=== PATIENT | male | born 1990 | race Caucasian/White ===

== ENCOUNTER 2022-12-23 21:25 | Inpatient (IN) | payer BC, SELFPAY ==
--- NOTE | ~2022-12-23 | US_ITS ---
EXAMINATION: ULTRASOUND LOWER EXTREMITY ARTERIAL, LEFT COLOR-FLOW DUPLEX IMAGING OF THE LEFT LOWER EXTREMITY ARTERIAL SYSTEM. VELOCITY MEASUREMENTS THROUGHOUT THE FEMORAL ARTERIES. CLINICAL INFORMATION: Cold numbness evaluate for arterial thrombus COMPARISON: None. FINDINGS: LEFT FEMORAL RUNOFF VELOCITIES: The left common femoral artery measures 81cm/s and is triphasic. The left profunda femoral artery measures 74cm/s and is triphasic. Left proximal superficial femoral artery measures 73 cm/s and is triphasic. Mid superficial femoral artery measures 77cm/s and is triphasic. Distal left superficial femoral artery [id number] and is triphasic. Left popliteal velocity measures 52cm/s and is triphasic. Posterior tibial velocity is 71cm/s and flow is triphasic. Peroneal velocity is 29 cm/s and flow is triphasic. Contralateral common femoral artery is patent. Left CHULA: Not obtained US/US arterial duplex LE IMPRESSION: Patency of all visualized vasculature of the left lower extremity with triphasic waveforms throughout.
--- NOTE | ~2022-12-23 | XR_ITS ---
EXAMINATION: XR CHEST CLINICAL INFORMATION: Concern for pneumonia. COMPARISON: 04/15/2009. TECHNIQUE: Frontal view of the chest was obtained. FINDINGS: The cardiomediastinal silhouette is normal. There is no focal lung consolidation or pleural effusion. The bony structures and soft tissues are unremarkable. XR/XR chest 1V IMPRESSION: No active cardiopulmonary disease.
--- NOTE | ~2022-12-23 | CT_ITS ---
EXAMINATION: CT FEMUR LT WITH IV CONTRAST CLINICAL INFORMATION: Trauma. COMPARISON: None available. TECHNIQUE: Contiguous axial noncontrast CT scan images of the left femur obtained. Sagittal and coronal reformatted images also obtained. 85 mL of Omnipaque 350 used as contrast. This CT examination was performed using dose optimization techniques as appropriate, variously including the following: *Automated exposure control *Adjustment of mA and/or kV according to patient size (this includes techniques or standardized protocols for targeted exams where dose is matched to indication/reason for exam; i.e. extremities or head) *Use of iterative reconstruction technique DLP: 408 mGy-cm FINDINGS: The bone mineralization is within normal limits. There is no fracture. The vascular structures are within normal limits. There is a heterogeneous collection along the lower anterior medial quadriceps covering an area approximately 8.5 x 4.[address]/CT femur LT w IV con IMPRESSION: No acute osseous abnormality. There is a low-density collection along the lower anterior medial quadriceps measuring 8.4 x 4.3 x 3.4 cm possibly related to a muscular injury with hemorrhage.
--- NOTE | 2022-12-23 21:30 | ECG_ITS ---
Test Reason : od Blood Pressure : / mmHG Vent. Rate : 071 BPM Atrial Rate : 071 BPM P-R Int : 164 ms QRS Dur : 074 ms QT Int : 436 ms P-R-T Axes : 078 087 077 degrees QTc Int : 473 ms Normal sinus rhythm with sinus arrhythmia Nonspecific ST abnormality Abnormal ECG When compared with ECG of 15-APR-2009 01:22, No significant changes seen Referred By: Sarthak Jama Electronically Signed By:Salomon Seals
[2022-12-23 21:32] VITALS: BMI 19.4
[2022-12-23 21:44] VITALS: BP 110/76; PULSE 76; RESP 12; TEMP 34.1; O2SAT 95
[2022-12-23 21:44] LABS: MANUAL DIFF FLAG NO
[2022-12-23 21:45] LABS: Basophils Percent Auto 0.3 % (0-2); Hematocrit 25.7 % (42.0-52.0); Hemoglobin 8.4 g/dl (14.0-18.0); Imm Gran Abs Auto 0.06 X10*3/uL (0.00-0.03); Imm Gran Pct Auto 0.5 % (0.0-0.4); Lymphocytes Absolute Auto 0.7 X10*3/uL (1.2-4.9); Mean Corpuscular HGB Conc 32.7 g/dl (31.0-36.0); Mean Corpuscular Hemoglobin 31.6 pg (27.0-33.0); Mean Corpuscular Volume 96.6 fL (80.0-98.0); Mean Platelet Volume 9.2 fL (9.4-12.4); Monocytes Absolute Auto 0.5 X10*3/uL (0.1-1.2); Monocytes Percent Auto 4.2 % (2-11); Neutrophils Absolute Auto 10.3 x10*3/uL (2.0-8.3); Platelet Count 190 X10*3/uL (160-400); Red Blood Count 2.66 X10*6/uL (4.60-5.80); White Blood Count 11.5 X10*3/uL (4.8-10.8)
--- NOTE | 2022-12-23 21:56 | PC.NURSE ---
pt temp 93.3 rectally. MD mike aware. This RN and BEE Romeo placed patient on bearhugger to increase temp. Pt is apologetic and very cooperative with staff at this time
[2022-12-23 22:07] LABS: Anion Gap 21 (12-20); Blood Urea Nitrogen 36 mg/dL (9-16); Calcium 9.4 mg/dL (8.4-10.2); Carbon Dioxide 31 mmol/L (22-29); Chloride 95 mmol/L (96-108); Creatinine Clr Calc Pharmacy 67.9; Estimated Glomerular Filt Rate 59; Glucose Random 228 mg/dL (60-115); Potassium 3.1 mmol/L (3.3-5.1); Sodium 144 mmol/L (135-145)
--- NOTE | 2022-12-23 22:13 | MHC.EDTECH ---
Patients belongings were taken by security and stored in [facility] due to OD.
[2022-12-23 22:36] LABS: Lactic Acid 4.9 mmol/L (0.5-2.0)
--- NOTE | 2022-12-23 22:43 | ED.OVERDOSE ---
HPI - Overdose General Chief Complaint: Overdose Stated Complaint: OD Time Seen by Provider: 12/23/22 21:47 Source: patient Mode of arrival: ambulatory Limitations: no limitations History of Present Illness HPI Narrative: Patient With history of substance abuse use IV oxycodone in the past but today used heroin for the 1st time usually shoot in feet, feeling sleepy since he arrived with saturation of 95% on room air blood pressure 110/76 pulse rate 76 rectal temperature 93.3 degrees Related Data Home Medications Medication Instructions Recorded Confirmed hydroxyzine HCl 50 mg tablet 50 mg PO BEDTIME 12/24/22 12/24/22 trazodone 50 mg tablet 100 mg PO BEDTIME 12/24/22 12/24/22 Allergies Allergy/AdvReac Type Severity Reaction Status Date / Time No Known Allergies Allergy Verified 12/23/22 22:38 Review of Systems Review of Systems: Yes all other systems are reviewed and are negative [facility] Social History Social History Alcohol intake: current Smoked in Last 30 Days: Yes Use of substances other than those prescribed or required for medical reasons: Yes Substance Use Type: Heroin Substance Use Frequency: Occasionally Last Used Substance: Just Prior to Admission Advance Directives: No Advance Directives Information Provided: No Physical Exam Vital Signs: Vital Signs: Last Vital Signs Temp 98.2 F 12/24/22 00:00 Pulse 86 12/24/22 00:00 Resp 12 12/24/22 00:00 BP 104/72 12/24/22 00:00 Pulse Ox 98 12/24/22 00:00 O2 Del Method Room Air 12/24/22 00:00 BMI result Body Mass Index 19.4 Appearance: Alert. Oriented X3. No acute distress. Eyes: Bilateral pupil 2 mm reacting to light No Nystagmus ENT: Pharynx normal. Oral Mucosa moist Neck: Normal inspection. Neck supple. CVS: Normal heart rate and rhythm. Pulses normal. Respiratory: No respiratory distress. Equal air entry bilateral, no wheezing/rales/rhonchi Abdomen: Soft and nontender. Bowel sounds are present, no mass palpable, no CVA tenderness Skin: Skin warm and dry. Normal skin color. Normal skin turgor. Extremities: No lower extremity edema. No calf tenderness IBD a jac on left foot no signs of infection Neuro: Oriented X 3. No motor deficit. No sensory deficit.No cerebellar signs , cranial nerves II-XII intact Medications Administered Discontinued Medications Generic Name Dose Route Start Last Admin Trade Name Terrance PRN Reason Stop Dose Admin Ceftriaxone Sodium 1 gm/ 50 mls @ 100 mls/hr 12/23/22 22:39 12/23/22 23:51 Sodium Chloride IV 12/23/22 23:08 Infused ONCE ONE Infusion Vancomycin HCl 1,500 mg/ 500 mls @ 333.333 mls/hr 12/23/22 22:45 12/24/22 01:37 Sodium Chloride IV 12/24/22 00:14 Infused ONCE ONE Infusion Potassium Chloride 10 meq in 100 mls @ 100 mls/hr 12/23/22 22:54 12/23/22 23:52 Potassium Chloride/H20 IV 12/23/22 23:53 Infused ONCE ONE Infusion Sodium Chloride 2,000 mls @ 2,000 mls/hr 12/23/22 22:54 12/24/22 00:06 Ns IV 12/23/22 23:53 Infused .Q1H STA Infusion Medical Decision Making Medical Decision Making [facility] Narrative: Patient with abnormal labs with the care IV high-grade goes of 228 with lactic acid level of 4.9, POC was only 98 will recheck chemistry 3 mg showed POC of 72 with lactic acid of 2.4. Patient complaining of pain in the left rectus femoris area with slight swelling says that he was in the van in awkward position for last 4 hours. No swelling of the calf area complaining of tingling in whole foot. Neurovascular intact no hyperesthesia clinically patient not in compartment syndrome likely muscular pain from rhabdomyolysis. Will recheck CPK Dr. Jeronimo will re-evaluate the patient Differential Diagnosis Differential Diagnoses: The differential diagnosis associated with the presentation includes Bacteremia/sepsis prior IVDA use/rhabdomyolysis/compartment syndrome Consult Healthcare Provider Management of the patient was discussed with: Hospitalist Lab Data [facility] Lab Attestation statement: I reviewed the patient's lab results. 12/23/22 21:40 12/23/22 21:40 Labs: Lab Results 12/23/22 12/23/22 12/23/22 Range/Units 21:40 21:40 21:40 WBC 11.5 H (4.8-10.8) X10*3/uL RBC 2.66 L (4.60-5.80) X10*6/uL Hgb 8.4 L (14.0-18.0) g/dl Hct 25.7 L (42.0-52.0) % MCV 96.6 (80.0-98.0) fL MCH 31.6 (27.0-33.0) pg MCHC 32.7 (31.0-36.0) g/dl RDW 12.0 (11.0-16.0) % Plt Count 190 (160-400) X10*3/uL MPV 9.2 L (9.4-12.4) fL Immature Gran % (Auto) 0.5 H (0.0-0.4) % Neut % (Auto) 89.0 H (45-73) % Lymph % (Auto) 6.0 L (20-40) % [place] % (Auto) 4.2 (2-11) % Eos % (Auto) 0.0 (0-4) % Baso % (Auto) 0.3 (0-2) % Lymph # (Auto) 0.7 L (1.2-4.9) X10*3/uL [place] # (Auto) 0.5 (0.1-1.2) X10*3/uL Eos # (Auto) 0.0 (0.0-0.4) X10*3/uL Baso # (Auto) 0.0 (0.0-0.2) X10*3/uL Abs Immat Gran (auto) 0.06 H (0.00-0.03) X10*3/uL Absolute Neuts (auto) 10.3 H (2.0-8.3) x10*3/uL Absolute Nucleated RBC 0.000 (0.0-0.012) X10*3/uL Nucleated RBC % (auto) 0.0 (0.0-0.2) /100WBC Sodium 144 (135-145) mmol/L Potassium 3.1 L (3.3-5.1) mmol/L Chloride 95 L (96-108) mmol/L Carbon Dioxide 31 H (22-29) mmol/L Anion Gap 21 H (12-20) BUN 36 H (9-16) mg/dL Creatinine 1.42 H (0.5-1.4) mg/dL Estim Creat Clear Calc 67.9 Estimated GFR 59 POC Glucose (60-115) mg/dL Random Glucose 228 H (60-115) mg/dL Lactic Acid (0.5-2.0) mmol/L Calcium 9.4 (8.4-10.2) mg/dL Total Creatine Kinase 956 H (38-174) U/L Troponin I High Sens 4.0 (<3.5-35.0) ng/L COVID-19 ([facility]) (Negative) COVID-19 Clin Com 12/23/22 12/23/22 12/23/22 Range/Units 21:40 23:00 23:11 WBC 14.0 H (4.8-10.8) X10*3/uL RBC 4.14 L D (4.60-5.80) X10*6/uL Hgb 12.8 L D (14.0-18.0) g/dl Hct 38.3 L D (42.0-52.0) % MCV 92.5 (80.0-98.0) fL MCH 30.9 (27.0-33.0) pg MCHC 33.4 (31.0-36.0) g/dl RDW 12.0 (11.0-16.0) % Plt Count 245 D (160-400) X10*3/uL MPV 8.6 L (9.4-12.4) fL Immature Gran % (Auto) 0.4 (0.0-0.4) % Neut % (Auto) 86.6 H (45-73) % Lymph % (Auto) 6.2 L (20-40) % [place] % (Auto) 6.7 (2-11) % Eos % (Auto) 0.0 (0-4) % Baso % (Auto) 0.1 (0-2) % Lymph # (Auto) 0.9 L (1.2-4.9) X10*3/uL [place] # (Auto) 0.9 (0.1-1.2) X10*3/uL Eos # (Auto) 0.0 (0.0-0.4) X10*3/uL Baso # (Auto) 0.0 (0.0-0.2) X10*3/uL Abs Immat Gran (auto) 0.06 H (0.00-0.03) X10*3/uL Absolute Neuts (auto) 12.1 H (2.0-8.3) x10*3/uL Absolute Nucleated RBC 0.000 (0.0-0.012) X10*3/uL Nucleated RBC % (auto) 0.0 (0.0-0.2) /100WBC Sodium (135-145) mmol/L Potassium (3.3-5.1) mmol/L Chloride (96-108) mmol/L Carbon Dioxide (22-29) mmol/L Anion Gap (12-20) BUN (9-16) mg/dL Creatinine (0.5-1.4) mg/dL Estim Creat Clear Calc Estimated GFR POC Glucose 98 (60-115) mg/dL Random Glucose (60-115) mg/dL Lactic Acid 4.9 H* (0.5-2.0) mmol/L Calcium (8.4-10.2) mg/dL Total Creatine Kinase (38-174) U/L Troponin I High Sens (<3.5-35.0) ng/L COVID-19 ([facility]) (Negative) COVID-19 Clin Com 12/23/22 12/23/22 12/24/22 Range/Units 23:11 23:11 00:45 WBC (4.8-10.8) X10*3/uL RBC (4.60-5.80) X10*6/uL Hgb (14.0-18.0) g/dl Hct (42.0-52.0) % MCV (80.0-98.0) fL MCH (27.0-33.0) pg MCHC (31.0-36.0) g/dl RDW (11.0-16.0) % Plt Count (160-400) X10*3/uL MPV (9.4-12.4) fL Immature Gran % (Auto) (0.0-0.4) % Neut % (Auto) (45-73) % Lymph % (Auto) (20-40) % [place] % (Auto) (2-11) % Eos % (Auto) (0-4) % Baso % (Auto) (0-2) % Lymph # (Auto) (1.2-4.9) X10*3/uL [place] # (Auto) (0.1-1.2) X10*3/uL Eos # (Auto) (0.0-0.4) X10*3/uL Baso # (Auto) (0.0-0.2) X10*3/uL Abs Immat Gran (auto) (0.00-0.03) X10*3/uL Absolute Neuts (auto) (2.0-8.3) x10*3/uL Absolute Nucleated RBC (0.0-0.012) X10*3/uL Nucleated RBC % (auto) (0.0-0.2) /100WBC Sodium 147 H (135-145) mmol/L Potassium 3.6 (3.3-5.1) mmol/L Chloride 96 (96-108) mmol/L Carbon Dioxide 38 H (22-29) mmol/L Anion Gap 17 (12-20) BUN 37 H (9-16) mg/dL Creatinine 1.23 (0.5-1.4) mg/dL Estim Creat Clear Calc 78.5 Estimated GFR > 60 POC Glucose (60-115) mg/dL Random Glucose 72 (60-115) mg/dL Lactic Acid 2.4 H* (0.5-2.0) mmol/L Calcium 9.3 (8.4-10.2) mg/dL Total Creatine Kinase (38-174) U/L Troponin I High Sens (<3.5-35.0) ng/L COVID-19 ([facility]) Negative (Negative) COVID-19 Clin Com See Note Discharge Plan Discharge Clinical Impression: Drug overdose, Acute renal failure due to rhabdomyolysis Patient Disposition: Admitted As Inpatient
[2022-12-23 22:59] VITALS: BP 107/68; PULSE 88; RESP 16; TEMP 36.2; O2SAT 99
[2022-12-23] MEDS: Potassium Chloride/H20 10 MEQ/100 ML PIGGYBACK 100 MEQ IV (23:17)
[2022-12-23] MEDS: cefTRIAXone sodium 1 GM in 0.9 % Sodium Chloride 50 ML IV (23:17)
[2022-12-23 23:18] LABS: MANUAL DIFF FLAG NO
[2022-12-23] MEDS: 0.9 % Sodium Chloride 2,000 ML 2000 ML IV (23:18)
[2022-12-23 23:19] LABS: Basophils Percent Auto 0.1 % (0-2); Hematocrit 38.3 % (42.0-52.0); Hemoglobin 12.8 g/dl (14.0-18.0); Imm Gran Abs Auto 0.06 X10*3/uL (0.00-0.03); Imm Gran Pct Auto 0.4 % (0.0-0.4); Lymphocytes Absolute Auto 0.9 X10*3/uL (1.2-4.9); Lymphocytes Percent Auto 6.2 % (20-40); Mean Corpuscular HGB Conc 33.4 g/dl (31.0-36.0); Mean Corpuscular Hemoglobin 30.9 pg (27.0-33.0); Mean Corpuscular Volume 92.5 fL (80.0-98.0); Mean Platelet Volume 8.6 fL (9.4-12.4); Monocytes Absolute Auto 0.9 X10*3/uL (0.1-1.2); Monocytes Percent Auto 6.7 % (2-11); Neutrophils Absolute Auto 12.1 x10*3/uL (2.0-8.3); Neutrophils Percent Auto 86.6 % (45-73); Platelet Count 245 X10*3/uL (160-400); Red Blood Count 4.14 X10*6/uL (4.60-5.80)
[2022-12-23 23:19] LABS: Glucose, Whole Blood 98 mg/dL (60-115)
[2022-12-23 23:30] VITALS: BP 106/67; PULSE 78; RESP 15; TEMP 36.7; O2SAT 100
[2022-12-23 23:34] LABS: Lactic Acid 2.4 mmol/L (0.5-2.0)
[2022-12-23 23:36] LABS: Anion Gap 17 (12-20); Blood Urea Nitrogen 37 mg/dL (9-16); Calcium 9.3 mg/dL (8.4-10.2); Carbon Dioxide 38 mmol/L (22-29); Chloride 96 mmol/L (96-108); Creatinine Clr Calc Pharmacy 78.5; Estimated Glomerular Filt Rate > 60; Glucose Random 72 mg/dL (60-115); Potassium 3.6 mmol/L (3.3-5.1); Sodium 147 mmol/L (135-145)
[2022-12-23 23:43] LABS: Reflex Lactate? Lactic Acid Added
[2022-12-24] VITALS: BP 104/72; PULSE 86; RESP 12; TEMP 36.8; O2SAT 98
[2022-12-24] MEDS: vancomycin HCL 1,500 MG in 0.9 % Sodium Chloride 500 ML 333.33 MG IV (00:06)
[2022-12-24 01:02] LABS: COVID-19 Test Negative (Negative); IDNOW Serial# 6674DD1D
[2022-12-24 01:16] LABS: Reflex Lactate? Lactic Acid Added
[2022-12-24 02:10] LABS: ~Lactic Acid-LAB USE ONLY 2.9 mmol/L (0.5-2.0)
[2022-12-24] MEDS: 0.9 % Sodium Chloride 1,000 ML 200 ML IVCONT (02:24)
[2022-12-24 02:26] VITALS: BP 94/66; PULSE 68; RESP 12; TEMP 36.8; O2SAT 98
--- NOTE | 2022-12-24 02:38 | PC.NURSE ---
Pts left quad appears to be contracted slightly with mild swelling, it appears better than first arrival. Pt reports it feels slightly more relieved at this time
--- NOTE | 2022-12-24 02:39 | PC.NURSE ---
pt has maintenance fluids running at this time, attempting to get some rest, mother at bedside. No apparent distress
[2022-12-24] MEDS: iohexoL 350 MG/ML 100 ML INFUS..BTL 85 ML IV (02:51)
--- NOTE | 2022-12-24 02:55 | PC.NURSE ---
DO Lolo aware of pts elevated CPK, verbal order to increase fluids to 250ml/hr. Pt verbliazes understanding of plan of care at this time
[2022-12-24 03:46] LABS: Reflex Lactate? 2 Y
--- NOTE | 2022-12-24 03:59 | MHC.EDTECH ---
Lactic acid not needed at this time per Dr Jeronimo.
--- NOTE | 2022-12-24 04:55 | PM.CNGS ---
History of Present Illness Consult details Consult date: 12/24/22 Narrative: 32-year-old male patient presenting to the emergency department approximately 21:00 yesterday after being down for several hours. He reports injecting heroin in his left foot and subsequently passing out in his car which was parked in the [facility] parking lot. He is uncertain how many hours he was in the car in the same position but woke up with his left leg initially having sharp pain in the foot. He now reports decreased sensation in the foot to light touch. He is able to move his foot at the ankle and we will his toes and no longer has the pain in the foot. On examination he was noted to have swelling at the vastus medialis raising concern of a possible compartment syndrome. Review of Systems Review of Systems: Yes all other systems are reviewed and are negative Constitutional: Constitutional: Reports body ache(s), Denies chills, Denies night sweats and Reports weakness Cardiovascular: Cardiovascular: Denies dyspnea Respiratory: Respiratory: Denies cough and Denies dyspnea Gastrointestinal: Gastrointestinal: Denies abdominal pain Musculoskeletal: Musculoskeletal: Reports as per HPI, Reports abnormal gait, Reports muscle cramps and Reports numbness Neurologic: Reports abnormal gait, Reports numbness and Reports weakness PMFSH Social History Social History Alcohol intake: current Smoked in Last 30 Days: Yes Use of substances other than those prescribed or required for medical reasons: Yes Substance Use Type: Heroin Substance Use Frequency: Occasionally Last Used Substance: Just Prior to Admission Advance Directives: No Advance Directives Information Provided: No Meds Allergies Allergy/AdvReac Type Severity Reaction Status Date / Time No Known Allergies Allergy Verified 12/23/22 22:38 Active Medications: Current Medications Sodium Chloride (Ns) 1,000 mls @ 200 mls/hr IVCONT .Q5H VALERIE Stop: 12/24/22 06:59 Last Infusion: 12/24/22 02:56 Dose: 250 mls/hr Home Medications Medication Instructions Recorded Confirmed Last Taken Type hydroxyzine HCl 50 mg tablet 50 mg PO BEDTIME 12/24/22 12/24/22 12/22/22 History trazodone 50 mg tablet 100 mg PO BEDTIME 12/24/22 12/24/22 12/22/22 History Physical Exam Vital Signs: Vital Signs: Last Vital Signs Temp 98.2 F 12/24/22 02:26 Pulse 68 12/24/22 02:26 Resp 12 12/24/22 02:26 BP 94/66 12/24/22 02:26 Pulse Ox 98 12/24/22 02:26 O2 Del Method Room Air 12/24/22 02:26 BMI result Body Mass Index 19.4 Const: General: healthy appearing, alert and anxious Nutritional Appearance: average body habitus Orientation/consciousness: patient oriented x3 HEENT: Head: Yes normocephalic and Yes atraumatic Ears: hearing grossly normal bilaterally Resp: Effort & Inspection: normal respiratory effort, no audible wheezes, no cough and no respiratory distress GI: Inspection: Yes normal to inspection Palpation (GI): Soft to palpation Skin: Other: Warm, dry, no rash Neuro: General: patient oriented x3 Extrem: Other: left leg with spasm of the vastus medialis muscle, muscle able to be compressed. Remaining muscle groups are very soft and pliable. Palpable popliteal pulse. Skin is cool at the foot but symmetrical bilaterally. Calf muscles are very soft and pliable. The patient actively wiggles toes flexes and extends foot at the ankle and raises leg off the bed without difficulty or pain. Palpable dorsalis pedis pulse. Knee images: 1. Spasm of the vastus medialis muscle left leg Results Labs 12/23/22 23:11 12/23/22 23:11 Labs: Abnormal lab results 12/23/22 12/23/22 12/23/22 Range/Units 21:40 21:40 21:40 WBC 11.5 H (4.8-10.8) X10*3/uL RBC 2.66 L (4.60-5.80) X10*6/uL Hgb 8.4 L (14.0-18.0) g/dl Hct 25.7 L (42.0-52.0) % MPV 9.2 L (9.4-12.4) fL Immature Gran % (Auto) 0.5 H (0.0-0.4) % Neut % (Auto) 89.0 H (45-73) % Lymph % (Auto) 6.0 L (20-40) % Lymph # (Auto) 0.7 L (1.2-4.9) X10*3/uL Abs Immat Gran (auto) 0.06 H (0.00-0.03) X10*3/uL Absolute Neuts (auto) 10.3 H (2.0-8.3) x10*3/uL Sodium (135-145) mmol/L Potassium 3.1 L (3.3-5.1) mmol/L Chloride 95 L (96-108) mmol/L Carbon Dioxide 31 H (22-29) mmol/L Anion Gap 21 H (12-20) BUN 36 H (9-16) mg/dL Creatinine 1.42 H (0.5-1.4) mg/dL Random Glucose 228 H (60-115) mg/dL Lactic Acid 4.9 H* (0.5-2.0) mmol/L Lactic Acid F/U @ 2Hr (0.5-2.0) mmol/L Total Creatine Kinase 956 H (38-174) U/L 12/23/22 12/23/22 12/23/22 Range/Units 23:11 23:11 23:11 WBC 14.0 H (4.8-10.8) X10*3/uL RBC 4.14 L D (4.60-5.80) X10*6/uL Hgb 12.8 L D (14.0-18.0) g/dl Hct 38.3 L D (42.0-52.0) % MPV 8.6 L (9.4-12.4) fL Immature Gran % (Auto) (0.0-0.4) % Neut % (Auto) 86.6 H (45-73) % Lymph % (Auto) 6.2 L (20-40) % Lymph # (Auto) 0.9 L (1.2-4.9) X10*3/uL Abs Immat Gran (auto) 0.06 H (0.00-0.03) X10*3/uL Absolute Neuts (auto) 12.1 H (2.0-8.3) x10*3/uL Sodium 147 H (135-145) mmol/L Potassium (3.3-5.1) mmol/L Chloride (96-108) mmol/L Carbon Dioxide 38 H (22-29) mmol/L Anion Gap (12-20) BUN 37 H (9-16) mg/dL Creatinine (0.5-1.4) mg/dL Random Glucose (60-115) mg/dL Lactic Acid 2.4 H* (0.5-2.0) mmol/L Lactic Acid F/U @ 2Hr (0.5-2.0) mmol/L Total Creatine Kinase (38-174) U/L 12/24/22 12/24/22 Range/Units 01:44 02:22 WBC (4.8-10.8) X10*3/uL RBC (4.60-5.80) X10*6/uL Hgb (14.0-18.0) g/dl Hct (42.0-52.0) % MPV (9.4-12.4) fL Immature Gran % (Auto) (0.0-0.4) % Neut % (Auto) (45-73) % Lymph % (Auto) (20-40) % Lymph # (Auto) (1.2-4.9) X10*3/uL Abs Immat Gran (auto) (0.00-0.03) X10*3/uL Absolute Neuts (auto) (2.0-8.3) x10*3/uL Sodium (135-145) mmol/L Potassium (3.3-5.1) mmol/L Chloride (96-108) mmol/L Carbon Dioxide (22-29) mmol/L Anion Gap (12-20) BUN (9-16) mg/dL Creatinine (0.5-1.4) mg/dL Random Glucose (60-115) mg/dL Lactic Acid (0.5-2.0) mmol/L Lactic Acid F/U @ 2Hr 2.9 H* (0.5-2.0) mmol/L Total Creatine Kinase 4170 H (38-174) U/L Short CBC 12/23/22 12/23/22 Range/Units 21:40 23:11 WBC 11.5 H 14.0 H (4.8-10.8) X10*3/uL Hgb 8.4 L 12.8 L D (14.0-18.0) g/dl Hct 25.7 L 38.3 L D (42.0-52.0) % Plt Count 190 245 D (160-400) X10*3/uL BMP 12/23/22 12/23/22 21:40 23:11 Sodium 144 147 H Potassium 3.1 L 3.6 Chloride 95 L 96 Carbon Dioxide 31 H 38 H BUN 36 H 37 H Creatinine 1.42 H 1.23 Calcium 9.4 9.3 Cardiac Enzymes 12/23/22 12/24/22 Range/Units 21:40 02:22 Total Creatine Kinase 956 H 4170 H (38-174) U/L All other labs normal. Assessment and Plan (1) Drug overdose: Status: Acute (2) Elevated CPK: Status: Acute Plan 32-year-old male patient with recent drug overdose after injecting heroin in his left foot now with evidence of muscle spasm in the left vastus medialis. Remaining muscle groups are soft with no evidence of compartment syndrome. patient does have some reduction of sensation at the foot but has good motor function . There is no evidence of vascular injury. recommend supportive care this time. Would not recommend fasciotomy but will continue to monitor. Time Spent With Patient Time: Total time managing care of this patient today ____ minutes. Procedures Date of Service Date of Service: 12/24/22
[2022-12-24] MEDS: Lidocaine 4 % Patch ADH..PATCH 2 PATCH TRANSDERMA (05:16)
[2022-12-24 05:30] VITALS: BP 97/66; PULSE 70; RESP 14; TEMP 36.8; O2SAT 98
--- NOTE | 2022-12-24 05:45 | P.HPHOSP_ITS ---
History of Present Illness Date of Service: 12/24/22 Chief Complaint: IV drug use, overdose This 32-year-old male with history of IV drug use initially was on IV oxycodone, comes into the hospital today after abusing heroin for the 1st time. Patient is lethargic but stays awake long enough to tell me the story. 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 After using a, he had a very strange sensation, and fell asleep in the car. His mother ventrally called him, and he was able to wake up to tell her that he is not doing well and he was brought into the hospital. Patient reports that he was in the back of his car for about 5 hours in the same position, he denies having any trouble breathing, no chest pain, has some nausea no vomiting, no abdominal pain, no diarrhea constipation, no urinary symptoms, but does complain of left medial upper leg swelling and pain. He describes the pain as 10/10, radiating down his leg, associated with numbness and tingling, has difficulty wiggling his toes. on arriva to the Ed pt HDS except for a tempt of 93.3. He was placed on [place] hugger with temp normalizing. Labs are sig for:WBC count of 16, Hgb of 8.4, That significantly improved on repeat of labs, Cr Of 1.4, lactic acid of 4.9, CPK of 956, chest x-ray shows no active cardiopulmonary disease Femur CT shows low-density collection along the lower anterior medial quadriceps measuring 8.4 x 4.3 x 3.4 cm related muscle injury with hemorrhage, patient was evaluated by surgery for possible in syndrome, this time there is no concern, patient will be admitted for further management Review of Systems Review of Systems: Yes all other systems are reviewed and are negative [facility] Medical History IV drug abuse Surgical History No pertinent past surgical history Social History Alcohol intake: current Patient Tobacco Use Status: Never used Tobacco Smoked in Last 30 Days: Yes Use of substances other than those prescribed or required for medical reasons: Yes Substance Use Type: Heroin Substance Use Frequency: Occasionally Last Used Substance: Just Prior to Admission Advance Directives: No Advance Directives Information Provided: No Nutrition Risks: No Nutritional Risk Meds Allergies Allergy/AdvReac Type Severity Reaction Status Date / Time No Known Allergies Allergy Verified 12/23/22 22:38 Active Medications: Current Medications Acetaminophen (Acetaminophen 325 Mg Tablet) 650 mg PO Q6H PRN PRN Reason: Pain, Mild (Pain Scale 1-3) Docusate Sodium (Docusate Sodium 100 Mg Capsule) 100 mg PO DAILY PRN PRN Reason: Constipation Enoxaparin Sodium (Enoxaparin Sodium 40 Mg/0.4 Ml Syringe) 40 mg SUBCUT Q24H COUNTS INCLUDE 234 BEDS AT THE [facility] Sodium Chloride (Ns) 1,000 mls @ 200 mls/hr IVCONT .Q5H COUNTS INCLUDE 234 BEDS AT THE [facility] Stop: 12/24/22 06:59 Last Infusion: 12/24/22 02:56 Dose: 250 mls/hr Ondansetron HCl (Ondansetron Hcl 4 Mg/2 Ml Vial) 4 mg IVPUSH Q8H PRN PRN Reason: Nausea and Vomiting Sodium Chloride (0.9 % Sodium Chloride Flush 3 Ml Syringe) 3 ml IVFLUSH QSHIFT COUNTS INCLUDE 234 BEDS AT THE [facility] Home Medications Medication Instructions Recorded Confirmed Last Taken Type hydroxyzine HCl 50 mg tablet 50 mg PO BEDTIME 12/24/22 12/24/22 12/22/22 History trazodone 50 mg tablet 100 mg PO BEDTIME 12/24/22 12/24/22 12/22/22 History Physical Exam Vital Signs and Narrative: Vital Signs: Last Vital Signs Temp 98.3 F 12/24/22 05:30 Pulse 70 12/24/22 05:30 Resp 14 12/24/22 05:30 BP 97/66 12/24/22 05:30 Pulse Ox 98 12/24/22 05:30 O2 Del Method Room Air 12/24/22 05:30 BMI result Body Mass Index 19.4 Const: General: cooperative and no acute distress Orientation/consciousness: patient oriented x3 Eyes: General: appearance normal, both eyes and all related structures Pupils: Equal, round and reactive pupils present Resp: Effort & Inspection: normal respiratory effort Auscultation: clear to auscultation bilaterally Cardio: Rate: regular rate Rhythm: regular rhythm GI: Palpation (GI): Soft to palpation Auscultation: normal bowel sounds Skin: General skin exam: no rashes or lesions noted Neuro: General: patient oriented x3 Cranial nerves: Yes Equal, round and reactive pupils present Cognition (Neuro): normal cognition Extrem: Other: left lower extremity edema in the medial aspect of for leg, tender to minimal touch General: Yes normal to inspection and Yes no pedal edema Results Labs 12/23/22 23:11 12/23/22 23:11 Labs: Laboratory Results - last 24 hr 12/23/22 12/23/22 12/23/22 21:40 21:40 21:40 MCV 96.6 MCH 31.6 MCHC 32.7 RDW 12.0 Plt Count 190 MPV 9.2 L Immature Gran % (Auto) 0.5 H Neut % (Auto) 89.0 H Lymph % (Auto) 6.0 L Hernando % (Auto) 4.2 Eos % (Auto) 0.0 Baso % (Auto) 0.3 Lymph # (Auto) 0.7 L Hernando # (Auto) 0.5 Eos # (Auto) 0.0 Baso # (Auto) 0.0 Abs Immat Gran (auto) 0.06 H Absolute Neuts (auto) 10.3 H Absolute Nucleated RBC 0.000 Nucleated RBC % (auto) 0.0 Anion Gap 21 H Estim Creat Clear Calc 67.9 Estimated GFR 59 POC Glucose Random Glucose 228 H Lactic Acid 4.9 H* Lactic Acid F/U @ 2Hr Calcium 9.4 Total Creatine Kinase 956 H COVID-19 ([facility]) COVID-19 Clin Com 12/23/22 12/23/22 12/23/22 23:00 23:11 23:11 MCV 92.5 MCH 30.9 MCHC 33.4 RDW 12.0 Plt Count 245 D MPV 8.6 L Immature Gran % (Auto) 0.4 Neut % (Auto) 86.6 H Lymph % (Auto) 6.2 L Hernando % (Auto) 6.7 Eos % (Auto) 0.0 Baso % (Auto) 0.1 Lymph # (Auto) 0.9 L Hernando # (Auto) 0.9 Eos # (Auto) 0.0 Baso # (Auto) 0.0 Abs Immat Gran (auto) 0.06 H Absolute Neuts (auto) 12.1 H Absolute Nucleated RBC 0.000 Nucleated RBC % (auto) 0.0 Anion Gap 17 Estim Creat Clear Calc 78.5 Estimated GFR > 60 POC Glucose 98 Random Glucose 72 Lactic Acid Lactic Acid F/U @ 2Hr Calcium 9.3 Total Creatine Kinase COVID-19 ([facility]) COVID-19 Clin Com 12/23/22 12/24/22 12/24/22 23:11 00:45 01:44 MCV MCH MCHC RDW Plt Count MPV Immature Gran % (Auto) Neut % (Auto) Lymph % (Auto) Hernando % (Auto) Eos % (Auto) Baso % (Auto) Lymph # (Auto) Hernando # (Auto) Eos # (Auto) Baso # (Auto) Abs Immat Gran (auto) Absolute Neuts (auto) Absolute Nucleated RBC Nucleated RBC % (auto) Anion Gap Estim Creat Clear Calc Estimated GFR POC Glucose Random Glucose Lactic Acid 2.4 H* Lactic Acid F/U @ 2Hr 2.9 H* Calcium Total Creatine Kinase COVID-19 ([facility]) Negative COVID-19 [employer] Com See Note 12/24/22 02:22 MCV MCH MCHC RDW Plt Count MPV Immature Gran % (Auto) Neut % (Auto) Lymph % (Auto) Hernando % (Auto) Eos % (Auto) Baso % (Auto) Lymph # (Auto) Hernando # (Auto) Eos # (Auto) Baso # (Auto) Abs Immat Gran (auto) Absolute Neuts (auto) Absolute Nucleated RBC Nucleated RBC % (auto) Anion Gap Estim Creat Clear Calc Estimated GFR POC Glucose Random Glucose Lactic Acid Lactic Acid F/U @ 2Hr Calcium Total Creatine Kinase 4170 H COVID-19 ([facility]) COVID-19 Clin Com Imaging Radiologist's Impressions: Impressions Chest X-Ray 12/24/22 01:20 IMPRESSION: No active cardiopulmonary disease. Femur CT 12/24/22 02:55 IMPRESSION: No acute osseous abnormality. There is a low-density collection along the lower anterior medial quadriceps measuring 8.4 x 4.3 x 3.4 cm possibly related to a muscular injury with hemorrhage. Assessment and Plan (1) Drug overdose: Status: Acute (2) Elevated CPK: Status: Acute (3) Acute renal failure due to rhabdomyolysis: Status: Acute (4) Rhabdomyolysis: Status: Acute (5) Muscle injury: Status: Acute Plan 32-year-old male with past medical history of IV drug use usually uses oxycodone, now has transition to using heroin for the 1st time comes in after overdose. # IV drug overdose - accidental - no evidence of aspiration, - has lactic acidosis likely secondary to hypoxia? versus hypothermia - continue to monitor closely - care team consulted # rhabdomyolysis/muscle injury /elevated CPK - patient has elevated CPK, with swelling of the medial aspect of upper leg concerning for potential compartment syndrome - patient evaluated by surgery, at this time does not have any concern for comp artment, will monitor closely, and will undergo fasciotomy versus surgical intervention if needed by surgery - will continue IV fluids - repeat CPK - monitor BMP - CT scan showing possible also injury secondary to hemorrhage # lactic acidosis - likely secondary to dehydration versus hypoxia - IV fluids - trend # ION - improving - likely secondary to dehydration - will treat with IV fluids - follow BMP DVT prophylaxis: SCDs patient's need for further management patient require minimum 2 night inpatient hospital stay for further management and monitoring Time Spent With Patient Time: Total time managing care of this patient today ____ minutes. Quality Stroke Does the patient have a stroke diagnosis?: No VTE Prior VTE?: No VTE Risk Level:: Medical - moderate - high VTE Device Contraindication: Treatment Not Indicated VTE Drug Contraindication: N/A - Med Ordered
[2022-12-24 05:48] LABS: Basophils Percent Auto 0.2 % (0-2); Hematocrit 32.9 % (42.0-52.0); Hemoglobin 11.1 g/dl (14.0-18.0); Imm Gran Abs Auto 0.05 X10*3/uL (0.00-0.03); Imm Gran Pct Auto 0.4 % (0.0-0.4); Lymphocytes Percent Auto 8.1 % (20-40); MANUAL DIFF FLAG NO; Mean Corpuscular HGB Conc 33.7 g/dl (31.0-36.0); Mean Corpuscular Volume 94.8 fL (80.0-98.0); Mean Platelet Volume 9.7 fL (9.4-12.4); Monocytes Absolute Auto 0.7 X10*3/uL (0.1-1.2); Monocytes Percent Auto 5.2 % (2-11); Neutrophils Absolute Auto 10.8 x10*3/uL (2.0-8.3); Neutrophils Percent Auto 86.1 % (45-73); Platelet Count 226 X10*3/uL (160-400); Red Blood Count 3.47 X10*6/uL (4.60-5.80); Red Cell Distribution Width 12.1 % (11.0-16.0); White Blood Count 12.5 X10*3/uL (4.8-10.8)
[2022-12-24 06:10] LABS: Anion Gap 14 (12-20); Blood Urea Nitrogen 28 mg/dL (9-16); Calcium 8.1 mg/dL (8.4-10.2); Carbon Dioxide 29 mmol/L (22-29); Chloride 101 mmol/L (96-108); Creatinine Clr Calc Pharmacy 112.2; Estimated Glomerular Filt Rate > 60; Glucose Random 83 mg/dL (60-115); Potassium 3.3 mmol/L (3.3-5.1); Sodium 141 mmol/L (135-145)
[2022-12-24] MEDS: Lactated Ringers 1,000 ML 200 ML IVCONT ×4 (06:33→20:51)
[2022-12-24] MEDS: 0.9 % Sodium Chloride Flush 3 ML SYRINGE IVFLUSH ×3 (07:21→19:32)
--- NOTE | 2022-12-24 07:34 | PHA.MEDREC ---
Pharmacy Consult ? Medication Reconciliation Pharmacy has completed the medication reconciliation. Reviewed med rec done by nursing
--- NOTE | 2022-12-24 07:57 | PC.NURSE ---
Patient stating that he has not eaten since thursday and requested for surgeon to be notified of this. Message sent to surgeon who stated ok ay to d/c npo/ Breakfast tray brought to patient who then stated he didn't think he should eat until seen again by surgeon. Message sent to surgeon about decreased sensation in leg, increase in swelling, and increase in pain. Patient attempted to stand but unable to bear full weight on left leg.
--- NOTE | 2022-12-24 08:35 | PC.NURSE ---
Denies SI but states that hates himself right now because of the choices that he made yesterday. Patient requesting to bee seen by care team. Order placed.
[2022-12-24] MEDS: Acetaminophen 325 MG TABLET 650 MG PO ×2 (09:09→20:50)
--- NOTE | 2022-12-24 09:11 | PC.NURSE ---
Patient requesting for fluids to be stopped, seen by provider and patient educated why fluids can not be stopped. Medicated with prn tylenol for complaints of 8/10 left leg pain.
--- NOTE | 2022-12-24 09:33 | PM.EVENT ---
Event Note Date of Service: 12/24/22 Event Note: Seen and evaluated this morning CPK went up but Cr corrected to normal complaining of numbness LLE surgery evaluation; softer, no evidence of compartment at this point Continue IVF monitor CPK pain management Time Spent With Patient Time: Total time managing care of this patient today ____ minutes.
[2022-12-24] MEDS: Morphine Sulfate 2 MG/ML CARTRIDGE IVPUSH ×4 (10:22→23:51)
--- NOTE | 2022-12-24 10:28 | PC.NURSE ---
Patient reporting that tylenol only had some effectiveness with leg pain. medicated with prn morphine , pending effectiveness at this time. Father at bedside
--- NOTE | 2022-12-24 11:04 | PC.NURSE ---
Resting comfortably, father at bedside. Care team to see patient once medically cleared
--- NOTE | 2022-12-24 12:00 | PC.NURSE ---
Patient reporting that left leg has decrease sensation. Upon assessment patient able to wiggle toes, push and pull against hand. Patient with no sensation below knee. Left buttocks with swelling. Patient stating feels as though he has increased pressure in leg. Provider aware stating an atrial study will be done, and will see patient later. Patient and family aware of place of care and in agreement. Patient and family aware that care team will see him when he has been medically cleared. Care team aware of family concerns regarding mental health.
[2022-12-24] MEDS: oxyCODONE HCl Immed Release 5 MG TABLET PO ×2 (13:36→20:50)
--- NOTE | 2022-12-24 14:59 | MHC.RECOVRN ---
This jingle writer went to meet with patient, patient presented to ED for IV heroin use, oversedation, leg pain. When entered room, patient sleeping with eye mask on. Pts Mother at bedside. This jingle writer introduced self/role to Mother, gave Mother contact information to Addiction/Recovery team. Pts Mother reports, pt had been using illicit Oxycodone in [place], pt returned home in [facility] 2 weeks [employer], seeking mental health and substance use support. Pts Mother reports feels pt meets dual diagnosis criteria, is interested in dual dx resources/supports. Addiction/Recovery team to return to bedside when pt alert to obtain Substance Use Hx.
--- NOTE | 2022-12-24 15:09 | PC.NURSE ---
Alert and oriented, medicated for left leg pain. Left leg warm to touch. Able to plantar and dorsi flex without difficulty. No sensation below knee. Ultasound at bedside
--- NOTE | 2022-12-24 16:22 | PC.NURSE ---
ultrasound results reviewed with patient and mother. Patient continues to states poor sensation in leg. Able to feel touch below left knee, reports feels pressure in left knee. Buttocks non-tender, thigh non-tender.
--- NOTE | 2022-12-24 17:53 | PC.NURSE ---
Report called to accepting unit, transport notified
[2022-12-24 19:43] VITALS: BP 122/80; PULSE 73; RESP 20; TEMP 36.4; O2SAT 99; BMI 21.9
[2022-12-24] MEDS: traZODone HCL 100 MG TABLET PO (20:50)
[2022-12-24] MEDS: hydrOXYzine HCL 50 MG TABLET PO (20:50)
[2022-12-25] VITALS (10 sets, daily range): BP systolic 104–123; BP diastolic 54–85; PULSE 61–77; RESP 14–20; TEMP 35.7–36.8; O2SAT 96–100
[2022-12-25] MEDS: oxyCODONE HCl Immed Release 5 MG TABLET PO ×3 (03:00→12:24)
[2022-12-25] MEDS: Lactated Ringers 1,000 ML 200 ML IVCONT ×4 (03:01→20:47)
[2022-12-25] MEDS: Morphine Sulfate 2 MG/ML CARTRIDGE IVPUSH ×3 (05:03→14:45)
--- NOTE | 2022-12-25 08:45 | P.PNGS_ITS ---
Subjective Subjective Date of Service: 12/25/22 Interval history: Continues to report numbness at the foot; continued swelling. Physical Exam Vital Signs: Vital Signs: Last Vital Signs Temp 97.3 F 12/25/22 07:27 Pulse 64 12/25/22 07:27 Resp 20 12/25/22 07:27 BP 107/59 L 12/25/22 07:27 Pulse Ox 96 12/25/22 07:27 O2 Del Method Room Air 12/25/22 07:27 BMI result Body Mass Index 21.9 Const: General: no acute distress and anxious Nutritional Appearance: thin Orientation/consciousness: patient oriented x3 Limitations: ambulation with walker Resp: Effort & Inspection: normal respiratory effort Skin: Other: warm and dry Neuro: General: patient oriented x3 Extrem: Other: left leg, less spasm at vastus medialis, minimal swelling in the lateral thigh. Palpable pulse at pop, DP/PT. Normal ROM at ankle and toes. Continued loss of light touch at plantar surface. Psych: Speech and movement: Pressured speech present Affect: Anxious affect present Attitude: cooperative Objective Data Active Medications Acetaminophen (Acetaminophen 325 Mg Tablet) 650 mg PO Q6H PRN PRN Reason: Pain, Mild (Pain Scale 1-3) Last Admin: 12/24/22 20:50 Dose: 650 mg Documented By: CRISTIAN Docusate Sodium (Docusate Sodium 100 Mg Capsule) 100 mg PO DAILY PRN PRN Reason: Constipation Hydroxyzine HCl (Hydroxyzine Hcl 50 Mg Tablet) 50 mg PO BEDTIME [facility] Last Admin: 12/24/22 20:50 Dose: 50 mg Documented By: CRISTIAN Lactated Ringer's (Lr) 1,000 mls @ 200 mls/hr IVCONT .Q5H [facility] Last Admin: 12/25/22 07:36 Dose: 200 mls/hr Documented By: YVON Morphine Sulfate (Morphine Sulfate 2 Mg/Ml Cartridge) 2 mg IVPUSH Q4H PRN; Protocol PRN Reason: Pain, Severe (Pain Scale 7-10) Last Admin: 12/25/22 05:03 Dose: 2 mg Documented By: CRISTIAN Ondansetron HCl (Ondansetron Hcl 4 Mg/2 Ml Vial) 4 mg IVPUSH Q8H PRN PRN Reason: Nausea and Vomiting Oxycodone HCl (Oxycodone Hcl Immed Release 5 Mg Tablet) 5 mg PO Q4H PRN PRN Reason: Pain, Moderate(Pain Scale 4-6) Last Admin: 12/25/22 07:36 Dose: 5 mg Documented By: YVON Sodium Chloride (0.9 % Sodium Chloride Flush 3 Ml Syringe) 3 ml IVFLUSH QSHIFT [facility] Last Admin: 12/25/22 07:36 Dose: Not Given Documented By: YVON Non-Admin Reason: IV Running Trazodone HCl (Trazodone Hcl 100 Mg Tablet) 100 mg PO BEDTIME [facility] Last Admin: 12/24/22 20:50 Dose: 100 mg Documented By: TONEYP Labs 12/24/22 05:25 12/24/22 05:25 Microbiology Microbiology Results: Microbiology 12/23/22 23:11 Blood Culture - Preliminary Blood - Venous No growth after 24 hours. 12/23/22 23:11 Blood Culture - Preliminary Blood - Venous No growth after 24 hours. Procedures Date of Service Date of Service: 12/25/22 Progress Note: A&P Assessment and plan (1) Muscle injury: Status: Acute (2) Elevated CPK: Status: Acute Plan s/p drug overdose, down for 5-6 hours, presenting with numbness in the left foot. Found to have a possible hematoma in the left vastus medialis. Examination today reveals soft compartments in the left thigh and calf. No evid ence of compartment syndrome. Normal strength at ankle and toes. Continue supportive care. Time Spent With Patient Time: Total time managing care of this patient today ____ minutes. Quality Stroke Does the patient have a stroke diagnosis?: No VTE Prior VTE?: No VTE Risk Level:: Medical - moderate - high VTE Device Contraindication: Treatment Not Indicated VTE Drug Contraindication: N/A - Med Ordered
[2022-12-25 08:47] LABS: Anion Gap 9 (12-20); Blood Urea Nitrogen 19 mg/dL (9-16); Calcium 8.6 mg/dL (8.4-10.2); Carbon Dioxide 32 mmol/L (22-29); Chloride 107 mmol/L (96-108); Creatinine Clr Calc Pharmacy 159.7; Estimated Glomerular Filt Rate > 60; Glucose Random 73 mg/dL (60-115); Sodium 144 mmol/L (135-145)
--- NOTE | 2022-12-25 09:25 | MHC.CM.PN ---
CM MET WITH PT AT BEDSIDE. PT IS CURRENTLY LIVING WITH PARENTS, HAD JUST RELOCATED FROM [facility]. INDEPENDENT AT BASELINE, WAS WORKING F/T IN N.. A NURSE. DOES NOT HAVE A HCP BUT WILLING TO DO ONE. + COVID VAX X4 NO PCP, [facility] BROCHURE PROVIDED. DP: HOME WITH OUTPATIENT SERVICES FOR P.T. AND MENTAL HEALTH. FAMILY WILL TRANSPORT HOME ON DC. CM WILL CONTINUE TO FOLLOW FOR DC PLAN/NEEDS.
--- NOTE | 2022-12-25 09:30 | HO.PM.IMPN ---
Subjective Subjective Date of Service: 12/25/22 Physical Exam Vital Signs: Vital Signs: Last Vital Signs Temp 97.3 F 12/25/22 07:27 Pulse 64 12/25/22 09:09 Resp 20 12/25/22 07:27 BP 107/59 L 12/25/22 09:09 Pulse Ox 96 12/25/22 09:09 O2 Del Method Room Air 12/25/22 07:27 BMI result Body Mass Index 21.9 Objective Data Active Medications Acetaminophen (Acetaminophen 325 Mg Tablet) 650 mg PO Q6H PRN PRN Reason: Pain, Mild (Pain Scale 1-3) Last Admin: 12/24/22 20:50 Dose: 650 mg Documented By: CRISTIAN Docusate Sodium (Docusate Sodium 100 Mg Capsule) 100 mg PO DAILY PRN PRN Reason: Constipation Hydroxyzine HCl (Hydroxyzine Hcl 50 Mg Tablet) 50 mg PO BEDTIME [facility] Last Admin: 12/24/22 20:50 Dose: 50 mg Documented By: CRISTIAN Lactated Ringer's (Lr) 1,000 mls @ 200 mls/hr IVCONT .Q5H [facility] Last Admin: 12/25/22 07:36 Dose: 200 mls/hr Documented By: YVON Morphine Sulfate (Morphine Sulfate 2 Mg/Ml Cartridge) 2 mg IVPUSH Q4H PRN; Protocol PRN Reason: Pain, Severe (Pain Scale 7-10) Last Admin: 12/25/22 05:03 Dose: 2 mg Documented By: CRISTIAN Ondansetron HCl (Ondansetron Hcl 4 Mg/2 Ml Vial) 4 mg IVPUSH Q8H PRN PRN Reason: Nausea and Vomiting Oxycodone HCl (Oxycodone Hcl Immed Release 5 Mg Tablet) 5 mg PO Q4H PRN PRN Reason: Pain, Moderate(Pain Scale 4-6) Last Admin: 12/25/22 07:36 Dose: 5 mg Documented By: YVON Sodium Chloride (0.9 % Sodium Chloride Flush 3 Ml Syringe) 3 ml IVFLUSH QSHIFT [facility] Last Admin: 12/25/22 07:36 Dose: Not Given Documented By: YVON Non-Admin Reason: IV Running Trazodone HCl (Trazodone Hcl 100 Mg Tablet) 100 mg PO BEDTIME [facility] Last Admin: 12/24/22 20:50 Dose: 100 mg Documented By: CRISTIAN Labs 12/24/22 05:25 12/25/22 08:11 Labs: Laboratory Results - last 24 hr 12/25/22 12/25/22 08:11 08:11 Anion Gap 9 L Estim Creat Clear Calc 159.7 Estimated GFR > 60 Random Glucose 73 Calcium 8.6 D Total Creatine Kinase 32072 H Microbiology Microbiology Results: Microbiology 12/23/22 23:11 Blood Culture - Preliminary Blood - Venous No growth after 24 hours. 12/23/22 23:11 Blood Culture - Preliminary Blood - Venous No growth after 24 hours. Assessment and Plan (1) Rhabdomyolysis: Status: Acute (2) Muscle injury: Status: Acute (3) Elevated CPK: Status: Acute (4) Acute renal failure due to rhabdomyolysis: Status: Acute Plan 32-year-old male with past medical history of IV drug use usually uses oxycodone, now has transition to using heroin for the 1st time comes in after overdose. # IV drug overdose Accidental To get recovery team eval # rhabdomyolysis w [place] [address] Continue IVF follow BMP and CK # Mucle injury Concern of possible hematoma in Left vastus medialis mildly worse today with soft compartments but no evidence of compartment syndrome Normal strength in LE Morphine for pain surgery team following # Neuropathy Likely peripheral sensory injury from being out for 5-6 hours in one position arterial studies negative for clots will need PT # ION resolved DVT prophylaxis SCDs patient's need for further management patient require overnight inpatient hospital stay for further management and monitoring Time Spent With Patient Time: Total time managing care of this patient today ____ minutes. Quality Stroke Does the patient have a stroke diagnosis?: No VTE Prior VTE?: No VTE Risk Level:: Medical - moderate - high VTE Device Contraindication: Treatment Not Indicated VTE Drug Contraindication: N/A - Med Ordered
[2022-12-25] MEDS: Acetaminophen 325 MG TABLET 650 MG PO (09:36)
--- NOTE | 2022-12-25 10:42 | P.CONNP_ITS ---
History of Present Illness Reason for Consult Consult date: 12/25/22 Reason for consult: Rhabdomyolysis Chief Complaint Chief complaint: OD History of Present Illness Narrative: ?32-year-old male with history of IV drug use initially was on oxycodone, comes into the hospital today after abusing heroin for the 1st time.? .? 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 He was administered IV heroin in the left leg. he had a very strange sensation, and fell asleep in the car.? His mother ventrally called him, and he was able to wake up to tell her that he is not doing well and he was brought into the hospital.? Patient reports that he was in the back of his car for about 5 hours in the same position, At the time of admission CPK was 4000 which is increased to 136,000 today. He reports decreased urine output which is dark in color. He is currently receiving IV fluids. Serum creatinine has been stable at 0.6. Review of Systems Constitutional: Reports body ache(s), Denies chills, Denies night sweats and Reports weakness Cardiovascular: Denies dyspnea Respiratory: Denies cough and Denies dyspnea Gastrointestinal: Denies abdominal pain Musculoskeletal: Reports as per HPI, Reports abnormal gait, Reports muscle cramps and Reports numbness Reports abnormal gait, Reports numbness and Reports weakness PMFSH Past Medical History Medical History IV drug abuse Surgical History Surgical History No pertinent past surgical history Social History Social History Household Members: Family Household Members Other:: 2 Housing: House Do you presently have visiting nurse or other home services: No Alcohol intake: current Patient Tobacco Use Status: Never used Tobacco Substance Use Type: Heroin and Opiates service: No Meds Allergies Allergy/AdvReac Type Severity Reaction Status Date / Time No Known Allergies Allergy Verified 12/23/22 22:38 Active Medications: Current Medications Acetaminophen (Acetaminophen 325 Mg Tablet) 650 mg PO Q6H PRN PRN Reason: Pain, Mild (Pain Scale 1-3) Last Admin: 12/25/22 09:36 Dose: 650 mg Docusate Sodium (Docusate Sodium 100 Mg Capsule) 100 mg PO DAILY PRN PRN Reason: Constipation Hydroxyzine HCl (Hydroxyzine Hcl 50 Mg Tablet) 50 mg PO BEDTIME [facility] Last Admin: 12/24/22 20:50 Dose: 50 mg Lactated Ringer's (Lr) 1,000 mls @ 200 mls/hr IVCONT .Q5H [facility] Last Admin: 12/25/22 07:36 Dose: 200 mls/hr Morphine Sulfate (Morphine Sulfate 2 Mg/Ml Cartridge) 2 mg IVPUSH Q4H PRN; Protocol PRN Reason: Pain, Severe (Pain Scale 7-10) Last Admin: 12/25/22 09:37 Dose: 2 mg Ondansetron HCl (Ondansetron Hcl 4 Mg/2 Ml Vial) 4 mg IVPUSH Q8H PRN PRN Reason: Nausea and Vomiting Oxycodone HCl (Oxycodone Hcl Immed Release 5 Mg Tablet) 5 mg PO Q4H PRN PRN Reason: Pain, Moderate(Pain Scale 4-6) Last Admin: 12/25/22 07:36 Dose: 5 mg Sodium Chloride (0.9 % Sodium Chloride Flush 3 Ml Syringe) [facility] Last Admin: 12/25/22 07:36 Dose: Not Given Trazodone HCl (Trazodone Hcl 100 Mg Tablet) 100 mg PO BEDTIME [facility] Last Admin: 12/24/22 20:50 Dose: 100 mg Home Medications Medication Instructions Recorded Confirmed Last Taken Type hydroxyzine HCl 50 mg tablet 50 mg PO BEDTIME 12/24/22 12/24/22 12/22/22 History trazodone 50 mg tablet 100 mg PO BEDTIME 12/24/22 12/24/22 12/22/22 History Physical Exam Vital Signs: Last Vital Signs Temp 97.3 F 12/25/22 07:27 Pulse 64 12/25/22 09:09 Resp 20 12/25/22 07:27 BP 107/59 L 12/25/22 09:09 Pulse Ox 96 12/25/22 09:09 O2 Del Method Room Air 12/25/22 07:27 BMI result Body Mass Index 21.9 Const General: cooperative, healthy appearing, no acute distress, alert and anxious Nutritional Appearance: average body habitus and thin Orientation/consciousness: patient oriented x3 Limitations: ambulation with walker Eyes General: appearance normal, both eyes and all related structures Pupils: Equal, round and reactive pupils present Resp Effort & Inspection: normal respiratory effort, no audible wheezes, no cough and no respiratory distress Auscultation: clear to auscultation bilaterally Cardio Rate: regular rate Rhythm: regular rhythm GI Inspection: Yes normal to inspection Palpation (GI): Soft to palpation Auscultation: normal bowel sounds Skin Other: warm and dry General skin exam: no rashes or lesions noted Neuro General: patient oriented x3 Cranial nerves: Yes Equal, round and reactive pupils present Cognition (Neuro): normal cognition Extrem Other: left leg, less spasm at vastus medialis, minimal swelling in the lateral thigh. Palpable pulse at pop, DP/PT. Normal ROM at ankle and toes. Continued loss of light touch at plantar surface. General: Yes normal to inspection Results Lab Results 12/24/22 05:25 12/25/22 08:11 Lab results: Chemistry 12/23/22 12/23/22 12/24/22 21:40 23:11 05:25 Sodium 144 147 H 141 Potassium 3.1 L 3.6 3.3 Carbon Dioxide 31 H 38 H 29 BUN 36 H 37 H 28 H Creatinine 1.42 H 1.23 0.86 Calcium 9.4 9.3 8.1 L D 12/25/22 08:11 Sodium 144 Potassium 4.0 D Carbon Dioxide 32 H BUN 19 H Creatinine 0.68 Calcium 8.6 D Hematology 12/23/22 12/23/22 12/24/22 21:40 23:11 05:25 WBC 11.5 H 14.0 H 12.5 H Hgb 8.4 L 12.8 L D 11.1 L Plt Count 190 245 D 226 Assessment and Plan (1) Rhabdomyolysis: Status: Acute (2) Muscle injury: Status: Acute (3) Elevated CPK: Status: Acute (4) Acute renal failure due to rhabdomyolysis: Status: Acute Plan 32-year-old male with al history of IV drug use usually uses oxycodone, now has transition to using heroin for the 1st time comes in after overdose. # Rhabdomyolysis w elevated CPK Cr stable CPK still increasing to 295499 Check urinalysis. For now I would continue with IV hydration. If urine output decreases we can certainly administer a dose of Lasix. Monitor intake and output closely. Monitor serum creatinine calcium, phosphorus, potassium. There is no absolute indication for dialysis today however we will closely monitor Discussed with team and his mother. Time Spent With Patient Time: Total time managing care of this patient today ____ minutes. Procedures Date of Service Date of Service: 12/25/22
[2022-12-25 11:28] LABS: Alanine Aminotransferase 175 U/L (0-40); Alkaline Phosphatase 47 U/L (39-117); Aspartate Amino Transferase 411 U/L (5-37); Bilirubin Direct < 0.2 mg/dL (0.0-0.5); Bilirubin Total 0.2 mg/dL (0.0-1.0); Total Protein 5.3 g/dL (6.5-8.0)
[2022-12-25] MEDS: Furosemide 20 MG/2 ML VIAL IVPUSH (11:45)
--- NOTE | 2022-12-25 12:20 | PC.NURSE ---
Pt nurse came to this director underwriter sales concern that he took a screen shot of his labs with his cell phone. This director underwriter sales went to see patient with his primary nurse and he stated it did not take a photo when he attempted. educated that if he wants copies of his medical record he can request them from the medial records department.
[2022-12-25 15:18] LABS: Appearance Urine Clear; Color Urine Yellow; Glucose Urine UA Negative (Negative); Leukocyte Esterase Urine Negative (Negative); Nitrite Urine Negative (Negative); Urine Blood Negative (Negative); Urine Ketones Negative (Negative); Urine Protein Negative (Neg-Trace)
--- NOTE | 2022-12-25 15:44 | HO.SUDE ---
This financial writer met with patient to complete SUDE. Pt presented to the ED after first use of IV illicit heroin. 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 Pt reports overdosed in vehicle, 3pm-9pm. Pt reports at 9pm, came out of overdose and contact parents. Pt reports this was first time using illicit heroin. Pt reports first use, 2019, started using medical grade PO Oxycodone 5mg, increasing to 10mg, 15mg, 20mg and increased to daily use. Pt reports in 2022, using IV 20mg Oxycodone nightly. Pt reports last use of medical grade IV Oxycodone 20mg 12/11/22. Pt reports after IV Oxycodone use, had mild discomfort for 2 days, feeling under the weather. Pt denied physical withdrawal s/s. Pt reports 12/21, 12/22, increased stressors compounding. Pt reports this led to recurrence and first use of illicit heroin. Pt reports no hx of substance use treatment, no hx of recovery supports, no hx of medications for addiction treatment. Pt states goal of dual diagnosis program, interested in intensive outpatient. Pt states goal of addressing mental health conditions, depression,anxiety which led to substance use. Pt states has an interest in Suboxone. Pt states is comfortable. This financial writer let pt know, if interested in starting on BUP in hospital, Addiction/Recovery team can assist with this. Pt meeting with Neurologist when this financial writer left room, let pt will return tomorrow to check in. Pt agreeable. Reviewed findings with Provider Eliana Car.
--- NOTE | 2022-12-25 15:54 | PM.NEUROCN ---
History of Present Illness Data of Consult Service Date: 12/25/22 Primary Care Provider: Unknown Physician HPI Reason for consult: Leg weakness and numbness 40 years old man with the IV drug use who apparently use some drugs and slept in his car. When he woke up he did not feel well and leg was weak and came to hospital. He was noted to have tightness and swelling of left leg and he was complaining of numbness and weakness of the leg and this consultation was requested. He was also complaining of some back pain. His CPK level was high. Review of Systems Review of Systems: Active drug use [facility] Past Medical History Medical History IV drug abuse Surgical History Surgical History No pertinent past surgical history Social History Social History Household Members: Family Household Members Other:: 2 Housing: House Do you presently have visiting nurse or other home services: No Alcohol intake: current Patient Tobacco Use Status: Never used Tobacco Substance Use Type: Heroin and Opiates service: No Meds Allergies Allergy/AdvReac Type Severity Reaction Status Date / Time No Known Allergies Allergy Verified 12/23/22 22:38 Active Medications: Current Medications Acetaminophen (Acetaminophen 325 Mg Tablet) 650 mg PO Q6H PRN PRN Reason: Pain, Mild (Pain Scale 1-3) Last Admin: 12/25/22 09:36 Dose: 650 mg Docusate Sodium (Docusate Sodium 100 Mg Capsule) 100 mg PO DAILY PRN PRN Reason: Constipation Hydroxyzine HCl (Hydroxyzine Hcl 50 Mg Tablet) 50 mg PO BEDTIME [facility] Last Admin: 12/24/22 20:50 Dose: 50 mg Lactated Ringer's (Lr) 1,000 mls @ 200 mls/hr IVCONT .Q5H [facility] Last Admin: 12/25/22 12:24 Dose: 200 mls/hr Morphine Sulfate (Morphine Sulfate 2 Mg/Ml Cartridge) 2 mg IVPUSH Q4H PRN; Protocol PRN Reason: Pain, Severe (Pain Scale 7-10) Last Admin: 12/25/22 14:45 Dose: 2 mg Ondansetron HCl (Ondansetron Hcl 4 Mg/2 Ml Vial) 4 mg IVPUSH Q8H PRN PRN Reason: Nausea and Vomiting Oxycodone HCl (Oxycodone Hcl Immed Release 5 Mg Tablet) 10 mg PO Q4H PRN PRN Reason: Pain, Moderate(Pain Scale 4-6) Sodium Chloride (0.9 % Sodium Chloride Flush 3 Ml Syringe) 3 ml IVFLUSH QSHIFT [facility] Last Admin: 12/25/22 15:42 Dose: Not Given Trazodone HCl (Trazodone Hcl 100 Mg Tablet) 100 mg PO BEDTIME [facility] Last Admin: 12/24/22 20:50 Dose: 100 mg Home Medications Medication Instructions Recorded Confirmed Last Taken Type hydroxyzine HCl 50 mg tablet 50 mg PO BEDTIME 12/24/22 12/24/22 12/22/22 History trazodone 50 mg tablet 100 mg PO BEDTIME 12/24/22 12/24/22 12/22/22 History Physical Exam Vital Signs: Vital Signs: Last Vital Signs Temp 97.3 F 12/25/22 07:27 Pulse 64 12/25/22 09:09 Resp 20 12/25/22 07:27 BP 107/59 L 12/25/22 09:09 Pulse Ox 96 12/25/22 09:09 O2 Del Method Room Air 12/25/22 07:27 BMI result Body Mass Index 21.9 Neuro: Other: Alert and awake with normal spontaneity of speech fluency comprehension and somewhat hyperactive affect. Face is symmetrical. There is no obvious arm weakness. Right leg strength is full. He a has difficulty lifting his left leg against gravity and bending the leg at knee. He was able to wiggle toes but movement was slower compared to right. There was mild weakness of her left extensor hallucis longus and foot eversion inversion [place] and plantar flexion. Knee reflex on the left side was present and ankle reflex was not elicitable. Plantar was flat. His leg was quite tight and somewhat swollen specially anti area. Results Labs 12/24/22 05:25 12/25/22 08:11 Labs: BMP 12/25/22 08:11 Sodium 144 Potassium 4.0 D Chloride 107 Carbon Dioxide 32 H BUN 19 H Creatinine 0.68 Calcium 8.6 D Cardiac Enzymes 12/25/22 Range/Units 08:11 Total Creatine Kinase 38168 H (38-174) U/L Liver Function 12/25/22 Range/Units 08:11 Total Bilirubin 0.2 (0.0-1.0) mg/dL Direct Bilirubin < 0.2 (0.0-0.5) mg/dL AST 411 H (5-37) U/L ALT 175 H (0-40) U/L Alkaline Phosphatase 47 (39-117) U/L Albumin 3.0 L (3.5-5.0) g/dL Urine 12/25/22 Range/Units 14:54 Urine Color Yellow Urine Appearance Clear Urine pH 7.0 (5.0-9.0) Ur Specific [place] 1.020 (1.005-1.025) Urine Protein Negative (Neg-Trace) mg/dL Urine Glucose (UA) Negative (Negative) mg/dL Microbiology Microbiology Results: Microbiology 12/23/22 23:11 Blood - Venous Blood Culture - Preliminary No growth after 24 hours. 12/23/22 23:11 Blood - Venous Blood Culture - Preliminary No growth after 24 hours. Assessment and Plan (1) Compartment syndrome: Status: Acute 32 years old man who probably has left leg compartment syndrome from muscle injury related to rhabdomyolysis triggered by sleeping in and out posture after using elicit drugs. I recommend surgical procedure to prevent any neurological injury as there is already evidence of at least neurapraxia. Time Spent With Patient Time: Total time managing care of this patient today ____ minutes. Procedures Date of Service Date of Service: 12/25/22
--- NOTE | 2022-12-25 17:02 | MHC.SHP ---
Pre-Procedural Eval Section A Date of Service: 12/25/22 The patient is an INPATIENT: Yes Section B Chief Complaint: OD Allergies: Allergies Allergy/AdvReac Type Severity Reaction Status Date / Time No Known Allergies Allergy Verified 12/23/22 22:38 Plan Diagnosis/Plan: Unchanged I have reviewed the history and physical and performed a pertinent physical examination on my patient. No changes have occurred unless specified. Time Spent With Patient Time: Total time managing care of this patient today ____ minutes.
--- NOTE | 2022-12-25 18:55 | P.CONAN_ITS ---
[facility] Active Problems Active Problems: All Active Problems (Updated 12/25/22 @ 15:56 by Corwin Hallman MD) Compartment syndrome (Acute) Rhabdomyolysis (Acute) Muscle injury (Acute) Elevated CPK (Acute) Drug overdose (Acute) Acute renal failure due to rhabdomyolysis (Acute) Past Medical History Medical History IV drug abuse Family History Family history of problems with anesthesia: No Surgical History Surgical History No pertinent past surgical history History of Problems with Anesthesia: No Social History Social History Household Members: Family Household Members Other:: 2 Housing: House Do you presently have visiting nurse or other home services: No Alcohol intake: current Patient Tobacco Use Status: Never used Tobacco Substance Use Type: Heroin and Opiates service: No Meds Allergies Allergy/AdvReac Type Severity Reaction Status Date / Time No Known Allergies Allergy Verified 12/23/22 22:38 Active Medications: Current Medications Acetaminophen (Acetaminophen 325 Mg Tablet) 650 mg PO Q6H PRN PRN Reason: Pain, Mild (Pain Scale 1-3) Last Admin: 12/25/22 09:36 Dose: 650 mg Docusate Sodium (Docusate Sodium 100 Mg Capsule) 100 mg PO DAILY PRN PRN Reason: Constipation Hydroxyzine HCl (Hydroxyzine Hcl 50 Mg Tablet) 50 mg PO BEDTIME [facility] Last Admin: 12/24/22 20:50 Dose: 50 mg Lactated Ringer's (Lr) 1,000 mls @ 200 mls/hr IVCONT .Q5H [facility] Last Admin: 12/25/22 18:52 Dose: Not Given Morphine Sulfate (Morphine Sulfate 2 Mg/Ml Cartridge) 2 mg IVPUSH Q4H PRN; Protocol PRN Reason: Pain, Severe (Pain Scale 7-10) Last Admin: 12/25/22 14:45 Dose: 2 mg Ondansetron HCl (Ondansetron Hcl 4 Mg/2 Ml Vial) 4 mg IVPUSH Q8H PRN PRN Reason: Nausea and Vomiting Oxycodone HCl (Oxycodone Hcl Immed Release 5 Mg Tablet) 10 mg PO Q4H PRN PRN Reason: Pain, Moderate(Pain Scale 4-6) Sodium Chloride (0.9 % Sodium Chloride Flush 3 Ml Syringe) 3 ml IVFLUSH QSHIFT [facility] Last Admin: 12/25/22 15:42 Dose: Not Given Trazodone HCl (Trazodone Hcl 100 Mg Tablet) 100 mg PO BEDTIME [facility] Last Admin: 12/24/22 20:50 Dose: 100 mg Home Medications Medication Instructions Recorded Confirmed Last Taken Type hydroxyzine HCl 50 mg tablet 50 mg PO BEDTIME 12/24/22 12/24/22 12/22/22 History trazodone 50 mg tablet 100 mg PO BEDTIME 12/24/22 12/24/22 12/22/22 History Exam Exam Date and Time: December 25, [id number] Height,Weight and Vital Signs: Height 5 ft 11 in Weight 71.1 kg Last Vital Signs Temp 97.9 F 12/25/22 16:15 Pulse 76 12/25/22 16:15 Resp 16 12/25/22 16:15 BP 116/73 12/25/22 16:15 Pulse Ox 99 12/25/22 16:15 O2 Del Method Room Air 12/25/22 16:15 Pertinent Lab Results Pertinent Lab Results: Laboratory Tests 12/23/22 12/23/22 12/23/22 21:40 21:40 21:40 WBC 11.5 H RBC 2.66 L Hgb 8.4 L Hct 25.7 L MCV 96.6 MCH 31.6 MCHC 32.7 RDW 12.0 Plt Count 190 MPV 9.2 L Immature Gran % (Auto) 0.5 H Neut % (Auto) 89.0 H Lymph % (Auto) 6.0 L [place] % (Auto) 4.2 Eos % (Auto) 0.0 Baso % (Auto) 0.3 Lymph # (Auto) 0.7 L [place] # (Auto) 0.5 Eos # (Auto) 0.0 Baso # (Auto) 0.0 Abs Immat Gran (auto) 0.06 H Absolute Neuts (auto) 10.3 H Absolute Nucleated RBC 0.000 Nucleated RBC % (auto) 0.0 Sodium 144 Potassium 3.1 L Chloride 95 L Carbon Dioxide 31 H Anion Gap 21 H BUN 36 H Creatinine 1.42 H Estim Creat Clear Calc 67.9 Estimated GFR 59 POC Glucose Random Glucose 228 H Lactic Acid Lactic Acid F/U @ 2Hr Calcium 9.4 Phosphorus Total Bilirubin Direct Bilirubin AST ALT Alkaline Phosphatase Total Creatine Kinase 956 H Troponin I High Sens 4.0 Total Protein Albumin Urine Color Urine Appearance Urine pH Ur Specific [place] Urine Protein Urine Glucose (UA) Urine Ketones Urine Blood Urine Nitrite Ur Leukocyte Esterase COVID-19 ([facility]) COVID-19 Clin Com 12/23/22 12/23/22 12/23/22 21:40 23:00 23:11 WBC 14.0 H RBC 4.14 L D Hgb 12.8 L D Hct 38.3 L D MCV 92.5 MCH 30.9 MCHC 33.4 RDW 12.0 Plt Count 245 D MPV 8.6 L Immature Gran % (Auto) 0.4 Neut % (Auto) 86.6 H Lymph % (Auto) 6.2 L [place] % (Auto) 6.7 Eos % (Auto) 0.0 Baso % (Auto) 0.1 Lymph # (Auto) 0.9 L [place] # (Auto) 0.9 Eos # (Auto) 0.0 Baso # (Auto) 0.0 Abs Immat Gran (auto) 0.06 H Absolute Neuts (auto) 12.1 H Absolute Nucleated RBC 0.000 Nucleated RBC % (auto) 0.0 Sodium Potassium Chloride Carbon Dioxide Anion Gap BUN Creatinine Estim Creat Clear Calc Estimated GFR POC Glucose 98 Random Glucose Lactic Acid 4.9 H* Lactic Acid F/U @ 2Hr Calcium Phosphorus Total Bilirubin Direct Bilirubin AST ALT Alkaline Phosphatase Total Creatine Kinase Troponin I High Sens Total Protein Albumin Urine Color Urine Appearance Urine pH Ur Specific [place] Urine Protein Urine Glucose (UA) Urine Ketones Urine Blood Urine Nitrite Ur Leukocyte Esterase COVID-19 ([facility]) COVID-19 Clin Com 12/23/22 12/23/22 12/24/22 23:11 23:11 00:45 WBC RBC Hgb Hct MCV MCH MCHC RDW Plt Count MPV Immature Gran % (Auto) Neut % (Auto) Lymph % (Auto) [place] % (Auto) Eos % (Auto) Baso % (Auto) Lymph # (Auto) [place] # (Auto) Eos # (Auto) Baso # (Auto) Abs Immat Gran (auto) Absolute Neuts (auto) Absolute Nucleated RBC Nucleated RBC % (auto) Sodium 147 H Potassium 3.6 Chloride 96 Carbon Dioxide 38 H Anion Gap 17 BUN 37 H Creatinine 1.23 Estim Creat Clear Calc 78.5 Estimated GFR > 60 POC Glucose Random Glucose 72 Lactic Acid 2.4 H* Lactic Acid F/U @ 2Hr Calcium 9.3 Phosphorus Total Bilirubin Direct Bilirubin AST ALT Alkaline Phosphatase Total Creatine Kinase Troponin I High Sens Total Protein Albumin Urine Color Urine Appearance Urine pH Ur Specific [place] Urine Protein Urine Glucose (UA) Urine Ketones Urine Blood Urine Nitrite Ur Leukocyte Esterase COVID-19 ([facility]) Negative COVID-19 Clin Com See Note 12/24/22 12/24/22 12/24/22 01:44 02:22 05:25 WBC 12.5 H RBC 3.47 L Hgb 11.1 L Hct 32.9 L MCV 94.8 MCH 32.0 MCHC 33.7 RDW 12.1 Plt Count 226 MPV 9.7 Immature Gran % (Auto) 0.4 Neut % (Auto) 86.1 H Lymph % (Auto) 8.1 L [place] % (Auto) 5.2 Eos % (Auto) 0.0 Baso % (Auto) 0.2 Lymph # (Auto) 1.0 L [place] # (Auto) 0.7 Eos # (Auto) 0.0 Baso # (Auto) 0.0 Abs Immat Gran (auto) 0.05 H Absolute Neuts (auto) 10.8 H Absolute Nucleated RBC 0.000 Nucleated RBC % (auto) 0.0 Sodium Potassium Chloride Carbon Dioxide Anion Gap BUN Creatinine Estim Creat Clear Calc Estimated GFR POC Glucose Random Glucose Lactic Acid Lactic Acid F/U @ 2Hr 2.9 H* Calcium Phosphorus Total Bilirubin Direct Bilirubin AST ALT Alkaline Phosphatase Total Creatine Kinase 4170 H Troponin I High Sens Total Protein Albumin Urine Color Urine Appearance Urine pH Ur Specific [place] Urine Protein Urine Glucose (UA) Urine Ketones Urine Blood Urine Nitrite Ur Leukocyte Esterase COVID-19 ([facility]) COVID-19 Clin Com 12/24/22 12/24/22 12/25/22 05:25 05:25 08:11 WBC RBC Hgb Hct MCV MCH MCHC RDW Plt Count MPV Immature Gran % (Auto) Neut % (Auto) Lymph % (Auto) [place] % (Auto) Eos % (Auto) Baso % (Auto) Lymph # (Auto) [place] # (Auto) Eos # (Auto) Baso # (Auto) Abs Immat Gran (auto) Absolute Neuts (auto) Absolute Nucleated RBC Nucleated RBC % (auto) Sodium 141 144 Potassium 3.3 4.0 D Chloride 101 107 Carbon Dioxide 29 32 H Anion Gap 14 9 L BUN 28 H 19 H Creatinine 0.86 0.68 Estim Creat Clear Calc 112.2 159.7 Estimated GFR > 60 > 60 POC Glucose Random Glucose 83 73 Lactic Acid Lactic Acid F/U @ 2Hr Calcium 8.1 L D 8.6 D Phosphorus 2.0 L Total Bilirubin 0.2 Direct Bilirubin < 0.2 AST 411 H ALT 175 H Alkaline Phosphatase 47 Total Creatine Kinase 9765 H Troponin I High Sens Total Protein 5.3 L Albumin 3.0 L Urine Color Urine Appearance Urine pH Ur Specific [place] Urine Protein Urine Glucose (UA) Urine Ketones Urine Blood Urine Nitrite Ur Leukocyte Esterase COVID-19 ([facility]) COVID-19 [employer] 12/25/22 12/25/22 08:11 14:54 WBC RBC Hgb Hct MCV MCH MCHC RDW Plt Count MPV Immature Gran % (Auto) Neut % (Auto) Lymph % (Auto) [place] % (Auto) Eos % (Auto) Baso % (Auto) Lymph # (Auto) [place] # (Auto) Eos # (Auto) Baso # (Auto) Abs Immat Gran (auto) Absolute Neuts (auto) Absolute Nucleated RBC Nucleated RBC % (auto) Sodium Potassium Chloride Carbon Dioxide Anion Gap BUN Creatinine Estim Creat Clear Calc Estimated GFR POC Glucose Random Glucose Lactic Acid Lactic Acid F/U @ 2Hr Calcium Phosphorus Total Bilirubin Direct Bilirubin AST ALT Alkaline Phosphatase Total Creatine Kinase 89900 H Troponin I High Sens Total Protein Albumin Urine Color Yellow Urine Appearance Clear Urine pH 7.0 Ur Specific [place] 1.020 Urine Protein Negative Urine Glucose (UA) Negative Urine Ketones Negative Urine Blood Negative Urine Nitrite Negative Ur Leukocyte Esterase Negative COVID-19 ([facility]) COVID-19 [employer] Airway Mallampati Class: I TM Dist: >3cm Neck ROM: Full Heart: RRR Lungs: CTA Assessment and Plan Assessment Anesthesia Assessment: Anesthesia Plan Discussed Final Anesthetic Review Family History of Problems with Anesthesia: No History of Problems with Anesthesia: No NPO: No ASA Class: II and Emergency Final Preanesthetic Review: Meds/Allgs Chart Reviewed, Consent Obtained/Reviewed and Anes Risks/Benef Reviewed Patient Risk: Low Procedure Risk: Low Anesthetic Plan Anesthetic Plan: GA Disposition: Standard PACU
--- NOTE | 2022-12-25 19:24 | PC.NURSE ---
1615-pt arrived to preop for LLE fasciotomy. Preop checklist completed, marked by surgeon. Pt c/o LLE numbness and throbbing pain 01/25. (+) doppler pulses to AT/PT/DP only; no pulses palpable.
--- NOTE | 2022-12-25 19:25 | W.PM.OPN ---
Operative Note Operative Note Date of Service: 12/25/22 Narrative: Preoperative diagnosis: left leg compartment syndrome Postoperative diagnosis: same Procedure: left leg fasciotomy at calf and thigh Surgeon: Parish Costa MD Certified Family Mediator: Moses New MD Anesthesia: general endotracheal Indications for procedure: 32-year-old male patient with a recent history of drug overdose sitting with pain and swelling in right thigh a found to have decreased sensation at the plantar surface of the left foot. Over the subsequent 24 hours patient developed increased swelling in the thigh and calf with rehydration. the CP levels were increasing incision made to proceed to fasciotomy. Operative findings: Evidence of increased compartment pressure in the medial calf in lateral thigh but healthy /viable muscle. Specimen: none Estimated blood loss: 50 mL Complications: none Procedure details: patient was brought to the OR placed in supine position. After administering general anesthesia patient's left leg was prepped and draped in a sterile fashion. A surgical time-out was called in the consent confirmed. Patient received preoperative antibiotics and Venodyne boots were placed on the right leg. Beginning on the left calf a generous longitudinal incision was created along the medial border just below the posterior margin of the tibia. The incision was carried down through subcutaneous tissue up to the muscle fascia. Posterior medial fascia was incised with electrocautery. Hemostasis was assured using free ties of 3-0 Polysorb suture. Inner fascia was also incised just behind the tibia and extended superior and inferiorly with Metzenbaum scissors. Muscle was found to be somewhat edematous however was quite viable. Attention was then directed to the lateral component. Once again a longitudinal incision was made approximately 2 fingerbreadths behind the tibia. This was extended down into the subcutaneous tissue up to the fascia. Once again fascia was incised both anteriorly and posteriorly using electrocautery. Normal appearing muscle was identified without significant pressure. Muscle was healthy appearing. The fasciotomy was extended superiorly and inferiorly using Metzenbaum scissors and electrocautery. Decision was made to proceed to a left thigh fasciotomy. A longitudinal incision was made in the lateral thigh and carried out through subcutaneous tissue. Hemostasis was assured using electrocautery. Fascia was then incised with electrocautery and Metzenbaum scissors. The posterior compartment was also opened by elevating the skin over the fascia and retracting the lateral compartment superiorly. Fascia was incised using electrocautery and hemostasis assured using electrocautery. Once again the muscle appeared normal in both compartments with no evidence of necrosis. All 3 wounds were then dressed with Xeroform followed by ABD pads and Kerlix. The patient tolerated the procedure well. Sponge, instrument, and needle counts reported as correct. The patient was transferred to PACU in stable condition.
[2022-12-25] MEDS: Acetaminophen 1,000 MG/100 ML PIGGYBACK 400 MG IV (20:21)
[2022-12-25] MEDS: 0.9 % Sodium Chloride Flush 3 ML SYRINGE IVFLUSH (20:47)
[2022-12-25] MEDS: oxyCODONE HCl Immed Release 5 MG TABLET 10 MG PO (21:17)
[2022-12-25] MEDS: traZODone HCL 100 MG TABLET PO (21:17)
[2022-12-25] MEDS: hydrOXYzine HCL 50 MG TABLET PO (21:17)
--- NOTE | 2022-12-25 21:38 | PC.NURSE ---
pt's family concerned about the SI, which is pt told them before going to OR. He will kill himself tonight. Dr. Hatfield notified and charge nurse Lizette. this nurse discuss with pt and family about 1:1 sitter. pt refused to have a sitter, he allowed to have telemonitor. pt states that I will promise that I don't do anything until Thursday, I promise to Thursday . will CONT to monitor his mental status. care team will see him in the morning. When pt came up from the PACU, checked his popliteal, dorsalis pedis, posterior tibial pulses is detectable pulse; 2+, slightly diminished, skin is warm to touch, dressing is clean intact, no drainage. right leg has normal; 3+. pt states that when I touch the toes feels like ants moving. slightly diminish the sensation. will CONT monitor s/s and any changes.
[2022-12-26] VITALS (7 sets, daily range): BP systolic 98–137; BP diastolic 51–91; PULSE 58–80; RESP 16–18; TEMP 36.2–36.8; O2SAT 95–100
[2022-12-26] MEDS: Lactated Ringers 1,000 ML 200 ML IVCONT ×3 (01:00→11:50)
[2022-12-26] MEDS: Morphine Sulfate 2 MG/ML CARTRIDGE IVPUSH ×2 (01:00→05:08)
[2022-12-26] MEDS: oxyCODONE HCl Immed Release 5 MG TABLET 10 MG PO ×6 (02:19→23:55)
[2022-12-26] MEDS: Acetaminophen 325 MG TABLET 650 MG PO ×2 (05:13→11:49)
[2022-12-26 07:53] LABS: Anion Gap 9 (12-20); Blood Urea Nitrogen 17 mg/dL (9-16); Calcium 8.5 mg/dL (8.4-10.2); Carbon Dioxide 30 mmol/L (22-29); Chloride 105 mmol/L (96-108); Creatinine Clr Calc Pharmacy 167.1; Estimated Glomerular Filt Rate > 60; Glucose Random 94 mg/dL (60-115); Potassium 4.3 mmol/L (3.3-5.1); Sodium 140 mmol/L (135-145)
--- NOTE | 2022-12-26 07:53 | PM.PNGS ---
Subjective Subjective Date of Service: 12/26/22 Interval history: Patient reports feeling improved this morning with improved sensation at the foot. He denies any new complaints. Physical Exam Vital Signs: Vital Signs: Last Vital Signs Temp 97.9 F 12/26/22 03:15 Pulse 66 12/26/22 03:15 Resp 16 12/26/22 03:15 BP 98/54 L 12/26/22 03:15 Pulse Ox 96 12/26/22 03:15 O2 Del Method Room Air 12/26/22 03:15 BMI result Body Mass Index 21.9 Const: General: well developed and anxious Nutritional Appearance: well nourished Orientation/consciousness: patient oriented x3 Resp: Effort & Inspection: normal respiratory effort GI: Inspection: Yes Abdominal wall edema Neuro: General: patient oriented x3 Extrem: Other: Left leg fasciotomy incisions reveals some bloody discharge. Dressings were changed and clean ABD and Kerlix dressings applied. Patient tolerated dressing change very well. Objective Data Active Medications Acetaminophen (Acetaminophen 325 Mg Tablet) 650 mg PO Q6H PRN PRN Reason: Pain, Mild (Pain Scale 1-3) Last Admin: 12/26/22 05:13 Dose: 650 mg Documented By: CRISTIAN Docusate Sodium (Docusate Sodium 100 Mg Capsule) 100 mg PO DAILY PRN PRN Reason: Constipation Hydroxyzine HCl (Hydroxyzine Hcl 50 Mg Tablet) 50 mg PO BEDTIME [facility] Last Admin: 12/25/22 21:17 Dose: 50 mg Documented By: CRISTIAN Lactated Ringer's (Lr) 1,000 mls @ 200 mls/hr IVCONT .Q5H [facility] Last Admin: 12/26/22 06:18 Dose: 200 mls/hr Documented By: CRISTIAN Morphine Sulfate (Morphine Sulfate 2 Mg/Ml Cartridge) 2 mg IVPUSH Q4H PRN; Protocol PRN Reason: Pain, Severe (Pain Scale 7-10) Last Admin: 12/26/22 05:08 Dose: 2 mg Documented By: CRISTIAN Ondansetron HCl (Ondansetron Hcl 4 Mg/2 Ml Vial) 4 mg IVPUSH Q8H PRN PRN Reason: Nausea and Vomiting Ondansetron HCl (Ondansetron Hcl 4 Mg/2 Ml Vial) 4 mg IVPUSH ONCE PRN PRN Reason: Nausea and Vomiting Oxycodone HCl (Oxycodone Hcl Immed Release 5 Mg Tablet) 10 mg PO Q4H PRN PRN Reason: Pain, Moderate(Pain Scale 4-6) Last Admin: 12/26/22 07:44 Dose: 10 mg Documented By: YVON Sodium Chloride (0.9 % Sodium Chloride Flush 3 Ml Syringe) 3 ml IVFLUSH QSHIFT [facility] Last Admin: 12/26/22 07:39 Dose: Not Given Documented By: YVON Non-Admin Reason: IV Running Trazodone HCl (Trazodone Hcl 100 Mg Tablet) 100 mg PO BEDTIME [facility] Last Admin: 12/25/22 21:17 Dose: 100 mg Documented By: CRISTIAN Labs 12/24/22 05:25 12/25/22 08:11 Labs: Laboratory Results - last 24 hr 12/25/22 12/25/22 12/25/22 08:11 08:11 14:54 Anion Gap 9 L Estim Creat Clear Calc 159.7 Estimated GFR > 60 Random Glucose 73 Calcium 8.6 D Phosphorus 2.0 L Total Bilirubin 0.2 Direct Bilirubin < 0.2 AST 411 H ALT 175 H Alkaline Phosphatase 47 Total Creatine Kinase 80274 H Total Protein 5.3 L Albumin 3.0 L Urine Color Yellow Urine Appearance Clear Urine pH 7.0 Ur Specific [place] 1.020 Urine Protein Negative Urine Glucose (UA) Negative Urine Ketones Negative Urine Blood Negative Urine Nitrite Negative Ur Leukocyte Esterase Negative Microbiology Microbiology Results: Microbiology 12/23/22 23:11 Blood Culture - Preliminary Blood - Venous No growth after 48 hours. 12/23/22 23:11 Blood Culture - Preliminary Blood - Venous No growth after 48 hours. Procedures Date of Service Date of Service: 12/26/22 Progress Note: A&P Assessment and plan (1) Compartment syndrome: Status: Acute (2) Rhabdomyolysis: Status: Acute (3) Drug overdose: Status: Acute (4) Elevated CPK: Status: Acute Plan Pod 1 following left leg fasciotomy. Overall he feels improved and his wounds found to be clean. Dressings were changed this morning and muscle found to be healthy. Will continue with daily dressing changes in anticipate possible skin closure early next week. Recommend keeping leg elevated as much as possible and avoiding prolonged standing or walking. Time Spent With Patient Time: Total time managing care of this patient today ____ minutes. Quality Stroke Does the patient have a stroke diagnosis?: No VTE Prior VTE?: No VTE Risk Level:: Medical - moderate - high VTE Device Contraindication: Treatment Not Indicated VTE Drug Contraindication: N/A - Med Ordered
--- NOTE | 2022-12-26 07:58 | MHC.CARE ---
CARE Team spoke with Dr. Jacobs. Pt is not medically clear at this time. Attending hospitalist will re-consult care team when Pt is medically clear for assessment if needed.
--- NOTE | 2022-12-26 08:04 | P.CDIM_ITS ---
PROVIDER RESPONSE TEXT: To clarify, the appropriate diagnosis supported by the clinical indicators: Acute QUERY TEXT: PHYSICIAN'S DOCUMENTATION REQUEST Date of Query: 12/24/2022 12:56 PM EDT Patient Name: Carson Stuart Admit Date: 12/24/2022 Dear Sekou Jacobs, A review of the medical record indicates additional documentation may be needed. Please review below and update the documentation accordingly. Clinical Indicators: Per Hospitalist H&P 12/24/22: lactic acidosis - likely secondary to dehydration versus hypoxia - IV fluids - trend Clarify which of the following accurately represents the acuity of the lactic acidosis. Possible options might include: Acute Acute on chronic Compensated Chronic stable condition Remission Other (explain)Clinically unable to determine (explain)Thank you, Qing Troy RN Use of terms such as suspected, likely, concern for, or probable (associated with a specific diagnosi s that is being evaluated, monitored, or treated as if it exists) are acceptable and can be coded in the inpatient se tting, when documented at the time of discharge. Please use your independent medical judgment in providing your response. THIS QUERY IS PART OF THE PERMANENT MEDICAL RECORD
[2022-12-26 08:13] LABS: Alanine Aminotransferase 171 U/L (0-40); Albumin Level 2.9 g/dL (3.5-5.0); Alkaline Phosphatase 40 U/L (39-117); Aspartate Amino Transferase 366 U/L (5-37); Bilirubin Direct < 0.2 mg/dL (0.0-0.5); Bilirubin Total 0.2 mg/dL (0.0-1.0)
--- NOTE | 2022-12-26 10:35 | MHC.RECOVRN ---
This internal communications writer met with patient, patient presented to ED post overdose, with upper leg swelling, pain. Pt was in bed, sitting up, eating breakfast. Pt reports cravings, denies withdrawal. This internal communications writer and patient reviewed role of Addiction/Recovery team, medications for addiction treatment, supports for Family. Pt verbalized understanding. Pt left with resources at the bedside to review. This internal communications writer and patient reviewed plan as follows, to return between 3-5pm to discuss medications options, while pt is here at [facility]. Reviewed findings with Provider Eliana Car.
--- NOTE | 2022-12-26 10:44 | PC.NURSE ---
pt requested to review labs, labs reviewed with pt.
--- NOTE | 2022-12-26 11:12 | HO.PM.IMPN ---
Subjective Subjective Date of Service: 12/26/22 Interval History: Seen and evaluated this morning Feels much better as sensation improving LLE wounds clean and covered with dressing Review of Systems Review of Systems: Yes all other systems are reviewed and are negative Physical Exam Vital Signs: Vital Signs: Last Vital Signs Temp 97.1 F 12/26/22 08:00 Pulse 75 12/26/22 08:00 Resp 16 12/26/22 03:15 BP 119/79 12/26/22 08:00 Pulse Ox 100 12/26/22 08:00 O2 Del Method Room Air 12/26/22 08:00 BMI result Body Mass Index 21.9 Const: Other: Constitutional : Awake, interactive, not in distress Neck : Normal inspection, Supple Cardiovascular : RRR, no JVP, no lower extremity edema Respiratory : good bilateral air entry, no crackles, wheezes or rhonchi Gastrointestinal: soft, lax, Normal bowel sounds, Non tender Skin : Warm, Dry, surgical wounds covered with dressing Neurological : Alert & oriented x3, No focal strength deficit, improvement in light, deep and proprioception in LLE Objective Data Active Medications Acetaminophen (Acetaminophen 325 Mg Tablet) 650 mg PO Q6H PRN PRN Reason: Pain, Mild (Pain Scale 1-3) Last Admin: 12/26/22 05:13 Dose: 650 mg Documented By: CRISTIAN Docusate Sodium (Docusate Sodium 100 Mg Capsule) 100 mg PO DAILY PRN PRN Reason: Constipation Hydroxyzine HCl (Hydroxyzine Hcl 50 Mg Tablet) 50 mg PO BEDTIME [facility] Last Admin: 12/25/22 21:17 Dose: 50 mg Documented By: CRISTIAN Lactated Ringer's (Lr) 1,000 mls @ 150 mls/hr IVCONT .Q6H40M [facility] Last Admin: 12/26/22 06:18 Dose: 200 mls/hr Documented By: CRISTIAN Morphine Sulfate (Morphine Sulfate 2 Mg/Ml Cartridge) 2 mg IVPUSH Q4H PRN; Protocol PRN Reason: Pain, Severe (Pain Scale 7-10) Last Admin: 12/26/22 05:08 Dose: 2 mg Documented By: CRISTIAN Ondansetron HCl (Ondansetron Hcl 4 Mg/2 Ml Vial) 4 mg IVPUSH Q8H PRN PRN Reason: Nausea and Vomiting Ondansetron HCl (Ondansetron Hcl 4 Mg/2 Ml Vial) 4 mg IVPUSH ONCE PRN PRN Reason: Nausea and Vomiting Oxycodone HCl (Oxycodone Hcl Immed Release 5 Mg Tablet) 10 mg PO Q4H PRN PRN Reason: Pain, Moderate(Pain Scale 4-6) Last Admin: 12/26/22 07:44 Dose: 10 mg Documented By: YVON Sodium Chloride (0.9 % Sodium Chloride Flush 3 Ml Syringe) 3 ml IVFLUSH QSHIFT [facility] Last Admin: 12/26/22 07:39 Dose: Not Given Documented By: YVON Non-Admin Reason: IV Running Trazodone HCl (Trazodone Hcl 100 Mg Tablet) 100 mg PO BEDTIME [facility] Last Admin: 12/25/22 21:17 Dose: 100 mg Documented By: CRISTIAN Labs 12/24/22 05:25 12/26/22 06:56 Labs: Laboratory Results - last 24 hr 12/25/22 12/25/22 12/26/22 08:11 14:54 06:56 Anion Gap 9 L Estim Creat Clear Calc 167.1 Estimated GFR > 60 Random Glucose 94 Calcium 8.5 Phosphorus 2.0 L Total Bilirubin 0.2 Direct Bilirubin < 0.2 AST 411 H ALT 175 H Alkaline Phosphatase 47 Total Creatine Kinase Total Protein 5.3 L Albumin 3.0 L Urine Color Yellow Urine Appearance Clear Urine pH 7.0 Ur Specific [place] 1.020 Urine Protein Negative Urine Glucose (UA) Negative Urine Ketones Negative Urine Blood Negative Urine Nitrite Negative Ur Leukocyte Esterase Negative 12/26/22 06:56 Anion Gap Estim Creat Clear Calc Estimated GFR Random Glucose Calcium Phosphorus Total Bilirubin 0.2 Direct Bilirubin < 0.2 AST 366 H ALT 171 H Alkaline Phosphatase 40 Total Creatine Kinase 60457 H Total Protein 5.0 L Albumin 2.9 L Urine Color Urine Appearance Urine pH Ur Specific [place] Urine Protein Urine Glucose (UA) Urine Ketones Urine Blood Urine Nitrite Ur Leukocyte Esterase Microbiology Microbiology Results: Microbiology 12/23/22 23:11 Blood Culture - Preliminary Blood - Venous No growth after 48 hours. 12/23/22 23:11 Blood Culture - Preliminary Blood - Venous No growth after 48 hours. Assessment and Plan (1) Compartment syndrome: Status: Acute (2) Rhabdomyolysis: Status: Acute (3) Muscle injury: Status: Acute (4) Neurapraxia of left lower extremity: Status: Acute (5) Elevated CPK: Status: Acute (6) Drug overdose: Status: Acute Plan 32-year-old male with past medical history of IV drug use usually uses oxycodone, now has transition to using heroin for the 1st time comes in after overdose. # IV drug overdose recovery team following denies any suicidal thoughts # [place]habdomyolysis [place] [address] decrease IVF follow BMP and CK # compartement syndrome 2/2 Mucle injury and hematoma POD 1 fasciotomy with improvement in pain and parasthesia Normal strength in LE Morphine for pain surgery team following, to monitor over the weekend and do closure next week # Neurapraxia 2/2 compartement syndrome arterial studies negative for clots neurology input appreciated , surgical intervention needed PT eval # ION resolved # Anxiety get Psych team evaluation DVT prophylaxis SCDs patient's need for further management patient require overnight inpatient hospital stay for further management and monitoring Time Spent With Patient Time: Total time managing care of this patient today ____ minutes. Quality Stroke Does the patient have a stroke diagnosis?: No VTE Prior VTE?: No VTE Risk Level:: Medical - moderate - high VTE Device Contraindication: Treatment Not Indicated VTE Drug Contraindication: N/A - Med Ordered
--- NOTE | 2022-12-26 12:44 | HO.POSTANES ---
Post Anesthesia Evaluation Post Anesthesia Evaluation Date of Service: 12/26/22 Vital Signs: Vital Signs Temp Pulse Resp BP Pulse Ox O2 Del Method 12/26/22 11:30 97.3 F 69 18 107/60 99 Room Air 12/26/22 08:00 97.1 F 75 119/79 100 Room Air 12/26/22 03:15 97.9 F 66 16 98/54 L 96 Room Air Anesthesia: General Endotracheal-GETA Mental Status: Awake Pain Control: Satisfactory Nausea/Vomiting: None Hydration: Adequate Anesthesia-Related Issues: No Anes. Related Issues
--- NOTE | 2022-12-26 15:25 | PM.PSYCN ---
History of Present Illness Date of Service: 12/26/2022 Chief Complaint: OD Reason for Consult: depression/OCD Requesting physician: Sekou Jacobs Discussed with referring provider: Yes Sources of Information: patient interviewed, chart reviewed and crisis/core team assessment reviewed Additional Sources of Information: Parents were present during interview. HPI Narrative: Mr. Stuart is a 32 year-old male with hx of OCD/MDD, opioid use disorder who was admitted after accidental OD on heroin/fentanyl that led pt passing out in car for about 3 hours causing rhabdomyolosis and compartment syndrome of left leg. Utox not completed on admission. Psychiatry consulted to resume psychotropic medications. He was also seen by addiction medicine. Pt seen with family present, per his request. Pt reports hx of OCD- although there is no clear hx of compulsions, pt and family describe rigidity in thinking (in terms of doing things at certain schedules), focus on body image and at times excessive physical exercise. Pt denies food restrictions along with body image. No hx of visual or auditory hallucinations. Pt reports use of opioids in 2019. 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 He reports he later crashed opioid medication and started injecting them. Pt reports recently he was caught at work in [place] and confronted about diverting pts opioid pain medications. Pt reports he returned home to [place]. Pt reports he went to [employer] to buy heroin but suspects that it was laced with fentanyl, felt asleep for about 3 hrs in his car. Pt adamantly denies suicidal ideation or that OD was with intent to end his life. Pt met with recovery team- he is considering starting methadone. He reports multiple medication trials for depression including prozac (no side effect but not sure about therapeutic benefit), lexapro (sexual side effect), wellbutrin (no side effect, partial therapeutic benefit). Past Psychiatric History: Inpatient: none OP; none currently No hx of suicide attempts. [facility] Medical History IV drug abuse Surgical History No pertinent past surgical history Diagnostics Vital Signs (24Hr): Vital Signs - 24 hr 12/25/22 16:15 12/25/22 19:30 12/25/22 19:35 Temperature 97.9 F 98.2 F Pulse Rate 76 77 67 Respiratory Rate 16 16 16 Blood Pressure 116/73 123/84 113/78 Pulse Oximetry 99 97 97 Oxygen Delivery Method Room Air Room Air Room Air 12/25/22 19:40 12/25/22 19:45 12/25/22 20:00 Temperature 97.6 F Pulse Rate 72 73 72 Respiratory Rate 14 16 16 Blood Pressure 122/85 118/79 115/80 Pulse Oximetry 98 98 98 Oxygen Delivery Method Room Air Room Air Room Air 12/25/22 20:55 12/26/22 00:00 12/26/22 03:15 Temperature 97.0 F 97.7 F 97.9 F Pulse Rate 62 58 66 Respiratory Rate 18 18 16 Blood Pressure 122/80 98/51 L 98/54 L Pulse Oximetry 100 95 96 Oxygen Delivery Method Room Air Room Air Room Air 12/26/22 08:00 12/26/22 11:30 Temperature 97.1 F 97.3 F Pulse Rate 75 69 Respiratory Rate 18 Blood Pressure 119/79 107/60 Pulse Oximetry 100 99 Oxygen Delivery Method Room Air Room Air BMI result Body Mass Index 21.9 Labs 12/24/22 05:25 12/26/22 06:56 Labs: Laboratory Results - last 48 hr 12/25/22 12/25/22 12/25/22 08:11 08:11 14:54 Sodium 144 Potassium 4.0 D Chloride 107 Carbon Dioxide 32 H Anion Gap 9 L BUN 19 H Creatinine 0.68 Estim Creat Clear Calc 159.7 Estimated GFR > 60 Random Glucose 73 Calcium 8.6 D Phosphorus 2.0 L Total Bilirubin 0.2 Direct Bilirubin < 0.2 AST 411 H ALT 175 H Alkaline Phosphatase 47 Total Creatine Kinase 48516 H Total Protein 5.3 L Albumin 3.0 L Urine Color Yellow Urine Appearance Clear Urine pH 7.0 Ur Specific [place] 1.020 Urine Protein Negative Urine Glucose (UA) Negative Urine Ketones Negative Urine Blood Negative Urine Nitrite Negative Ur Leukocyte Esterase Negative 12/26/22 12/26/22 06:56 06:56 Sodium 140 Potassium 4.3 Chloride 105 Carbon Dioxide 30 H Anion Gap 9 L BUN 17 H Creatinine 0.65 Estim Creat Clear Calc 167.1 Estimated GFR > 60 Random Glucose 94 Calcium 8.5 Phosphorus Total Bilirubin 0.2 Direct Bilirubin < 0.2 AST 366 H ALT 171 H Alkaline Phosphatase 40 Total Creatine Kinase 38072 H Total Protein 5.0 L Albumin 2.9 L Urine Color Urine Appearance Urine pH Ur Specific [place] Urine Protein Urine Glucose (UA) Urine Ketones Urine Blood Urine Nitrite Ur Leukocyte Esterase Imaging Radiology Impressions: ITS Impressions Chest X-Ray 12/24/22 01:20 IMPRESSION: No active cardiopulmonary disease. Femur CT 12/24/22 02:55 IMPRESSION: No acute osseous abnormality. There is a low-density collection along the lower anterior medial quadriceps measuring 8.4 x 4.3 x 3.4 cm possibly related to a muscular injury with hemorrhage. Duplex Scan Lower Extremity Artery 12/24/22 15:19 IMPRESSION: Patency of all visualized vasculature of the left lower extremity with triphasic waveforms throughout. Mental Status Exam Mental Status Exam Narrative: Appearance: wearing hospital gown, good hygiene, in NAD Behavior: cooperative Psychomotor: no agitation or retardation noted Speech: clear, normal rate, slightly hyperverbal, not pressured, spontaneous TP: linear TC: no signs of psychosis or delusions, future oriented looking forward to continue tx Mood: better Affect bright, non labile SI: denies HI: none VH/AH: none Delusions: none Insight/judgment: fair x 2. Memory/cog: alert, oriented x 3. grossly intact to conversational testing. Medications Medications Current Medications Acetaminophen (Acetaminophen 325 Mg Tablet) 650 mg PO Q6H PRN PRN Reason: Pain, Mild (Pain Scale 1-3) Last Admin: 12/26/22 11:49 Dose: 650 mg Docusate Sodium (Docusate Sodium 100 Mg Capsule) 100 mg PO DAILY PRN PRN Reason: Constipation Hydroxyzine HCl (Hydroxyzine Hcl 50 Mg Tablet) 50 mg PO BEDTIME [facility] Last Admin: 12/25/22 21:17 Dose: 50 mg Lactated Ringer's (Lr) 1,000 mls @ 150 mls/hr IVCONT .Q6H40M [facility] Last Admin: 12/26/22 11:50 Dose: 200 mls/hr Morphine Sulfate (Morphine Sulfate 2 Mg/Ml Cartridge) 2 mg IVPUSH Q4H PRN; Protocol PRN Reason: Pain, Severe (Pain Scale 7-10) Last Admin: 12/26/22 05:08 Dose: 2 mg Ondansetron HCl (Ondansetron Hcl 4 Mg/2 Ml Vial) 4 mg IVPUSH Q8H PRN PRN Reason: Nausea and Vomiting Ondansetron HCl (Ondansetron Hcl 4 Mg/2 Ml Vial) 4 mg IVPUSH ONCE PRN PRN Reason: Nausea and Vomiting Oxycodone HCl (Oxycodone Hcl Immed Release 5 Mg Tablet) 10 mg PO Q4H PRN PRN Reason: Pain, Moderate(Pain Scale 4-6) Last Admin: 12/26/22 11:49 Dose: 10 mg Sodium Chloride (0.9 % Sodium Chloride Flush 3 Ml Syringe) 3 ml IVFLUSH QSHIFT [facility] Last Admin: 12/26/22 07:39 Dose: Not Given Trazodone HCl (Trazodone Hcl 100 Mg Tablet) 100 mg PO BEDTIME [facility] Last Admin: 12/25/22 21:17 Dose: 100 mg Allergies Allergies Allergy/AdvReac Type Severity Reaction Status Date / Time No Known Allergies Allergy Verified 12/23/22 22:38 Assessment & Plan Assessment & Plan (1) MDD (major depressive disorder), recurrent episode, moderate: Status: Acute Code(s): F33.1 - Major depressive disorder, recurrent, moderate (2) Opioid use disorder, moderate, dependence: Status: Acute Code(s): F11.20 - Opioid dependence, uncomplicated Plan Mr. Stuart is a 32 year-old with hx of MDD/OCD, Opioid Use Disorder who had accidental OD on heroin, probably laced with fentanyl, but utox not completed on admission. Pt had compartment syndrome of left leg. Pt denies SI/HI. No acute psychiatric symptoms that require inpatient psychiatric level of care. He met with addiction team and wants to start methadone MAT. We discussed risks, benefits and alternative treatment options, pt agrees to restart wellbutrin XR 150mg po daily. continue trazodone, which he reports he usually takes 150mg po qhs. PLAN 1. No need for inpatient level of care for psychiatric reasons. 2. Start wellbutrin XR 150mg po daily 3. Increase trazodone to 150mg po qhs. 4. Case management to refer patient to outpatient psychiatric provider. Total time managing care of this patient today ____ minutes.
--- NOTE | 2022-12-26 15:53 | MHC.CM.PN ---
per rounds pt will not be ready for dc over the weekend
[2022-12-26 16:42] LABS: Iron 51 mcg/dL (45-160); Percent Iron Saturation 21 % (15-50); Total Iron Binding Capacity 240 mcg/dL (228-428); Unsaturated Iron Binding 189 ug/dL
--- NOTE | 2022-12-26 17:13 | HO.ADDICTCON ---
History of Present Illness Date of Service: 12/26/2022 Chief Complaint: OD Reason for Consult: recent overdose, wants to start MOUD Sources of Information: patient interviewed and chart reviewed HPI Narrative: Patient is a 32 year old male currently medically admitted with rhabdo and compartment syndrome following an opioid overdose. Seen by occupational therapist's assistant several times during admission and discussed medications for OUD (MOUD). History reviewed with RN and patient. Briefly, he reports taking PO Oxycodone for almost 2 years, then May of 2022, he began to crush and inject the medication every night. He reports that he mainly used in the evenings after work--he began to see the use of this medication as a way to relieve stress. Last use of Oxycodone December 13. Denies any other substance use--aside from heroin use earlier this week that led to overdose. Denies any previous history of overdose Denies any history of treatment. Denies any methadone or suboxone trials Discussed MOUD --patient stating he wishes to trial methadone Reviewed dosing of medication in the hospital, as well as process for ongoing treatment once discharged. Denies any withdrawal sx, but does endorse cravings to occupational therapist's assistant. Past Psychiatric History: Inpatient: none OP; none currently No hx of suicide attempts. Review of Systems Constitutional: Reports as per HPI and Reports no additional constitutional complaints Diagnostics Vital Signs (24Hr): Vital Signs - 24 hr 12/25/22 19:30 12/25/22 19:35 12/25/22 19:40 Temperature 98.2 F Pulse Rate 77 67 72 Respiratory Rate 16 16 14 Blood Pressure 123/84 113/78 122/85 Pulse Oximetry 97 97 98 Oxygen Delivery Method Room Air Room Air Room Air 12/25/22 19:45 12/25/22 20:00 12/25/22 20:55 Temperature 97.6 F 97.0 F Pulse Rate 73 72 62 Respiratory Rate 16 16 18 Blood Pressure 118/79 115/80 122/80 Pulse Oximetry 98 98 100 Oxygen Delivery Method Room Air Room Air Room Air 12/26/22 00:00 12/26/22 03:15 12/26/22 08:00 Temperature 97.7 F 97.9 F 97.1 F Pulse Rate 58 66 75 Respiratory Rate 18 16 Blood Pressure 98/51 L 98/54 L 119/79 Pulse Oximetry 95 96 100 Oxygen Delivery Method Room Air Room Air Room Air 12/26/22 11:30 Temperature 97.3 F Pulse Rate 69 Respiratory Rate 18 Blood Pressure 107/60 Pulse Oximetry 99 Oxygen Delivery Method Room Air BMI result Body Mass Index 21.9 Labs 12/24/22 05:25 12/26/22 06:56 Labs: Laboratory Results - last 48 hr 12/25/22 12/25/22 12/25/22 08:11 08:11 14:54 Sodium 144 Potassium 4.0 D Chloride 107 Carbon Dioxide 32 H Anion Gap 9 L BUN 19 H Creatinine 0.68 Estim Creat Clear Calc 159.7 Estimated GFR > 60 Random Glucose 73 Calcium 8.6 D Phosphorus 2.0 L Iron TIBC % Saturation Unsat Iron Binding Total Bilirubin 0.2 Direct Bilirubin < 0.2 AST 411 H ALT 175 H Alkaline Phosphatase 47 Total Creatine Kinase 67295 H Total Protein 5.3 L Albumin 3.0 L Urine Color Yellow Urine Appearance Clear Urine pH 7.0 Ur Specific [place] 1.020 Urine Protein Negative Urine Glucose (UA) Negative Urine Ketones Negative Urine Blood Negative Urine Nitrite Negative Ur Leukocyte Esterase Negative 12/26/22 12/26/22 12/26/22 06:56 06:56 16:18 Sodium 140 Potassium 4.3 Chloride 105 Carbon Dioxide 30 H Anion Gap 9 L BUN 17 H Creatinine 0.65 Estim Creat Clear Calc 167.1 Estimated GFR > 60 Random Glucose 94 Calcium 8.5 Phosphorus Iron 51 TIBC 240 % Saturation 21 Unsat Iron Binding 189 Total Bilirubin 0.2 Direct Bilirubin < 0.2 AST 366 H ALT 171 H Alkaline Phosphatase 40 Total Creatine Kinase 59789 H Total Protein 5.0 L Albumin 2.9 L Urine Color Urine Appearance Urine pH Ur Specific [place] Urine Protein Urine Glucose (UA) Urine Ketones Urine Blood Urine Nitrite Ur Leukocyte Esterase Imaging Radiology Impressions: ITS Impressions Chest X-Ray 12/24/22 01:20 IMPRESSION: No active cardiopulmonary disease. Femur CT 12/24/22 02:55 IMPRESSION: No acute osseous abnormality. There is a low-density collection along the lower anterior medial quadriceps measuring 8.4 x 4.3 x 3.4 cm possibly related to a muscular injury with hemorrhage. Duplex Scan Lower Extremity Artery 12/24/22 15:19 IMPRESSION: Patency of all visualized vasculature of the left lower extremity with triphasic waveforms throughout. Mental Status Exam Mental Status Exam Patient Appearance: Well Grooomed and Appropriate (leg elevated on pillow ) Level of Consciousness: Awake, Appropriate and Alert Patient Behavior: Appropriate and Talkative Mood Description: Appropriate Affect Description: Appropriate Thought Process: Goal Oriented Thought Content: positive for Circumstantial Judgement: Good Medications Medications Current Medications Acetaminophen (Acetaminophen 325 Mg Tablet) 650 mg PO Q6H PRN PRN Reason: Pain, Mild (Pain Scale 1-3) Last Admin: 12/26/22 11:49 Dose: 650 mg Bupropion HCl (Bupropion Hcl Xl 150 Mg Tab.Er.24h) 150 mg PO DAILY [facility] Docusate Sodium (Docusate Sodium 100 Mg Capsule) 100 mg PO DAILY PRN PRN Reason: Constipation Hydroxyzine HCl (Hydroxyzine Hcl 50 Mg Tablet) 50 mg PO BEDTIME [facility] Last Admin: 12/25/22 21:17 Dose: 50 mg Lactated Ringer's (Lr) 1,000 mls @ 150 mls/hr IVCONT .Q6H40M [facility] Last Admin: 12/26/22 11:50 Dose: 200 mls/hr Methadone HCl (Methadone Hcl 20 Mg/2 Ml Oral.Conc) 10 mg PO DAILY [facility] Morphine Sulfate (Morphine Sulfate 2 Mg/Ml Cartridge) 2 mg IVPUSH Q4H PRN; Protocol PRN Reason: Pain, Severe (Pain Scale 7-10) Last Admin: 12/26/22 05:08 Dose: 2 mg Ondansetron HCl (Ondansetron Hcl 4 Mg/2 Ml Vial) 4 mg IVPUSH Q8H PRN PRN Reason: Nausea and Vomiting Ondansetron HCl (Ondansetron Hcl 4 Mg/2 Ml Vial) 4 mg IVPUSH ONCE PRN PRN Reason: Nausea and Vomiting Oxycodone HCl (Oxycodone Hcl Immed Release 5 Mg Tablet) 10 mg PO Q4H PRN PRN Reason: Pain, Moderate(Pain Scale 4-6) Last Admin: 12/26/22 15:51 Dose: 10 mg Sodium Chloride (0.9 % Sodium Chloride Flush 3 Ml Syringe) 3 ml IVFLUSH QSHIFT [facility] Last Admin: 12/26/22 15:48 Dose: Not Given Trazodone HCl (Trazodone Hcl 50 Mg Tablet) 150 mg PO BEDTIME [facility] Allergies Allergies Allergy/AdvReac Type Severity Reaction Status Date / Time No Known Allergies Allergy Verified 12/23/22 22:38 Assessment & Plan Assessment & Plan (1) Opioid use disorder, moderate, dependence: Status: Acute Code(s): F11.20 - Opioid dependence, uncomplicated Assessment and Plan: While patient is not experiencing any withdrawal sx at this time (likely due to IV and pain medications) recent overdose and IV drug use is indication for starting MOUD methadone 10mg daily ordered--do not administer at the same time as his pain medications. questions answered for patient and family---resources provided to family as well will reassess over the wkend will need HIV and hepatitis panel UDS not completed at time of admission while family has been present for much of his care, this appeals writer encouraged them to take breaks and step out if listening to patients substance use history and subsequent overdose is overwhelming--mey since patient has been sharing his story multiple times. Total time managing care of this patient today _45___ minutes. PMFSH Past Medical History Medical History IV drug abuse Surgical History Surgical History No pertinent past surgical history Social History Social History Household Members: Family Household Members Other:: 2 Housing: House Do you presently have visiting nurse or other home services: No Alcohol intake: current Patient Tobacco Use Status: Never used Tobacco Substance Use Type: Heroin and Opiates service: No
[2022-12-26] MEDS: Lactated Ringers 1,000 ML 150 ML IVCONT (17:14)
[2022-12-26 17:34] LABS: Folate 7.8 ng/mL (> or = 4.0); Vitamin B12 517 pg/mL (200-900)
[2022-12-26] MEDS: hydrOXYzine HCL 50 MG TABLET PO (20:06)
[2022-12-26] MEDS: Docusate Sodium 100 MG CAPSULE PO (20:06)
[2022-12-26] MEDS: traZODone HCL 50 MG TABLET 150 MG PO (20:07)
[2022-12-27] VITALS (8 sets, daily range): BP systolic 101–122; BP diastolic 58–82; PULSE 65–82; RESP 16–18; TEMP 36.1–36.7; O2SAT 95–98
[2022-12-27] MEDS: Lactated Ringers 1,000 ML 15 ML IVCONT (04:02)
[2022-12-27] MEDS: oxyCODONE HCl Immed Release 5 MG TABLET 10 MG PO ×5 (04:05→23:04)
[2022-12-27] MEDS: Morphine Sulfate 2 MG/ML CARTRIDGE IVPUSH ×4 (05:18→20:15)
[2022-12-27] MEDS: Acetaminophen 325 MG TABLET 650 MG PO ×3 (05:20→20:26)
[2022-12-27 05:36] LABS: Hematocrit 32.1 % (42.0-52.0); Hemoglobin 10.5 g/dl (14.0-18.0); Mean Corpuscular HGB Conc 32.7 g/dl (31.0-36.0); Mean Corpuscular Hemoglobin 31.2 pg (27.0-33.0); Mean Corpuscular Volume 95.3 fL (80.0-98.0); Mean Platelet Volume 9.7 fL (9.4-12.4); Platelet Count 196 X10*3/uL (160-400); Red Blood Count 3.37 X10*6/uL (4.60-5.80); Red Cell Distribution Width 12.6 % (11.0-16.0); White Blood Count 5.1 X10*3/uL (4.8-10.8)
[2022-12-27 05:48] LABS: Anion Gap 9 (12-20); Blood Urea Nitrogen 17 mg/dL (9-16); Carbon Dioxide 28 mmol/L (22-29); Chloride 109 mmol/L (96-108); Creatinine Clr Calc Pharmacy 184.1; Estimated Glomerular Filt Rate > 60; Glucose Random 88 mg/dL (60-115); Potassium 3.5 mmol/L (3.3-5.1); Sodium 142 mmol/L (135-145)
--- NOTE | 2022-12-27 06:39 | PC.NURSE ---
Patient bilateral lower extremities edema and scrotal edema worsen overnight. Scrotal edema extended to penis with pain per patient. Dr. Wetzel notified,maintenance fluid rate reduced from 150 mL /hr to 100 mL/hr. Pt asleep, unable to communicate change in plan of care.
[2022-12-27] MEDS: methADONE HCl 20 MG/2 ML ORAL.CONC 10 MG PO (08:13)
[2022-12-27] MEDS: buPROPion HCl XL 150 MG TAB.ER.24H PO (08:13)
[2022-12-27] MEDS: 0.9 % Sodium Chloride Flush 3 ML SYRINGE IVFLUSH ×3 (08:14→20:15)
[2022-12-27] MEDS: Furosemide 20 MG/2 ML VIAL IVPUSH (09:42)
--- NOTE | 2022-12-27 11:01 | PM.PNGS ---
Subjective Subjective Date of Service: 12/27/22 Interval history: no new complaints no events reported Physical Exam Vital Signs: Vital Signs: Last Vital Signs Temp 97.1 F 12/27/22 08:00 Pulse 82 12/27/22 08:00 Resp 18 12/27/22 08:00 BP 122/82 12/27/22 08:00 Pulse Ox 98 12/27/22 08:00 O2 Del Method Room Air 12/27/22 08:00 BMI result Body Mass Index 21.9 Const: Other: was relating with wheelchair earlier General: comfortable and no acute distress Resp: Effort & Inspection: normal respiratory effort Cardio: Rate: regular rate Extrem: Other: fasciotomy sites clean, still with some of the thigh but soft, scrotal edema noted as well, sensation intact Objective Data Active Medications Acetaminophen (Acetaminophen 325 Mg Tablet) 650 mg PO Q6H PRN PRN Reason: Pain, Mild (Pain Scale 1-3) Last Admin: 12/27/22 05:20 Dose: 650 mg Documented By: WINSTON Bupropion HCl (Bupropion Hcl Xl 150 Mg Tab.Er.24h) 150 mg PO DAILY [facility] Last Admin: 12/27/22 08:13 Dose: 150 mg Documented By: CELINA Docusate Sodium (Docusate Sodium 100 Mg Capsule) 100 mg PO DAILY PRN PRN Reason: Constipation Last Admin: 12/26/22 20:06 Dose: 100 mg Documented By: WINSTON Hydroxyzine HCl (Hydroxyzine Hcl 50 Mg Tablet) 50 mg PO BEDTIME [facility] Last Admin: 12/26/22 20:06 Dose: 50 mg Documented By: WINSTON Methadone HCl (Methadone Hcl 20 Mg/2 Ml Oral.Conc) 10 mg PO DAILY [facility] Last Admin: 12/27/22 08:13 Dose: 10 mg Documented By: CELINA Morphine Sulfate (Morphine Sulfate 2 Mg/Ml Cartridge) 2 mg IVPUSH Q4H PRN; Protocol PRN Reason: Pain, Severe (Pain Scale 7-10) Last Admin: 12/27/22 10:37 Dose: 2 mg Documented By: CELINA Ondansetron HCl (Ondansetron Hcl 4 Mg/2 Ml Vial) 4 mg IVPUSH Q8H PRN PRN Reason: Nausea and Vomiting Ondansetron HCl (Ondansetron Hcl 4 Mg/2 Ml Vial) 4 mg IVPUSH ONCE PRN PRN Reason: Nausea and Vomiting Oxycodone HCl (Oxycodone Hcl Immed Release 5 Mg Tablet) 10 mg PO Q4H PRN PRN Reason: Pain, Moderate(Pain Scale 4-6) Last Admin: 12/27/22 08:13 Dose: 10 mg Documented By: CELINA Polyethylene Glycol (Polyethylene Glycol 3350 17 Gm Powd.Pack) 17 gm PO DAILY [facility] Senna (Senna Waller Extract Oral Syrup 15 Ml Syrup) 7.5 ml PO BEDTIME [facility] Sodium Chloride (0.9 % Sodium Chloride Flush 3 Ml Syringe) 3 ml IVFLUSH QSHIFT [facility] Last Admin: 12/27/22 08:14 Dose: 3 ml Documented By: CELINA Trazodone HCl (Trazodone Hcl 50 Mg Tablet) 150 mg PO BEDTIME [facility] Last Admin: 12/26/22 20:07 Dose: 150 mg Documented By: WANDAB Labs 12/27/22 05:16 12/27/22 05:16 Labs: Laboratory Results - last 24 hr 12/26/22 12/26/22 12/27/22 16:18 16:18 05:16 MCV 95.3 MCH 31.2 MCHC 32.7 RDW 12.6 Plt Count 196 MPV 9.7 Absolute Nucleated RBC 0.000 Nucleated RBC % (auto) 0.0 Anion Gap Estim Creat Clear Calc Estimated GFR Random Glucose Calcium Iron 51 TIBC 240 % Saturation 21 Unsat Iron Binding 189 Total Creatine Kinase Vitamin B12 517 Folate 7.8 12/27/22 12/27/22 05:16 05:16 MCV MCH MCHC RDW Plt Count MPV Absolute Nucleated RBC Nucleated RBC % (auto) Anion Gap 9 L Estim Creat Clear Calc 184.1 Estimated GFR > 60 Random Glucose 88 Calcium 8.0 L Iron TIBC % Saturation Unsat Iron Binding Total Creatine Kinase 7398 H Vitamin B12 Folate Procedures Date of Service Date of Service: 12/27/22 Progress Note: A&P Assessment and plan (1) Compartment syndrome: Status: Acute Assessment and Plan: dressings changed fasciotomy sites clean no suggestion of leg ischemia pain management legs wrapped in Kerlix roll family at bedside Time Spent With Patient Time: Total time managing care of this patient today ____ minutes. Quality Stroke Does the patient have a stroke diagnosis?: No VTE Prior VTE?: No VTE Risk Level:: Medical - moderate - high VTE Device Contraindication: Treatment Not Indicated VTE Drug Contraindication: N/A - Med Ordered
--- NOTE | 2022-12-27 11:32 | HO.PM.IMPN ---
Subjective Subjective Date of Service: 12/27/22 Interval History: Seen and evaluated this morning reporting scrotal edema sensation improving LLE wounds clean and covered with dressing with serous fluid oozing Review of Systems Review of Systems: Yes all other systems are reviewed and are negative Physical Exam Vital Signs: Vital Signs: Last Vital Signs Temp 97.1 F 12/27/22 08:00 Pulse 82 12/27/22 08:00 Resp 18 12/27/22 08:00 BP 122/82 12/27/22 08:00 Pulse Ox 98 12/27/22 08:00 O2 Del Method Room Air 12/27/22 08:00 BMI result Body Mass Index 21.9 Const: Other: Constitutional : Awake, interactive, not in distress Neck : Normal inspection, Supple Cardiovascular : RRR, no JVP, no lower extremity edema Respiratory : good bilateral air entry, no crackles, wheezes or rhonchi Gastrointestinal: soft, lax, Normal bowel sounds, Non tender Skin : Warm, Dry, surgical wounds clean and covered with dressing with serous fluid oozing Neurological : Alert & oriented x3, No focal strength deficit, continous improvement in light, deep and proprioception in LLE Objective Data Active Medications Acetaminophen (Acetaminophen 325 Mg Tablet) 650 mg PO Q6H PRN PRN Reason: Pain, Mild (Pain Scale 1-3) Last Admin: 12/27/22 05:20 Dose: 650 mg Documented By: WINSTON Bupropion HCl (Bupropion Hcl Xl 150 Mg Tab.Er.24h) 150 mg PO DAILY [facility] Last Admin: 12/27/22 08:13 Dose: 150 mg Documented By: CELINA Docusate Sodium (Docusate Sodium 100 Mg Capsule) 100 mg PO DAILY PRN PRN Reason: Constipation Last Admin: 12/26/22 20:06 Dose: 100 mg Documented By: WINSTON Hydroxyzine HCl (Hydroxyzine Hcl 50 Mg Tablet) 50 mg PO BEDTIME [facility] Last Admin: 12/26/22 20:06 Dose: 50 mg Documented By: WINSTON Methadone HCl (Methadone Hcl 20 Mg/2 Ml Oral.Conc) 10 mg PO DAILY [facility] Last Admin: 12/27/22 08:13 Dose: 10 mg Documented By: CELINA Morphine Sulfate (Morphine Sulfate 2 Mg/Ml Cartridge) 2 mg IVPUSH Q4H PRN; Protocol PRN Reason: Pain, Severe (Pain Scale 7-10) Last Admin: 12/27/22 10:37 Dose: 2 mg Documented By: CELINA Ondansetron HCl (Ondansetron Hcl 4 Mg/2 Ml Vial) 4 mg IVPUSH Q8H PRN PRN Reason: Nausea and Vomiting Ondansetron HCl (Ondansetron Hcl 4 Mg/2 Ml Vial) 4 mg IVPUSH ONCE PRN PRN Reason: Nausea and Vomiting Oxycodone HCl (Oxycodone Hcl Immed Release 5 Mg Tablet) 10 mg PO Q4H PRN PRN Reason: Pain, Moderate(Pain Scale 4-6) Last Admin: 12/27/22 08:13 Dose: 10 mg Documented By: CELINA Polyethylene Glycol (Polyethylene Glycol 3350 17 Gm Powd.Pack) 17 gm PO DAILY [facility] Senna (Senna [place] Extract Oral Syrup 15 Ml Syrup) 7.5 ml PO BEDTIME [facility] Sodium Chloride (0.9 % Sodium Chloride Flush 3 Ml Syringe) 3 ml IVFLUSH QSHIFT [facility] Last Admin: 12/27/22 08:14 Dose: 3 ml Documented By: CELINA Trazodone HCl (Trazodone Hcl 50 Mg Tablet) 150 mg PO BEDTIME [facility] Last Admin: 12/26/22 20:07 Dose: 150 mg Documented By: WINSTON Labs 12/27/22 05:16 12/27/22 05:16 Labs: Laboratory Results - last 24 hr 12/26/22 12/26/22 12/27/22 16:18 16:18 05:16 MCV 95.3 MCH 31.2 MCHC 32.7 RDW 12.6 Plt Count 196 MPV 9.7 Absolute Nucleated RBC 0.000 Nucleated RBC % (auto) 0.0 Anion Gap Estim Creat Clear Calc Estimated GFR Random Glucose Calcium Iron 51 TIBC 240 % Saturation 21 Unsat Iron Binding 189 Total Creatine Kinase Vitamin B12 517 Folate 7.8 12/27/22 12/27/22 05:16 05:16 MCV MCH MCHC RDW Plt Count MPV Absolute Nucleated RBC Nucleated RBC % (auto) Anion Gap 9 L Estim Creat Clear Calc 184.1 Estimated GFR > 60 Random Glucose 88 Calcium 8.0 L Iron TIBC % Saturation Unsat Iron Binding Total Creatine Kinase 7398 H Vitamin B12 Folate Assessment and Plan (1) Opioid use disorder, moderate, dependence: Status: Acute (2) MDD (major depressive disorder), recurrent episode, moderate: Status: Acute (3) Neurapraxia of left lower extremity: Status: Acute (4) Compartment syndrome: Status: Acute (5) Rhabdomyolysis: Status: Acute Plan 32-year-old male with past medical history of IV drug use usually uses oxycodone, now has transition to using heroin for the 1st time comes in after overdose. # compartement syndrome 2/2 Mucle injury and hematoma POD 2 fasciotomy with significant improvement in pain and parasthesia Normal strength in LE Morphine and Oxy for pain surgery team following, monitor over the weekend and do closure next week # IV drug overdose recovery team following denies any suicidal thoughts # rhabdomyolysis w elevated CPK CPK trending down to 7000 hold IVF follow CK this afternoon # Neurapraxia 2/2 compartement syndrome improving arterial studies negative for clots neurology input appreciated , surgical intervention needed PT eval # ION resolved # Anxiety Psych team evaluation appreciated, start Wellbutrin and increase Trazodone Arrange OP follow up with Psych DVT prophylaxis SCDs patient's need for further management patient require overnight inpatient hospital stay for further management and monitoring Time Spent With Patient Time: Total time managing care of this patient today ____ minutes. Quality Stroke Does the patient have a stroke diagnosis?: No VTE Prior VTE?: No VTE Risk Level:: Medical - moderate - high VTE Device Contraindication: Treatment Not Indicated VTE Drug Contraindication: N/A - Med Ordered
[2022-12-27] MEDS: polyethylene glycoL 3350 17 GM POWD.PACK PO (12:29)
[2022-12-27] MEDS: Lactated Ringers 1,000 ML 125 ML IVCONT (18:08)
[2022-12-27] MEDS: hydrOXYzine HCL 50 MG TABLET PO (20:14)
[2022-12-27] MEDS: traZODone HCL 50 MG TABLET 150 MG PO (20:14)
[2022-12-28] VITALS (9 sets, daily range): BP systolic 110–118; BP diastolic 72–81; PULSE 67–98; RESP 16–20; TEMP 36.4–36.9; O2SAT 96–98
[2022-12-28] MEDS: Lactated Ringers 1,000 ML 125 ML IVCONT (01:15)
[2022-12-28] MEDS: Morphine Sulfate 2 MG/ML CARTRIDGE IVPUSH ×4 (01:15→22:03)
[2022-12-28] MEDS: oxyCODONE HCl Immed Release 5 MG TABLET 10 MG PO ×5 (03:44→20:55)
[2022-12-28] MEDS: Acetaminophen 325 MG TABLET 650 MG PO ×3 (05:37→20:56)
[2022-12-28] MEDS: buPROPion HCl XL 150 MG TAB.ER.24H PO (07:56)
[2022-12-28] MEDS: 0.9 % Sodium Chloride Flush 3 ML SYRINGE IVFLUSH ×3 (07:56→20:54)
[2022-12-28] MEDS: methADONE HCl 20 MG/2 ML ORAL.CONC 10 MG PO (07:56)
[2022-12-28 08:27] LABS: Anion Gap 10 (12-20); Blood Urea Nitrogen 15 mg/dL (9-16); Calcium 8.4 mg/dL (8.4-10.2); Carbon Dioxide 31 mmol/L (22-29); Chloride 105 mmol/L (96-108); Creatinine Clr Calc Pharmacy 169.7; Estimated Glomerular Filt Rate > 60; Glucose Random 108 mg/dL (60-115); Potassium 4.6 mmol/L (3.3-5.1); Sodium 141 mmol/L (135-145)
[2022-12-28] MEDS: Morphine Sulfate 4 MG/ML CARTRIDGE IVPUSH (09:00)
[2022-12-28] MEDS: Furosemide 40 MG/4 ML VIAL IVPUSH (10:06)
[2022-12-28] MEDS: Sennosides 8.6 MG TABLET PO (10:07)
[2022-12-28] MEDS: Lactated Ringers 1,000 ML 100 ML IVCONT ×2 (10:07→20:55)
--- NOTE | 2022-12-28 10:19 | P.PNIM_ITS ---
Subjective Subjective Date of Service: 12/28/22 Interval History: Seen and evaluated this morning reporting wrosening scrotal edema sensation significantly improving LLE wounds clean and covered with dressing with serous fluid oozing Review of Systems Review of Systems: Yes all other systems are reviewed and are negative Physical Exam Vital Signs: Vital Signs: Last Vital Signs Temp 98.5 F 12/28/22 07:52 Pulse 96 12/28/22 07:52 Resp 18 12/28/22 07:52 BP 110/74 12/28/22 07:52 Pulse Ox 97 12/28/22 07:52 O2 Del Method Room Air 12/28/22 07:52 BMI result Body Mass Index 21.9 Const: Other: Constitutional : Awake, interactive, not in distress Neck : Normal inspection, Supple Cardiovascular : RRR, no JVP, no lower extremity edema Respiratory : good bilateral air entry, no crackles, wheezes or rhonchi Gastrointestinal: soft, lax, Normal bowel sounds, Non tender Skin : Warm, Dry, surgical wounds clean and covered with dressing with serous fluid oozing , mild tenderness upper thigh Neurological : Alert & oriented x3, No focal strength deficit, continous improvement in light, deep and proprioception in LLE Objective Data Active Medications Acetaminophen (Acetaminophen 325 Mg Tablet) 650 mg PO Q6H PRN PRN Reason: Pain, Mild (Pain Scale 1-3) Last Admin: 12/28/22 05:37 Dose: 650 mg Documented By: WINSTON Bupropion HCl (Bupropion Hcl Xl 150 Mg Tab.Er.24h) 150 mg PO DAILY [facility] Last Admin: 12/28/22 07:56 Dose: 150 mg Documented By: CELINA Docusate Sodium (Docusate Sodium 100 Mg Capsule) 100 mg PO DAILY PRN PRN Reason: Constipation Last Admin: 12/26/22 20:06 Dose: 100 mg Documented By: WINSTON Glycerin (Glycerin Adult Supp.Rect) [address] DAILY PRN PRN Reason: Constipation Hydroxyzine HCl (Hydroxyzine Hcl 50 Mg Tablet) 50 mg PO BEDTIME [facility] Last Admin: 12/27/22 20:14 Dose: 50 mg Documented By: WINSTON Lactated Ringer's (Lr) 1,000 mls @ 100 mls/hr IVCONT .Q10H [facility] Last Admin: 12/28/22 10:07 Dose: 100 mls/hr Documented By: CELINA Ketorolac Tromethamine (Ketorolac Tromethamine 15 Mg/Ml Vial) 15 mg IVPUSH Q6H PRN PRN Reason: Pain, Moderate(Pain Scale 4-6) Methadone HCl (Methadone Hcl 20 Mg/2 Ml Oral.Conc) 10 mg PO DAILY [facility] Last Admin: 12/28/22 07:56 Dose: 10 mg Documented By: CELINA Morphine Sulfate (Morphine Sulfate 2 Mg/Ml Cartridge) 2 mg IVPUSH Q4H PRN; Protocol PRN Reason: Pain, Severe (Pain Scale 7-10) Last Admin: 12/28/22 05:36 Dose: 2 mg Documented By: WINSTON Morphine Sulfate (Morphine Sulfate 4 Mg/Ml Cartridge) 4 mg IVPUSH ONCE PRN; Protocol PRN Reason: Dressing change Ondansetron HCl (Ondansetron Hcl 4 Mg/2 Ml Vial) 4 mg IVPUSH Q8H PRN PRN Reason: Nausea and Vomiting Ondansetron HCl (Ondansetron Hcl 4 Mg/2 Ml Vial) 4 mg IVPUSH ONCE PRN PRN Reason: Nausea and Vomiting Oxycodone HCl (Oxycodone Hcl Immed Release 5 Mg Tablet) 10 mg PO Q4H PRN PRN Reason: Pain, Moderate(Pain Scale 4-6) Last Admin: 12/28/22 07:56 Dose: 10 mg Documented By: CELINA Polyethylene Glycol (Polyethylene Glycol 3350 17 Gm Powd.Pack) 17 gm PO DAILY [facility] Last Admin: 12/28/22 09:53 Dose: Not Given Documented By: CELINA Non-Admin Reason: pt refused Senna (Sennosides 8.6 Mg Tablet) 8.6 mg PO DAILY [facility] Last Admin: 12/28/22 10:07 Dose: 8.6 mg Documented By: CELINA Sodium Chloride (0.9 % Sodium Chloride Flush 3 Ml Syringe) 3 ml IVFLUSH QSHIFT [facility] Last Admin: 12/28/22 07:56 Dose: 3 ml Documented By: CELINA Trazodone HCl (Trazodone Hcl 50 Mg Tablet) 150 mg PO BEDTIME [facility] Last Admin: 12/27/22 20:14 Dose: 150 mg Documented By: WINSTON Labs 12/27/22 05:16 12/28/22 08:03 Labs: Laboratory Results - last 24 hr 12/27/22 12/28/22 13:26 08:03 Anion Gap 10 L Estim Creat Clear Calc 169.7 Estimated GFR > 60 Random Glucose 108 Calcium 8.4 Total Creatine Kinase 7694 H 5261 H Assessment and Plan (1) Elevated CPK: Status: Acute (2) Muscle injury: Status: Acute (3) Rhabdomyolysis: Status: Acute (4) Scrotal swelling: Status: Acute Plan 32-year-old male with past medical history of IV drug use usually uses oxycodone, now has transition to using heroin for the 1st time comes in after overdose. # compartement syndrome 2/2 Mucle injury and hematoma POD 3 fasciotomy with significant improvement in pain and parasthesia Normal strength in LE Morphine and Oxy for pain can use Toradol as well surgery team following, monitor over the weekend and do closure next week # rhabdomyolysis w elevated CPK CPK trending down to 5000s continue IVF follow CK # Scrotal swelling from fluid usage and positional To add Lasix and scrotal support follow clinically # IV drug overdose recovery team following denies any suicidal thoughts # Neurapraxia 2/2 compartement syndrome improving arterial studies negative for clots neurology input appreciated , surgical intervention needed PT eval # ION resolved # Anxiety Psych team evaluation appreciated, start Wellbutrin and increase Trazodone Arrange OP follow up with Psych DVT prophylaxis SCDs patient's need for further management patient require overnight inpatient hospital stay for further management and monitoring Time Spent With Patient Time: Total time managing care of this patient today ____ minutes. Quality Stroke Does the patient have a stroke diagnosis?: No VTE Prior VTE?: No VTE Risk Level:: Medical - moderate - high VTE Device Contraindication: Treatment Not Indicated VTE Drug Contraindication: N/A - Med Ordered
--- NOTE | 2022-12-28 10:35 | P.PNGS_ITS ---
Subjective Subjective Date of Service: 12/28/22 Interval history: no events reported no benefit complaints says he feels well Physical Exam Vital Signs: Vital Signs: Last Vital Signs Temp 98.5 F 12/28/22 07:52 Pulse 96 12/28/22 07:52 Resp 18 12/28/22 07:52 BP 110/74 12/28/22 07:52 Pulse Ox 97 12/28/22 07:52 O2 Del Method Room Air 12/28/22 07:52 BMI result Body Mass Index 21.9 Const: General: comfortable and no acute distress Resp: Effort & Inspection: normal respiratory effort Extrem: Other: fasciotomy sites on the left thigh and leg clean, still with edema of the thigh although better than yesterday, muscle in between skin incision also still edematous Objective Data Active Medications Acetaminophen (Acetaminophen 325 Mg Tablet) 650 mg PO Q6H PRN PRN Reason: Pain, Mild (Pain Scale 1-3) Last Admin: 12/28/22 05:37 Dose: 650 mg Documented By: WINSTON Bupropion HCl (Bupropion Hcl Xl 150 Mg Tab.Er.24h) 150 mg PO DAILY [facility] Last Admin: 12/28/22 07:56 Dose: 150 mg Documented By: CELINA Docusate Sodium (Docusate Sodium 100 Mg Capsule) 100 mg PO DAILY PRN PRN Reason: Constipation Last Admin: 12/26/22 20:06 Dose: 100 mg Documented By: WINSTON Glycerin (Glycerin Adult Supp.Rect) 1 supp [place] DAILY PRN PRN Reason: Constipation Hydroxyzine HCl (Hydroxyzine Hcl 50 Mg Tablet) 50 mg PO BEDTIME [facility] Last Admin: 12/27/22 20:14 Dose: 50 mg Documented By: WINSTON Lactated Ringer's (Lr) 1,000 mls @ 100 mls/hr IVCONT .Q10H [facility] Last Admin: 12/28/22 10:07 Dose: 100 mls/hr Documented By: CELINA Ketorolac Tromethamine (Ketorolac Tromethamine 15 Mg/Ml Vial) 15 mg IVPUSH Q6H PRN PRN Reason: Pain, Moderate(Pain Scale 4-6) Methadone HCl (Methadone Hcl 20 Mg/2 Ml Oral.Conc) 10 mg PO DAILY [facility] Last Admin: 12/28/22 07:56 Dose: 10 mg Documented By: CELINA Morphine Sulfate (Morphine Sulfate 2 Mg/Ml Cartridge) 2 mg IVPUSH Q4H PRN; Protocol PRN Reason: Pain, Severe (Pain Scale 7-10) Last Admin: 12/28/22 05:36 Dose: 2 mg Documented By: WINSTON Morphine Sulfate (Morphine Sulfate 4 Mg/Ml Cartridge) 4 mg IVPUSH ONCE PRN; Protocol PRN Reason: Dressing change Ondansetron HCl (Ondansetron Hcl 4 Mg/2 Ml Vial) 4 mg IVPUSH Q8H PRN PRN Reason: Nausea and Vomiting Ondansetron HCl (Ondansetron Hcl 4 Mg/2 Ml Vial) 4 mg IVPUSH ONCE PRN PRN Reason: Nausea and Vomiting Oxycodone HCl (Oxycodone Hcl Immed Release 5 Mg Tablet) 10 mg PO Q4H PRN PRN Reason: Pain, Moderate(Pain Scale 4-6) Last Admin: 12/28/22 07:56 Dose: 10 mg Documented By: CELINA Polyethylene Glycol (Polyethylene Glycol 3350 17 Gm Powd.Pack) 17 gm PO DAILY [facility] Last Admin: 12/28/22 09:53 Dose: Not Given Documented By: CELINA Non-Admin Reason: pt refused Senna (Sennosides 8.6 Mg Tablet) 8.6 mg PO DAILY [facility] Last Admin: 12/28/22 10:07 Dose: 8.6 mg Documented By: CELINA Sodium Chloride (0.9 % Sodium Chloride Flush 3 Ml Syringe) 3 ml IVFLUSH QSHIFT [facility] Last Admin: 12/28/22 07:56 Dose: 3 ml Documented By: CELINA Trazodone HCl (Trazodone Hcl 50 Mg Tablet) 150 mg PO BEDTIME [facility] Last Admin: 12/27/22 20:14 Dose: 150 mg Documented By: WINSTON Labs 12/27/22 05:16 12/28/22 08:03 Labs: Laboratory Results - last 24 hr 12/27/22 12/28/22 13:26 08:03 Anion Gap 10 L Estim Creat Clear Calc 169.7 Estimated GFR > 60 Random Glucose 108 Calcium 8.4 Total Creatine Kinase 7694 H 5261 H Procedures Date of Service Date of Service: 12/28/22 Progress Note: A&P Assessment and plan (1) Compartment syndrome: Status: Acute Assessment and Plan: status post fasciotomy of left leg I have changes dressings including for - premedicated with morphine 4 mg fasciotomy sites sites clean and dry still with edema although better Time Spent With Patient Time: Total time managing care of this patient today ____ minutes. Quality Stroke Does the patient have a stroke diagnosis?: No VTE Prior VTE?: No VTE Risk Level:: Medical - moderate - high VTE Device Contraindication: Treatment Not Indicated VTE Drug Contraindication: N/A - Med Ordered
[2022-12-28] MEDS: polyethylene glycoL 3350 17 GM POWD.PACK PO (10:50)
--- NOTE | 2022-12-28 11:35 | P.PNADD_ITS ---
Subjective Subjective Date of Service: 12/28/22 Reason For Visit: OD Interim History: Patient seen in follow up Tolerating methadone 10mg dose. Would like to continue titrating dose. Appearing more anxious--focused on pain management, concern for worsening pain with any activity. Patient expressed concern that he is being viewed as drug seeking . This check writer salesperson acknowledged patient's concerns, and also encouraged patient to trial activity before seeking increase in medications. Review of Systems Acute medical concerns: Yes Medical Review of Systems: unchanged Mental Status Exam Mental Status Exam Patient Appearance: Well Grooomed (no clothing on aside from towel covering his genitals ) Level of Consciousness: Awake and Alert Patient Behavior: Talkative, Anxious and Crying Mood Description: Anxious Affect Description: Fearful and Anxious Speech Pattern: Clear and Pressured Diagnostics Vital Signs (24Hr): Vital Signs - 24 hr 12/27/22 16:00 12/27/22 16:00 12/27/22 20:00 Temperature 97.5 F 97.5 F 97.2 F Pulse Rate 67 65 Respiratory Rate 18 18 Blood Pressure 112/73 114/65 Pulse Oximetry 98 98 Oxygen Delivery Method Room Air Room Air 12/27/22 21:05 12/27/22 23:11 12/28/22 00:22 Temperature 98.0 F Pulse Rate 73 Respiratory Rate 16 18 16 Blood Pressure 105/58 L Pulse Oximetry 95 Oxygen Delivery Method Room Air 12/28/22 01:48 12/28/22 03:28 12/28/22 05:06 Temperature 97.6 F Pulse Rate 79 Respiratory Rate 16 18 16 Blood Pressure 118/72 Pulse Oximetry 96 Oxygen Delivery Method Room Air 12/28/22 06:14 12/28/22 07:04 12/28/22 07:52 Temperature 98.5 F Pulse Rate 96 Respiratory Rate 18 16 18 Blood Pressure 110/74 Pulse Oximetry 97 Oxygen Delivery Method Room Air BMI result Body Mass Index 21.9 Labs 12/27/22 05:16 12/28/22 08:03 Labs: Laboratory Results - last 48 hr 12/26/22 12/26/22 12/27/22 16:18 16:18 05:16 WBC 5.1 RBC 3.37 L Hgb 10.5 L Hct 32.1 L MCV 95.3 MCH 31.2 MCHC 32.7 RDW 12.6 Plt Count 196 MPV 9.7 Absolute Nucleated RBC 0.000 Nucleated RBC % (auto) 0.0 Sodium Potassium Chloride Carbon Dioxide Anion Gap BUN Creatinine Estim Creat Clear Calc Estimated GFR Random Glucose Calcium Iron 51 TIBC 240 % Saturation 21 Unsat Iron Binding 189 Total Creatine Kinase Vitamin B12 517 Folate 7.8 12/27/22 12/27/22 12/27/22 05:16 05:16 13:26 WBC RBC Hgb Hct MCV MCH MCHC RDW Plt Count MPV Absolute Nucleated RBC Nucleated RBC % (auto) Sodium 142 Potassium 3.5 Chloride 109 H Carbon Dioxide 28 Anion Gap 9 L BUN 17 H Creatinine 0.59 Estim Creat Clear Calc 184.1 Estimated GFR > 60 Random Glucose 88 Calcium 8.0 L Iron TIBC % Saturation Unsat Iron Binding Total Creatine Kinase 7398 H 7694 H Vitamin B12 Folate 12/28/22 08:03 WBC RBC Hgb Hct MCV MCH MCHC RDW Plt Count MPV Absolute Nucleated RBC Nucleated RBC % (auto) Sodium 141 Potassium 4.6 D Chloride 105 Carbon Dioxide 31 H Anion Gap 10 L BUN 15 Creatinine 0.64 Estim Creat Clear Calc 169.7 Estimated GFR > 60 Random Glucose 108 Calcium 8.4 Iron TIBC % Saturation Unsat Iron Binding Total Creatine Kinase 5261 H Vitamin B12 Folate Imaging Radiology Impressions: ITS Impressions Chest X-Ray 12/24/22 01:20 IMPRESSION: No active cardiopulmonary disease. Femur CT 12/24/22 02:55 IMPRESSION: No acute osseous abnormality. There is a low-density collection along the lower anterior medial quadriceps measuring 8.4 x 4.3 x 3.4 cm possibly related to a muscular injury with hemorrhage. Duplex Scan Lower Extremity Artery 12/24/22 15:19 IMPRESSION: Patency of all visualized vasculature of the left lower extremity with triphasic waveforms throughout. Medications Medications Current Medications Acetaminophen (Acetaminophen 325 Mg Tablet) 650 mg PO Q6H PRN PRN Reason: Pain, Mild (Pain Scale 1-3) Last Admin: 12/28/22 05:37 Dose: 650 mg Bupropion HCl (Bupropion Hcl Xl 150 Mg Tab.Er.24h) 150 mg PO DAILY [facility] Last Admin: 12/28/22 07:56 Dose: 150 mg Docusate Sodium (Docusate Sodium 100 Mg Capsule) 100 mg PO DAILY PRN PRN Reason: Constipation Last Admin: 12/26/22 20:06 Dose: 100 mg Glycerin (Glycerin Adult Supp.Rect) 1 supp [place] DAILY PRN PRN Reason: Constipation Hydroxyzine HCl (Hydroxyzine Hcl 50 Mg Tablet) 50 mg PO BEDTIME [facility] Last Admin: 12/27/22 20:14 Dose: 50 mg Hydroxyzine HCl (Hydroxyzine Hcl 25 Mg Tablet) 25 mg PO DAILY@0900,1400 [facility] Lactated Ringer's (Lr) 1,000 mls @ 100 mls/hr IVCONT .Q10H [facility] Last Admin: 12/28/22 10:07 Dose: 100 mls/hr Ketorolac Tromethamine (Ketorolac Tromethamine 15 Mg/Ml Vial) 15 mg IVPUSH Q6H PRN PRN Reason: Pain, Moderate(Pain Scale 4-6) Methadone HCl (Methadone Hcl 20 Mg/2 Ml Oral.Conc) 20 mg PO DAILY [facility] Morphine Sulfate (Morphine Sulfate 2 Mg/Ml Cartridge) 2 mg IVPUSH Q4H PRN; Protocol PRN Reason: Pain, Severe (Pain Scale 7-10) Last Admin: 12/28/22 10:49 Dose: 2 mg Morphine Sulfate (Morphine Sulfate 4 Mg/Ml Cartridge) 4 mg IVPUSH ONCE PRN; Protocol PRN Reason: Dressing change Ondansetron HCl (Ondansetron Hcl 4 Mg/2 Ml Vial) 4 mg IVPUSH Q8H PRN PRN Reason: Nausea and Vomiting Ondansetron HCl (Ondansetron Hcl 4 Mg/2 Ml Vial) 4 mg IVPUSH ONCE PRN PRN Reason: Nausea and Vomiting Oxycodone HCl (Oxycodone Hcl Immed Release 5 Mg Tablet) 10 mg PO Q4H PRN PRN Reason: Pain, Moderate(Pain Scale 4-6) Last Admin: 12/28/22 07:56 Dose: 10 mg Polyethylene Glycol (Polyethylene Glycol 3350 17 Gm Powd.Pack) 17 gm PO DAILY [facility] Last Admin: 12/28/22 10:50 Dose: 17 gm Senna (Sennosides 8.6 Mg Tablet) 8.6 mg PO DAILY [facility] Last Admin: 12/28/22 10:07 Dose: 8.6 mg Sodium Chloride (0.9 % Sodium Chloride Flush 3 Ml Syringe) 3 ml IVFLUSH QSHIFT [facility] Last Admin: 12/28/22 07:56 Dose: 3 ml Trazodone HCl (Trazodone Hcl 50 Mg Tablet) 150 mg PO BEDTIME [facility] Last Admin: 12/27/22 20:14 Dose: 150 mg Allergies Allergies Allergy/AdvReac Type Severity Reaction Status Date / Time No Known Allergies Allergy Verified 12/23/22 22:38 Assessment & Plan Assessment & Plan (1) Opioid use disorder, moderate, dependence: Status: Acute Code(s): F11.20 - Opioid dependence, uncomplicated Assessment and Plan: * methadone dose increased to 20mg daily * gabapentin BID during the day to address anxiety * discussed with RN * will continue to follow Total time managing care of this patient today _20___ minutes.
[2022-12-28] MEDS: Gabapentin 100 MG CAPSULE PO (16:13)
[2022-12-28] MEDS: traZODone HCL 50 MG TABLET 150 MG PO (20:56)
[2022-12-28] MEDS: hydrOXYzine HCL 50 MG TABLET PO (20:57)
[2022-12-29 01:00] VITALS: BP 113/53; PULSE 75; RESP 19; TEMP 36.6; O2SAT 94
[2022-12-29] MEDS: oxyCODONE HCl Immed Release 5 MG TABLET 10 MG PO ×6 (01:10→22:55)
[2022-12-29 04:47] LABS: HBS Num1 5.64 mIU/mL (0-7.99); HBc Num1 0.05 S/CO (0.00-0.79); HBsAGNum1 0.31 S/CO (0.00-0.99); HIV AB/AG Nonreactive (Nonreactive); HIV Num 1 0.12 S/CO (0.00-0.99); Hepatitis A Antibody IgM 0.19 Index (0-0.79); Hepatitis B Core Antibody Nonreactive (Nonreactive); Hepatitis B Surface Antigen Negative (Negative); ~HepC Num1 0.04 S/CO (0.00-0.79); ~Hepatitis A Antibody IgM Nonreactive (Nonreactive); ~Hepatitis B Surface Antibody NONREACTIVE (Nonreactive); ~Hepatitis C Antibody Nonreactive (Nonreactive)
[2022-12-29] MEDS: Acetaminophen 325 MG TABLET 650 MG PO ×3 (05:16→20:58)
[2022-12-29] MEDS: Lactated Ringers 1,000 ML 100 ML IVCONT (06:24)
[2022-12-29] MEDS: Morphine Sulfate 2 MG/ML CARTRIDGE IVPUSH (06:30)
[2022-12-29 08:00] VITALS: BP 117/70; PULSE 84; RESP 18; TEMP 36.1; O2SAT 97
[2022-12-29 08:23] VITALS: BP 121/56; PULSE 86; RESP 16; TEMP 36.1; O2SAT 97
[2022-12-29] MEDS: Furosemide 40 MG/4 ML VIAL IVPUSH (08:35)
[2022-12-29] MEDS: polyethylene glycoL 3350 17 GM POWD.PACK PO (08:36)
[2022-12-29] MEDS: buPROPion HCl XL 150 MG TAB.ER.24H PO (08:36)
[2022-12-29] MEDS: methADONE HCl 20 MG/2 ML ORAL.CONC PO (08:37)
[2022-12-29] MEDS: Sennosides 8.6 MG TABLET PO (08:37)
[2022-12-29 09:29] LABS: Anion Gap 10 (12-20); Blood Urea Nitrogen 13 mg/dL (9-16); Calcium 8.8 mg/dL (8.4-10.2); Carbon Dioxide 32 mmol/L (22-29); Chloride 103 mmol/L (96-108); Creatinine Clr Calc Pharmacy 159.7; Estimated Glomerular Filt Rate > 60; Glucose Random 77 mg/dL (60-115); Potassium 4.5 mmol/L (3.3-5.1); Sodium 140 mmol/L (135-145)
--- NOTE | 2022-12-29 09:30 | PM.PNNEP ---
Subjective Subjective Date of Service: 12/29/22 Interval history: Events noted. All recent data reviewed Physical Exam Vital Signs: Vital Signs: Last Vital Signs Temp 97.0 F 12/29/22 08:23 Pulse 86 12/29/22 08:23 Resp 16 12/29/22 08:23 BP 121/56 L 12/29/22 08:23 Pulse Ox 97 12/29/22 08:23 O2 Del Method Room Air 12/29/22 08:23 BMI result Body Mass Index 21.9 Const: General: no acute distress Eyes: EOM: EOMs intact bilaterally Resp: Auscultation: diminished lung sounds Cardio: Rate: regular rate GI: Palpation (GI): Soft to palpation Neuro: General: moves all extremities Objective Data Labs 12/27/22 05:16 12/28/22 08:03 Labs: Laboratory Results - last 24 hr 12/27/22 12/29/22 13:26 05:34 Total Creatine Kinase 4466 H Hepatitis A IgM Ab Nonreactive Hep Bs Antigen Negative Hep Bs Antibody NONREACTIVE Hep B Core Total Ab Nonreactive Hepatitis C Ab (EIA) Nonreactive HIV 1&2 Ab/P24 Ag 4thGn Nonreactive Microbiology Microbiology Results: Microbiology 12/23/22 23:11 Blood - Venous Blood Culture - Final No growth after 5 days. 12/23/22 23:11 Blood - Venous Blood Culture - Final No growth after 5 days. Procedures Date of Service Date of Service: 12/29/22 Assessment & Plan Assessment and plan (1) Rhabdomyolysis: Status: Acute Assessment and Plan: CK had been improving Awaiting blood chemistry from AM Clinically hypervolemic Renal function had been at baseline Would benefit from 1 dose of IV lasix 40 mg today Progress Note: Quality Stroke Does the patient have a stroke diagnosis?: No
[2022-12-29] MEDS: Gabapentin 100 MG CAPSULE PO ×2 (10:45→17:02)
[2022-12-29] MEDS: Ketorolac Tromethamine 15 MG/ML VIAL IVPUSH ×2 (10:45→17:02)
[2022-12-29] MEDS: bisacodyL 10 MG SUPP.RECT PR (11:03)
--- NOTE | 2022-12-29 12:41 | P.PNIM_ITS ---
Subjective Subjective Date of Service: 12/29/22 Interval History: Seen and evaluated this morning wrosening scrotal edema sensation significantly better LLE wounds clean and covered with dressing with serous fluid oozing Review of Systems Review of Systems: Yes all other systems are reviewed and are negative Physical Exam Vital Signs: Vital Signs: Last Vital Signs Temp 97.0 F 12/29/22 08:23 Pulse 86 12/29/22 08:23 Resp 16 12/29/22 08:23 BP 121/56 L 12/29/22 08:23 Pulse Ox 97 12/29/22 08:23 O2 Del Method Room Air 12/29/22 08:23 BMI result Body Mass Index 21.9 Const: Other: Constitutional : Awake, interactive, not in distress Neck : Normal inspection, Supple Cardiovascular : RRR, no JVP, no lower extremity edema Respiratory : good bilateral air entry, no crackles, wheezes or rhonchi Gastrointestinal: soft, lax, Normal bowel sounds, Non tender Skin : Warm, Dry, surgical wounds clean and covered with dressing with serous fluid oozing , mild tenderness upper thigh Neurological : Alert & oriented x3, No focal strength deficit, continous improvement in light, deep and proprioception in LLE on daily basis Objective Data Active Medications Acetaminophen (Acetaminophen 325 Mg Tablet) 650 mg PO Q6H PRN PRN Reason: Pain, Mild (Pain Scale 1-3) Last Admin: 12/29/22 05:16 Dose: 650 mg Documented By: ENDY Bisacodyl (Bisacodyl 10 Mg Supp.Rect) 10 mg [place] DAILY PRN PRN Reason: Constipation Last Admin: 12/29/22 11:03 Dose: 10 mg Documented By: SIRIA Bupropion HCl (Bupropion Hcl Xl 150 Mg Tab.Er.24h) 150 mg PO DAILY [facility] Last Admin: 12/29/22 08:36 Dose: 150 mg Documented By: SIRIA Docusate Sodium (Docusate Sodium 100 Mg Capsule) 100 mg PO DAILY PRN PRN Reason: Constipation Last Admin: 12/26/22 20:06 Dose: 100 mg Documented By: WINSTON Gabapentin (Gabapentin 100 Mg Capsule) 100 mg PO BID@1100,1600 [facility] Last Admin: 12/29/22 10:45 Dose: 100 mg Documented By: SIRIA Hydroxyzine HCl (Hydroxyzine Hcl 50 Mg Tablet) 50 mg PO BEDTIME [facility] Last Admin: 12/28/22 20:57 Dose: 50 mg Documented By: MEERA Ketorolac Tromethamine (Ketorolac Tromethamine 15 Mg/Ml Vial) 15 mg IVPUSH Q6H PRN PRN Reason: Pain, Moderate(Pain Scale 4-6) Last Admin: 12/29/22 10:45 Dose: 15 mg Documented By: SIRIA Methadone HCl (Methadone Hcl 20 Mg/2 Ml Oral.Conc) 20 mg PO DAILY [facility] Last Admin: 12/29/22 08:37 Dose: 20 mg Documented By: SIRIA Morphine Sulfate (Morphine Sulfate 4 Mg/Ml Cartridge) 4 mg IVPUSH ONCE PRN; Protocol PRN Reason: Dressing change Ondansetron HCl (Ondansetron Hcl 4 Mg/2 Ml Vial) 4 mg IVPUSH Q8H PRN PRN Reason: Nausea and Vomiting Ondansetron HCl (Ondansetron Hcl 4 Mg/2 Ml Vial) 4 mg IVPUSH ONCE PRN PRN Reason: Nausea and Vomiting Oxycodone HCl (Oxycodone Hcl Immed Release 5 Mg Tablet) 10 mg PO Q4H PRN PRN Reason: Pain, Moderate(Pain Scale 4-6) Last Admin: 12/29/22 09:37 Dose: 10 mg Documented By: SIRIA Polyethylene Glycol (Polyethylene Glycol 3350 17 Gm Powd.Pack) 17 gm PO DAILY [facility] Last Admin: 12/29/22 08:36 Dose: 17 gm Documented By: SIRIA Senna (Sennosides 8.6 Mg Tablet) 8.6 mg PO DAILY [facility] Last Admin: 12/29/22 08:37 Dose: 8.6 mg Documented By: SIRIA Sodium Chloride (0.9 % Sodium Chloride Flush 3 Ml Syringe) 3 ml IVFLUSH QSHIFT [facility] Last Admin: 12/29/22 07:26 Dose: Not Given Documented By: SIRIA Non-Admin Reason: IV Running Trazodone HCl (Trazodone Hcl 50 Mg Tablet) 150 mg PO BEDTIME [facility] Last Admin: 12/28/22 20:56 Dose: 150 mg Documented By: MEERA Labs 12/27/22 05:16 12/29/22 05:34 Labs: Laboratory Results - last 24 hr 12/27/22 12/29/22 12/29/22 13:26 05:34 05:34 Anion Gap 10 L Estim Creat Clear Calc 159.7 Estimated GFR > 60 Random Glucose 77 Calcium 8.8 Total Creatine Kinase 4466 H Hepatitis A IgM Ab Nonreactive Hep Bs Antigen Negative Hep Bs Antibody NONREACTIVE Hep B Core Total Ab Nonreactive Hepatitis C Ab (EIA) Nonreactive HIV 1&2 Ab/P24 Ag 4thGn Nonreactive Microbiology Microbiology Results: Microbiology 12/23/22 23:11 Blood Culture - Final Blood - Venous No growth after 5 days. 12/23/22 23:11 Blood Culture - Final Blood - Venous No growth after 5 days. Assessment and Plan (1) Scrotal swelling: Status: Acute (2) Opioid use disorder, moderate, dependence: Status: Acute (3) Neurapraxia of left lower extremity: Status: Acute (4) Compartment syndrome: Status: Acute (5) Rhabdomyolysis: Status: Acute Plan 32-year-old male with past medical history of IV drug use usually uses oxycodone, now has transition to using heroin for the 1st time comes in after overdose. # compartement syndrome 2/2 Mucle injury and hematoma POD 4 fasciotomy with significant improvement in pain and parasthesia Morphine and Oxy for pain can use Toradol as well surgery team following, plan to do closure this week # rhabdomyolysis w elevated CPK CPK trending down to 4000s dc IVF give Lasix follow CK # Scrotal swelling from fluid usage and positional scrotal support follow clinically # IV drug overdose recovery team following; Increase Methadone denies any suicidal thoughts # Neurapraxia 2/2 compartement syndrome improving with increase sensation LLE arterial studies negative for clots neurology input appreciated , surgical intervention needed PT eval # ION resolved # Anxiety Psych team evaluation appreciated, start Wellbutrin and increase Trazodone Arrange OP follow up with Psych DVT prophylaxis SCDs patient's need for further management patient require overnight inpatient hospital stay for further management and monitoring Time Spent With Patient Time: Total time managing care of this patient today ____ minutes. Quality Stroke Does the patient have a stroke diagnosis?: No VTE Prior VTE?: No VTE Risk Level:: Medical - moderate - high VTE Device Contraindication: Treatment Not Indicated VTE Drug Contraindication: N/A - Med Ordered
[2022-12-29] MEDS: Morphine Sulfate 4 MG/ML CARTRIDGE IVPUSH (12:46)
--- NOTE | 2022-12-29 14:50 | MHC.RECOVRN ---
This field underwriter met with patient, patient had presented to the ED post overdose with left leg pain, swelling. Pt resting in bed, left leg elevated, pts Mother at bedside. Pt reports cravings. Pt states with increased stress, thoughts of using and the relief accompanied by use. Pt denies withdrawal s/s. Pt reports no effect since starting gabapentin, reports willing to try for a few more days, pt states has noticed no change in anxiety. Pt denies sedation. Pt pressured speech. Reviewed findings with Provider Eliana Car.
--- NOTE | 2022-12-29 15:44 | MHC.CM.PN ---
pt will have surgery this week no anticapated dc date
[2022-12-29] MEDS: 0.9 % Sodium Chloride Flush 3 ML SYRINGE IVFLUSH ×2 (17:02→21:00)
--- NOTE | 2022-12-29 17:02 | P.EN_ITS ---
Event Note Date of Service: 12/29/22 Event Note: Addiction note Patient seen by court usher. Reporting ongoing cravings for opioids. No sedation noted with current methadone dose. See court usher note for additional details Plan: Increase methadone dose to 30mg daily will continue to follow Time Spent With Patient Time: Total time managing care of this patient today ____ minutes.
--- NOTE | 2022-12-29 17:02 | PM.EVENT ---
Event Note Date of Service: 12/29/22 Event Note: Addiction note Patient seen by business trainer. Reporting ongoing cravings for opioids. No sedation noted with current methadone dose. See business trainer note for additional details Plan: Increase methadone dose to 30mg daily will continue to follow Time Spent With Patient Time: Total time managing care of this patient today ____ minutes.
[2022-12-29 19:55] VITALS: BP 118/75; PULSE 102; RESP 18; TEMP 36.8; O2SAT 98
[2022-12-29] MEDS: traZODone HCL 50 MG TABLET 150 MG PO (20:58)
[2022-12-29] MEDS: hydrOXYzine HCL 50 MG TABLET PO (20:58)
[2022-12-30] MEDS: Ketorolac Tromethamine 15 MG/ML VIAL IVPUSH ×2 (00:26→10:15)
[2022-12-30 03:24] VITALS: BP 103/56; PULSE 75; RESP 18; TEMP 36.5; O2SAT 97
[2022-12-30] MEDS: Acetaminophen 325 MG TABLET 650 MG PO ×3 (03:45→23:27)
[2022-12-30] MEDS: oxyCODONE HCl Immed Release 5 MG TABLET 10 MG PO ×5 (03:46→23:27)
--- NOTE | 2022-12-30 05:37 | PC.NURSE ---
Approximately around 04:00, this RN received a called from nursing supervisor feed mill saying that the VMT observation room saw suspicious behavior from pt's camera in room. Per VMT the pt was seen on camera putting medications into tissue and hiding it in bedside table's sliding drawer. Three Security officers was called to pt's bedside. Security officers searched pt's room and only found a vapor. Vapor was taken by security. Will continue to monitor pt's behavior.
[2022-12-30 06:14] LABS: Anion Gap 9 (12-20); Blood Urea Nitrogen 16 mg/dL (9-16); Calcium 8.8 mg/dL (8.4-10.2); Carbon Dioxide 33 mmol/L (22-29); Chloride 101 mmol/L (96-108); Creatinine Clr Calc Pharmacy 159.7; Estimated Glomerular Filt Rate > 60; Glucose Random 89 mg/dL (60-115); Potassium 4.4 mmol/L (3.3-5.1); Sodium 139 mmol/L (135-145)
[2022-12-30 07:52] VITALS: BP 107/63; PULSE 84; RESP 16; TEMP 36.4; O2SAT 96
--- NOTE | 2022-12-30 07:56 | P.PNGS_ITS ---
Subjective Subjective Date of Service: 12/29/22 Patient reports: no new complaints Interval history: Complains of scrotal swelling but does feel it is better after Lasix. Physical Exam Vital Signs: Vital Signs: Last Vital Signs Temp 97.6 F 12/30/22 07:52 Pulse 84 12/30/22 07:52 Resp 16 12/30/22 07:52 BP 107/63 12/30/22 07:52 Pulse Ox 96 12/30/22 07:52 O2 Del Method Room Air 12/30/22 07:52 BMI result Body Mass Index 21.9 Const: General: anxious Nutritional Appearance: thin Orientation/consciousness: patient oriented x3 Resp: Effort & Inspection: normal respiratory effort : Other: Scrotal edema Neuro: General: patient oriented x3 Extrem: Other: Dressings changed to left leg. Serosanguineous discharge noted from all incisions. Lower extremity incisions ready for closure. Upper extremity still very edematous, may benefit from wound VAC. Objective Data Active Medications Acetaminophen (Acetaminophen 325 Mg Tablet) 650 mg PO Q6H PRN PRN Reason: Pain, Mild (Pain Scale 1-3) Last Admin: 12/30/22 03:45 Dose: 650 mg Documented By: TRISH Bisacodyl (Bisacodyl 10 Mg Supp.Rect) 10 mg [place] DAILY PRN PRN Reason: Constipation Last Admin: 12/29/22 11:03 Dose: 10 mg Documented By: SIRIA Bupropion HCl (Bupropion Hcl Xl 150 Mg Tab.Er.24h) 150 mg PO DAILY [facility] Last Admin: 12/29/22 08:36 Dose: 150 mg Documented By: SIRIA Docusate Sodium (Docusate Sodium 100 Mg Capsule) 100 mg PO DAILY PRN PRN Reason: Constipation Last Admin: 12/26/22 20:06 Dose: 100 mg Documented By: OZORALB Gabapentin (Gabapentin 100 Mg Capsule) 100 mg PO BID@1100,1600 [facility] Last Admin: 12/29/22 17:02 Dose: 100 mg Documented By: SIRIA Hydroxyzine HCl (Hydroxyzine Hcl 50 Mg Tablet) 50 mg PO BEDTIME [facility] Last Admin: 12/29/22 20:58 Dose: 50 mg Documented By: TOYA Ketorolac Tromethamine (Ketorolac Tromethamine 15 Mg/Ml Vial) 15 mg IVPUSH Q6H PRN PRN Reason: Pain, Moderate(Pain Scale 4-6) Last Admin: 12/30/22 00:26 Dose: 15 mg Documented By: TOYA Methadone HCl (Methadone Hcl 20 Mg/2 Ml Oral.Conc) 30 mg PO DAILY [facility] Morphine Sulfate (Morphine Sulfate 4 Mg/Ml Cartridge) 4 mg IVPUSH ONCE PRN; Protocol PRN Reason: Dressing change Last Admin: 12/29/22 12:46 Dose: 4 mg Documented By: SIRIA Ondansetron HCl (Ondansetron Hcl 4 Mg/2 Ml Vial) 4 mg IVPUSH Q8H PRN PRN Reason: Nausea and Vomiting Ondansetron HCl (Ondansetron Hcl 4 Mg/2 Ml Vial) 4 mg IVPUSH ONCE PRN PRN Reason: Nausea and Vomiting Oxycodone HCl (Oxycodone Hcl Immed Release 5 Mg Tablet) 10 mg PO Q4H PRN PRN Reason: Pain, Moderate(Pain Scale 4-6) Last Admin: 12/30/22 03:46 Dose: 10 mg Documented By: TRISH Polyethylene Glycol (Polyethylene Glycol 3350 17 Gm Powd.Pack) 17 gm PO DAILY [facility] Last Admin: 12/29/22 08:36 Dose: 17 gm Documented By: SIRIA Senna (Sennosides 8.6 Mg Tablet) 8.6 mg PO DAILY [facility] Last Admin: 12/29/22 08:37 Dose: 8.6 mg Documented By: SIRIA Sodium Chloride (0.9 % Sodium Chloride Flush 3 Ml Syringe) 3 ml IVFLUSH QSHIFT [facility] Last Admin: 12/29/22 21:00 Dose: 3 ml Documented By: TOYA Trazodone HCl (Trazodone Hcl 50 Mg Tablet) 150 mg PO BEDTIME [facility] Last Admin: 12/29/22 20:58 Dose: 150 mg Documented By: TOYA Labs 12/27/22 05:16 12/30/22 05:09 Labs: Laboratory Results - last 24 hr 12/29/22 12/29/22 12/30/22 05:34 05:34 05:09 Anion Gap 10 L 9 L Estim Creat Clear Calc 159.7 159.7 Estimated GFR > 60 > 60 Random Glucose 77 89 Calcium 8.8 8.8 Total Creatine Kinase 4466 H 12/30/22 05:09 Anion Gap Estim Creat Clear Calc Estimated GFR Random Glucose Calcium Total Creatine Kinase 3617 H Procedures Date of Service Date of Service: 12/30/22 Progress Note: A&P Assessment and plan (1) Compartment syndrome: Status: Acute (2) H/O fasciotomy: Status: Inactive Plan 32-year-old male patient with left foot weakness, s/p left leg fasciotomy. Sensation is now improving. Wounds over the calf are much softer and appear ready for skin closure. Thigh wounds will require more time but may benefit from wound VAC placement for wound management. Discussed the procedure, risks, and alternatives, he consents to left leg fasciotomy skin wound closure with possible wound VAC placement to thigh. He will be added onto the schedule for Thursday. Time Spent With Patient Time: Total time managing care of this patient today ____ minutes. Quality Stroke Does the patient have a stroke diagnosis?: No VTE Prior VTE?: No VTE Risk Level:: Medical - moderate - high VTE Device Contraindication: Treatment Not Indicated VTE Drug Contraindication: N/A - Med Ordered
[2022-12-30] MEDS: 0.9 % Sodium Chloride Flush 3 ML SYRINGE IVFLUSH ×3 (08:15→20:22)
[2022-12-30] MEDS: buPROPion HCl XL 150 MG TAB.ER.24H PO (08:15)
[2022-12-30] MEDS: Sennosides 8.6 MG TABLET PO ×2 (08:15→20:21)
[2022-12-30] MEDS: methADONE HCl 20 MG/2 ML ORAL.CONC 30 MG PO (08:17)
[2022-12-30] MEDS: polyethylene glycoL 3350 17 GM POWD.PACK PO (08:22)
[2022-12-30] MEDS: Gabapentin 100 MG CAPSULE PO ×2 (10:15→15:24)
[2022-12-30] MEDS: Furosemide 40 MG/4 ML VIAL IVPUSH (11:05)
[2022-12-30] MEDS: Omeprazole 20 MG CAPSULE.DR PO (11:05)
--- NOTE | 2022-12-30 11:41 | P.PNIM_ITS ---
Subjective Subjective Date of Service: 12/30/22 Interval History: Seen and evaluated this morning partially improved scrotal edema sensation significantly better LLE Had bowel movement wounds clean and covered with dressing with serous fluid oozing Review of Systems Review of Systems: Yes all other systems are reviewed and are negative Physical Exam Vital Signs: Vital Signs: Last Vital Signs Temp 97.6 F 12/30/22 07:52 Pulse 84 12/30/22 07:52 Resp 16 12/30/22 07:52 BP 107/63 12/30/22 07:52 Pulse Ox 96 12/30/22 07:52 O2 Del Method Room Air 12/30/22 07:52 BMI result Body Mass Index 21.9 Const: Other: Constitutional : Awake, interactive, not in distress Neck : Normal inspection, Supple Cardiovascular : RRR, no JVP, no lower extremity edema Respiratory : good bilateral air entry, no crackles, wheezes or rhonchi Gastrointestinal: soft, lax, Normal bowel sounds, Non tender Skin : Warm, Dry, surgical wounds clean and covered with dressing with serous fluid oozing , mild tenderness upper thigh Neurological : Alert & oriented x3, No focal strength deficit, continous improvement in light, deep and proprioception in LLE on daily basis Objective Data Active Medications Acetaminophen (Acetaminophen 325 Mg Tablet) 650 mg PO Q6H PRN PRN Reason: Pain, Mild (Pain Scale 1-3) Last Admin: 12/30/22 03:45 Dose: 650 mg Documented By: TRISH Bisacodyl (Bisacodyl 10 Mg Supp.Rect) 10 mg [place] DAILY PRN PRN Reason: Constipation Last Admin: 12/29/22 11:03 Dose: 10 mg Documented By: SIRIA Bupropion HCl (Bupropion Hcl Xl 150 Mg Tab.Er.24h) 150 mg PO DAILY [facility] Last Admin: 12/30/22 08:15 Dose: 150 mg Documented By: SADIA Docusate Sodium (Docusate Sodium 100 Mg Capsule) 100 mg PO DAILY PRN PRN Reason: Constipation Last Admin: 12/26/22 20:06 Dose: 100 mg Documented By: WINSTON Gabapentin (Gabapentin 100 Mg Capsule) 100 mg PO BID@1100,1600 [facility] Last Admin: 12/30/22 10:15 Dose: 100 mg Documented By: SADIA Hydroxyzine HCl (Hydroxyzine Hcl 50 Mg Tablet) 50 mg PO BEDTIME [facility] Last Admin: 12/29/22 20:58 Dose: 50 mg Documented By: TOYA Ketorolac Tromethamine (Ketorolac Tromethamine 15 Mg/Ml Vial) 15 mg IVPUSH Q6H PRN PRN Reason: Pain, Moderate(Pain Scale 4-6) Last Admin: 12/30/22 10:15 Dose: 15 mg Documented By: SADIA Methadone HCl (Methadone Hcl 20 Mg/2 Ml Oral.Conc) 30 mg PO DAILY [facility] Last Admin: 12/30/22 08:17 Dose: 30 mg Documented By: SADIA Morphine Sulfate (Morphine Sulfate 4 Mg/Ml Cartridge) 4 mg IVPUSH ONCE PRN; Protocol PRN Reason: Dressing change Last Admin: 12/29/22 12:46 Dose: 4 mg Documented By: SIRIA Morphine Sulfate (Morphine Sulfate 2 Mg/Ml Cartridge) 2 mg IVPUSH Q4H PRN; Protocol PRN Reason: Pain, Severe (Pain Scale 7-10) Omeprazole (Omeprazole 20 Mg Capsule.Dr) 20 mg PO DAILY@0630 [facility] Last Admin: 12/30/22 11:05 Dose: 20 mg Documented By: SADIA Ondansetron HCl (Ondansetron Hcl 4 Mg/2 Ml Vial) 4 mg IVPUSH Q8H PRN PRN Reason: Nausea and Vomiting Ondansetron HCl (Ondansetron Hcl 4 Mg/2 Ml Vial) 4 mg IVPUSH ONCE PRN PRN Reason: Nausea and Vomiting Oxycodone HCl (Oxycodone Hcl Immed Release 5 Mg Tablet) 10 mg PO Q4H PRN PRN Reason: Pain, Moderate(Pain Scale 4-6) Last Admin: 12/30/22 08:16 Dose: 10 mg Documented By: SADIA Polyethylene Glycol (Polyethylene Glycol 3350 17 Gm Powd.Pack) 17 gm PO BID [facility] Senna (Sennosides 8.6 Mg Tablet) 8.6 mg PO BID [facility] Sodium Chloride (0.9 % Sodium Chloride Flush 3 Ml Syringe) 3 ml IVFLUSH QSHIFT [facility] Last Admin: 12/30/22 08:15 Dose: 3 ml Documented By: SADIA Trazodone HCl (Trazodone Hcl 50 Mg Tablet) 150 mg PO BEDTIME [facility] Last Admin: 12/29/22 20:58 Dose: 150 mg Documented By: TOYA Labs 12/27/22 05:16 12/30/22 05:09 Labs: Laboratory Results - last 24 hr 12/30/22 12/30/22 05:09 05:09 Anion Gap 9 L Estim Creat Clear Calc 159.7 Estimated GFR > 60 Random Glucose 89 Calcium 8.8 Total Creatine Kinase 3617 H Assessment and Plan (1) Scrotal swelling: Status: Acute (2) Opioid use disorder, moderate, dependence: Status: Acute Plan 32-year-old male with past medical history of IV drug use usually uses oxycodone, now has transition to using heroin for the 1st time comes in after overdose. # compartement syndrome 2/2 Mucle injury and hematoma POD 4 fasciotomy with significant improvement in pain and parasthesia Morphine and Oxy for pain can use Toradol as well surgery team following, plan to do partial closure this week # rhabdomyolysis w elevated CPK CPK trending down to 3000s follow CK # Scrotal swelling from fluid usage and positional Give extra dose of lasix scrotal support follow clinically # IV drug overdose recovery team following; Increase Methadone to 30mg denies any suicidal thoughts # Neurapraxia 2/2 compartement syndrome improving with increase sensation LLE arterial studies negative for clots neurology input appreciated , surgical intervention needed PT eval # ION resolved # Anxiety Psych team evaluation appreciated, start Wellbutrin and increase Trazodone Arrange OP follow up with Psych DVT prophylaxis SCDs patient's need for further management patient require overnight inpatient hospital stay for further management and monitoring Time Spent With Patient Time: Total time managing care of this patient today ____ minutes. Quality Stroke Does the patient have a stroke diagnosis?: No VTE Prior VTE?: No VTE Risk Level:: Medical - moderate - high VTE Device Contraindication: Treatment Not Indicated VTE Drug Contraindication: N/A - Med Ordered
--- NOTE | 2022-12-30 12:09 | PM.PNNEP ---
Subjective Subjective Date of Service: 12/30/22 Interval history: All recent data reviewed; partially improved scrotal edema Physical Exam Vital Signs: Vital Signs: Last Vital Signs Temp 97.6 F 12/30/22 07:52 Pulse 84 12/30/22 07:52 Resp 16 12/30/22 07:52 BP 107/63 12/30/22 07:52 Pulse Ox 96 12/30/22 07:52 O2 Del Method Room Air 12/30/22 07:52 BMI result Body Mass Index 21.9 Const: General: no acute distress Orientation/consciousness: patient oriented x3 Eyes: EOM: EOMs intact bilaterally Resp: Auscultation: diminished lung sounds Cardio: Rate: regular rate GI: Palpation (GI): Soft to palpation : Other: Scrotal edema Neuro: General: patient oriented x3 Objective Data Labs 12/27/22 05:16 12/30/22 05:09 Labs: Laboratory Results - last 24 hr 12/30/22 12/30/22 05:09 05:09 Sodium 139 Potassium 4.4 Chloride 101 Carbon Dioxide 33 H Anion Gap 9 L BUN 16 Creatinine 0.68 Estim Creat Clear Calc 159.7 Estimated GFR > 60 Random Glucose 89 Calcium 8.8 Total Creatine Kinase 3617 H Microbiology Microbiology Results: Microbiology 12/23/22 23:11 Blood - Venous Blood Culture - Final No growth after 5 days. 12/23/22 23:11 Blood - Venous Blood Culture - Final No growth after 5 days. Procedures Date of Service Date of Service: 12/30/22 Assessment & Plan Assessment and plan (1) Rhabdomyolysis: Status: Acute Assessment and Plan: CK had been improving Clinically hypervolemic Renal function had been at baseline Would benefit from 1 dose of IV lasix 40 mg today Progress Note: Quality Stroke Does the patient have a stroke diagnosis?: No
--- NOTE | 2022-12-30 12:28 | P.CNPS_ITS ---
History of Present Illness Date of Service: 12/30/2022 Chief Complaint: OD Reason for Consult: f/u Requesting physician: Sekou Jacobs Discussed with referring provider: Yes Sources of Information: patient interviewed, chart reviewed and crisis/core team assessment reviewed HPI Narrative: Interim Hx: Pt reports sleeping and eating well. Methadone increase due to ongoing cravings. Pt continues to present as future oriented, optimistic about his recovery, somewhat anxious about uncertainty of what's next once he is discharged home. No SI/HI. He denies side effects with wellbutrin. He would like to increase it to 300mg po daily. Past Psychiatric History: Inpatient: none OP: none currently No hx of suicide attempts. [facility] Medical History IV drug abuse Surgical History (Updated 12/30/22 @ 07:59 by Parish Costa MD) H/O fasciotomy (12/25/22) No pertinent past surgical history Diagnostics Vital Signs (24Hr): Vital Signs - 24 hr 12/29/22 19:55 12/30/22 03:24 12/30/22 07:52 Temperature 98.2 F 97.7 F 97.6 F Pulse Rate 102 H 75 84 Respiratory Rate 18 18 16 Blood Pressure 118/75 103/56 L 107/63 Pulse Oximetry 98 97 96 Oxygen Delivery Method Room Air Room Air Room Air BMI result Body Mass Index 21.9 Labs 12/27/22 05:16 12/30/22 05:09 Labs: Laboratory Results - last 48 hr 12/27/22 12/29/22 12/29/22 13:26 05:34 05:34 Sodium 140 Potassium 4.5 Chloride 103 Carbon Dioxide 32 H Anion Gap 10 L BUN 13 Creatinine 0.68 Estim Creat Clear Calc 159.7 Estimated GFR > 60 Random Glucose 77 Calcium 8.8 Total Creatine Kinase 4466 H Hepatitis A IgM Ab Nonreactive Hep Bs Antigen Negative Hep Bs Antibody NONREACTIVE Hep B Core Total Ab Nonreactive Hepatitis C Ab (EIA) Nonreactive HIV 1&2 Ab/P24 Ag 4thGn Nonreactive 12/30/22 12/30/22 05:09 05:09 Sodium 139 Potassium 4.4 Chloride 101 Carbon Dioxide 33 H Anion Gap 9 L BUN 16 Creatinine 0.68 Estim Creat Clear Calc 159.7 Estimated GFR > 60 Random Glucose 89 Calcium 8.8 Total Creatine Kinase 3617 H Hepatitis A IgM Ab Hep Bs Antigen Hep Bs Antibody Hep B Core Total Ab Hepatitis C Ab (EIA) HIV 1&2 Ab/P24 Ag 4thGn Imaging Radiology Impressions: ITS Impressions Chest X-Ray 12/24/22 01:20 IMPRESSION: No active cardiopulmonary disease. Femur CT 12/24/22 02:55 IMPRESSION: No acute osseous abnormality. There is a low-density collection along the lower anterior medial quadriceps measuring 8.4 x 4.3 x 3.4 cm possibly related to a muscular injury with hemorrhage. Duplex Scan Lower Extremity Artery 12/24/22 15:19 IMPRESSION: Patency of all visualized vasculature of the left lower extremity with triphasic waveforms throughout. Mental Status Exam Mental Status Exam Narrative: Appearance: wearing hospital gown, good hygiene, in NAD Behavior: cooperative Psychomotor: no agitation or retardation noted Speech: clear, normal rate, slightly hyperverbal, not pressured, spontaneous TP: linear TC: no signs of psychosis or delusions, future oriented looking forward to continue tx Mood: better Affect bright, non labile SI: denies HI: none VH/AH: none Delusions: none Insight/judgment: fair x 2. Memory/cog: alert, oriented x 3. grossly intact to conversational testing. Medications Medications Current Medications Acetaminophen (Acetaminophen 325 Mg Tablet) 650 mg PO Q6H PRN PRN Reason: Pain, Mild (Pain Scale 1-3) Last Admin: 12/30/22 03:45 Dose: 650 mg Bisacodyl (Bisacodyl 10 Mg Supp.Rect) 10 mg PA DAILY PRN PRN Reason: Constipation Last Admin: 12/29/22 11:03 Dose: 10 mg Docusate Sodium (Docusate Sodium 100 Mg Capsule) 100 mg PO DAILY PRN PRN Reason: Constipation Last Admin: 12/26/22 20:06 Dose: 100 mg Gabapentin (Gabapentin 100 Mg Capsule) 100 mg PO BID@1100,1600 [facility] Last Admin: 12/30/22 10:15 Dose: 100 mg Hydroxyzine HCl (Hydroxyzine Hcl 50 Mg Tablet) 50 mg PO BEDTIME [facility] Last Admin: 12/29/22 20:58 Dose: 50 mg Ketorolac Tromethamine (Ketorolac Tromethamine 15 Mg/Ml Vial) 15 mg IVPUSH Q6H PRN PRN Reason: Pain, Moderate(Pain Scale 4-6) Last Admin: 12/30/22 10:15 Dose: 15 mg Methadone HCl (Methadone Hcl 20 Mg/2 Ml Oral.Conc) 30 mg PO DAILY [facility] Last Admin: 12/30/22 08:17 Dose: 30 mg Morphine Sulfate (Morphine Sulfate 4 Mg/Ml Cartridge) 4 mg IVPUSH ONCE PRN; Protocol PRN Reason: Dressing change Last Admin: 12/29/22 12:46 Dose: 4 mg Morphine Sulfate (Morphine Sulfate 2 Mg/Ml Cartridge) 2 mg IVPUSH Q4H PRN; Protocol PRN Reason: Pain, Severe (Pain Scale 7-10) Omeprazole (Omeprazole 20 Mg Capsule.Dr) 20 mg PO DAILY@0630 [facility] Last Admin: 12/30/22 11:05 Dose: 20 mg Ondansetron HCl (Ondansetron Hcl 4 Mg/2 Ml Vial) 4 mg IVPUSH Q8H PRN PRN Reason: Nausea and Vomiting Ondansetron HCl (Ondansetron Hcl 4 Mg/2 Ml Vial) 4 mg IVPUSH ONCE PRN PRN Reason: Nausea and Vomiting Oxycodone HCl (Oxycodone Hcl Immed Release 5 Mg Tablet) 10 mg PO Q4H PRN PRN Reason: Pain, Moderate(Pain Scale 4-6) Last Admin: 12/30/22 08:16 Dose: 10 mg Polyethylene Glycol (Polyethylene Glycol 3350 17 Gm Powd.Pack) 17 gm PO BID [facility] Senna (Sennosides 8.6 Mg Tablet) 8.6 mg PO BID [facility] Sodium Chloride (0.9 % Sodium Chloride Flush 3 Ml Syringe) 3 ml IVFLUSH QSHIFT [facility] Last Admin: 12/30/22 08:15 Dose: 3 ml Trazodone HCl (Trazodone Hcl 50 Mg Tablet) 150 mg PO BEDTIME [facility] Last Admin: 12/29/22 20:58 Dose: 150 mg Allergies Allergies Allergy/AdvReac Type Severity Reaction Status Date / Time No Known Allergies Allergy Verified 12/23/22 22:38 Assessment & Plan Assessment & Plan (1) MDD (major depressive disorder), recurrent episode, moderate: Status: Acute Code(s): F33.1 - Major depressive disorder, recurrent, moderate (2) Opioid use disorder, moderate, dependence: Status: Acute Code(s): F11.20 - Opioid dependence, uncomplicated Plan We discussed increasing wellbutrin to 300mg po daily. Monitor increase in anxiety or agitation or irritability as wellbutrin can worsen these symptoms. No need for inpatient level of care. Total time managing care of this patient today ____ minutes.
--- NOTE | 2022-12-30 13:49 | MHC.CM.PN ---
met with pt and father who has found a pcp who will accept pt and write orders for vna please fax dc summary to dr dashawn [facility] phone is [phone] fax [phone]
[2022-12-30 15:33] VITALS: BP 110/64; PULSE 80; RESP 18; TEMP 36.3; O2SAT 97
[2022-12-30 19:14] VITALS: BP 115/65; PULSE 83; RESP 14; TEMP 36.1; O2SAT 96
--- NOTE | 2022-12-30 19:57 | P.PNADD_ITS ---
Subjective Subjective Date of Service: 12/30/22 Reason For Visit: OD Interim History: Patient seen in follow up Reporting improvement in cravings and preoccupation with using opioids. Appearing much less anxious and less pressured. Patient and family asking about transition to buprenorphine Reviewed that while transition is possible, it would be advisable to hold off until after pain management is more stable--patient is scheduled to go to OR in the morning for fasciotomy closure of two areas and possible wound vac on larger area on thigh. Parents expressing their hope that patient would transition to buprenorphine as they are concerned about transporting patient daily to [facility]. Patient expressed that he does not wish to transition to bupe at this time as he feels better and is fearful he will destabilize. He does not wish to increase dose at this time (currently at 30mg), but is requesting gabapentin dose in AM be discontinued as he is feeling sleepy following medication administration. Mental Status Exam Mental Status Exam Narrative: Awake, alert, no clothes on, towel on genitals, leg elevated slightly anxious affect Diagnostics Vital Signs (24Hr): Vital Signs - 24 hr 12/30/22 03:24 12/30/22 07:52 12/30/22 15:33 Temperature 97.7 F 97.6 F 97.4 F Pulse Rate 75 84 80 Respiratory Rate 18 16 18 Blood Pressure 103/56 L 107/63 110/64 Pulse Oximetry 97 96 97 Oxygen Delivery Method Room Air Room Air Room Air 12/30/22 19:14 Temperature 96.9 F Pulse Rate 83 Respiratory Rate 14 Blood Pressure 115/65 Pulse Oximetry 96 Oxygen Delivery Method Room Air BMI result Body Mass Index 21.9 Labs 12/27/22 05:16 12/30/22 05:09 Labs: Laboratory Results - last 48 hr 12/27/22 12/29/22 12/29/22 13:26 05:34 05:34 Sodium 140 Potassium 4.5 Chloride 103 Carbon Dioxide 32 H Anion Gap 10 L BUN 13 Creatinine 0.68 Estim Creat Clear Calc 159.7 Estimated GFR > 60 Random Glucose 77 Calcium 8.8 Total Creatine Kinase 4466 H Hepatitis A IgM Ab Nonreactive Hep Bs Antigen Negative Hep Bs Antibody NONREACTIVE Hep B Core Total Ab Nonreactive Hepatitis C Ab (EIA) Nonreactive HIV 1&2 Ab/P24 Ag 4thGn Nonreactive 12/30/22 12/30/22 05:09 05:09 Sodium 139 Potassium 4.4 Chloride 101 Carbon Dioxide 33 H Anion Gap 9 L BUN 16 Creatinine 0.68 Estim Creat Clear Calc 159.7 Estimated GFR > 60 Random Glucose 89 Calcium 8.8 Total Creatine Kinase 3617 H Hepatitis A IgM Ab Hep Bs Antigen Hep Bs Antibody Hep B Core Total Ab Hepatitis C Ab (EIA) HIV 1&2 Ab/P24 Ag 4thGn Imaging Radiology Impressions: ITS Impressions Chest X-Ray 12/24/22 01:20 IMPRESSION: No active cardiopulmonary disease. Femur CT 12/24/22 02:55 IMPRESSION: No acute osseous abnormality. There is a low-density collection along the lower anterior medial quadriceps measuring 8.4 x 4.3 x 3.4 cm possibly related to a muscular injury with hemorrhage. Duplex Scan Lower Extremity Artery 12/24/22 15:19 IMPRESSION: Patency of all visualized vasculature of the left lower extremity with triphasic waveforms throughout. Medications Medications Current Medications Acetaminophen (Acetaminophen 325 Mg Tablet) 650 mg PO Q6H PRN PRN Reason: Pain, Mild (Pain Scale 1-3) Last Admin: 12/30/22 15:38 Dose: 650 mg Bisacodyl (Bisacodyl 10 Mg Supp.Rect) 10 mg NM DAILY PRN PRN Reason: Constipation Last Admin: 12/29/22 11:03 Dose: 10 mg Bupropion HCl (Bupropion Hcl Xl 300 Mg Tab.Er.24h) 300 mg PO DAILY [facility] Docusate Sodium (Docusate Sodium 100 Mg Capsule) 100 mg PO DAILY PRN PRN Reason: Constipation Last Admin: 12/26/22 20:06 Dose: 100 mg Gabapentin (Gabapentin 100 Mg Capsule) 100 mg PO DAILY@1600 [facility] Hydroxyzine HCl (Hydroxyzine Hcl 50 Mg Tablet) 50 mg PO BEDTIME [facility] Last Admin: 12/29/22 20:58 Dose: 50 mg Ketorolac Tromethamine (Ketorolac Tromethamine 15 Mg/Ml Vial) 15 mg IVPUSH Q6H PRN PRN Reason: Pain, Moderate(Pain Scale 4-6) Last Admin: 12/30/22 10:15 Dose: 15 mg Methadone HCl (Methadone Hcl 20 Mg/2 Ml Oral.Conc) 30 mg PO DAILY [facility] Last Admin: 12/30/22 08:17 Dose: 30 mg Morphine Sulfate (Morphine Sulfate 4 Mg/Ml Cartridge) 4 mg IVPUSH ONCE PRN; Protocol PRN Reason: Dressing change Last Admin: 12/29/22 12:46 Dose: 4 mg Morphine Sulfate (Morphine Sulfate 2 Mg/Ml Cartridge) 2 mg IVPUSH Q4H PRN; Protocol PRN Reason: Pain, Severe (Pain Scale 7-10) Omeprazole (Omeprazole 20 Mg Capsule.Dr) 20 mg PO DAILY@0630 [facility] Last Admin: 12/30/22 11:05 Dose: 20 mg Ondansetron HCl (Ondansetron Hcl 4 Mg/2 Ml Vial) 4 mg IVPUSH Q8H PRN PRN Reason: Nausea and Vomiting Ondansetron HCl (Ondansetron Hcl 4 Mg/2 Ml Vial) 4 mg IVPUSH ONCE PRN PRN Reason: Nausea and Vomiting Oxycodone HCl (Oxycodone Hcl Immed Release 5 Mg Tablet) 10 mg PO Q4H PRN PRN Reason: Pain, Moderate(Pain Scale 4-6) Last Admin: 12/30/22 17:07 Dose: 10 mg Polyethylene Glycol (Polyethylene Glycol 3350 17 Gm Powd.Pack) 17 gm PO BID [facility] Senna (Sennosides 8.6 Mg Tablet) 8.6 mg PO BID [facility] Sodium Chloride (0.9 % Sodium Chloride Flush 3 Ml Syringe) 3 ml IVFLUSH QSHIFT [facility] Last Admin: 12/30/22 15:24 Dose: 3 ml Trazodone HCl (Trazodone Hcl 50 Mg Tablet) 150 mg PO BEDTIME [facility] Last Admin: 12/29/22 20:58 Dose: 150 mg Allergies Allergies Allergy/AdvReac Type Severity Reaction Status Date / Time No Known Allergies Allergy Verified 12/23/22 22:38 Assessment & Plan Assessment & Plan (1) Opioid use disorder, moderate, dependence: Status: Acute Code(s): F11.20 - Opioid dependence, uncomplicated Assessment and Plan: * continue methadone at 30mg * d/c 11am gabapentin dose -continue with afternoon dose * will check in on Total time managing care of this patient today _45___ minutes.
[2022-12-30] MEDS: hydrOXYzine HCL 50 MG TABLET PO (20:20)
[2022-12-30] MEDS: traZODone HCL 50 MG TABLET 150 MG PO (20:20)
[2022-12-30] MEDS: Morphine Sulfate 2 MG/ML CARTRIDGE IVPUSH (20:22)
[2022-12-30 21:05] VITALS: RESP 16
[2022-12-31] VITALS (12 sets, daily range): BP systolic 102–126; BP diastolic 58–78; PULSE 77–88; RESP 16–18; TEMP 36.3–37.3; O2SAT 95–99
[2022-12-31] MEDS: Morphine Sulfate 2 MG/ML CARTRIDGE IVPUSH ×3 (01:54→22:51)
[2022-12-31] MEDS: oxyCODONE HCl Immed Release 5 MG TABLET 10 MG PO ×5 (03:26→20:51)
[2022-12-31] MEDS: Ketorolac Tromethamine 15 MG/ML VIAL IVPUSH ×2 (05:16→15:04)
[2022-12-31 06:12] LABS: Anion Gap 11 (12-20); Blood Urea Nitrogen 16 mg/dL (9-16); Carbon Dioxide 35 mmol/L (22-29); Chloride 100 mmol/L (96-108); Creatinine Clr Calc Pharmacy 155.1; Estimated Glomerular Filt Rate > 60; Glucose Random 83 mg/dL (60-115); Potassium 4.5 mmol/L (3.3-5.1); Sodium 141 mmol/L (135-145)
--- NOTE | 2022-12-31 07:38 | HO.ANESPROP2 ---
[facility] Active Problems Active Problems: All Active Problems (Updated 12/28/22 @ 10:23 by Sekou Jacobs MD) Scrotal swelling (Acute) Opioid use disorder, moderate, dependence (Acute) MDD (major depressive disorder), recurrent episode, moderate (Acute) Neurapraxia of left lower extremity (Acute) Compartment syndrome (Acute) Rhabdomyolysis (Acute) Muscle injury (Acute) Elevated CPK (Acute) Drug overdose (Acute) Acute renal failure due to rhabdomyolysis (Acute) Past Medical History Medical History IV drug abuse Family History Family history of problems with anesthesia: No Surgical History Surgical History H/O fasciotomy (12/25/22) No pertinent past surgical history History of Problems with Anesthesia: No Social History Social History Household Members: Family Household Members Other:: 2 Housing: House Do you presently have visiting nurse or other home services: No Alcohol intake: current Alcohol intake frequency: does not drink Patient Tobacco Use Status: Never used Tobacco Second Hand Smoke Exposure: No Substance Use Type: Heroin and Opiates service: No Meds Allergies Allergy/AdvReac Type Severity Reaction Status Date / Time No Known Allergies Allergy Verified 12/23/22 22:38 Active Medications: Current Medications Acetaminophen (Acetaminophen 325 Mg Tablet) 650 mg PO Q6H PRN PRN Reason: Pain, Mild (Pain Scale 1-3) Last Admin: 12/30/22 23:27 Dose: 650 mg Bisacodyl (Bisacodyl 10 Mg Supp.Rect) 10 mg [place] DAILY PRN PRN Reason: Constipation Last Admin: 12/29/22 11:03 Dose: 10 mg Bupropion HCl (Bupropion Hcl Xl 300 Mg Tab.Er.24h) 300 mg PO DAILY VALERIE Docusate Sodium (Docusate Sodium 100 Mg Capsule) 100 mg PO DAILY PRN PRN Reason: Constipation Last Admin: 12/26/22 20:06 Dose: 100 mg Gabapentin (Gabapentin 100 Mg Capsule) 100 mg PO DAILY@1600 VALERIE Hydroxyzine HCl (Hydroxyzine Hcl 50 Mg Tablet) 50 mg PO BEDTIME VALERIE Last Admin: 12/30/22 20:20 Dose: 50 mg Ketorolac Tromethamine (Ketorolac Tromethamine 15 Mg/Ml Vial) 15 mg IVPUSH Q6H PRN PRN Reason: Pain, Moderate(Pain Scale 4-6) Last Admin: 12/31/22 05:16 Dose: 15 mg Methadone HCl (Methadone Hcl 20 Mg/2 Ml Oral.Conc) 30 mg PO DAILY [facility] Last Admin: 12/30/22 08:17 Dose: 30 mg Morphine Sulfate (Morphine Sulfate 4 Mg/Ml Cartridge) 4 mg IVPUSH ONCE PRN; Protocol PRN Reason: Dressing change Last Admin: 12/29/22 12:46 Dose: 4 mg Morphine Sulfate (Morphine Sulfate 2 Mg/Ml Cartridge) 2 mg IVPUSH Q4H PRN; Protocol PRN Reason: Pain, Severe (Pain Scale 7-10) Last Admin: 12/31/22 01:54 Dose: 2 mg Omeprazole (Omeprazole 20 Mg Capsule.Dr) 20 mg PO DAILY@0630 [facility] Last Admin: 12/31/22 05:51 Dose: Not Given Ondansetron HCl (Ondansetron Hcl 4 Mg/2 Ml Vial) 4 mg IVPUSH Q8H PRN PRN Reason: Nausea and Vomiting Ondansetron HCl (Ondansetron Hcl 4 Mg/2 Ml Vial) 4 mg IVPUSH ONCE PRN PRN Reason: Nausea and Vomiting Oxycodone HCl (Oxycodone Hcl Immed Release 5 Mg Tablet) 10 mg PO Q4H PRN PRN Reason: Pain, Moderate(Pain Scale 4-6) Last Admin: 12/31/22 03:26 Dose: 10 mg Polyethylene Glycol (Polyethylene Glycol 3350 17 Gm Powd.Pack) 17 gm PO BID [facility] Last Admin: 12/30/22 20:21 Dose: Not Given Senna (Sennosides 8.6 Mg Tablet) 8.6 mg PO BID [facility] Last Admin: 12/30/22 20:21 Dose: 8.6 mg Sodium Chloride (0.9 % Sodium Chloride Flush 3 Ml Syringe) 3 ml IVFLUSH QSHIFT [facility] Last Admin: 12/30/22 20:22 Dose: 3 ml Trazodone HCl (Trazodone Hcl 50 Mg Tablet) 150 mg PO BEDTIME [facility] Last Admin: 12/30/22 20:20 Dose: 150 mg Home Medications Medication Instructions Recorded Confirmed Last Taken Type hydroxyzine HCl 50 mg tablet 50 mg PO BEDTIME 12/24/22 12/24/2223 History trazodone 50 mg tablet 100 mg PO BEDTIME 12/24/22 12/24/22 12/22/22 History Exam Exam Date and Time: December 31, [id number] Height,Weight and Vital Signs: Height 5 ft 11 in Weight 71.1 kg Last Vital Signs Temp 97.8 F 12/31/22 07:21 Pulse 81 12/31/22 07:21 Resp 18 12/31/22 07:21 BP 114/65 12/31/22 07:21 Pulse Ox 98 12/31/22 07:21 O2 Del Method Room Air 12/31/22 07:21 Pertinent Lab Results Pertinent Lab Results: Laboratory Tests 12/23/22 12/23/22 12/23/22 21:40 21:40 21:40 WBC 11.5 H RBC 2.66 L Hgb 8.4 L Hct 25.7 L MCV 96.6 MCH 31.6 MCHC 32.7 RDW 12.0 Plt Count 190 MPV 9.2 L Immature Gran % (Auto) 0.5 H Neut % (Auto) 89.0 H Lymph % (Auto) 6.0 L [place] % (Auto) 4.2 Eos % (Auto) 0.0 Baso % (Auto) 0.3 Lymph # (Auto) 0.7 L [place] # (Auto) 0.5 Eos # (Auto) 0.0 Baso # (Auto) 0.0 Abs Immat Gran (auto) 0.06 H Absolute Neuts (auto) 10.3 H Absolute Nucleated RBC 0.000 Nucleated RBC % (auto) 0.0 Sodium 144 Potassium 3.1 L Chloride 95 L Carbon Dioxide 31 H Anion Gap 21 H BUN 36 H Creatinine 1.42 H Estim Creat Clear Calc 67.9 Estimated GFR 59 POC Glucose Random Glucose 228 H Lactic Acid Lactic Acid F/U @ 2Hr Calcium 9.4 Phosphorus Iron TIBC % Saturation Unsat Iron Binding Total Bilirubin Direct Bilirubin AST ALT Alkaline Phosphatase Total Creatine Kinase 956 H Troponin I High Sens 4.0 Total Protein Albumin Vitamin B12 Folate Urine Color Urine Appearance Urine pH Ur Specific [place] Urine Protein Urine Glucose (UA) Urine Ketones Urine Blood Urine Nitrite Ur Leukocyte Esterase COVID-19 ([facility]) COVID-19 Clin Com Hepatitis A IgM Ab Hep Bs Antigen Hep Bs Antibody Hep B Core Total Ab Hepatitis C Ab (EIA) HIV 1&2 Ab/P24 Ag 4thGn 12/23/22 12/23/22 12/23/22 21:40 23:00 23:11 WBC 14.0 H RBC 4.14 L D Hgb 12.8 L D Hct 38.3 L D MCV 92.5 MCH 30.9 MCHC 33.4 RDW 12.0 Plt Count 245 D MPV 8.6 L Immature Gran % (Auto) 0.4 Neut % (Auto) 86.6 H Lymph % (Auto) 6.2 L [place] % (Auto) 6.7 Eos % (Auto) 0.0 Baso % (Auto) 0.1 Lymph # (Auto) 0.9 L [place] # (Auto) 0.9 Eos # (Auto) 0.0 Baso # (Auto) 0.0 Abs Immat Gran (auto) 0.06 H Absolute Neuts (auto) 12.1 H Absolute Nucleated RBC 0.000 Nucleated RBC % (auto) 0.0 Sodium Potassium Chloride Carbon Dioxide Anion Gap BUN Creatinine Estim Creat Clear Calc Estimated GFR POC Glucose 98 Random Glucose Lactic Acid 4.9 H* Lactic Acid F/U @ 2Hr Calcium Phosphorus Iron TIBC % Saturation Unsat Iron Binding Total Bilirubin Direct Bilirubin AST ALT Alkaline Phosphatase Total Creatine Kinase Troponin I High Sens Total Protein Albumin Vitamin B12 Folate Urine Color Urine Appearance Urine pH Ur Specific [place] Urine Protein Urine Glucose (UA) Urine Ketones Urine Blood Urine Nitrite Ur Leukocyte Esterase COVID-19 ([facility]) COVID-19 Clin Com Hepatitis A IgM Ab Hep Bs Antigen Hep Bs Antibody Hep B Core Total Ab Hepatitis C Ab (EIA) HIV 1&2 Ab/P24 Ag 4thGn 12/23/22 12/23/22 12/24/22 23:11 23:11 00:45 WBC RBC Hgb Hct MCV MCH MCHC RDW Plt Count MPV Immature Gran % (Auto) Neut % (Auto) Lymph % (Auto) [place] % (Auto) Eos % (Auto) Baso % (Auto) Lymph # (Auto) [place] # (Auto) Eos # (Auto) Baso # (Auto) Abs Immat Gran (auto) Absolute Neuts (auto) Absolute Nucleated RBC Nucleated RBC % (auto) Sodium 147 H Potassium 3.6 Chloride 96 Carbon Dioxide 38 H Anion Gap 17 BUN 37 H Creatinine 1.23 Estim Creat Clear Calc 78.5 Estimated GFR > 60 POC Glucose Random Glucose 72 Lactic Acid 2.4 H* Lactic Acid F/U @ 2Hr Calcium 9.3 Phosphorus Iron TIBC % Saturation Unsat Iron Binding Total Bilirubin Direct Bilirubin AST ALT Alkaline Phosphatase Total Creatine Kinase Troponin I High Sens Total Protein Albumin Vitamin B12 Folate Urine Color Urine Appearance Urine pH Ur Specific [place] Urine Protein Urine Glucose (UA) Urine Ketones Urine Blood Urine Nitrite Ur Leukocyte Esterase COVID-19 ([facility]) Negative COVID-19 Clin Com See Note Hepatitis A IgM Ab Hep Bs Antigen Hep Bs Antibody Hep B Core Total Ab Hepatitis C Ab (EIA) HIV 1&2 Ab/P24 Ag 4thGn 12/24/22 12/24/22 12/24/22 01:44 02:22 05:25 WBC 12.5 H RBC 3.47 L Hgb 11.1 L Hct 32.9 L MCV 94.8 MCH 32.0 MCHC 33.7 RDW 12.1 Plt Count 226 MPV 9.7 Immature Gran % (Auto) 0.4 Neut % (Auto) 86.1 H Lymph % (Auto) 8.1 L [place] % (Auto) 5.2 Eos % (Auto) 0.0 Baso % (Auto) 0.2 Lymph # (Auto) 1.0 L [place] # (Auto) 0.7 Eos # (Auto) 0.0 Baso # (Auto) 0.0 Abs Immat Gran (auto) 0.05 H Absolute Neuts (auto) 10.8 H Absolute Nucleated RBC 0.000 Nucleated RBC % (auto) 0.0 Sodium Potassium Chloride Carbon Dioxide Anion Gap BUN Creatinine Estim Creat Clear Calc Estimated GFR POC Glucose Random Glucose Lactic Acid Lactic Acid F/U @ 2Hr 2.9 H* Calcium Phosphorus Iron TIBC % Saturation Unsat Iron Binding Total Bilirubin Direct Bilirubin AST ALT Alkaline Phosphatase Total Creatine Kinase 4170 H Troponin I High Sens Total Protein Albumin Vitamin B12 Folate Urine Color Urine Appearance Urine pH Ur Specific [place] Urine Protein Urine Glucose (UA) Urine Ketones Urine Blood Urine Nitrite Ur Leukocyte Esterase COVID-19 ([facility]) COVID-19 Clin Com Hepatitis A IgM Ab Hep Bs Antigen Hep Bs Antibody Hep B Core Total Ab Hepatitis C Ab (EIA) HIV 1&2 Ab/P24 Ag 4thGn 12/24/22 12/24/22 12/25/22 05:25 05:25 08:11 WBC RBC Hgb Hct MCV MCH MCHC RDW Plt Count MPV Immature Gran % (Auto) Neut % (Auto) Lymph % (Auto) [place] % (Auto) Eos % (Auto) Baso % (Auto) Lymph # (Auto) [place] # (Auto) Eos # (Auto) Baso # (Auto) Abs Immat Gran (auto) Absolute Neuts (auto) Absolute Nucleated RBC Nucleated RBC % (auto) Sodium 141 144 Potassium 3.3 4.0 D Chloride 101 107 Carbon Dioxide 29 32 H Anion Gap 14 9 L BUN 28 H 19 H Creatinine 0.86 0.68 Estim Creat Clear Calc 112.2 159.7 Estimated GFR > 60 > 60 POC Glucose Random Glucose 83 73 Lactic Acid Lactic Acid F/U @ 2Hr Calcium 8.1 L D 8.6 D Phosphorus 2.0 L Iron TIBC % Saturation Unsat Iron Binding Total Bilirubin 0.2 Direct Bilirubin < 0.2 AST 411 H ALT 175 H Alkaline Phosphatase 47 Total Creatine Kinase 9765 H Troponin I High Sens Total Protein 5.3 L Albumin 3.0 L Vitamin B12 Folate Urine Color Urine Appearance Urine pH Ur Specific [place] Urine Protein Urine Glucose (UA) Urine Ketones Urine Blood Urine Nitrite Ur Leukocyte Esterase COVID-19 ([facility]) COVID-19 Clin Com Hepatitis A IgM Ab Hep Bs Antigen Hep Bs Antibody Hep B Core Total Ab Hepatitis C Ab (EIA) HIV 1&2 Ab/P24 Ag 4thGn 12/25/22 12/25/22 12/26/22 08:11 14:54 06:56 WBC RBC Hgb Hct MCV MCH MCHC RDW Plt Count MPV Immature Gran % (Auto) Neut % (Auto) Lymph % (Auto) [place] % (Auto) Eos % (Auto) Baso % (Auto) Lymph # (Auto) [place] # (Auto) Eos # (Auto) Baso # (Auto) Abs Immat Gran (auto) Absolute Neuts (auto) Absolute Nucleated RBC Nucleated RBC % (auto) Sodium 140 Potassium 4.3 Chloride 105 Carbon Dioxide 30 H Anion Gap 9 L BUN 17 H Creatinine 0.65 Estim Creat Clear Calc 167.1 Estimated GFR > 60 POC Glucose Random Glucose 94 Lactic Acid Lactic Acid F/U @ 2Hr Calcium 8.5 Phosphorus Iron TIBC % Saturation Unsat Iron Binding Total Bilirubin Direct Bilirubin AST ALT Alkaline Phosphatase Total Creatine Kinase 91102 H Troponin I High Sens Total Protein Albumin Vitamin B12 Folate Urine Color Yellow Urine Appearance Clear Urine pH 7.0 Ur Specific [place] 1.020 Urine Protein Negative Urine Glucose (UA) Negative Urine Ketones Negative Urine Blood Negative Urine Nitrite Negative Ur Leukocyte Esterase Negative COVID-19 ([facility]) COVID-19 Clin Com Hepatitis A IgM Ab Hep Bs Antigen Hep Bs Antibody Hep B Core Total Ab Hepatitis C Ab (EIA) HIV 1&2 Ab/P24 Ag 4thGn 12/26/22 12/26/22 12/26/22 06:56 16:18 16:18 WBC RBC Hgb Hct MCV MCH MCHC RDW Plt Count MPV Immature Gran % (Auto) Neut % (Auto) Lymph % (Auto) [place] % (Auto) Eos % (Auto) Baso % (Auto) Lymph # (Auto) [place] # (Auto) Eos # (Auto) Baso # (Auto) Abs Immat Gran (auto) Absolute Neuts (auto) Absolute Nucleated RBC Nucleated RBC % (auto) Sodium Potassium Chloride Carbon Dioxide Anion Gap BUN Creatinine Estim Creat Clear Calc Estimated GFR POC Glucose Random Glucose Lactic Acid Lactic Acid F/U @ 2Hr Calcium Phosphorus Iron 51 TIBC 240 % Saturation 21 Unsat Iron Binding 189 Total Bilirubin 0.2 Direct Bilirubin < 0.2 AST 366 H ALT 171 H Alkaline Phosphatase 40 Total Creatine Kinase 74666 H Troponin I High Sens Total Protein 5.0 L Albumin 2.9 L Vitamin B12 517 Folate 7.8 Urine Color Urine Appearance Urine pH Ur Specific [place] Urine Protein Urine Glucose (UA) Urine Ketones Urine Blood Urine Nitrite Ur Leukocyte Esterase COVID-19 ([facility]) COVID-19 Clin Com Hepatitis A IgM Ab Hep Bs Antigen Hep Bs Antibody Hep B Core Total Ab Hepatitis C Ab (EIA) HIV 1&2 Ab/P24 Ag 4thGn 12/27/22 12/27/22 12/27/22 05:16 05:16 05:16 WBC 5.1 RBC 3.37 L Hgb 10.5 L Hct 32.1 L MCV 95.3 MCH 31.2 MCHC 32.7 RDW 12.6 Plt Count 196 MPV 9.7 Immature Gran % (Auto) Neut % (Auto) Lymph % (Auto) [place] % (Auto) Eos % (Auto) Baso % (Auto) Lymph # (Auto) [place] # (Auto) Eos # (Auto) Baso # (Auto) Abs Immat Gran (auto) Absolute Neuts (auto) Absolute Nucleated RBC 0.000 Nucleated RBC % (auto) 0.0 Sodium 142 Potassium 3.5 Chloride 109 H Carbon Dioxide 28 Anion Gap 9 L BUN 17 H Creatinine 0.59 Estim Creat Clear Calc 184.1 Estimated GFR > 60 POC Glucose Random Glucose 88 Lactic Acid Lactic Acid F/U @ 2Hr Calcium 8.0 L Phosphorus Iron TIBC % Saturation Unsat Iron Binding Total Bilirubin Direct Bilirubin AST ALT Alkaline Phosphatase Total Creatine Kinase 7398 H Troponin I High Sens Total Protein Albumin Vitamin B12 Folate Urine Color Urine Appearance Urine pH Ur Specific [place] Urine Protein Urine Glucose (UA) Urine Ketones Urine Blood Urine Nitrite Ur Leukocyte Esterase COVID-19 ([facility]) COVID-19 Clin Com Hepatitis A IgM Ab Hep Bs Antigen Hep Bs Antibody Hep B Core Total Ab Hepatitis C Ab (EIA) HIV 1&2 Ab/P24 Ag 4thGn 12/27/22 12/27/22 12/28/22 13:26 13:26 08:03 WBC RBC Hgb Hct MCV MCH MCHC RDW Plt Count MPV Immature Gran % (Auto) Neut % (Auto) Lymph % (Auto) [place] % (Auto) Eos % (Auto) Baso % (Auto) Lymph # (Auto) [place] # (Auto) Eos # (Auto) Baso # (Auto) Abs Immat Gran (auto) Absolute Neuts (auto) Absolute Nucleated RBC Nucleated RBC % (auto) Sodium 141 Potassium 4.6 D Chloride 105 Carbon Dioxide 31 H Anion Gap 10 L BUN 15 Creatinine 0.64 Estim Creat Clear Calc 169.7 Estimated GFR > 60 POC Glucose Random Glucose 108 Lactic Acid Lactic Acid F/U @ 2Hr Calcium 8.4 Phosphorus Iron TIBC % Saturation Unsat Iron Binding Total Bilirubin Direct Bilirubin AST ALT Alkaline Phosphatase Total Creatine Kinase 7694 H 5261 H Troponin I High Sens Total Protein Albumin Vitamin B12 Folate Urine Color Urine Appearance Urine pH Ur Specific [place] Urine Protein Urine Glucose (UA) Urine Ketones Urine Blood Urine Nitrite Ur Leukocyte Esterase COVID-19 ([facility]) COVID-19 Clin Com Hepatitis A IgM Ab Nonreactive Hep Bs Antigen Negative Hep Bs Antibody NONREACTIVE Hep B Core Total Ab Nonreactive Hepatitis C Ab (EIA) Nonreactive HIV 1&2 Ab/P24 Ag 4thGn Nonreactive 12/29/22 12/29/22 12/30/22 05:34 05:34 05:09 WBC RBC Hgb Hct MCV MCH MCHC RDW Plt Count MPV Immature Gran % (Auto) Neut % (Auto) Lymph % (Auto) [place] % (Auto) Eos % (Auto) Baso % (Auto) Lymph # (Auto) [place] # (Auto) Eos # (Auto) Baso # (Auto) Abs Immat Gran (auto) Absolute Neuts (auto) Absolute Nucleated RBC Nucleated RBC % (auto) Sodium 140 139 Potassium 4.5 4.4 Chloride 103 101 Carbon Dioxide 32 H 33 H Anion Gap 10 L 9 L BUN 13 16 Creatinine 0.68 0.68 Estim Creat Clear Calc 159.7 159.7 Estimated GFR > 60 > 60 POC Glucose Random Glucose 77 89 Lactic Acid Lactic Acid F/U @ 2Hr Calcium 8.8 8.8 Phosphorus Iron TIBC % Saturation Unsat Iron Binding Total Bilirubin Direct Bilirubin AST ALT Alkaline Phosphatase Total Creatine Kinase 4466 H Troponin I High Sens Total Protein Albumin Vitamin B12 Folate Urine Color Urine Appearance Urine pH Ur Specific [place] Urine Protein Urine Glucose (UA) Urine Ketones Urine Blood Urine Nitrite Ur Leukocyte Esterase COVID-19 ([facility]) COVID-19 Clin Com Hepatitis A IgM Ab Hep Bs Antigen Hep Bs Antibody Hep B Core Total Ab Hepatitis C Ab (EIA) HIV 1&2 Ab/P24 Ag 4thGn 12/30/22 12/31/22 12/31/22 05:09 05:10 05:10 WBC RBC Hgb Hct MCV MCH MCHC RDW Plt Count MPV Immature Gran % (Auto) Neut % (Auto) Lymph % (Auto) [place] % (Auto) Eos % (Auto) Baso % (Auto) Lymph # (Auto) [place] # (Auto) Eos # (Auto) Baso # (Auto) Abs Immat Gran (auto) Absolute Neuts (auto) Absolute Nucleated RBC Nucleated RBC % (auto) Sodium 141 Potassium 4.5 Chloride 100 Carbon Dioxide 35 H Anion Gap 11 L BUN 16 Creatinine 0.70 Estim Creat Clear Calc 155.1 Estimated GFR > 60 POC Glucose Random Glucose 83 Lactic Acid Lactic Acid F/U @ 2Hr Calcium 9.0 Phosphorus Iron TIBC % Saturation Unsat Iron Binding Total Bilirubin Direct Bilirubin AST ALT Alkaline Phosphatase Total Creatine Kinase 3617 H 2866 H Troponin I High Sens Total Protein Albumin Vitamin B12 Folate Urine Color Urine Appearance Urine pH Ur Specific [place] Urine Protein Urine Glucose (UA) Urine Ketones Urine Blood Urine Nitrite Ur Leukocyte Esterase COVID-19 ([facility]) COVID-19 Clin Com Hepatitis A IgM Ab Hep Bs Antigen Hep Bs Antibody Hep B Core Total Ab Hepatitis C Ab (EIA) HIV 1&2 Ab/P24 Ag 4thGn Airway Mallampati Class: II TM Dist: >3cm Neck ROM: Full Denture: Lower Loose/Missing/Broken Teeth: No Heart: RRR Lungs: CTA Assessment and Plan Assessment Anesthesia Assessment: Anesthesia Plan Discussed and Chart Reviewed Final Anesthetic Review Family History of Problems with Anesthesia: No History of Problems with Anesthesia: No NPO: Yes ASA Class: II Final Preanesthetic Review: Meds/Allgs Chart Reviewed, Consent Obtained/Reviewed and Anes Risks/Benef Reviewed Patient Risk: Low Procedure Risk: Low Anesthetic Plan Anesthetic Plan: GA Disposition: Standard PACU
--- NOTE | 2022-12-31 07:47 | PC.NURSE ---
Refusing Fall risk interventions.
[2022-12-31] MEDS: HYDROmorphone HCl 0.5 MG/0.5 ML SYRINGE IVPUSH (10:24)
--- NOTE | 2022-12-31 10:48 | P.OP_ITS ---
Operative Note Operative Note Date of Service: 12/31/22 Narrative: Preoperative diagnosis: Compartment syndrome left leg status post fasciotomy Postoperative diagnosis: Same Procedure: Closure of left leg fasciotomy incision lateral calf, wound VAC placement medial calf and thigh Surgeon: Parish Costa MD [employer] Crewman: Kimberly Barrientos PA-C Anesthesia: General LMA Indications for procedure: 32-year-old male patient found to have compartment syndrome status post fasciotomy of calf and thigh now returning to OR for possible wound closure of the lower extremity wounds. Operative findings: Wounds in the lateral calf for easily closed however because of persistent edema in the thigh and medial calf, these wounds were dressed with a wound VAC. Specimen: None Estimated blood loss: Less than 2 mL Complications: None Procedure details: Patient was brought to the OR and placed in a supine position. After administering general anesthesia patient's left leg was prepped with Betadine and draped in a sterile fashion. A surgical time-out was called the consent confirmed. Patient received preoperative antibiotics and Venodyne boots were in place. Local anesthesia was infiltrated using the 0.5% Sensorcaine in the lateral calf incision. Skin edges were brought together using interrupted 3-0 Polysorb sutures in dermis. Skin was then closed using interrupted 2-0 nylon sutures. Attention was then directed to the medial thigh wound. Wounds were felt to be too tight to allow for easy closure. In addition the lateral thigh wound was felt to be too edematous to allow safe closure. The decision was made to apply wound VAC to the 2 sites with a bridge across the knee. The thigh wound with measured at 22 by 10 cm while the medial calf wound measured 21 x 5 cm. A half thickness black sponge was used to cover both wounds followed by Op site dressing. A bridge across the knee was placed and the wound VAC suction placed in the lateral thigh. This was connected to the suction device and good seal obtained. Sterile dressings consisting of 4 x 4 gauze, ABD pads, Kerlix and Axel bandage were then applied to the calf wound. The patient tolerated the procedure well. Sponge, instrument, and needle counts were reported as correct. Patient was tra nsferred to PACU in stable condition.
[2022-12-31] MEDS: Sennosides 8.6 MG TABLET PO ×2 (11:04→20:51)
[2022-12-31] MEDS: buPROPion HCl XL 300 MG TAB.ER.24H PO (11:04)
[2022-12-31] MEDS: methADONE HCl 20 MG/2 ML ORAL.CONC 30 MG PO (11:04)
[2022-12-31] MEDS: polyethylene glycoL 3350 17 GM POWD.PACK PO (11:05)
--- NOTE | 2022-12-31 12:24 | P.PNNP_ITS ---
Subjective Subjective Date of Service: 12/31/22 Interval history: Events noted; All recent data reviewed Physical Exam Vital Signs: Vital Signs: Last Vital Signs Temp 97.4 F 12/31/22 11:06 Pulse 88 12/31/22 11:06 Resp 18 12/31/22 11:06 BP 119/77 12/31/22 11:06 Pulse Ox 99 12/31/22 11:06 O2 Del Method Room Air 12/31/22 11:06 O2 Flow Rate 6 12/31/22 10:13 BMI result Body Mass Index 21.9 Const: General: no acute distress Orientation/consciousness: patient orient ed x3 Eyes: EOM: EOMs intact bilaterally Resp: Auscultation: diminished lung sounds Cardio: Rate: regular rate GI: Palpation (GI): Soft to palpation Neuro: General: patient oriented x3 Objective Data Labs 12/27/22 05:16 12/31/22 05:10 Labs: Laboratory Results - last 24 hr 12/31/22 12/31/22 05:10 05:10 Sodium 141 Potassium 4.5 Chloride 100 Carbon Dioxide 35 H Anion Gap 11 L BUN 16 Creatinine 0.70 Estim Creat Clear Calc 155.1 Estimated GFR > 60 Random Glucose 83 Calcium 9.0 Total Creatine Kinase 2866 H Microbiology Microbiology Results: Microbiology 12/23/22 23:11 Blood - Venous Blood Culture - Final No growth after 5 days. 12/23/22 23:11 Blood - Venous Blood Culture - Final No growth after 5 days. Procedures Date of Service Date of Service: 12/31/22 Assessment & Plan Assessment and plan (1) Rhabdomyolysis: Status: Acute Assessment and Plan: CK / Volume status had been improving Renal function had been at baseline Shall sign off F/U; Pls teresita if any questions Progress Note: Quality Stroke Does the patient have a stroke diagnosis?: No
--- NOTE | 2022-12-31 13:30 | P.PNIM_ITS ---
Subjective Subjective Date of Service: 12/31/22 Interval History: Seen and evaluated this afternoon partially improved scrotal edema LLE sensation improving on daily basis went for surgery for closure and wound VAC Physical Exam Vital Signs: Vital Signs: Last Vital Signs Temp 97.4 F 12/31/22 11:06 Pulse 88 12/31/22 11:06 Resp 18 12/31/22 11:06 BP 119/77 12/31/22 11:06 Pulse Ox 99 12/31/22 11:06 O2 Del Method Room Air 12/31/22 11:06 O2 Flow Rate 6 12/31/22 10:13 BMI result Body Mass Index 21.9 Const: Other: Constitutional : Awake, interactive, not in distress Neck : Normal inspection, Supple Cardiovascular : RRR, no JVP, no lower extremity edema, decrease scrotal edema Respiratory : good bilateral air entry, no crackles, wheezes or rhonchi Gastrointestinal: soft, lax, Normal bowel sounds, Non tender Skin : Warm, Dry, surgical wounds clean and covered with dressing with serous fluid oozing , mild tenderness upper thigh Neurological : Alert & oriented x3, No focal strength deficit, better sensation of light, deep and proprioception in LLE Objective Data Active Medications Acetaminophen (Acetaminophen 325 Mg Tablet) 650 mg PO Q6H PRN PRN Reason: Pain, Mild (Pain Scale 1-3) Last Admin: 12/30/22 23:27 Dose: 650 mg Documented By: WINSTON Albuterol Sulfate (Albuterol Sulfate (0.083%) 2.5 Mg/3 Ml Vial.Neb) 2.5 mg INHALE ONCE PRN PRN Reason: Wheezing Bisacodyl (Bisacodyl 10 Mg Supp.Rect) 10 mg [place] DAILY PRN PRN Reason: Constipation Last Admin: 12/29/22 11:03 Dose: 10 mg Documented By: SIRIA Bupropion HCl (Bupropion Hcl Xl 300 Mg Tab.Er.24h) 300 mg PO DAILY [facility] Last Admin: 12/31/22 11:04 Dose: 300 mg Documented By: LOVE Docusate Sodium (Docusate Sodium 100 Mg Capsule) 100 mg PO DAILY PRN PRN Reason: Constipation Last Admin: 12/26/22 20:06 Dose: 100 mg Documented By: WINSTON Gabapentin (Gabapentin 100 Mg Capsule) 100 mg PO DAILY@1600 [facility] Hydroxyzine HCl (Hydroxyzine Hcl 50 Mg Tablet) 50 mg PO BEDTIME [facility] Last Admin: 12/30/22 20:20 Dose: 50 mg Documented By: WINSTON Ketorolac Tromethamine (Ketorolac Tromethamine 15 Mg/Ml Vial) 15 mg IVPUSH Q6H PRN PRN Reason: Pain, Moderate(Pain Scale 4-6) Last Admin: 12/31/22 05:16 Dose: 15 mg Documented By: TRISH Methadone HCl (Methadone Hcl 20 Mg/2 Ml Oral.Conc) 30 mg PO DAILY [facility] Last Admin: 12/31/22 11:04 Dose: 30 mg Documented By: LOVE Morphine Sulfate (Morphine Sulfate 2 Mg/Ml Cartridge) 2 mg IVPUSH Q4H PRN; Protocol PRN Reason: Pain, Severe (Pain Scale 7-10) Last Admin: 12/31/22 07:40 Dose: 2 mg Documented By: LOVE Omeprazole (Omeprazole 20 Mg Capsule.Dr) 20 mg PO DAILY@0630 [facility] Last Admin: 12/31/22 05:51 Dose: Not Given Documented By: WINSTON Non-Admin Reason: Patient Refused Ondansetron HCl (Ondansetron Hcl 4 Mg/2 Ml Vial) 4 mg IVPUSH Q8H PRN PRN Reason: Nausea and Vomiting Oxycodone HCl (Oxycodone Hcl Immed Release 5 Mg Tablet) 10 mg PO Q4H PRN PRN Reason: Pain, Moderate(Pain Scale 4-6) Last Admin: 12/31/22 12:40 Dose: 10 mg Documented By: LOVE Polyethylene Glycol (Polyethylene Glycol 3350 17 Gm Powd.Pack) 17 gm PO BID [facility] Last Admin: 12/31/22 11:05 Dose: 17 gm Documented By: LOVE Senna (Sennosides 8.6 Mg Tablet) 8.6 mg PO BID [facility] Last Admin: 12/31/22 11:04 Dose: 8.6 mg Documented By: LOVE Sodium Chloride (0.9 % Sodium Chloride Flush 3 Ml Syringe) 3 ml IVFLUSH QSHIFT [facility] Last Admin: 12/31/22 07:53 Dose: Not Given Documented By: LOVE Non-Admin Reason: Off Unit: Surgery Trazodone HCl (Trazodone Hcl 50 Mg Tablet) 150 mg PO BEDTIME [facility] Last Admin: 12/30/22 20:20 Dose: 150 mg Documented By: WINSTON Labs 12/27/22 05:16 12/31/22 05:10 Labs: Laboratory Results - last 24 hr 12/31/22 12/31/22 05:10 05:10 Anion Gap 11 L Estim Creat Clear Calc 155.1 Estimated GFR > 60 Random Glucose 83 Calcium 9.0 Total Creatine Kinase 2866 H Assessment and Plan (1) Scrotal swelling: Status: Acute (2) Opioid use disorder, moderate, dependence: Status: Acute (3) Neurapraxia of left lower extremity: Status: Acute (4) Compartment syndrome: Status: Acute (5) Rhabdomyolysis: Status: Acute Plan 32-year-old male with past medical history of IV drug use usually uses oxycodone, now has transition to using heroin for the 1st time comes in after overdose. # compartement syndrome 2/2 Mucle injury and hematoma POD 5 fasciotomy with significant improvement in pain and parasthesia Morphine and Oxy for pain can use Toradol as well surgery team following, partial closure today, 2 wound vacs placed in LE, monitor until Thursday # rhabdomyolysis w elevated CPK CPK trending down to 2000s follow CK # Scrotal swelling from fluid usage and positional Give extra dose of lasix scrotal support follow clinically # IV drug overdose recovery team following; Increase Methadone to 30mg denies any suicidal thoughts # Neurapraxia 2/2 compartement syndrome improving with increase sensation LLE arterial studies negative for clots neurology input appreciated , surgical intervention needed PT eval # ION resolved # Anxiety Psych team evaluation appreciated, start Wellbutrin and increase Trazodone Arrange OP follow up with Psych DVT prophylaxis SCDs patient's need for further management patient require overnight inpatient hospital stay for further management and monitoring Time Spent With Patient Time: Total time managing care of this patient today ____ minutes. Quality Stroke Does the patient have a stroke diagnosis?: No VTE Prior VTE?: No VTE Risk Level:: Medical - moderate - high VTE Device Contraindication: Treatment Not Indicated VTE Drug Contraindication: N/A - Med Ordered
[2022-12-31] MEDS: Furosemide 40 MG/4 ML VIAL 20 MG IVPUSH (13:51)
[2022-12-31] MEDS: 0.9 % Sodium Chloride Flush 3 ML SYRINGE IVFLUSH (13:52)
[2022-12-31] MEDS: Acetaminophen 325 MG TABLET 650 MG PO (15:03)
[2022-12-31] MEDS: Gabapentin 100 MG CAPSULE PO (15:04)
[2022-12-31] MEDS: bisacodyL 10 MG SUPP.RECT PR (16:38)
--- NOTE | 2022-12-31 16:41 | PC.NURSE ---
Pt asking Trazodone be decreased to 100mg from 150mg states he is having night terrors. MD notified. Medicated for pain throughout the day. +PP after surgery, medicated per mar with slight effect, VSS, Call garces within reach, Wound Vac working as intended.
[2022-12-31] MEDS: hydrOXYzine HCL 50 MG TABLET PO (20:51)
[2022-12-31] MEDS: ondansetron HCL 4 MG/2 ML VIAL IVPUSH (20:52)
[2022-12-31] MEDS: traZODone HCL 100 MG TABLET PO (20:52)
[2023-01-01] MEDS: oxyCODONE HCl Immed Release 5 MG TABLET 10 MG PO ×5 (01:24→20:10)
[2023-01-01] MEDS: Acetaminophen 325 MG TABLET 650 MG PO ×2 (01:24→15:20)
[2023-01-01 03:24] VITALS: BP 116/73; PULSE 86; RESP 18; TEMP 36.6; O2SAT 96
[2023-01-01] MEDS: Ketorolac Tromethamine 15 MG/ML VIAL IVPUSH ×2 (03:34→12:42)
[2023-01-01] MEDS: ondansetron HCL 4 MG/2 ML VIAL IVPUSH ×2 (05:59→20:21)
[2023-01-01] MEDS: Omeprazole 20 MG CAPSULE.DR PO (06:00)
[2023-01-01 07:43] VITALS: BP 106/58; PULSE 98; RESP 18; TEMP 37; O2SAT 98
[2023-01-01] MEDS: polyethylene glycoL 3350 17 GM POWD.PACK PO (08:02)
[2023-01-01] MEDS: 0.9 % Sodium Chloride Flush 3 ML SYRINGE IVFLUSH ×3 (08:02→23:35)
[2023-01-01] MEDS: buPROPion HCl XL 300 MG TAB.ER.24H PO (08:02)
[2023-01-01] MEDS: methADONE HCl 20 MG/2 ML ORAL.CONC 30 MG PO (08:03)
[2023-01-01] MEDS: Sennosides 8.6 MG TABLET PO ×2 (08:03→20:10)
--- NOTE | 2023-01-01 08:37 | P.PNGS_ITS ---
Subjective Subjective Date of Service: 01/01/23 Interval history: Patient with no new complaints today. Tolerated the wound VAC without significant difficulties. Physical Exam Vital Signs: Vital Signs: Last Vital Signs Temp 98.6 F 01/01/23 07:43 Pulse 98 01/01/23 07:43 Resp 18 01/01/23 07:43 BP 106/58 L 01/01/23 07:43 Pulse Ox 98 01/01/23 07:43 O2 Del Method Room Air 01/01/23 07:43 O2 Flow Rate 6 12/31/22 10:13 BMI result Body Mass Index 21.9 Const: General: no acute distress Nutritional Appearance: well nourished Orientation/consciousness: patient oriented x3 Skin: Other: Warm, dry, no rash Neuro: General: patient oriented x3 Extrem: Other: VAC in place in the left lower extremity. Good seal noted. Small amount of serous fluid draining from wound. Good sensation in toes. Warm and pink with brisk capillary refill. Objective Data Active Medications Acetaminophen (Acetaminophen 325 Mg Tablet) 650 mg PO Q6H PRN PRN Reason: Pain, Mild (Pain Scale 1-3) Last Admin: 01/01/23 01:24 Dose: 650 mg Documented By: PERFECTO-JOZEDanay Albuterol Sulfate (Albuterol Sulfate (0.083%) 2.5 Mg/3 Ml Vial.Neb) 2.5 mg INHALE ONCE PRN PRN Reason: Wheezing Bisacodyl (Bisacodyl 10 Mg Supp.Rect) 10 mg [place] DAILY PRN PRN Reason: Constipation Last Admin: 12/31/22 16:38 Dose: 10 mg Documented By: LOVE Bupropion HCl (Bupropion Hcl Xl 300 Mg Tab.Er.24h) 300 mg PO DAILY [facility] Last Admin: 01/01/23 08:02 Dose: 300 mg Documented By: PRESTOS Docusate Sodium (Docusate Sodium 100 Mg Capsule) 100 mg PO DAILY PRN PRN Reason: Constipation Last Admin: 12/26/22 20:06 Dose: 100 mg Documented By: OZORALB Gabapentin (Gabapentin 100 Mg Capsule) 100 mg PO DAILY@1600 [facility] Last Admin: 12/31/22 15:04 Dose: 100 mg Documented By: LOVE Hydroxyzine HCl (Hydroxyzine Hcl 50 Mg Tablet) 50 mg PO BEDTIME [facility] Last Admin: 12/31/22 20:51 Dose: 50 mg Documented By: EDIL Ketorolac Tromethamine (Ketorolac Tromethamine 15 Mg/Ml Vial) 15 mg IVPUSH Q6H PRN PRN Reason: Pain, Moderate(Pain Scale 4-6) Last Admin: 01/01/23 03:34 Dose: 15 mg Documented By: EDIL Methadone HCl (Methadone Hcl 20 Mg/2 Ml Oral.Conc) 30 mg PO DAILY [facility] Last Admin: 01/01/23 08:03 Dose: 30 mg Documented By: LETICIA Morphine Sulfate (Morphine Sulfate 2 Mg/Ml Cartridge) 2 mg IVPUSH Q4H PRN; Protocol PRN Reason: Pain, Severe (Pain Scale 7-10) Last Admin: 12/31/22 22:51 Dose: 2 mg Documented By: EDIL Omeprazole (Omeprazole 20 Mg Capsule.Dr) 20 mg PO DAILY@0630 [facility] Last Admin: 01/01/23 06:00 Dose: 20 mg Documented By: EDIL Ondansetron HCl (Ondansetron Hcl 4 Mg/2 Ml Vial) 4 mg IVPUSH Q8H PRN PRN Reason: Nausea and Vomiting Last Admin: 01/01/23 05:59 Dose: 4 mg Documented By: EDIL Oxycodone HCl (Oxycodone Hcl Immed Release 5 Mg Tablet) 10 mg PO Q4H PRN PRN Reason: Pain, Moderate(Pain Scale 4-6) Last Admin: 01/01/23 06:00 Dose: 10 mg Documented By: EDIL Polyethylene Glycol (Polyethylene Glycol 3350 17 Gm Powd.Pack) 17 gm PO BID [facility] Last Admin: 01/01/23 08:02 Dose: 17 gm Documented By: LETICIA Senna (Sennosides 8.6 Mg Tablet) 8.6 mg PO BID [facility] Last Admin: 01/01/23 08:03 Dose: 8.6 mg Documented By: LETICIA Sodium Chloride (0.9 % Sodium Chloride Flush 3 Ml Syringe) 3 ml IVFLUSH QSHIFT [facility] Last Admin: 01/01/23 08:02 Dose: 3 ml Documented By: LETICIA Trazodone HCl (Trazodone Hcl 100 Mg Tablet) 100 mg PO BEDTIME [facility] Last Admin: 12/31/22 20:52 Dose: 100 mg Documented By: EDIL Labs 12/27/22 05:16 12/31/22 05:10 Labs: Laboratory Results - last 24 hr 01/01/23 05:09 Total Creatine Kinase 2057 H Procedures Date of Service Date of Service: 01/01/23 Progress Note: A&P Assessment and plan (1) Compartment syndrome: Status: Acute (2) Rhabdomyolysis: Status: Acute Plan 32-year-old male patient with history of IV drug abuse with resulting compartment syndrome status post left leg fasciotomy. Patient returned to the OR yesterday for closure of the lateral calf wound and wound VAC placement of t he medial calf and lateral thigh wound. He tolerated this well wound VAC is working properly. Plan is for return to OR tomorrow for dressing change and possible closure of the medial calf wound. He expressed understanding and agrees with the plan. I reviewed the procedure, risks, and alternatives, and he consents to left leg wound VAC change and possible closure of fasciotomy incision. Time Spent With Patient Time: Total time managing care of this patient today ____ minutes. Quality Stroke Does the patient have a stroke diagnosis?: No VTE Prior VTE?: No VTE Risk Level:: Medical - moderate - high VTE Device Contraindication: Treatment Not Indicated VTE Drug Contraindication: N/A - Med Ordered
--- NOTE | 2023-01-01 10:05 | HO.POSTANES ---
Post Anesthesia Evaluation Post Anesthesia Evaluation Date of Service: 12/31/22 Vital Signs: Vital Signs Temp Pulse Resp BP Pulse Ox O2 Del Method 01/01/23 07:43 98.6 F 98 18 106/58 L 98 Room Air 01/01/23 03:24 98 F 86 18 116/73 96 Room Air Anesthesia: General Mental Status: Awake Pain Control: Satisfactory Nausea/Vomiting: None Hydration: Adequate Anesthesia-Related Issues: No Anes. Related Issues
--- NOTE | 2023-01-01 10:42 | PC.NURSE ---
MD ordered bedrest, patient asking if he can ambulate in room to sink for self care, spoke with surgery JANICE Harris, advised it is okay for patient to get up briefly with walker. Pt verbalizes understanding.
--- NOTE | 2023-01-01 11:54 | P.PNIM_ITS ---
Subjective Subjective Date of Service: 01/01/23 Interval History: Seen and evaluated this afternoon improved scrotal edema LLE sensation improving on daily basis pain under fair control Moving bowels Review of Systems Review of Systems: Yes all other systems are reviewed and are negative Physical Exam Vital Signs: Vital Signs: Last Vital Signs Temp 98.6 F 01/01/23 07:43 Pulse 98 01/01/23 07:43 Resp 18 01/01/23 07:43 BP 106/58 L 01/01/23 07:43 Pulse Ox 98 01/01/23 07:43 O2 Del Method Room Air 01/01/23 07:43 O2 Flow Rate 6 12/31/22 10:13 BMI result Body Mass Index 21.9 Const: Other: Constitutional : Awake, interactive, not in distress Neck : Normal inspection, Supple Cardiovascular : RRR, no JVP, no lower extremity edema, decrease scrotal edema Respiratory : good bilateral air entry, no crackles, wheezes or rhonchi Gastrointestinal: soft, lax, Normal bowel sounds, Non tender Skin : Warm, Dry, surgical wounds clean and covered with dressing with 2 wound VAC attached , no more tenderness upper thigh Neurological : Alert & oriented x3, No focal strength deficit, better sensation of light, deep and proprioception in LLE Objective Data Active Medications Acetaminophen (Acetaminophen 325 Mg Tablet) 650 mg PO Q6H PRN PRN Reason: Pain, Mild (Pain Scale 1-3) Last Admin: 01/01/23 01:24 Dose: 650 mg Documented By: PERFECTO-LISAZEDanay Albuterol Sulfate (Albuterol Sulfate (0.083%) 2.5 Mg/3 Ml Vial.Neb) 2.5 mg INHALE ONCE PRN PRN Reason: Wheezing Bisacodyl (Bisacodyl 10 Mg Supp.Rect) 10 mg [place] DAILY PRN PRN Reason: Constipation Last Admin: 12/31/22 16:38 Dose: 10 mg Documented By: LOVE Bupropion HCl (Bupropion Hcl Xl 300 Mg Tab.Er.24h) 300 mg PO DAILY [facility] Last Admin: 01/01/23 08:02 Dose: 300 mg Documented By: LETICIA Docusate Sodium (Docusate Sodium 100 Mg Capsule) 100 mg PO DAILY PRN PRN Reason: Constipation Last Admin: 12/26/22 20:06 Dose: 100 mg Documented By: AMBREENORALDanay Gabapentin (Gabapentin 100 Mg Capsule) 100 mg PO DAILY@1600 [facility] Last Admin: 12/31/22 15:04 Dose: 100 mg Documented By: LOVE Hydroxyzine HCl (Hydroxyzine Hcl 50 Mg Tablet) 50 mg PO BEDTIME [facility] Last Admin: 12/31/22 20:51 Dose: 50 mg Documented By: EDIL Cefazolin Sodium/Dextrose (Ancef) 2 gm in 50 mls @ 100 mls/hr IV PREOP ONE Stop: 01/02/23 09:29 Ketorolac Tromethamine (Ketorolac Tromethamine 15 Mg/Ml Vial) 15 mg IVPUSH Q6H PRN PRN Reason: Pain, Moderate(Pain Scale 4-6) Last Admin: 01/01/23 03:34 Dose: 15 mg Documented By: EDIL Lidocaine/Diphenhydr/Alum/Mg/Simeth (Mag&Al/Sim/Diphenhyd/Lidocaine 10 Ml Oral.Susp) 10 ml PO Q4H PRN; Protocol PRN Reason: Mouth blisters Methadone HCl (Methadone Hcl 20 Mg/2 Ml Oral.Conc) 30 mg PO DAILY [facility] Last Admin: 01/01/23 08:03 Dose: 30 mg Documented By: LETICIA Morphine Sulfate (Morphine Sulfate 2 Mg/Ml Cartridge) 2 mg IVPUSH Q4H PRN; Protocol PRN Reason: Pain, Severe (Pain Scale 7-10) Last Admin: 12/31/22 22:51 Dose: 2 mg Documented By: EDIL Omeprazole (Omeprazole 20 Mg Capsule.Dr) 20 mg PO DAILY@0630 [facility] Last Admin: 01/01/23 06:00 Dose: 20 mg Documented By: EDIL Ondansetron HCl (Ondansetron Hcl 4 Mg/2 Ml Vial) 4 mg IVPUSH Q8H PRN PRN Reason: Nausea and Vomiting Last Admin: 01/01/23 05:59 Dose: 4 mg Documented By: EDIL Oxycodone HCl (Oxycodone Hcl Immed Release 5 Mg Tablet) 10 mg PO Q4H PRN PRN Reason: Pain, Moderate(Pain Scale 4-6) Last Admin: 01/01/23 10:16 Dose: 10 mg Documented By: LETICIA Polyethylene Glycol (Polyethylene Glycol 3350 17 Gm Powd.Pack) 17 gm PO BID [facility] Last Admin: 01/01/23 08:02 Dose: 17 gm Documented By: LETICIA Senna (Sennosides 8.6 Mg Tablet) 8.6 mg PO BID [facility] Last Admin: 01/01/23 08:03 Dose: 8.6 mg Documented By: LETICIA Sodium Chloride (0.9 % Sodium Chloride Flush 3 Ml Syringe) 3 ml IVFLUSH QSHIFT [facility] Last Admin: 01/01/23 08:02 Dose: 3 ml Documented By: LETICIA Trazodone HCl (Trazodone Hcl 100 Mg Tablet) 100 mg PO BEDTIME [facility] Last Admin: 12/31/22 20:52 Dose: 100 mg Documented By: PERFECTO-JOZEB Labs 12/27/22 05:16 12/31/22 05:10 Labs: Laboratory Results - last 24 hr 01/01/23 05:09 Total Creatine Kinase 2057 H Assessment and Plan (1) Scrotal swelling: Status: Acute (2) Neurapraxia of left lower extremity: Status: Acute (3) Compartment syndrome: Status: Acute Plan 32-year-old male with past medical history of IV drug use usually uses oxycodone, now has transition to using heroin for the 1st time comes in after overdose. # compartement syndrome 2/2 Mucle injury and hematoma POD 6 fasciotomy with significant improvement in pain and parasthesia Post Wound Vac placement D2 Morphine and Oxy for pain can use Toradol as well surgery team following, partial closure tomorrow for LLE wound, the thigh wound might stay open until Thursday # rhabdomyolysis w elevated CPK CPK trended down to 2000s # Scrotal swelling from fluid usage and positional improved with doses of lasix scrotal support follow clinically # IV drug overdose recovery team following; Increase Methadone to 30mg denies any suicidal thoughts # Neurapraxia 2/2 compartement syndrome improving with increase sensation LLE arterial studies negative for clots neurology input appreciated , surgical intervention needed PT eval # ION resolved # Anxiety Psych team evaluation appreciated, start Wellbutrin and increase Trazodone Arrange OP follow up with Psych DVT prophylaxis SCDs patient's need for further management patient require overnight inpatient hospital stay for further management and monitoring Time Spent With Patient Time: Total time managing care of this patient today ____ minutes. Quality Stroke Does the patient have a stroke diagnosis?: No VTE Prior VTE?: No VTE Risk Level:: Medical - moderate - high VTE Device Contraindication: Treatment Not Indicated VTE Drug Contraindication: N/A - Med Ordered
--- NOTE | 2023-01-01 14:03 | MHC.RECOVRN ---
Addendum entered by Lainey Patiño RN 01/01/23 16:16: In to see pt for follow up. Pt reports intrusive thoughts about using were not as bad . Pt expressed concern about possible over sedation with the methadone because he is sleeping longer at night and taking naps during the day. Pt reminded his body and mind just experienced trauma and rest is warranted. Pt agreeable to this explanation, desiring to stay at 30mg methadone at this time. Pt and mother asking about care post discharge regarding the process of daily methadone, and the logistics of having daily appointments. Pt expressing some frustration with the VMT camera in the room, upset that it affords little privacy for when he needs to toilet. More information provided regarding treatment centers post discharge. Pt encouraged to write down any questions he may have. Plan to follow up tomorrow. Original Note: Attempt to make contact with pt, pt sleeping at this time, allowed to sleep.
[2023-01-01 15:09] VITALS: BP 119/79; PULSE 94; RESP 18; TEMP 36; O2SAT 94
[2023-01-01] MEDS: Gabapentin 100 MG CAPSULE PO (15:20)
--- NOTE | 2023-01-01 18:53 | PC.NURSE ---
Patient refuses alarms stating he will use call garces and wait for help,telesiter in place
[2023-01-01 19:14] VITALS: BP 109/64; PULSE 97; RESP 18; TEMP 37.2; O2SAT 95
[2023-01-01] MEDS: hydrOXYzine HCL 50 MG TABLET PO (20:10)
[2023-01-01] MEDS: traZODone HCL 100 MG TABLET PO (20:10)
[2023-01-02] VITALS (13 sets, daily range): BP systolic 102–123; BP diastolic 57–83; PULSE 70–90; RESP 12–18; TEMP 36.4–36.8; O2SAT 93–98
[2023-01-02] MEDS: Acetaminophen 325 MG TABLET 650 MG PO ×3 (00:04→20:00)
[2023-01-02] MEDS: oxyCODONE HCl Immed Release 5 MG TABLET 10 MG PO ×5 (00:05→20:01)
--- NOTE | 2023-01-02 04:14 | PC.NURSE ---
WOUND VAC CANISTER NOTED CLOSE TO FULL, REMOVED AND REPLACED WITH NEW CANISTER BY THIS REGULATORY COORDINATOR AND PERIODICALS LIBRARY ASSISTANT. NURSING [employer] AWARE ALSO, DRAINAGE NOTED 425ML [place] AT 0015. WILL CONTINUE TO MONITOR. WOUND VAC AT 125MMG, DRESSING INTACT, DARK COVERING COMPRESSED, PT TOLERATING WELL.
--- NOTE | 2023-01-02 06:54 | PC.NURSE ---
additional drainage to wound vac 50 ml at 0630
[2023-01-02] MEDS: 0.9 % Sodium Chloride Flush 3 ML SYRINGE IVFLUSH ×2 (09:31→17:06)
[2023-01-02] MEDS: buPROPion HCl XL 300 MG TAB.ER.24H PO (09:31)
[2023-01-02] MEDS: methADONE HCl 20 MG/2 ML ORAL.CONC 30 MG PO (09:31)
[2023-01-02] MEDS: Sennosides 8.6 MG TABLET PO ×2 (09:31→20:01)
--- NOTE | 2023-01-02 10:43 | P.PNIM_ITS ---
Subjective Subjective Date of Service: 01/02/23 Interval History: Improved sensation left lower extremity, denies pain moving bowels refusing MiraLax at night time, a wound VAC functioning well, no fevers, no chills, no nausea, no vomiting, no abdominal pain, no other acute issues overnight. Review of Systems All other system reviewed and negative Physical Exam Vital Signs: Vital Signs: Last Vital Signs Temp 98 F 01/02/23 07:27 Pulse 90 01/02/23 07:27 Resp 18 01/02/23 07:27 BP 102/58 L 01/02/23 07:27 Pulse Ox 95 01/02/23 07:27 O2 Del Method Room Air 01/02/23 07:27 O2 Flow Rate 6 12/31/22 10:13 BMI result Body Mass Index 21.9 Const: Other: Constitutional : A wake, alert sittin g comfortably in n o acute distress o ral Mucosa :Moist mucous membrane. N lyndon : Normal inspe ction, Supple Card iovascular : RRR, no JVP, no lower e xtremity edema Res piratory : good bi lateral air entry, ? no crackles, whe ezes or rhonchi Ga strointestinal:? s oft, Normal bowel sounds, Non tender Skin : Warm, Dry, surgical wounds c lean and covered w ith dressing with 2 wound VAC 1 to l eft lateral thigh and other at left medial wound Neur ological : Alert & oriented x3, No f ocal strength defi cit, better sensat ion of light, deep and proprioceptio n in LLE Objective Data Active Medications Acetaminophen (Acetaminophen 325 Mg Tablet) 650 mg PO Q6H PRN PRN Reason: Pain, Mild (Pain Scale 1-3) Last Admin: 01/02/23 09:39 Dose: 650 mg Documented By: LIN Albuterol Sulfate (Albuterol Sulfate (0.083%) 2.5 Mg/3 Ml Vial.Neb) 2.5 mg INHALE ONCE PRN PRN Reason: Wheezing Bisacodyl (Bisacodyl 10 Mg Supp.Rect) 10 mg MO DAILY PRN PRN Reason: Constipation Last Admin: 12/31/22 16:38 Dose: 10 mg Documented By: LOVE Bupropion HCl (Bupropion Hcl Xl 300 Mg Tab.Er.24h) 300 mg PO DAILY VALERIE Last Admin: 01/02/23 09:31 Dose: 300 mg Documented By: LIN Docusate Sodium (Docusate Sodium 100 Mg Capsule) 100 mg PO DAILY PRN PRN Reason: Constipation Last Admin: 12/26/22 20:06 Dose: 100 mg Documented By: WINSTON Gabapentin (Gabapentin 100 Mg Capsule) 100 mg PO DAILY@1600 [facility] Last Admin: 01/01/23 15:20 Dose: 100 mg Documented By: LETICIA Hydroxyzine HCl (Hydroxyzine Hcl 50 Mg Tablet) 50 mg PO BEDTIME [facility] Last Admin: 01/01/23 20:10 Dose: 50 mg Documented By: ROBBY Lidocaine/Diphenhydr/Alum/Mg/Simeth (Mag&Al/Sim/Diphenhyd/Lidocaine 10 Ml Oral.Susp) 10 ml PO Q4H PRN; Protocol PRN Reason: Mouth blisters Methadone HCl (Methadone Hcl 20 Mg/2 Ml Oral.Conc) 30 mg PO DAILY [facility] Last Admin: 01/02/23 09:31 Dose: 30 mg Documented By: LIN Morphine Sulfate (Morphine Sulfate 2 Mg/Ml Cartridge) 2 mg IVPUSH Q4H PRN; Protocol PRN Reason: Pain, Severe (Pain Scale 7-10) Last Admin: 12/31/22 22:51 Dose: 2 mg Documented By: EDIL Omeprazole (Omeprazole 20 Mg Capsule.Dr) 20 mg PO DAILY@0630 [facility] Last Admin: 01/02/23 05:38 Dose: Not Given Documented By: CHARLES Non-Admin Reason: NPO Ondansetron HCl (Ondansetron Hcl 4 Mg/2 Ml Vial) 4 mg IVPUSH Q8H PRN PRN Reason: Nausea and Vomiting Last Admin: 01/01/23 20:21 Dose: 4 mg Documented By: ROBBY Oxycodone HCl (Oxycodone Hcl Immed Release 5 Mg Tablet) 10 mg PO Q4H PRN PRN Reason: Pain, Moderate(Pain Scale 4-6) Last Admin: 01/02/23 09:40 Dose: 10 mg Documented By: LIN Polyethylene Glycol (Polyethylene Glycol 3350 17 Gm Powd.Pack) 17 gm PO BID [facility] Last Admin: 01/02/23 09:31 Dose: Not Given Documented By: LIN Non-Admin Reason: NPO Senna (Sennosides 8.6 Mg Tablet) 8.6 mg PO BID [facility] Last Admin: 01/02/23 09:31 Dose: 8.6 mg Documented By: LIN Sodium Chloride (0.9 % Sodium Chloride Flush 3 Ml Syringe) 3 ml IVFLUSH QSHIFT [facility] Last Admin: 01/02/23 09:31 Dose: 3 ml Documented By: LIN Trazodone HCl (Trazodone Hcl 100 Mg Tablet) 100 mg PO BEDTIME [facility] Last Admin: 01/01/23 20:10 Dose: 100 mg Documented By: ELEAZARIT Labs 12/27/22 05:16 12/31/22 05:10 Labs: Laboratory Results - last 24 hr 01/02/23 05:23 Total Creatine Kinase 1085 H Assessment and Plan (1) Scrotal swelling: Status: Acute (2) Neurapraxia of left lower extremity: Status: Acute (3) Compartment syndrome: Status: Acute Plan 32-year-old male with past medical history of IV drug use usually uses oxycodone, now has transition to using heroin for the 1st time comes in after overdose. # Compartement syndrome 2/2 Muscle injury and hematoma POD 7 fasciotomy with significant improvement in pain and parasthesia Post Wound Vac placement D3 On chronic methadone, IV Morphine and Oxy for pain. surgery team following, thigh wound might stay open until Thursday Continue stool softener change dose of MiraLax to once daily. # rhabdomyolysis w elevated CPK CPK trended down 1085 , encourage by mouth fluids, normal renal function. # Scrotal swelling from fluid usage and positional improved with doses of lasix follow clinically # IV drug overdose recovery team following; on Methadone 30mg # Neurapraxia 2/2 compartement syndrome improving with increase sensation LLE, arterial studies negative for clots # ION resolved # Anxiety Psych team evaluation appreciated, continue Wellbutrin and Trazodone Arrange OP follow up with Psych DVT prophylaxis SCDs patient's need continued inpatient hospital stay for further management and monitoring of left leg wounds currently on wound VAC require to further surgical intervention Time Spent With Patient Time: Total time managing care of this patient today ____ minutes. Quality Stroke Does the patient have a stroke diagnosis?: No VTE Prior VTE?: No VTE Risk Level:: Medical - moderate - high VTE Device Contraindication: Treatment Not Indicated VTE Drug Contraindication: N/A - Med Ordered
--- NOTE | 2023-01-02 11:24 | P.CONAN_ITS ---
HPI - Anesthesia Eval Consult details Narrative: for wound closure PMFSH Active Problems Active Problems: All Active Problems Scrotal swelling (Acute) Opioid use disorder, moderate, dependence (Acute) MDD (major depressive disorder), recurrent episode, moderate (Acute) Neurapraxia of left lower extremity (Acute) Compartment syndrome (Acute) Rhabdomyolysis (Acute) Muscle injury (Acute) Elevated CPK (Acute) Drug overdose (Acute) Acute renal failure due to rhabdomyolysis (Acute) Past Medical History Medical History IV drug abuse Family History Family history of problems with anesthesia: No Surgical History Surgical History H/O fasciotomy (12/25/22) No pertinent past surgical history History of Problems with Anesthesia: No Social History Social History Household Members: Family Household Members Other:: 2 Housing: House Do you presently have visiting nurse or other home services: No Alcohol intake: current Alcohol intake frequency: does not drink Patient Tobacco Use Status: Never used Tobacco Second Hand Smoke Exposure: No Substance Use Type: Heroin and Opiates service: No Meds Allergies Allergy/AdvReac Type Severity Reaction Status Date / Time No Known Allergies Allergy Verified 12/23/22 22:38 Active Medications: Current Medications Acetaminophen (Acetaminophen 325 Mg Tablet) 650 mg PO Q6H PRN PRN Reason: Pain, Mild (Pain Scale 1-3) Last Admin: 01/02/23 09:39 Dose: 650 mg Albuterol Sulfate (Albuterol Sulfate (0.083%) 2.5 Mg/3 Ml Vial.Neb) 2.5 mg INHALE ONCE PRN PRN Reason: Wheezing Bisacodyl (Bisacodyl 10 Mg Supp.Rect) 10 mg [place] DAILY PRN PRN Reason: Constipation Last Admin: 12/31/22 16:38 Dose: 10 mg Bupropion HCl (Bupropion Hcl Xl 300 Mg Tab.Er.24h) 300 mg PO DAILY [facility] Last Admin: 01/02/23 09:31 Dose: 300 mg Docusate Sodium (Docusate Sodium 100 Mg Capsule) 100 mg PO DAILY PRN PRN Reason: Constipation Last Admin: 12/26/22 20:06 Dose: 100 mg Gabapentin (Gabapentin 100 Mg Capsule) 100 mg PO DAILY@1600 [facility] Last Admin: 01/01/23 15:20 Dose: 100 mg Hydroxyzine HCl (Hydroxyzine Hcl 50 Mg Tablet) 50 mg PO BEDTIME [facility] Last Admin: 01/01/23 20:10 Dose: 50 mg Lidocaine/Diphenhydr/Alum/Mg/Simeth (Mag&Al/Sim/Diphenhyd/Lidocaine 10 Ml Oral.Susp) 10 ml PO Q4H PRN; Protocol PRN Reason: Mouth blisters Methadone HCl (Methadone Hcl 20 Mg/2 Ml Oral.Conc) 30 mg PO DAILY [facility] Last Admin: 01/02/23 09:31 Dose: 30 mg Morphine Sulfate (Morphine Sulfate 2 Mg/Ml Cartridge) 2 mg IVPUSH Q4H PRN; Protocol PRN Reason: Pain, Severe (Pain Scale 7-10) Last Admin: 12/31/22 22:51 Dose: 2 mg Omeprazole (Omeprazole 20 Mg Capsule.Dr) 20 mg PO DAILY@0630 [facility] Last Admin: 01/02/23 05:38 Dose: Not Given Ondansetron HCl (Ondansetron Hcl 4 Mg/2 Ml Vial) 4 mg IVPUSH Q8H PRN PRN Reason: Nausea and Vomiting Last Admin: 01/01/23 20:21 Dose: 4 mg Oxycodone HCl (Oxycodone Hcl Immed Release 5 Mg Tablet) 10 mg PO Q4H PRN PRN Reason: Pain, Moderate(Pain Scale 4-6) Last Admin: 01/02/23 09:40 Dose: 10 mg Polyethylene Glycol (Polyethylene Glycol 3350 17 Gm Powd.Pack) 17 gm PO DAILY [facility] Senna (Sennosides 8.6 Mg Tablet) 8.6 mg PO BID [facility] Last Admin: 01/02/23 09:31 Dose: 8.6 mg Sodium Chloride (0.9 % Sodium Chloride Flush 3 Ml Syringe) 3 ml IVFLUSH QSHIFT [facility] Last Admin: 01/02/23 09:31 Dose: 3 ml Trazodone HCl (Trazodone Hcl 100 Mg Tablet) 100 mg PO BEDTIME [facility] Last Admin: 01/01/23 20:10 Dose: 100 mg Home Medications Medication Instructions Recorded Confirmed Last Taken Type hydroxyzine HCl 50 mg tablet 50 mg PO BEDTIME 12/24/22 12/24/22 12/22/22 History trazodone 50 mg tablet 100 mg PO BEDTIME 0812/24/22 12/22/22 History Exam Exam Date and Time: January 02, 2023 1124 Height,Weight and Vital Signs: Height 5 ft 11 in Weight 71.1 kg Last Vital Signs Temp 98.1 F 01/02/23 11:01 Pulse 70 01/02/23 11:01 Resp 18 01/02/23 11:01 BP 104/57 L 01/02/23 11:01 Pulse Ox 96 01/02/23 11:01 O2 Del Method Room Air 01/02/23 11:01 O2 Flow Rate 6 12/31/22 10:13 Pertinent Lab Results Pertinent Lab Results: Laboratory Tests 12/23/22 12/23/22 12/23/22 21:40 21:40 21:40 WBC 11.5 H RBC 2.66 L Hgb 8.4 L Hct 25.7 L MCV 96.6 MCH 31.6 MCHC 32.7 RDW 12.0 Plt Count 190 MPV 9.2 L Immature Gran % (Auto) 0.5 H Neut % (Auto) 89.0 H Lymph % (Auto) 6.0 L [place] % (Auto) 4.2 Eos % (Auto) 0.0 Baso % (Auto) 0.3 Lymph # (Auto) 0.7 L [place] # (Auto) 0.5 Eos # (Auto) 0.0 Baso # (Auto) 0.0 Abs Immat Gran (auto) 0.06 H Absolute Neuts (auto) 10.3 H Absolute Nucleated RBC 0.000 Nucleated RBC % (auto) 0.0 Sodium 144 Potassium 3.1 L Chloride 95 L Carbon Dioxide 31 H Anion Gap 21 H BUN 36 H Creatinine 1.42 H Estim Creat Clear Calc 67.9 Estimated GFR 59 POC Glucose Random Glucose 228 H Lactic Acid Lactic Acid F/U @ 2Hr Calcium 9.4 Phosphorus Iron TIBC % Saturation Unsat Iron Binding Total Bilirubin Direct Bilirubin AST ALT Alkaline Phosphatase Total Creatine Kinase 956 H Troponin I High Sens 4.0 Total Protein Albumin Vitamin B12 Folate Urine Color Urine Appearance Urine pH Ur Specific [place] Urine Protein Urine Glucose (UA) Urine Ketones Urine Blood Urine Nitrite Ur Leukocyte Esterase COVID-19 ([facility]) COVID-19 Clin Com Hepatitis A IgM Ab Hep Bs Antigen Hep Bs Antibody Hep B Core Total Ab Hepatitis C Ab (EIA) HIV 1&2 Ab/P24 Ag 4thGn 0812/23/22 12/23/22 21:40 23:00 23:11 WBC 14.0 H RBC 4.14 L D Hgb 12.8 L D Hct 38.3 L D MCV 92.5 MCH 30.9 MCHC 33.4 RDW 12.0 Plt Count 245 D MPV 8.6 L Immature Gran % (Auto) 0.4 Neut % (Auto) 86.6 H Lymph % (Auto) 6.2 L [place] % (Auto) 6.7 Eos % (Auto) 0.0 Baso % (Auto) 0.1 Lymph # (Auto) 0.9 L [place] # (Auto) 0.9 Eos # (Auto) 0.0 Baso # (Auto) 0.0 Abs Immat Gran (auto) 0.06 H Absolute Neuts (auto) 12.1 H Absolute Nucleated RBC 0.000 Nucleated RBC % (auto) 0.0 Sodium Potassium Chloride Carbon Dioxide Anion Gap BUN Creatinine Estim Creat Clear Calc Estimated GFR POC Glucose 98 Random Glucose Lactic Acid 4.9 H* Lactic Acid F/U @ 2Hr Calcium Phosphorus Iron TIBC % Saturation Unsat Iron Binding Total Bilirubin Direct Bilirubin AST ALT Alkaline Phosphatase Total Creatine Kinase Troponin I High Sens Total Protein Albumin Vitamin B12 Folate Urine Color Urine Appearance Urine pH Ur Specific [place] Urine Protein Urine Glucose (UA) Urine Ketones Urine Blood Urine Nitrite Ur Leukocyte Esterase COVID-19 ([facility]) COVID-19 Clin Com Hepatitis A IgM Ab Hep Bs Antigen Hep Bs Antibody Hep B Core Total Ab Hepatitis C Ab (EIA) HIV 1&2 Ab/P24 Ag 4thGn 12/23/22 12/23/22 12/24/22 23:11 23:11 00:45 WBC RBC Hgb Hct MCV MCH MCHC RDW Plt Count MPV Immature Gran % (Auto) Neut % (Auto) Lymph % (Auto) [place] % (Auto) Eos % (Auto) Baso % (Auto) Lymph # (Auto) [place] # (Auto) Eos # (Auto) Baso # (Auto) Abs Immat Gran (auto) Absolute Neuts (auto) Absolute Nucleated RBC Nucleated RBC % (auto) Sodium 147 H Potassium 3.6 Chloride 96 Carbon Dioxide 38 H Anion Gap 17 BUN 37 H Creatinine 1.23 Estim Creat Clear Calc 78.5 Estimated GFR > 60 POC Glucose Random Glucose 72 Lactic Acid 2.4 H* Lactic Acid F/U @ 2Hr Calcium 9.3 Phosphorus Iron TIBC % Saturation Unsat Iron Binding Total Bilirubin Direct Bilirubin AST ALT Alkaline Phosphatase Total Creatine Kinase Troponin I High Sens Total Protein Albumin Vitamin B12 Folate Urine Color Urine Appearance Urine pH Ur Specific [place] Urine Protein Urine Glucose (UA) Urine Ketones Urine Blood Urine Nitrite Ur Leukocyte Esterase COVID-19 ([facility]) Negative COVID-19 Clin Com See Note Hepatitis A IgM Ab Hep Bs Antigen Hep Bs Antibody Hep B Core Total Ab Hepatitis C Ab (EIA) HIV 1&2 Ab/P24 Ag 4thGn 12/24/22 12/24/22 12/24/22 01:44 02:22 05:25 WBC 12.5 H RBC 3.47 L Hgb 11.1 L Hct 32.9 L MCV 94.8 MCH 32.0 MCHC 33.7 RDW 12.1 Plt Count 226 MPV 9.7 Immature Gran % (Auto) 0.4 Neut % (Auto) 86.1 H Lymph % (Auto) 8.1 L [place] % (Auto) 5.2 Eos % (Auto) 0.0 Baso % (Auto) 0.2 Lymph # (Auto) 1.0 L [place] # (Auto) 0.7 Eos # (Auto) 0.0 Baso # (Auto) 0.0 Abs Immat Gran (auto) 0.05 H Absolute Neuts (auto) 10.8 H Absolute Nucleated RBC 0.000 Nucleated RBC % (auto) 0.0 Sodium Potassium Chloride Carbon Dioxide Anion Gap BUN Creatinine Estim Creat Clear Calc Estimated GFR POC Glucose Random Glucose Lactic Acid Lactic Acid F/U @ 2Hr 2.9 H* Calcium Phosphorus Iron TIBC % Saturation Unsat Iron Binding Total Bilirubin Direct Bilirubin AST ALT Alkaline Phosphatase Total Creatine Kinase 4170 H Troponin I High Sens Total Protein Albumin Vitamin B12 Folate Urine Color Urine Appearance Urine pH Ur Specific [place] Urine Protein Urine Glucose (UA) Urine Ketones Urine Blood Urine Nitrite Ur Leukocyte Esterase COVID-19 ([facility]) COVID-19 Clin Com Hepatitis A IgM Ab Hep Bs Antigen Hep Bs Antibody Hep B Core Total Ab Hepatitis C Ab (EIA) HIV 1&2 Ab/P24 Ag 4thGn 12/24/22 12/24/22 12/25/22 05:25 05:25 08:11 WBC RBC Hgb Hct MCV MCH MCHC RDW Plt Count MPV Immature Gran % (Auto) Neut % (Auto) Lymph % (Auto) [place] % (Auto) Eos % (Auto) Baso % (Auto) Lymph # (Auto) [place] # (Auto) Eos # (Auto) Baso # (Auto) Abs Immat Gran (auto) Absolute Neuts (auto) Absolute Nucleated RBC Nucleated RBC % (auto) Sodium 141 144 Potassium 3.3 4.0 D Chloride 101 107 Carbon Dioxide 29 32 H Anion Gap 14 9 L BUN 28 H 19 H Creatinine 0.86 0.68 Estim Creat Clear Calc 112.2 159.7 Estimated GFR > 60 > 60 POC Glucose Random Glucose 83 73 Lactic Acid Lactic Acid F/U @ 2Hr Calcium 8.1 L D 8.6 D Phosphorus 2.0 L Iron TIBC % Saturation Unsat Iron Binding Total Bilirubin 0.2 Direct Bilirubin < 0.2 AST 411 H ALT 175 H Alkaline Phosphatase 47 Total Creatine Kinase 9765 H Troponin I High Sens Total Protein 5.3 L Albumin 3.0 L Vitamin B12 Folate Urine Color Urine Appearance Urine pH Ur Specific [place] Urine Protein Urine Glucose (UA) Urine Ketones Urine Blood Urine Nitrite Ur Leukocyte Esterase COVID-19 ([facility]) COVID-19 Clin Com Hepatitis A IgM Ab Hep Bs Antigen Hep Bs Antibody Hep B Core Total Ab Hepatitis C Ab (EIA) HIV 1&2 Ab/P24 Ag 4thGn 12/25/22 12/25/22 12/26/22 08:11 14:54 06:56 WBC RBC Hgb Hct MCV MCH MCHC RDW Plt Count MPV Immature Gran % (Auto) Neut % (Auto) Lymph % (Auto) [place] % (Auto) Eos % (Auto) Baso % (Auto) Lymph # (Auto) [place] # (Auto) Eos # (Auto) Baso # (Auto) Abs Immat Gran (auto) Absolute Neuts (auto) Absolute Nucleated RBC Nucleated RBC % (auto) Sodium 140 Potassium 4.3 Chloride 105 Carbon Dioxide 30 H Anion Gap 9 L BUN 17 H Creatinine 0.65 Estim Creat Clear Calc 167.1 Estimated GFR > 60 POC Glucose Random Glucose 94 Lactic Acid Lactic Acid F/U @ 2Hr Calcium 8.5 Phosphorus Iron TIBC % Saturation Unsat Iron Binding Total Bilirubin Direct Bilirubin AST ALT Alkaline Phosphatase Total Creatine Kinase 11601 H Troponin I High Sens Total Protein Albumin Vitamin B12 Folate Urine Color Yellow Urine Appearance Clear Urine pH 7.0 Ur Specific [place] 1.020 Urine Protein Negative Urine Glucose (UA) Negative Urine Ketones Negative Urine Blood Negative Urine Nitrite Negative Ur Leukocyte Esterase Negative COVID-19 ([facility]) COVID-19 Clin Com Hepatitis A IgM Ab Hep Bs Antigen Hep Bs Antibody Hep B Core Total Ab Hepatitis C Ab (EIA) HIV 1&2 Ab/P24 Ag 4thGn 12/26/22 12/26/22 12/26/22 06:56 16:18 16:18 WBC RBC Hgb Hct MCV MCH MCHC RDW Plt Count MPV Immature Gran % (Auto) Neut % (Auto) Lymph % (Auto) [place] % (Auto) Eos % (Auto) Baso % (Auto) Lymph # (Auto) [place] # (Auto) Eos # (Auto) Baso # (Auto) Abs Immat Gran (auto) Absolute Neuts (auto) Absolute Nucleated RBC Nucleated RBC % (auto) Sodium Potassium Chloride Carbon Dioxide Anion Gap BUN Creatinine Estim Creat Clear Calc Estimated GFR POC Glucose Random Glucose Lactic Acid Lactic Acid F/U @ 2Hr Calcium Phosphorus Iron 51 TIBC 240 % Saturation 21 Unsat Iron Binding 189 Total Bilirubin 0.2 Direct Bilirubin < 0.2 AST 366 H ALT 171 H Alkaline Phosphatase 40 Total Creatine Kinase 80097 H Troponin I High Sens Total Protein 5.0 L Albumin 2.9 L Vitamin B12 517 Folate 7.8 Urine Color Urine Appearance Urine pH Ur Specific [place] Urine Protein Urine Glucose (UA) Urine Ketones Urine Blood Urine Nitrite Ur Leukocyte Esterase COVID-19 ([facility]) COVID-19 Clin Com Hepatitis A IgM Ab Hep Bs Antigen Hep Bs Antibody Hep B Core Total Ab Hepatitis C Ab (EIA) HIV 1&2 Ab/P24 Ag 4thGn 12/27/22 12/27/22 12/27/22 05:16 05:16 05:16 WBC 5.1 RBC 3.37 L Hgb 10.5 L Hct 32.1 L MCV 95.3 MCH 31.2 MCHC 32.7 RDW 12.6 Plt Count 196 MPV 9.7 Immature Gran % (Auto) Neut % (Auto) Lymph % (Auto) [place] % (Auto) Eos % (Auto) Baso % (Auto) Lymph # (Auto) [place] # (Auto) Eos # (Auto) Baso # (Auto) Abs Immat Gran (auto) Absolute Neuts (auto) Absolute Nucleated RBC 0.000 Nucleated RBC % (auto) 0.0 Sodium 142 Potassium 3.5 Chloride 109 H Carbon Dioxide 28 Anion Gap 9 L BUN 17 H Creatinine 0.59 Estim Creat Clear Calc 184.1 Estimated GFR > 60 POC Glucose Random Glucose 88 Lactic Acid Lactic Acid F/U @ 2Hr Calcium 8.0 L Phosphorus Iron TIBC % Saturation Unsat Iron Binding Total Bilirubin Direct Bilirubin AST ALT Alkaline Phosphatase Total Creatine Kinase 7398 H Troponin I High Sens Total Protein Albumin Vitamin B12 Folate Urine Color Urine Appearance Urine pH Ur Specific [place] Urine Protein Urine Glucose (UA) Urine Ketones Urine Blood Urine Nitrite Ur Leukocyte Esterase COVID-19 ([facility]) COVID-19 Clin Com Hepatitis A IgM Ab Hep Bs Antigen Hep Bs Antibody Hep B Core Total Ab Hepatitis C Ab (EIA) HIV 1&2 Ab/P24 Ag 4thGn 12/27/22 12/27/22 12/28/22 13:26 13:26 08:03 WBC RBC Hgb Hct MCV MCH MCHC RDW Plt Count MPV Immature Gran % (Auto) Neut % (Auto) Lymph % (Auto) [place] % (Auto) Eos % (Auto) Baso % (Auto) Lymph # (Auto) [place] # (Auto) Eos # (Auto) Baso # (Auto) Abs Immat Gran (auto) Absolute Neuts (auto) Absolute Nucleated RBC Nucleated RBC % (auto) Sodium 141 Potassium 4.6 D Chloride 105 Carbon Dioxide 31 H Anion Gap 10 L BUN 15 Creatinine 0.64 Estim Creat Clear Calc 169.7 Estimated GFR > 60 POC Glucose Random Glucose 108 Lactic Acid Lactic Acid F/U @ 2Hr Calcium 8.4 Phosphorus Iron TIBC % Saturation Unsat Iron Binding Total Bilirubin Direct Bilirubin AST ALT Alkaline Phosphatase Total Creatine Kinase 7694 H 5261 H Troponin I High Sens Total Protein Albumin Vitamin B12 Folate Urine Color Urine Appearance Urine pH Ur Specific [place] Urine Protein Urine Glucose (UA) Urine Ketones Urine Blood Urine Nitrite Ur Leukocyte Esterase COVID-19 ([facility]) COVID-19 Clin Com Hepatitis A IgM Ab Nonreactive Hep Bs Antigen Negative Hep Bs Antibody NONREACTIVE Hep B Core Total Ab Nonreactive Hepatitis C Ab (EIA) Nonreactive HIV 1&2 Ab/P24 Ag 4thGn Nonreactive 12/29/22 12/29/22 12/30/22 05:34 05:34 05:09 WBC RBC Hgb Hct MCV MCH MCHC RDW Plt Count MPV Immature Gran % (Auto) Neut % (Auto) Lymph % (Auto) [place] % (Auto) Eos % (Auto) Baso % (Auto) Lymph # (Auto) [place] # (Auto) Eos # (Auto) Baso # (Auto) Abs Immat Gran (auto) Absolute Neuts (auto) Absolute Nucleated RBC Nucleated RBC % (auto) Sodium 140 139 Potassium 4.5 4.4 Chloride 103 101 Carbon Dioxide 32 H 33 H Anion Gap 10 L 9 L BUN 13 16 Creatinine 0.68 0.68 Estim Creat Clear Calc 159.7 159.7 Estimated GFR > 60 > 60 POC Glucose Random Glucose 77 89 Lactic Acid Lactic Acid F/U @ 2Hr Calcium 8.8 8.8 Phosphorus Iron TIBC % Saturation Unsat Iron Binding Total Bilirubin Direct Bilirubin AST ALT Alkaline Phosphatase Total Creatine Kinase 4466 H Troponin I High Sens Total Protein Albumin Vitamin B12 Folate Urine Color Urine Appearance Urine pH Ur Specific [place] Urine Protein Urine Glucose (UA) Urine Ketones Urine Blood Urine Nitrite Ur Leukocyte Esterase COVID-19 ([facility]) COVID-19 Clin Com Hepatitis A IgM Ab Hep Bs Antigen Hep Bs Antibody Hep B Core Total Ab Hepatitis C Ab (EIA) HIV 1&2 Ab/P24 Ag 4thGn 12/30/22 12/31/22 12/31/22 05:09 05:10 05:10 WBC RBC Hgb Hct MCV MCH MCHC RDW Plt Count MPV Immature Gran % (Auto) Neut % (Auto) Lymph % (Auto) [place] % (Auto) Eos % (Auto) Baso % (Auto) Lymph # (Auto) [place] # (Auto) Eos # (Auto) Baso # (Auto) Abs Immat Gran (auto) Absolute Neuts (auto) Absolute Nucleated RBC Nucleated RBC % (auto) Sodium 141 Potassium 4.5 Chloride 100 Carbon Dioxide 35 H Anion Gap 11 L BUN 16 Creatinine 0.70 Estim Creat Clear Calc 155.1 Estimated GFR > 60 POC Glucose Random Glucose 83 Lactic Acid Lactic Acid F/U @ 2Hr Calcium 9.0 Phosphorus Iron TIBC % Saturation Unsat Iron Binding Total Bilirubin Direct Bilirubin AST ALT Alkaline Phosphatase Total Creatine Kinase 3617 H 2866 H Troponin I High Sens Total Protein Albumin Vitamin B12 Folate Urine Color Urine Appearance Urine pH Ur Specific [place] Urine Protein Urine Glucose (UA) Urine Ketones Urine Blood Urine Nitrite Ur Leukocyte Esterase COVID-19 ([facility]) COVID-19 Clin Com Hepatitis A IgM Ab Hep Bs Antigen Hep Bs Antibody Hep B Core Total Ab Hepatitis C Ab (EIA) HIV 1&2 Ab/P24 Ag 4thGn 01/01/23 01/02/23 05:09 05:23 WBC RBC Hgb Hct MCV MCH MCHC RDW Plt Count MPV Immature Gran % (Auto) Neut % (Auto) Lymph % (Auto) [place] % (Auto) Eos % (Auto) Baso % (Auto) Lymph # (Auto) [place] # (Auto) Eos # (Auto) Baso # (Auto) Abs Immat Gran (auto) Absolute Neuts (auto) Absolute Nucleated RBC Nucleated RBC % (auto) Sodium Potassium Chloride Carbon Dioxide Anion Gap BUN Creatinine Estim Creat Clear Calc Estimated GFR POC Glucose Random Glucose Lactic Acid Lactic Acid F/U @ 2Hr Calcium Phosphorus Iron TIBC % Saturation Unsat Iron Binding Total Bilirubin Direct Bilirubin AST ALT Alkaline Phosphatase Total Creatine Kinase 2057 H 1085 H Troponin I High Sens Total Protein Albumin Vitamin B12 Folate Urine Color Urine Appearance Urine pH Ur Specific [place] Urine Protein Urine Glucose (UA) Urine Ketones Urine Blood Urine Nitrite Ur Leukocyte Esterase COVID-19 ([facility]) COVID-19 Clin Com Hepatitis A IgM Ab Hep Bs Antigen Hep Bs Antibody Hep B Core Total Ab Hepatitis C Ab (EIA) HIV 1&2 Ab/P24 Ag 4thGn Airway Mallampati Class: I TM Dist: >3cm Neck ROM: Full Loose/Missing/Broken Teeth: No Heart: ok Lungs: ok Assessment and Plan Assessment Anesthesia Assessment: Anesthesia Plan Discussed and Chart Reviewed Final Anesthetic Review Family History of Problems with Anesthesia: No History of Problems with Anesthesia: No NPO: Yes ASA Class: III Final Preanesthetic Review: No Changes in Pt Med Stat, Meds/Allgs Chart Reviewed, Consent Obtained/Reviewed and Anes Risks/Benef Reviewed Patient Risk: Intermediate Procedure Risk: Low Anesthetic Plan Anesthetic Plan: GA and Agree w/ Assess. and Plan Disposition: Standard PACU
--- NOTE | 2023-01-02 11:30 | PC.NURSE ---
pretesting assessment completed two days ago prior to previous surgery.
--- NOTE | 2023-01-02 11:40 | PC.NURSE ---
dr. shell updated by author and patient of c/o canker sores on upper palate and tongue. okay to proceed.
--- NOTE | 2023-01-02 12:52 | P.OP_ITS ---
Operative Note Operative Note Date of Service: 01/02/23 Narrative: Preoperative diagnosis:Compartment syndrome left leg s/p fasciotomy Postoperative diagnosis: same Procedure: Closure of medial calf fasciotomy incision, replacement of wound VAC lateral thigh Surgeon: Parish Costa MD Java Front End Web Developer: Kimberly Barrientos PA-C Anesthesia: General LMA Indications for procedure: 32-year-old male status post left leg fasciotomy for compartment syndrome. He returns today for partial wound closure. Operative findings: Healthy appearing muscle both the medial calf and lateral thigh fasciotomy incisions. Lateral fasciotomy incision remains clean, dry and intact packed Specimen: None Estimated blood loss: 10 mL Complications: None Procedure details: Patient was brought to the OR placed in a supine position. After administering general anesthesia the patient's left leg was prepped with Betadine and draped in a sterile fashion. A surgical time-out was called and consent confirmed. Patient received preoperative antibiotics. A Venodyne boot was placed on the right leg. Previous wound VAC was removed prior to prepping the left leg. The lateral incision was clean and intact with intact sutures. The medial fasciotomy incision was then closed using interrupted 3-0 Polysorb sutures to reapproximate dermis. 2- 0 nylon sutures were then used to reapproximate skin edges. This was done and mattress formation. A half thickness black sponge was then cut to size for the lateral thigh incision. This measured 23 x 8 cm. Wound VAC was then applied and good suction was obtained with good seal. Thigh wounds were then dressed using ABD pads followed by Kerlix 6 in Axel. The patient tolerated the procedure well. Sponge, instrument, needle counts reported as correct he was transferred back in stable condition.
[2023-01-02] MEDS: HYDROmorphone HCl 0.5 MG/0.5 ML SYRINGE IVPUSH ×2 (13:01→13:19)
[2023-01-02] MEDS: ondansetron HCL 4 MG/2 ML VIAL IVPUSH (13:30)
[2023-01-02] MEDS: Ketorolac Tromethamine 30 MG/ML VIAL 15 MG IVPUSH (13:30)
--- NOTE | 2023-01-02 13:41 | MHC.RECOVRN ---
Addendum entered by Lainey Patiño RN 01/02/23 15:32: Pt reports 30mg of methadone has been working well for him. Pt signed KENNY, and t/w sent referral to [facility] for methadone maintenance. Original Note: Attempt to make contact with pt for signature on KENNY. Pt not in room at this time. Briefly spoke with mother about the release, mom states pt just out of surgery and they will have nurse reach out when pt is back and able to speak.
[2023-01-02] MEDS: polyethylene glycoL 3350 17 GM POWD.PACK PO (14:49)
--- NOTE | 2023-01-02 15:36 | PC.NURSE ---
Patient refusing sequentials. Dr. Alexander notified.
[2023-01-02] MEDS: Gabapentin 100 MG CAPSULE PO (17:07)
--- NOTE | 2023-01-02 17:11 | PC.NURSE ---
Patient refuses alarm,call [facility]ces in reach
[2023-01-02] MEDS: traZODone HCL 100 MG TABLET PO (19:59)
[2023-01-02] MEDS: hydrOXYzine HCL 50 MG TABLET PO (20:01)
[2023-01-02] MEDS: Morphine Sulfate 2 MG/ML CARTRIDGE IVPUSH (22:25)
[2023-01-03] MEDS: Acetaminophen 325 MG TABLET 650 MG PO ×3 (01:42→23:48)
[2023-01-03] MEDS: oxyCODONE HCl Immed Release 5 MG TABLET 10 MG PO ×6 (01:43→23:48)
[2023-01-03 02:34] VITALS: BP 122/64; PULSE 80; RESP 18; TEMP 36.3; O2SAT 97
[2023-01-03 04:13] VITALS: BP 118/68; PULSE 87; RESP 18; TEMP 36.6; O2SAT 95
[2023-01-03 07:40] VITALS: BP 111/67; PULSE 88; RESP 18; TEMP 36.2; O2SAT 95
[2023-01-03] MEDS: Sennosides 8.6 MG TABLET PO ×2 (09:43→20:18)
[2023-01-03] MEDS: Omeprazole 20 MG CAPSULE.DR PO (09:43)
[2023-01-03] MEDS: buPROPion HCl XL 300 MG TAB.ER.24H PO (09:44)
[2023-01-03] MEDS: methADONE HCl 20 MG/2 ML ORAL.CONC 30 MG PO (09:44)
[2023-01-03] MEDS: 0.9 % Sodium Chloride Flush 3 ML SYRINGE IVFLUSH ×3 (09:45→19:11)
[2023-01-03] MEDS: polyethylene glycoL 3350 17 GM POWD.PACK PO (09:48)
--- NOTE | 2023-01-03 11:06 | HO.POSTANES ---
Post Anesthesia Evaluation Post Anesthesia Evaluation Date of Service: 01/03/23 Vital Signs: Vital Signs Temp Pulse Resp BP Pulse Ox O2 Del Method 01/03/23 07:40 97.2 F 88 18 111/67 95 Room Air 01/03/23 04:13 97.8 F 87 18 118/68 95 Room Air 01/03/23 02:34 97.4 F 80 18 122/64 97 Room Air Anesthesia: General LMA Mental Status: Awake Pain Control: Satisfactory Nausea/Vomiting: None Hydration: Adequate Anesthesia-Related Issues: No Anes. Related Issues
--- NOTE | 2023-01-03 13:24 | HO.PM.IMPN ---
Subjective Subjective Date of Service: 01/03/23 Interval History: Offers no acute complaints good pain control requesting for Toradol IV and wants Prilosec to be given at 09:00, since takes 1st meal at 11:00, no nausea no vomiting, moving bowels no other acute issues overnight. No fevers, no chills, no headache, no dizziness. Review of Systems All other system reviewed and negative Physical Exam Vital Signs: Vital Signs: Last Vital Signs Temp 97.2 F 01/03/23 07:40 Pulse 88 01/03/23 07:40 Resp 18 01/03/23 07:40 BP 111/67 01/03/23 07:40 Pulse Ox 95 01/03/23 07:40 O2 Del Method Room Air 01/03/23 07:40 O2 Flow Rate 2 01/02/23 13:39 BMI result Body Mass Index 21.9 Const: Other: Constitutional : Awake, alert sitting comfortably in no acute distress oral Mucosa :Moist mucous membrane. Neck : Normal inspection, Supple Cardiovascular : RRR,no JVP, no lower extremity edema Respiratory : good bilateral air entry,? no crackles, wheezes or rhonchi Gastrointestinal:? soft, Normal bowel sounds, Non tender Skin : Warm, 2 wound VAC 1 to left lateral thigh and other at left medial wound Neurological : Alert &?oriented x3, No focal strength deficit, better sensation of light, deep?and proprioception in LLE Psych appropriate affect Objective Data Active Medications Acetaminophen (Acetaminophen 325 Mg Tablet) 650 mg PO Q6H PRN PRN Reason: Pain, Mild (Pain Scale 1-3) Last Admin: 01/02/23 20:00 Dose: 650 mg Documented By: ROBBY Albuterol Sulfate (Albuterol Sulfate (0.083%) 2.5 Mg/3 Ml Vial.Neb) 2.5 mg INHALE ONCE PRN PRN Reason: Wheezing Bisacodyl (Bisacodyl 10 Mg Supp.Rect) 10 mg [place] DAILY PRN PRN Reason: Constipation Last Admin: 12/31/22 16:38 Dose: 10 mg Documented By: LOVE Bupropion HCl (Bupropion Hcl Xl 300 Mg Tab.Er.24h) 300 mg PO DAILY [facility] Last Admin: 01/03/23 09:44 Dose: 300 mg Documented By: DIAZDEKarla Docusate Sodium (Docusate Sodium 100 Mg Capsule) 100 mg PO DAILY PRN PRN Reason: Constipation Last Admin: 12/26/22 20:06 Dose: 100 mg Documented By: AMBREENORALB Fentanyl (Fentanyl Citrate/Pf 100 Mcg/2 Ml Vial) 50 mcg IVPUSH Q5M PRN; Protocol PRN Reason: Pain, Severe (Pain Scale 7-10) Gabapentin (Gabapentin 100 Mg Capsule) 100 mg PO DAILY@1600 [facility] Last Admin: 01/02/23 17:07 Dose: 100 mg Documented By: RBOBY Hydromorphone HCl (Hydromorphone Hcl 0.5 Mg/0.5 Ml Syringe) 0.5 mg IVPUSH Q5M PRN; Protocol PRN Reason: Pain, Severe (Pain Scale 7-10) Last Admin: 01/02/23 13:19 Dose: 0.5 mg Documented By: NARCISO Hydroxyzine HCl (Hydroxyzine Hcl 50 Mg Tablet) 50 mg PO BEDTIME [facility] Last Admin: 01/02/23 20:01 Dose: 50 mg Documented By: ROBBY Lidocaine/Diphenhydr/Alum/Mg/Simeth (Mag&Al/Sim/Diphenhyd/Lidocaine 10 Ml Oral.Susp) 10 ml PO Q4H PRN; Protocol PRN Reason: Mouth blisters Methadone HCl (Methadone Hcl 20 Mg/2 Ml Oral.Conc) 30 mg PO DAILY [facility] Last Admin: 01/03/23 09:44 Dose: 30 mg Documented By: OTTONIEL Morphine Sulfate (Morphine Sulfate 2 Mg/Ml Cartridge) 2 mg IVPUSH Q4H PRN; Protocol PRN Reason: Pain, Severe (Pain Scale 7-10) Last Admin: 01/02/23 22:25 Dose: 2 mg Documented By: ROBBY Omeprazole (Omeprazole 20 Mg Capsule.Dr) 20 mg PO DAILY [facility] Last Admin: 01/03/23 09:43 Dose: 20 mg Documented By: OTTONIEL Ondansetron HCl (Ondansetron Hcl 4 Mg/2 Ml Vial) 4 mg IVPUSH Q8H PRN PRN Reason: Nausea and Vomiting Last Admin: 01/01/23 20:21 Dose: 4 mg Documented By: ROBBY Ondansetron HCl (Ondansetron Hcl 4 Mg/2 Ml Vial) 4 mg IVPUSH ONCE PRN PRN Reason: Nausea and Vomiting Oxycodone HCl (Oxycodone Hcl Immed Release 5 Mg Tablet) 10 mg PO Q4H PRN PRN Reason: Pain, Moderate(Pain Scale 4-6) Last Admin: 01/03/23 10:37 Dose: 10 mg Documented By: OTTONIEL Polyethylene Glycol (Polyethylene Glycol 3350 17 Gm Powd.Pack) 17 gm PO DAILY [facility] Last Admin: 01/03/23 09:48 Dose: 17 gm Documented By: OTTONIEL Senna (Sennosides 8.6 Mg Tablet) 8.6 mg PO BID [facility] Last Admin: 01/03/23 09:43 Dose: 8.6 mg Documented By: OTTONIEL Sodium Chloride (0.9 % Sodium Chloride Flush 3 Ml Syringe) 3 ml IVFLUSH QSHIFT [facility] Last Admin: 01/03/23 09:45 Dose: 3 ml Documented By: OTTONIEL Trazodone HCl (Trazodone Hcl 100 Mg Tablet) 100 mg PO BEDTIME [facility] Last Admin: 01/02/23 19:59 Dose: 100 mg Documented By: BEIT Labs 12/27/22 05:16 12/31/22 05:10 Assessment and Plan (1) Scrotal swelling: Status: Acute (2) Neurapraxia of left lower extremity: Status: Acute (3) Compartment syndrome: Status: Acute Plan 32-year-old male with past medical history of IV drug use usually uses oxycodone, now has transition to using heroin for the 1st time comes in after overdose. # Compartement syndrome 2/2 Muscle injury and hematoma POD 8 fasciotomy with significant improvement in pain and parasthesia Post Wound Vac placement D4 On chronic methadone, IV Morphine and Oxy for pain. Will DC IV morphine continue Oxy and add Toradol surgery team following, thigh wound will stay open until Thursday Continue stool softener, MiraLax once daily. # rhabdomyolysis w elevated CPK CPK trended down 1085 , encourage by mouth fluids, normal renal function. # Scrotal swelling from fluid usage and positional improved with doses of lasix follow clinically # IV drug overdose recovery team following; on Methadone 30mg, will discuss DC plan with recovery team prior to discharge # Neurapraxia 2/2 compartement syndrome improving with increase sensation LLE, arterial studies negative for clots # ION resolved # Anxiety Psych team evaluation appreciated, continue Wellbutrin and Trazodone, recommend outpatient follow-up with psych DVT prophylaxis SCDs patient's need continued inpatient hospital stay for further management and monitoring of left leg wounds currently on wound VAC require to further surgical intervention Time Spent With Patient Time: Total time managing care of this patient today ____ minutes. Quality Stroke Does the patient have a stroke diagnosis?: No VTE Prior VTE?: No VTE Risk Level:: Medical - moderate - high VTE Device Contraindication: Treatment Not Indicated VTE Drug Contraindication: N/A - Med Ordered
[2023-01-03 15:33] VITALS: BP 120/78; PULSE 76; RESP 18; TEMP 36.3; O2SAT 97
[2023-01-03] MEDS: Gabapentin 100 MG CAPSULE PO (16:02)
[2023-01-03] MEDS: Ketorolac Tromethamine 15 MG/ML VIAL IVPUSH (19:26)
[2023-01-03 19:34] VITALS: BP 116/74; PULSE 85; RESP 18; TEMP 36.8; O2SAT 97
[2023-01-03] MEDS: hydrOXYzine HCL 50 MG TABLET PO (20:18)
[2023-01-03] MEDS: traZODone HCL 100 MG TABLET PO (20:19)
[2023-01-04 00:22] VITALS: BP 102/70; PULSE 85; RESP 18; TEMP 36.6; O2SAT 93
[2023-01-04] MEDS: Ketorolac Tromethamine 15 MG/ML VIAL IVPUSH (04:11)
[2023-01-04] MEDS: oxyCODONE HCl Immed Release 5 MG TABLET 10 MG PO ×5 (04:13→23:42)
[2023-01-04 08:00] VITALS: BP 107/64; PULSE 87; RESP 18; TEMP 36.4; O2SAT 95
[2023-01-04] MEDS: methADONE HCl 20 MG/2 ML ORAL.CONC 30 MG PO (08:00)
[2023-01-04] MEDS: Omeprazole 20 MG CAPSULE.DR PO (08:01)
[2023-01-04] MEDS: polyethylene glycoL 3350 17 GM POWD.PACK PO (08:01)
[2023-01-04] MEDS: 0.9 % Sodium Chloride Flush 3 ML SYRINGE IVFLUSH (08:01)
[2023-01-04] MEDS: Sennosides 8.6 MG TABLET PO ×2 (08:02→20:07)
[2023-01-04] MEDS: buPROPion HCl XL 300 MG TAB.ER.24H PO (08:02)
--- NOTE | 2023-01-04 11:51 | HO.PM.IMPN ---
Subjective Subjective Date of Service: 01/04/23 Interval History: complaining of mouth sores and pain, moving bowels, tolerating diet, no nausea, no vomiting, no abdominal pain, good pain control, no withdrawal symptoms, wound VAC in place, no acute events overnight. Review of Systems All other system reviewed and negative Physical Exam Vital Signs: Vital Signs: Last Vital Signs Temp 97.6 F 01/04/23 08:00 Pulse 87 01/04/23 08:00 Resp 18 01/04/23 08:00 BP 107/64 01/04/23 08:00 Pulse Ox 95 01/04/23 08:00 O2 Del Method Room Air 01/04/23 08:00 O2 Flow Rate 2 01/02/23 13:39 BMI result Body Mass Index 21.9 Const: Other: Constitutional : Awake, alert sitting comfortably in no acute distress Neck : Normal inspection, Supple Cardiovascular : RRR,no JVP, no lower extremity edema Respiratory : good bilateral air entry,? no crackles, wheezes or rhonchi Gastrointestinal:? soft, Normal bowel sounds, Non tender Skin : Warm,? 2 wound VAC 1 to left lateral thigh and other at left medial wound Neurological : Alert &?oriented x3, No focal strength deficit, better sensation of light, deep?and proprioception in LLE Psych appropriate affect Objective Data Active Medications Acetaminophen (Acetaminophen 325 Mg Tablet) 650 mg PO Q6H PRN PRN Reason: Pain, Mild (Pain Scale 1-3) Last Admin: 01/03/23 23:48 Dose: 650 mg Documented By: GERALD Albuterol Sulfate (Albuterol Sulfate (0.083%) 2.5 Mg/3 Ml Vial.Neb) 2.5 mg INHALE ONCE PRN PRN Reason: Wheezing Bisacodyl (Bisacodyl 10 Mg Supp.Rect) 10 mg [place] DAILY PRN PRN Reason: Constipation Last Admin: 12/31/22 16:38 Dose: 10 mg Documented By: LOVE Bupropion HCl (Bupropion Hcl Xl 300 Mg Tab.Er.24h) 300 mg PO DAILY [facility] Last Admin: 01/04/23 08:02 Dose: 300 mg Documented By: SADIA Docusate Sodium (Docusate Sodium 100 Mg Capsule) 100 mg PO DAILY PRN PRN Reason: Constipation Last Admin: 12/26/22 20:06 Dose: 100 mg Documented By: AMBREENORALDanay Fentanyl (Fentanyl Citrate/Pf 100 Mcg/2 Ml Vial) 50 mcg IVPUSH Q5M PRN; Protocol PRN Reason: Pain, Severe (Pain Scale 7-10) Gabapentin (Gabapentin 100 Mg Capsule) 100 mg PO DAILY@1600 [facility] Last Admin: 01/03/23 16:02 Dose: 100 mg Documented By: SINGH Hydromorphone HCl (Hydromorphone Hcl 0.5 Mg/0.5 Ml Syringe) 0.5 mg IVPUSH Q5M PRN; Protocol PRN Reason: Pain, Severe (Pain Scale 7-10) Last Admin: 01/02/23 13:19 Dose: 0.5 mg Documented By: NARCISO Hydroxyzine HCl (Hydroxyzine Hcl 50 Mg Tablet) 50 mg PO BEDTIME [facility] Last Admin: 01/03/23 20:18 Dose: 50 mg Documented By: GERALD Ketorolac Tromethamine (Ketorolac Tromethamine 15 Mg/Ml Vial) 15 mg IVPUSH Q6H PRN PRN Reason: Pain, Moderate(Pain Scale 4-6) Last Admin: 01/04/23 04:11 Dose: 15 mg Documented By: GERALD Lidocaine/Diphenhydr/Alum/Mg/Simeth (Mag&Al/Sim/Diphenhyd/Lidocaine 10 Ml Oral.Susp) 10 ml PO Q4H PRN; Protocol PRN Reason: Mouth blisters Methadone HCl (Methadone Hcl 20 Mg/2 Ml Oral.Conc) 30 mg PO DAILY [facility] Last Admin: 01/04/23 08:00 Dose: 30 mg Documented By: SADIA Omeprazole (Omeprazole 20 Mg Capsule.Dr) 20 mg PO DAILY [facility] Last Admin: 01/04/23 08:01 Dose: 20 mg Documented By: SADIA Ondansetron HCl (Ondansetron Hcl 4 Mg/2 Ml Vial) 4 mg IVPUSH Q8H PRN PRN Reason: Nausea and Vomiting Last Admin: 01/01/23 20:21 Dose: 4 mg Documented By: ROBBY Ondansetron HCl (Ondansetron Hcl 4 Mg/2 Ml Vial) 4 mg IVPUSH ONCE PRN PRN Reason: Nausea and Vomiting Oxycodone HCl (Oxycodone Hcl Immed Release 5 Mg Tablet) 10 mg PO Q4H PRN PRN Reason: Pain, Moderate(Pain Scale 4-6) Last Admin: 01/04/23 08:38 Dose: 10 mg Documented By: SADIA Polyethylene Glycol (Polyethylene Glycol 3350 17 Gm Powd.Pack) 17 gm PO DAILY [facility] Last Admin: 01/04/23 08:01 Dose: 17 gm Documented By: SADIA Senna (Sennosides 8.6 Mg Tablet) 8.6 mg PO BID [facility] Last Admin: 01/04/23 08:02 Dose: 8.6 mg Documented By: SADIA Sodium Chloride (0.9 % Sodium Chloride Flush 3 Ml Syringe) 3 ml IVFLUSH QSHIFT [facility] Last Admin: 01/04/23 08:01 Dose: 3 ml Documented By: SADIA Trazodone HCl (Trazodone Hcl 100 Mg Tablet) 100 mg PO BEDTIME [facility] Last Admin: 01/03/23 20:19 Dose: 100 mg Documented By: GERALD Labs 12/27/22 05:16 12/31/22 05:10 Assessment and Plan (1) Scrotal swelling: Status: Acute (2) Neurapraxia of left lower extremity: Status: Acute (3) Compartment syndrome: Status: Acute Plan 32-year-old male with past medical history of IV drug use usually uses oxycodone, now has transition to using heroin for the 1st time comes in after overdose. # Compartement syndrome 2/2 Muscle injury and hematoma POD 9 fasciotomy with significant improvement in pain and parasthesia Post Wound Vac placement D5 On chronic methadone, Oxy and Toradol as needed for pain surgery team following, thigh wound will stay open until Thursday Continue stool softener, MiraLax once daily. # rhabdomyolysis w elevated CPK CPK trended down 1085 , encourage by mouth fluids, normal renal function. # Scrotal swelling from fluid usage and positional significantly improved s/p Lasix # apthous stomatitis will schedule Magic mouthwash q.i.d. # IV drug overdose recovery team following; on Methadone 30mg, will discuss DC plan with recovery team prior to discharge # Neurapraxia 2/2 compartement syndrome significant improvement and left lower extremity sensation arterial studies negative for clots # ION resolved # Anxiety Psych team evaluation appreciated, continue Wellbutrin and Trazodone, recommend outpatient follow-up with psych DVT prophylaxis SCDs patient's need continued inpatient hospital stay for further management and monitoring of left leg wounds currently on wound VAC require to further surgical intervention Time Spent With Patient Time: Total time managing care of this patient today ____ minutes. Quality Stroke Does the patient have a stroke diagnosis?: No VTE Prior VTE?: No VTE Risk Level:: Medical - moderate - high VTE Device Contraindication: Treatment Not Indicated VTE Drug Contraindication: N/A - Med Ordered
[2023-01-04] MEDS: Acetaminophen 325 MG TABLET 650 MG PO ×2 (12:47→20:08)
[2023-01-04] MEDS: Mag&Al/Sim/Diphenhyd/Lidocaine 10 ML ORAL.SUSP PO ×2 (12:48→20:08)
[2023-01-04 15:30] VITALS: BP 108/64; PULSE 72; RESP 18; TEMP 36.1; O2SAT 93
[2023-01-04] MEDS: Sodium Chloride 0.65 % Nasal 44 ML SPRBTL 1 SPRAY NOSTRIL-B (16:15)
[2023-01-04] MEDS: Gabapentin 100 MG CAPSULE PO (16:15)
[2023-01-04 19:10] VITALS: BP 126/74; PULSE 87; RESP 16; TEMP 36.3; O2SAT 95
[2023-01-04] MEDS: hydrOXYzine HCL 50 MG TABLET PO (20:07)
[2023-01-04] MEDS: traZODone HCL 100 MG TABLET PO (20:07)
[2023-01-05] VITALS (11 sets, daily range): BP systolic 106–131; BP diastolic 62–74; PULSE 58–76; RESP 15–18; TEMP 36.1–36.8; O2SAT 91–100
[2023-01-05] MEDS: oxyCODONE HCl Immed Release 5 MG TABLET 10 MG PO ×4 (05:49→21:59)
--- NOTE | 2023-01-05 09:14 | PM.PNGS ---
Subjective Subjective Date of Service: 01/05/23 Interval history: Patient with no new complaints; anxious about getting wounds closed today. Physical Exam Vital Signs: Vital Signs: Last Vital Signs Temp 97 F 01/05/23 07:56 Pulse 58 01/05/23 07:56 Resp 16 01/05/23 07:56 BP 109/64 01/05/23 07:56 Pulse Ox 98 01/05/23 07:56 O2 Del Method Room Air 01/05/23 07:56 O2 Flow Rate 2 01/02/23 13:39 BMI result Body Mass Index 21.9 Const: General: no acute distress Nutritional Appearance: well nourished Orientation/consciousness: patient oriented x3 Resp: Effort & Inspection: normal respiratory effort Skin: General skin exam: no rashes or lesions noted Neuro: General: patient oriented x3 Extrem: Other: dressings clean and intact. Wound vac in place and functioning well. Objective Data Active Medications Acetaminophen (Acetaminophen 325 Mg Tablet) 650 mg PO Q6H PRN PRN Reason: Pain, Mild (Pain Scale 1-3) Last Admin: 01/04/23 20:08 Dose: 650 mg Documented By: TRISH Albuterol Sulfate (Albuterol Sulfate (0.083%) 2.5 Mg/3 Ml Vial.Neb) 2.5 mg INHALE ONCE PRN PRN Reason: Wheezing Bisacodyl (Bisacodyl 10 Mg Supp.Rect) 10 mg [place] DAILY PRN PRN Reason: Constipation Last Admin: 12/31/22 16:38 Dose: 10 mg Documented By: LOVE Bupropion HCl (Bupropion Hcl Xl 300 Mg Tab.Er.24h) 300 mg PO DAILY [facility] Last Admin: 01/04/23 08:02 Dose: 300 mg Documented By: SADIA Docusate Sodium (Docusate Sodium 100 Mg Capsule) 100 mg PO DAILY PRN PRN Reason: Constipation Last Admin: 12/26/22 20:06 Dose: 100 mg Documented By: AMBREENORALDanay Fentanyl (Fentanyl Citrate/Pf 100 Mcg/2 Ml Vial) 50 mcg IVPUSH Q5M PRN; Protocol PRN Reason: Pain, Severe (Pain Scale 7-10) Gabapentin (Gabapentin 100 Mg Capsule) 100 mg PO DAILY@1600 [facility] Last Admin: 01/04/23 16:15 Dose: 100 mg Documented By: SADIA Hydromorphone HCl (Hydromorphone Hcl 0.5 Mg/0.5 Ml Syringe) 0.5 mg IVPUSH Q5M PRN; Protocol PRN Reason: Pain, Severe (Pain Scale 7-10) Last Admin: 01/02/23 13:19 Dose: 0.5 mg Documented By: NARCISO Hydroxyzine HCl (Hydroxyzine Hcl 50 Mg Tablet) 50 mg PO BEDTIME [facility] Last Admin: 01/04/23 20:07 Dose: 50 mg Documented By: TRISH Ketorolac Tromethamine (Ketorolac Tromethamine 15 Mg/Ml Vial) 15 mg IVPUSH Q6H PRN PRN Reason: Pain, Moderate(Pain Scale 4-6) Last Admin: 01/04/23 04:11 Dose: 15 mg Documented By: GERALD Lidocaine/Diphenhydr/Alum/Mg/Simeth (Mag&Al/Sim/Diphenhyd/Lidocaine 10 Ml Oral.Susp) 10 ml PO QID [facility]; Protocol Last Admin: 01/04/23 20:08 Dose: 10 ml Documented By: TRISH Methadone HCl (Methadone Hcl 20 Mg/2 Ml Oral.Conc) 30 mg PO DAILY [facility] Last Admin: 01/04/23 08:00 Dose: 30 mg Documented By: SADIA Omeprazole (Omeprazole 20 Mg Capsule.Dr) 20 mg PO DAILY [facility] Last Admin: 01/04/23 08:01 Dose: 20 mg Documented By: SADIA Ondansetron HCl (Ondansetron Hcl 4 Mg/2 Ml Vial) 4 mg IVPUSH Q8H PRN PRN Reason: Nausea and Vomiting Last Admin: 01/01/23 20:21 Dose: 4 mg Documented By: ROBBY Ondansetron HCl (Ondansetron Hcl 4 Mg/2 Ml Vial) 4 mg IVPUSH ONCE PRN PRN Reason: Nausea and Vomiting Oxycodone HCl (Oxycodone Hcl Immed Release 5 Mg Tablet) 10 mg PO Q5H PRN PRN Reason: Pain, Moderate(Pain Scale 4-6) Polyethylene Glycol (Polyethylene Glycol 3350 17 Gm Powd.Pack) 17 gm PO DAILY [facility] Last Admin: 01/04/23 08:01 Dose: 17 gm Documented By: SADIA Senna (Sennosides 8.6 Mg Tablet) 8.6 mg PO BID [facility] Last Admin: 01/04/23 20:07 Dose: 8.6 mg Documented By: TRISH Sodium Chloride (0.9 % Sodium Chloride Flush 3 Ml Syringe) 3 ml IVFLUSH QSHIFT [facility] Last Admin: 01/04/23 23:14 Dose: Not Given Documented By: TRISH Non-Admin Reason: Previously Administered Sodium Chloride (Sodium Chloride 0.65 % Nasal 44 Ml Sprbtl) 1 spray NOSTRIL-B Q1H PRN PRN Reason: Congestion Last Admin: 01/04/23 16:15 Dose: 1 spray Documented By: SADIA Trazodone HCl (Trazodone Hcl 100 Mg Tablet) 100 mg PO BEDTIME [facility] Last Admin: 01/04/23 20:07 Dose: 100 mg Documented By: TRISH Labs 12/27/22 05:16 12/31/22 05:10 Procedures Date of Service Date of Service: 01/05/23 Progress Note: A&P Assessment and plan (1) Compartment syndrome: Status: Acute Plan S/P left leg fasciotomy, now awaiting closure of the wound in the lateral left thigh. I reviewed the procedure, alternatives and risks and he consents to closure of the left leg fasciotomy incision. Time Spent With Patient Time: Total time managing care of this patient today ____ minutes. Quality Stroke Does the patient have a stroke diagnosis?: No VTE Prior VTE?: No VTE Risk Level:: Medical - moderate - high VTE Device Contraindication: Treatment Not Indicated VTE Drug Contraindication: N/A - Med Ordered
[2023-01-05] MEDS: Sennosides 8.6 MG TABLET PO ×2 (09:40→21:04)
[2023-01-05] MEDS: Mag&Al/Sim/Diphenhyd/Lidocaine 10 ML ORAL.SUSP PO (09:40)
[2023-01-05] MEDS: methADONE HCl 20 MG/2 ML ORAL.CONC 30 MG PO (09:40)
[2023-01-05] MEDS: buPROPion HCl XL 300 MG TAB.ER.24H PO (09:40)
[2023-01-05] MEDS: Omeprazole 20 MG CAPSULE.DR PO (09:40)
[2023-01-05] MEDS: 0.9 % Sodium Chloride Flush 3 ML SYRINGE IVFLUSH ×3 (09:44→21:04)
[2023-01-05] MEDS: Sodium Chloride 0.65 % Nasal 44 ML SPRBTL 1 SPRAY NOSTRIL-B (11:26)
--- NOTE | 2023-01-05 11:59 | P.PNIM_ITS ---
Subjective Subjective Date of Service: 01/05/23 Interval History: offers no acute complaints good pain control last bowel movement on 01/02 is NPO for left lateral thigh wound closure, no fevers no chills, no other acute issues overnight. Review of Systems All other system reviewed and negative. Physical Exam Vital Signs: Vital Signs: Last Vital Signs Temp 97 F 01/05/23 07:56 Pulse 58 01/05/23 07:56 Resp 16 01/05/23 07:56 BP 109/64 01/05/23 07:56 Pulse Ox 98 01/05/23 07:56 O2 Del Method Room Air 01/05/23 07:56 O2 Flow Rate 2 01/02/23 13:39 BMI result Body Mass Index 21.9 Const: Other: Constitutional : A wake, alert sittin g comfortably in n o acute distress N lyn[place] : Normal inspe ction, Supple Card iovascular : RRR,n o JVP, no lower ex tremity edema Resp iratory : good stacey ateral air entry,? no crackles, whee zes or rhonchi Gas trointestinal:? so ft, Normal bowel s ounds, Non tender Skin : Warm,? woun d VAC to left lat eral thigh Neurol ogical : Alert &?o riented x3, No foc al strength defici t, better sensatio n of light, deep?a nd proprioception in LLE Psych appro priate affect Objective Data Active Medications Acetaminophen (Acetaminophen 325 Mg Tablet) 650 mg PO Q6H PRN PRN Reason: Pain, Mild (Pain Scale 1-3) Last Admin: 01/04/23 20:08 Dose: 650 mg Documented By: TRISH Albuterol Sulfate (Albuterol Sulfate (0.083%) 2.5 Mg/3 Ml Vial.Neb) 2.5 mg INHALE ONCE PRN PRN Reason: Wheezing Bisacodyl (Bisacodyl 10 Mg Supp.Rect) 10 mg [place] DAILY PRN PRN Reason: Constipation Last Admin: 12/31/22 16:38 Dose: 10 mg Documented By: LOVE Bupropion HCl (Bupropion Hcl Xl 300 Mg Tab.Er.24h) 300 mg PO DAILY [facility] Last Admin: 01/05/23 09:40 Dose: 300 mg Documented By: SADIA Docusate Sodium (Docusate Sodium 100 Mg Capsule) 100 mg PO DAILY PRN PRN Reason: Constipation Last Admin: 12/26/22 20:06 Dose: 100 mg Documented By: WINSTON Fentanyl (Fentanyl Citrate/Pf 100 Mcg/2 Ml Vial) 50 mcg IVPUSH Q5M PRN; Protocol PRN Reason: Pain, Severe (Pain Scale 7-10) Gabapentin (Gabapentin 100 Mg Capsule) 100 mg PO DAILY@1600 [facility] Last Admin: 01/04/23 16:15 Dose: 100 mg Documented By: SADIA Hydromorphone HCl (Hydromorphone Hcl 0.5 Mg/0.5 Ml Syringe) 0.5 mg IVPUSH Q5M PRN; Protocol PRN Reason: Pain, Severe (Pain Scale 7-10) Last Admin: 01/02/23 13:19 Dose: 0.5 mg Documented By: NARCISO Hydroxyzine HCl (Hydroxyzine Hcl 50 Mg Tablet) 50 mg PO BEDTIME [facility] Last Admin: 01/04/23 20:07 Dose: 50 mg Documented By: TRISH Ketorolac Tromethamine (Ketorolac Tromethamine 15 Mg/Ml Vial) 15 mg IVPUSH Q6H PRN PRN Reason: Pain, Moderate(Pain Scale 4-6) Last Admin: 01/04/23 04:11 Dose: 15 mg Documented By: GERALD Lidocaine/Diphenhydr/Alum/Mg/Simeth (Mag&Al/Sim/Diphenhyd/Lidocaine 10 Ml Oral.Susp) 10 ml PO QID [facility]; Protocol Last Admin: 01/05/23 09:40 Dose: 10 ml Documented By: SADIA Methadone HCl (Methadone Hcl 20 Mg/2 Ml Oral.Conc) 30 mg PO DAILY [facility] Last Admin: 01/05/23 09:40 Dose: 30 mg Documented By: SADIA Omeprazole (Omeprazole 20 Mg Capsule.Dr) 20 mg PO DAILY [facility] Last Admin: 01/05/23 09:40 Dose: 20 mg Documented By: SADIA Ondansetron HCl (Ondansetron Hcl 4 Mg/2 Ml Vial) 4 mg IVPUSH Q8H PRN PRN Reason: Nausea and Vomiting Last Admin: 01/01/23 20:21 Dose: 4 mg Documented By: ROBBY Ondansetron HCl (Ondansetron Hcl 4 Mg/2 Ml Vial) 4 mg IVPUSH ONCE PRN PRN Reason: Nausea and Vomiting Oxycodone HCl (Oxycodone Hcl Immed Release 5 Mg Tablet) 10 mg PO Q5H PRN PRN Reason: Pain, Moderate(Pain Scale 4-6) Last Admin: 01/05/23 11:25 Dose: 10 mg Documented By: SADIA Polyethylene Glycol (Polyethylene Glycol 3350 17 Gm Powd.Pack) 17 gm PO DAILY [facility] Last Admin: 01/05/23 09:45 Dose: Not Given Documented By: SADIA Non-Admin Reason: Physician Held Med Senna (Sennosides 8.6 Mg Tablet) 8.6 mg PO BID [facility] Last Admin: 01/05/23 09:40 Dose: 8.6 mg Documented By: SADIA Sodium Chloride (0.9 % Sodium Chloride Flush 3 Ml Syringe) 3 ml IVFLUSH QSHIFT [facility] Last Admin: 01/05/23 09:44 Dose: 3 ml Documented By: SADIA Sodium Chloride (Sodium Chloride 0.65 % Nasal 44 Ml Sprbtl) 1 spray NOSTRIL-B Q1H PRN PRN Reason: Congestion Last Admin: 01/05/23 11:26 Dose: 1 spray Documented By: SADIA Trazodone HCl (Trazodone Hcl 100 Mg Tablet) 100 mg PO BEDTIME [facility] Last Admin: 01/04/23 20:07 Dose: 100 mg Documented By: TRISH Labs 12/27/22 05:16 12/31/22 05:10 Assessment and Plan (1) Scrotal swelling: Status: Acute (2) Neurapraxia of left lower extremity: Status: Acute (3) Compartment syndrome: Status: Acute Plan 32-year-old male with past medical history of IV drug use usually uses oxycodone, now has transition to using heroin for the 1st time comes in after overdose. # Compartement syndrome 2/2 Muscle injury and hematoma POD 10 fasciotomy with significant improvement in pain and parasthesia Post Wound Vac placement D6 On chronic methadone, Oxy and Toradol as needed for pain surgery team following, is scheduled for closure of lateral thigh wound today continue NPO will decrease frequency of oxycodone to 10 mg q.5 hours as needed Continue stool softener, MiraLax once daily. # rhabdomyolysis w elevated CPK CPK trended down 1085 , encourage by mouth fluids, normal renal function. # Scrotal swelling from fluid usage and positional significantly improved s/p Lasix # apthous stomatitis continuel schedule Magic mouthwash q.i.d. # IV drug overdose recovery team following; on Methadone 30mg, will discuss DC plan with recovery team prior to discharge # Neurapraxia 2/2 compartement syndrome significant improvement and left lower extremity sensation arterial studies negative for clots # ION resolved # Anxiety Psych team evaluation appreciated, continue Wellbutrin and Trazodone, recommend outpatient follow-up with psych DVT prophylaxis SCDs patient's need continued inpatient hospital stay for further management and monitoring of left leg wounds scheduled for left leg wound closure today by General surgery. Time Spent With Patient Time: Total time managing care of this patient today ____ minutes. Quality Stroke Does the patient have a stroke diagnosis?: No VTE Prior VTE?: No VTE Risk Level:: Medical - moderate - high VTE Device Contraindication: Treatment Not Indicated VTE Drug Contraindication: N/A - Med Ordered
--- NOTE | 2023-01-05 14:00 | HO.ANESPROP2 ---
HPI - Anesthesia Eval Consult details Narrative: faciotomy left leg PMFSH Active Problems Active Problems: All Active Problems (Updated 12/28/22 @ 10:23 by Sekou Jacobs MD) Scrotal swelling (Acute) Opioid use disorder, moderate, dependence (Acute) MDD (major depressive disorder), recurrent episode, moderate (Acute) Neurapraxia of left lower extremity (Acute) Compartment syndrome (Acute) Rhabdomyolysis (Acute) Muscle injury (Acute) Elevated CPK (Acute) Drug overdose (Acute) Acute renal failure due to rhabdomyolysis (Acute) Past Medical History Medical History IV drug abuse Family History Family history of problems with anesthesia: No Surgical History Surgical History H/O fasciotomy (12/25/22) No pertinent past surgical history History of Problems with Anesthesia: No Social History Social History Household Members: Family Household Members Other:: 2 Housing: House Do you presently have visiting nurse or other home services: No Alcohol intake: current Alcohol intake frequency: does not drink Patient Tobacco Use Status: Never used Tobacco Second Hand Smoke Exposure: No Substance Use Type: Heroin and Opiates service: No Meds Allergies Allergy/AdvReac Type Severity Reaction Status Date / Time No Known Allergies Allergy Verified 12/23/22 22:38 Active Medications: Current Medications Acetaminophen (Acetaminophen 325 Mg Tablet) 650 mg PO Q6H PRN PRN Reason: Pain, Mild (Pain Scale 1-3) Last Admin: 01/04/23 20:08 Dose: 650 mg Albuterol Sulfate (Albuterol Sulfate (0.083%) 2.5 Mg/3 Ml Vial.Neb) 2.5 mg INHALE ONCE PRN PRN Reason: Wheezing Bisacodyl (Bisacodyl 10 Mg Supp.Rect) 10 mg MN DAILY PRN PRN Reason: Constipation Last Admin: 12/31/22 16:38 Dose: 10 mg Bupropion HCl (Bupropion Hcl Xl 300 Mg Tab.Er.24h) 300 mg PO DAILY VALERIE Last Admin: 01/05/23 09:40 Dose: 300 mg Docusate Sodium (Docusate Sodium 100 Mg Capsule) 100 mg PO DAILY PRN PRN Reason: Constipation Last Admin: 12/26/22 20:06 Dose: 100 mg Fentanyl (Fentanyl Citrate/Pf 100 Mcg/2 Ml Vial) 50 mcg IVPUSH Q5M PRN; Protocol PRN Reason: Pain, Severe (Pain Scale 7-10) Gabapentin (Gabapentin 100 Mg Capsule) 100 mg PO DAILY@1600 VALERIE Last Admin: 01/04/23 16:15 Dose: 100 mg Hydromorphone HCl (Hydromorphone Hcl 0.5 Mg/0.5 Ml Syringe) 0.5 mg IVPUSH Q5M PRN; Protocol PRN Reason: Pain, Severe (Pain Scale 7-10) Last Admin: 01/02/23 13:19 Dose: 0.5 mg Hydroxyzine HCl (Hydroxyzine Hcl 50 Mg Tablet) 50 mg PO BEDTIME COUNTS INCLUDE 234 BEDS AT THE [facility] Last Admin: 01/04/23 20:07 Dose: 50 mg Ketorolac Tromethamine (Ketorolac Tromethamine 15 Mg/Ml Vial) 15 mg IVPUSH Q6H PRN PRN Reason: Pain, Moderate(Pain Scale 4-6) Last Admin: 01/04/23 04:11 Dose: 15 mg Lidocaine/Diphenhydr/Alum/Mg/Simeth (Mag&Al/Sim/Diphenhyd/Lidocaine 10 Ml Oral.Susp) 10 ml PO QID COUNTS INCLUDE 234 BEDS AT THE [facility]; Protocol Last Admin: 01/05/23 09:40 Dose: 10 ml Methadone HCl (Methadone Hcl 20 Mg/2 Ml Oral.Conc) 30 mg PO DAILY COUNTS INCLUDE 234 BEDS AT THE [facility] Last Admin: 01/05/23 09:40 Dose: 30 mg Omeprazole (Omeprazole 20 Mg Capsule.Dr) 20 mg PO DAILY COUNTS INCLUDE 234 BEDS AT THE [facility] Last Admin: 01/05/23 09:40 Dose: 20 mg Ondansetron HCl (Ondansetron Hcl 4 Mg/2 Ml Vial) 4 mg IVPUSH Q8H PRN PRN Reason: Nausea and Vomiting Last Admin: 01/01/23 20:21 Dose: 4 mg Ondansetron HCl (Ondansetron Hcl 4 Mg/2 Ml Vial) 4 mg IVPUSH ONCE PRN PRN Reason: Nausea and Vomiting Oxycodone HCl (Oxycodone Hcl Immed Release 5 Mg Tablet) 10 mg PO Q5H PRN PRN Reason: Pain, Moderate(Pain Scale 4-6) Last Admin: 01/05/23 11:25 Dose: 10 mg Polyethylene Glycol (Polyethylene Glycol 3350 17 Gm Powd.Pack) 17 gm PO DAILY COUNTS INCLUDE 234 BEDS AT THE [facility] Last Admin: 01/05/23 09:45 Dose: Not Given Senna (Sennosides 8.6 Mg Tablet) 8.6 mg PO BID COUNTS INCLUDE 234 BEDS AT THE [facility] Last Admin: 01/05/23 09:40 Dose: 8.6 mg Sodium Chloride (0.9 % Sodium Chloride Flush 3 Ml Syringe) 3 ml IVFLUSH QSHIFT COUNTS INCLUDE 234 BEDS AT THE [facility] Last Admin: 01/05/23 09:44 Dose: 3 ml Sodium Chloride (Sodium Chloride 0.65 % Nasal 44 Ml Sprbtl) 1 spray NOSTRIL-B Q1H PRN PRN Reason: Congestion Last Admin: 01/05/23 11:26 Dose: 1 spray Trazodone HCl (Trazodone Hcl 100 Mg Tablet) 100 mg PO BEDTIME COUNTS INCLUDE 234 BEDS AT THE [facility] Last Admin: 01/04/23 20:07 Dose: 100 mg Home Medications Medication Instructions Recorded Confirmed Last Taken Type hydroxyzine HCl 50 mg tablet 50 mg PO BEDTIME 12/24/22 12/24/22 12/22/22 History trazodone 50 mg tablet 100 mg PO BEDTIME 12/24/22 12/24/22 12/22/22 History Exam Exam Date and Time: January 05, 2023 1400 Height,Weight and Vital Signs: Height 5 ft 11 in Weight 71.1 kg Last Vital Signs Temp 98.3 F 01/05/23 13:57 Pulse 72 01/05/23 13:57 Resp 18 01/05/23 13:57 BP 109/74 01/05/23 13:57 Pulse Ox 97 01/05/23 13:57 O2 Del Method Room Air 01/05/23 13:57 O2 Flow Rate 2 01/02/23 13:39 Pertinent Lab Results Pertinent Lab Results: Laboratory Tests 12/23/22 12/23/22 12/23/22 21:40 21:40 21:40 WBC 11.5 H RBC 2.66 L Hgb 8.4 L Hct 25.7 L MCV 96.6 MCH 31.6 MCHC 32.7 RDW 12.0 Plt Count 190 MPV 9.2 L Immature Gran % (Auto) 0.5 H Neut % (Auto) 89.0 H Lymph % (Auto) 6.0 L [place] % (Auto) 4.2 Eos % (Auto) 0.0 Baso % (Auto) 0.3 Lymph # (Auto) 0.7 L [place] # (Auto) 0.5 Eos # (Auto) 0.0 Baso # (Auto) 0.0 Abs Immat Gran (auto) 0.06 H Absolute Neuts (auto) 10.3 H Absolute Nucleated RBC 0.000 Nucleated RBC % (auto) 0.0 Sodium 144 Potassium 3.1 L Chloride 95 L Carbon Dioxide 31 H Anion Gap 21 H BUN 36 H Creatinine 1.42 H Estim Creat Clear Calc 67.9 Estimated GFR 59 POC Glucose Random Glucose 228 H Lactic Acid Lactic Acid F/U @ 2Hr Calcium 9.4 Phosphorus Iron TIBC % Saturation Unsat Iron Binding Total Bilirubin Direct Bilirubin AST ALT Alkaline Phosphatase Total Creatine Kinase 956 H Troponin I High Sens 4.0 Total Protein Albumin Vitamin B12 Folate Urine Color Urine Appearance Urine pH Ur Specific [place] Urine Protein Urine Glucose (UA) Urine Ketones Urine Blood Urine Nitrite Ur Leukocyte Esterase COVID-19 ([facility]) COVID-19 Clin Com Hepatitis A IgM Ab Hep Bs Antigen Hep Bs Antibody Hep B Core Total Ab Hepatitis C Ab (EIA) HIV 1&2 Ab/P24 Ag 4thGn 12/23/22 12/23/22 12/23/22 21:40 23:00 23:11 WBC 14.0 H RBC 4.14 L D Hgb 12.8 L D Hct 38.3 L D MCV 92.5 MCH 30.9 MCHC 33.4 RDW 12.0 Plt Count 245 D MPV 8.6 L Immature Gran % (Auto) 0.4 Neut % (Auto) 86.6 H Lymph % (Auto) 6.2 L [place] % (Auto) 6.7 Eos % (Auto) 0.0 Baso % (Auto) 0.1 Lymph # (Auto) 0.9 L [place] # (Auto) 0.9 Eos # (Auto) 0.0 Baso # (Auto) 0.0 Abs Immat Gran (auto) 0.06 H Absolute Neuts (auto) 12.1 H Absolute Nucleated RBC 0.000 Nucleated RBC % (auto) 0.0 Sodium Potassium Chloride Carbon Dioxide Anion Gap BUN Creatinine Estim Creat Clear Calc Estimated GFR POC Glucose 98 Random Glucose Lactic Acid 4.9 H* Lactic Acid F/U @ 2Hr Calcium Phosphorus Iron TIBC % Saturation Unsat Iron Binding Total Bilirubin Direct Bilirubin AST ALT Alkaline Phosphatase Total Creatine Kinase Troponin I High Sens Total Protein Albumin Vitamin B12 Folate Urine Color Urine Appearance Urine pH Ur Specific [place] Urine Protein Urine Glucose (UA) Urine Ketones Urine Blood Urine Nitrite Ur Leukocyte Esterase COVID-19 ([facility]) COVID-19 Clin Com Hepatitis A IgM Ab Hep Bs Antigen Hep Bs Antibody Hep B Core Total Ab Hepatitis C Ab (EIA) HIV 1&2 Ab/P24 Ag 4thGn 12/23/22 12/23/22 12/24/22 23:11 23:11 00:45 WBC RBC Hgb Hct MCV MCH MCHC RDW Plt Count MPV Immature Gran % (Auto) Neut % (Auto) Lymph % (Auto) [place] % (Auto) Eos % (Auto) Baso % (Auto) Lymph # (Auto) [place] # (Auto) Eos # (Auto) Baso # (Auto) Abs Immat Gran (auto) Absolute Neuts (auto) Absolute Nucleated RBC Nucleated RBC % (auto) Sodium 147 H Potassium 3.6 Chloride 96 Carbon Dioxide 38 H Anion Gap 17 BUN 37 H Creatinine 1.23 Estim Creat Clear Calc 78.5 Estimated GFR > 60 POC Glucose Random Glucose 72 Lactic Acid 2.4 H* Lactic Acid F/U @ 2Hr Calcium 9.3 Phosphorus Iron TIBC % Saturation Unsat Iron Binding Total Bilirubin Direct Bilirubin AST ALT Alkaline Phosphatase Total Creatine Kinase Troponin I High Sens Total Protein Albumin Vitamin B12 Folate Urine Color Urine Appearance Urine pH Ur Specific [place] Urine Protein Urine Glucose (UA) Urine Ketones Urine Blood Urine Nitrite Ur Leukocyte Esterase COVID-19 ([facility]) Negative COVID-19 Clin Com See Note Hepatitis A IgM Ab Hep Bs Antigen Hep Bs Antibody Hep B Core Total Ab Hepatitis C Ab (EIA) HIV 1&2 Ab/P24 Ag 4thGn 12/24/22 12/24/22 12/24/22 01:44 02:22 05:25 WBC 12.5 H RBC 3.47 L Hgb 11.1 L Hct 32.9 L MCV 94.8 MCH 32.0 MCHC 33.7 RDW 12.1 Plt Count 226 MPV 9.7 Immature Gran % (Auto) 0.4 Neut % (Auto) 86.1 H Lymph % (Auto) 8.1 L [place] % (Auto) 5.2 Eos % (Auto) 0.0 Baso % (Auto) 0.2 Lymph # (Auto) 1.0 L [place] # (Auto) 0.7 Eos # (Auto) 0.0 Baso # (Auto) 0.0 Abs Immat Gran (auto) 0.05 H Absolute Neuts (auto) 10.8 H Absolute Nucleated RBC 0.000 Nucleated RBC % (auto) 0.0 Sodium Potassium Chloride Carbon Dioxide Anion Gap BUN Creatinine Estim Creat Clear Calc Estimated GFR POC Glucose Random Glucose Lactic Acid Lactic Acid F/U @ 2Hr 2.9 H* Calcium Phosphorus Iron TIBC % Saturation Unsat Iron Binding Total Bilirubin Direct Bilirubin AST ALT Alkaline Phosphatase Total Creatine Kinase 4170 H Troponin I High Sens Total Protein Albumin Vitamin B12 Folate Urine Color Urine Appearance Urine pH Ur Specific [place] Urine Protein Urine Glucose (UA) Urine Ketones Urine Blood Urine Nitrite Ur Leukocyte Esterase COVID-19 ([facility]) COVID-19 Clin Com Hepatitis A IgM Ab Hep Bs Antigen Hep Bs Antibody Hep B Core Total Ab Hepatitis C Ab (EIA) HIV 1&2 Ab/P24 Ag 4thGn 12/24/22 12/24/22 12/25/22 05:25 05:25 08:11 WBC RBC Hgb Hct MCV MCH MCHC RDW Plt Count MPV Immature Gran % (Auto) Neut % (Auto) Lymph % (Auto) [place] % (Auto) Eos % (Auto) Baso % (Auto) Lymph # (Auto) [place] # (Auto) Eos # (Auto) Baso # (Auto) Abs Immat Gran (auto) Absolute Neuts (auto) Absolute Nucleated RBC Nucleated RBC % (auto) Sodium 141 144 Potassium 3.3 4.0 D Chloride 101 107 Carbon Dioxide 29 32 H Anion Gap 14 9 L BUN 28 H 19 H Creatinine 0.86 0.68 Estim Creat Clear Calc 112.2 159.7 Estimated GFR > 60 > 60 POC Glucose Random Glucose 83 73 Lactic Acid Lactic Acid F/U @ 2Hr Calcium 8.1 L D 8.6 D Phosphorus 2.0 L Iron TIBC % Saturation Unsat Iron Binding Total Bilirubin 0.2 Direct Bilirubin < 0.2 AST 411 H ALT 175 H Alkaline Phosphatase 47 Total Creatine Kinase 9765 H Troponin I High Sens Total Protein 5.3 L Albumin 3.0 L Vitamin B12 Folate Urine Color Urine Appearance Urine pH Ur Specific [place] Urine Protein Urine Glucose (UA) Urine Ketones Urine Blood Urine Nitrite Ur Leukocyte Esterase COVID-19 ([facility]) COVID-19 Clin Com Hepatitis A IgM Ab Hep Bs Antigen Hep Bs Antibody Hep B Core Total Ab Hepatitis C Ab (EIA) HIV 1&2 Ab/P24 Ag 4thGn 12/25/22 12/25/22 12/26/22 08:11 14:54 06:56 WBC RBC Hgb Hct MCV MCH MCHC RDW Plt Count MPV Immature Gran % (Auto) Neut % (Auto) Lymph % (Auto) [place] % (Auto) Eos % (Auto) Baso % (Auto) Lymph # (Auto) [place] # (Auto) Eos # (Auto) Baso # (Auto) Abs Immat Gran (auto) Absolute Neuts (auto) Absolute Nucleated RBC Nucleated RBC % (auto) Sodium 140 Potassium 4.3 Chloride 105 Carbon Dioxide 30 H Anion Gap 9 L BUN 17 H Creatinine 0.65 Estim Creat Clear Calc 167.1 Estimated GFR > 60 POC Glucose Random Glucose 94 Lactic Acid Lactic Acid F/U @ 2Hr Calcium 8.5 Phosphorus Iron TIBC % Saturation Unsat Iron Binding Total Bilirubin Direct Bilirubin AST ALT Alkaline Phosphatase Total Creatine Kinase 43726 H Troponin I High Sens Total Protein Albumin Vitamin B12 Folate Urine Color Yellow Urine Appearance Clear Urine pH 7.0 Ur Specific [place] 1.020 Urine Protein Negative Urine Glucose (UA) Negative Urine Ketones Negative Urine Blood Negative Urine Nitrite Negative Ur Leukocyte Esterase Negative COVID-19 ([facility]) COVID-19 Clin Com Hepatitis A IgM Ab Hep Bs Antigen Hep Bs Antibody Hep B Core Total Ab Hepatitis C Ab (EIA) HIV 1&2 Ab/P24 Ag 4thGn 12/26/22 12/26/22 12/26/22 06:56 16:18 16:18 WBC RBC Hgb Hct MCV MCH MCHC RDW Plt Count MPV Immature Gran % (Auto) Neut % (Auto) Lymph % (Auto) [place] % (Auto) Eos % (Auto) Baso % (Auto) Lymph # (Auto) [place] # (Auto) Eos # (Auto) Baso # (Auto) Abs Immat Gran (auto) Absolute Neuts (auto) Absolute Nucleated RBC Nucleated RBC % (auto) Sodium Potassium Chloride Carbon Dioxide Anion Gap BUN Creatinine Estim Creat Clear Calc Estimated GFR POC Glucose Random Glucose Lactic Acid Lactic Acid F/U @ 2Hr Calcium Phosphorus Iron 51 TIBC 240 % Saturation 21 Unsat Iron Binding 189 Total Bilirubin 0.2 Direct Bilirubin < 0.2 AST 366 H ALT 171 H Alkaline Phosphatase 40 Total Creatine Kinase 58795 H Troponin I High Sens Total Protein 5.0 L Albumin 2.9 L Vitamin B12 517 Folate 7.8 Urine Color Urine Appearance Urine pH Ur Specific [place] Urine Protein Urine Glucose (UA) Urine Ketones Urine Blood Urine Nitrite Ur Leukocyte Esterase COVID-19 ([facility]) COVID-19 Clin Com Hepatitis A IgM Ab Hep Bs Antigen Hep Bs Antibody Hep B Core Total Ab Hepatitis C Ab (EIA) HIV 1&2 Ab/P24 Ag 4thGn 12/27/22 12/27/22 12/27/22 05:16 05:16 05:16 WBC 5.1 RBC 3.37 L Hgb 10.5 L Hct 32.1 L MCV 95.3 MCH 31.2 MCHC 32.7 RDW 12.6 Plt Count 196 MPV 9.7 Immature Gran % (Auto) Neut % (Auto) Lymph % (Auto) [place] % (Auto) Eos % (Auto) Baso % (Auto) Lymph # (Auto) [place] # (Auto) Eos # (Auto) Baso # (Auto) Abs Immat Gran (auto) Absolute Neuts (auto) Absolute Nucleated RBC 0.000 Nucleated RBC % (auto) 0.0 Sodium 142 Potassium 3.5 Chloride 109 H Carbon Dioxide 28 Anion Gap 9 L BUN 17 H Creatinine 0.59 Estim Creat Clear Calc 184.1 Estimated GFR > 60 POC Glucose Random Glucose 88 Lactic Acid Lactic Acid F/U @ 2Hr Calcium 8.0 L Phosphorus Iron TIBC % Saturation Unsat Iron Binding Total Bilirubin Direct Bilirubin AST ALT Alkaline Phosphatase Total Creatine Kinase 7398 H Troponin I High Sens Total Protein Albumin Vitamin B12 Folate Urine Color Urine Appearance Urine pH Ur Specific [place] Urine Protein Urine Glucose (UA) Urine Ketones Urine Blood Urine Nitrite Ur Leukocyte Esterase COVID-19 ([facility]) COVID-19 Clin Com Hepatitis A IgM Ab Hep Bs Antigen Hep Bs Antibody Hep B Core Total Ab Hepatitis C Ab (EIA) HIV 1&2 Ab/P24 Ag 4thGn 12/27/22 12/27/22 12/28/22 13:26 13:26 08:03 WBC RBC Hgb Hct MCV MCH MCHC RDW Plt Count MPV Immature Gran % (Auto) Neut % (Auto) Lymph % (Auto) [place] % (Auto) Eos % (Auto) Baso % (Auto) Lymph # (Auto) [place] # (Auto) Eos # (Auto) Baso # (Auto) Abs Immat Gran (auto) Absolute Neuts (auto) Absolute Nucleated RBC Nucleated RBC % (auto) Sodium 141 Potassium 4.6 D Chloride 105 Carbon Dioxide 31 H Anion Gap 10 L BUN 15 Creatinine 0.64 Estim Creat Clear Calc 169.7 Estimated GFR > 60 POC Glucose Random Glucose 108 Lactic Acid Lactic Acid F/U @ 2Hr Calcium 8.4 Phosphorus Iron TIBC % Saturation Unsat Iron Binding Total Bilirubin Direct Bilirubin AST ALT Alkaline Phosphatase Total Creatine Kinase 7694 H 5261 H Troponin I High Sens Total Protein Albumin Vitamin B12 Folate Urine Color Urine Appearance Urine pH Ur Specific [place] Urine Protein Urine Glucose (UA) Urine Ketones Urine Blood Urine Nitrite Ur Leukocyte Esterase COVID-19 ([facility]) COVID-19 Clin Com Hepatitis A IgM Ab Nonreactive Hep Bs Antigen Negative Hep Bs Antibody NONREACTIVE Hep B Core Total Ab Nonreactive Hepatitis C Ab (EIA) Nonreactive HIV 1&2 Ab/P24 Ag 4thGn Nonreactive 12/29/22 12/29/22 12/30/22 05:34 05:34 05:09 WBC RBC Hgb Hct MCV MCH MCHC RDW Plt Count MPV Immature Gran % (Auto) Neut % (Auto) Lymph % (Auto) [place] % (Auto) Eos % (Auto) Baso % (Auto) Lymph # (Auto) [place] # (Auto) Eos # (Auto) Baso # (Auto) Abs Immat Gran (auto) Absolute Neuts (auto) Absolute Nucleated RBC Nucleated RBC % (auto) Sodium 140 139 Potassium 4.5 4.4 Chloride 103 101 Carbon Dioxide 32 H 33 H Anion Gap 10 L 9 L BUN 13 16 Creatinine 0.68 0.68 Estim Creat Clear Calc 159.7 159.7 Estimated GFR > 60 > 60 POC Glucose Random Glucose 77 89 Lactic Acid Lactic Acid F/U @ 2Hr Calcium 8.8 8.8 Phosphorus Iron TIBC % Saturation Unsat Iron Binding Total Bilirubin Direct Bilirubin AST ALT Alkaline Phosphatase Total Creatine Kinase 4466 H Troponin I High Sens Total Protein Albumin Vitamin B12 Folate Urine Color Urine Appearance Urine pH Ur Specific [place] Urine Protein Urine Glucose (UA) Urine Ketones Urine Blood Urine Nitrite Ur Leukocyte Esterase COVID-19 ([facility]) COVID-19 Clin Com Hepatitis A IgM Ab Hep Bs Antigen Hep Bs Antibody Hep B Core Total Ab Hepatitis C Ab (EIA) HIV 1&2 Ab/P24 Ag 4thGn 12/30/22 12/31/22 12/31/22 05:09 05:10 05:10 WBC RBC Hgb Hct MCV MCH MCHC RDW Plt Count MPV Immature Gran % (Auto) Neut % (Auto) Lymph % (Auto) [place] % (Auto) Eos % (Auto) Baso % (Auto) Lymph # (Auto) [place] # (Auto) Eos # (Auto) Baso # (Auto) Abs Immat Gran (auto) Absolute Neuts (auto) Absolute Nucleated RBC Nucleated RBC % (auto) Sodium 141 Potassium 4.5 Chloride 100 Carbon Dioxide 35 H Anion Gap 11 L BUN 16 Creatinine 0.70 Estim Creat Clear Calc 155.1 Estimated GFR > 60 POC Glucose Random Glucose 83 Lactic Acid Lactic Acid F/U @ 2Hr Calcium 9.0 Phosphorus Iron TIBC % Saturation Unsat Iron Binding Total Bilirubin Direct Bilirubin AST ALT Alkaline Phosphatase Total Creatine Kinase 3617 H 2866 H Troponin I High Sens Total Protein Albumin Vitamin B12 Folate Urine Color Urine Appearance Urine pH Ur Specific [place] Urine Protein Urine Glucose (UA) Urine Ketones Urine Blood Urine Nitrite Ur Leukocyte Esterase COVID-19 ([facility]) COVID-19 Clin Com Hepatitis A IgM Ab Hep Bs Antigen Hep Bs Antibody Hep B Core Total Ab Hepatitis C Ab (EIA) HIV 1&2 Ab/P24 Ag 4thGn 01/01/23 01/02/23 05:09 05:23 WBC RBC Hgb Hct MCV MCH MCHC RDW Plt Count MPV Immature Gran % (Auto) Neut % (Auto) Lymph % (Auto) [place] % (Auto) Eos % (Auto) Baso % (Auto) Lymph # (Auto) [place] # (Auto) Eos # (Auto) Baso # (Auto) Abs Immat Gran (auto) Absolute Neuts (auto) Absolute Nucleated RBC Nucleated RBC % (auto) Sodium Potassium Chloride Carbon Dioxide Anion Gap BUN Creatinine Estim Creat Clear Calc Estimated GFR POC Glucose Random Glucose Lactic Acid Lactic Acid F/U @ 2Hr Calcium Phosphorus Iron TIBC % Saturation Unsat Iron Binding Total Bilirubin Direct Bilirubin AST ALT Alkaline Phosphatase Total Creatine Kinase 2057 H 1085 H Troponin I High Sens Total Protein Albumin Vitamin B12 Folate Urine Color Urine Appearance Urine pH Ur Specific [place] Urine Protein Urine Glucose (UA) Urine Ketones Urine Blood Urine Nitrite Ur Leukocyte Esterase COVID-19 ([facility]) COVID-19 Clin Com Hepatitis A IgM Ab Hep Bs Antigen Hep Bs Antibody Hep B Core Total Ab Hepatitis C Ab (EIA) HIV 1&2 Ab/P24 Ag 4thGn Airway Mallampati Class: II TM Dist: >3cm Neck ROM: Full Heart: rrr Lungs: cta Assessment and Plan Assessment Anesthesia Assessment: Anesthesia Plan Discussed Final Anesthetic Review Family History of Problems with Anesthesia: No History of Problems with Anesthesia: No NPO: Yes ASA Class: III Final Preanesthetic Review: No Changes in Pt Med Stat, Meds/Allgs Chart Reviewed, Consent Obtained/Reviewed and Anes Risks/Benef Reviewed Patient Risk: Low Procedure Risk: Low Anesthetic Plan Anesthetic Plan: GA Disposition: Standard PACU
--- NOTE | 2023-01-05 15:05 | W.PM.OPN ---
Operative Note Operative Note Date of Service: 01/05/23 Narrative: Preoperative diagnosis: Left leg compartment syndrome, status post fasciotomy Postoperative diagnosis: Same Procedure: Closure of fasciotomy incision left upper leg Surgeon: Parish Costa MD Shape Brick Molder: Kimberly Barrientos PA-C Anesthesia: General LMA Indications for procedure: 32-year-old male patient with history of compartment syndrome left leg now returning for closure of fasciotomy incision Operative findings: Wounds closed and wound VAC removed Specimen: Same Estimated blood loss: 20 mL Complications: None Procedure details: Patient was brought to the OR placed in a supine position. After administering general anesthesia patient's left leg was prepped with Betadine and draped in a sterile fashion. A surgical time-out was called the consent confirmed. Patient received preoperative antibiotics. Patient previously underwent fasciotomy in the [facility] calf. The dermis was reapproximated using interrupted 3-0 Polysorb sutures. Skin was then closed using interrupted 2-0 nylon sutures. Wounds were then dressed with fluff gauze, ABD pad, and Kerlix dressing. The patient tolerated the procedure well was transferred to PACU in stable condition.
[2023-01-05] MEDS: HYDROmorphone HCl 0.5 MG/0.5 ML SYRINGE IVPUSH (15:37)
--- NOTE | 2023-01-05 15:47 | MHC.CM.PN ---
per rounds pt going to [facility] today mo dc date at this time
[2023-01-05] MEDS: HYDROmorphone HCl 1 MG/ML SYRINGE IVPUSH (17:18)
[2023-01-05] MEDS: Acetaminophen 325 MG TABLET 650 MG PO (17:19)
[2023-01-05] MEDS: Docusate Sodium 100 MG CAPSULE PO (17:20)
[2023-01-05] MEDS: Gabapentin 100 MG CAPSULE PO (17:28)
--- NOTE | 2023-01-05 20:52 | HO.ADDICTPRO ---
Subjective Subjective Date of Service: 01/05/23 Reason For Visit: OD Interim History: Patient seen briefly for follow up as he was heading to OR for closure of lateral thigh fasciotomy Patient reporting feeling good on current dose of methadone--30mg. Does not want to increase dose any further. Review of Systems Constitutional: Reports as per [facility] Mental Status Exam Mental Status Exam Patient Appearance: Appropriate Level of Consciousness: Awake and Appropriate Diagnostics Vital Signs (24Hr): Vital Signs - 24 hr 01/05/23 03:01 01/05/23 07:56 01/05/23 13:57 Temperature 97.3 F 97 F 98.3 F Pulse Rate 76 58 72 Respiratory Rate 16 16 18 Blood Pressure 106/62 109/64 109/74 Pulse Oximetry 91 L 98 97 Oxygen Delivery Method Room Air Room Air Room Air Oxygen Flow Rate 01/05/23 15:15 01/05/23 15:20 01/05/23 15:33 Temperature 98 F Pulse Rate 66 75 60 Respiratory Rate 18 18 18 Blood Pressure 121/73 113/62 113/74 Pulse Oximetry 98 98 100 Oxygen Delivery Method Room Air Room Air Room Air Oxygen Flow Rate 01/05/23 15:37 01/05/23 15:25 01/05/23 15:45 Temperature 97.4 F Pulse Rate 65 74 Respiratory Rate 18 18 18 Blood Pressure 131/71 115/68 Pulse Oximetry 98 100 Oxygen Delivery Method Room Air Nasal Cannula Oxygen Flow Rate 2 01/05/23 16:00 01/05/23 19:17 Temperature 96.9 F 97.2 F Pulse Rate 68 73 Respiratory Rate 15 16 Blood Pressure 112/64 120/70 Pulse Oximetry 97 97 Oxygen Delivery Method Nasal Cannula Room Air Oxygen Flow Rate 2 BMI result Body Mass Index 21.9 Labs 12/27/22 05:16 12/31/22 05:10 Imaging Radiology Impressions: ITS Impressions Chest X-Ray 12/24/22 01:20 IMPRESSION: No active cardiopulmonary disease. Femur CT 12/24/22 02:55 IMPRESSION: No acute osseous abnormality. There is a low-density collection along the lower anterior medial quadriceps measuring 8.4 x 4.3 x 3.4 cm possibly related to a muscular injury with hemorrhage. Duplex Scan Lower Extremity Artery 12/24/22 15:19 IMPRESSION: Patency of all visualized vasculature of the left lower extremity with triphasic waveforms throughout. Medications Medications Current Medications Acetaminophen (Acetaminophen 325 Mg Tablet) 650 mg PO Q6H PRN PRN Reason: Pain, Mild (Pain Scale 1-3) Last Admin: 01/05/23 17:19 Dose: 650 mg Bisacodyl (Bisacodyl 10 Mg Supp.Rect) 10 mg MS DAILY PRN PRN Reason: Constipation Last Admin: 12/31/22 16:38 Dose: 10 mg Bupropion HCl (Bupropion Hcl Xl 300 Mg Tab.Er.24h) 300 mg PO DAILY [facility] Last Admin: 01/05/23 09:40 Dose: 300 mg Docusate Sodium (Docusate Sodium 100 Mg Capsule) 100 mg PO DAILY PRN PRN Reason: Constipation Last Admin: 01/05/23 17:20 Dose: 100 mg Gabapentin (Gabapentin 100 Mg Capsule) 100 mg PO DAILY@1600 [facility] Last Admin: 01/05/23 17:28 Dose: 100 mg Hydroxyzine HCl (Hydroxyzine Hcl 50 Mg Tablet) 50 mg PO BEDTIME [facility] Last Admin: 01/04/23 20:07 Dose: 50 mg Ketorolac Tromethamine (Ketorolac Tromethamine 15 Mg/Ml Vial) 15 mg IVPUSH Q6H PRN PRN Reason: Pain, Moderate(Pain Scale 4-6) Last Admin: 01/04/23 04:11 Dose: 15 mg Lidocaine/Diphenhydr/Alum/Mg/Simeth (Mag&Al/Sim/Diphenhyd/Lidocaine 10 Ml Oral.Susp) 10 ml PO QID [facility]; Protocol Last Admin: 01/05/23 17:30 Dose: Not Given Methadone HCl (Methadone Hcl 20 Mg/2 Ml Oral.Conc) 30 mg PO DAILY [facility] Last Admin: 01/05/23 09:40 Dose: 30 mg Omeprazole (Omeprazole 20 Mg Capsule.Dr) 20 mg PO DAILY [facility] Last Admin: 01/05/23 09:40 Dose: 20 mg Ondansetron HCl (Ondansetron Hcl 4 Mg/2 Ml Vial) 4 mg IVPUSH Q8H PRN PRN Reason: Nausea and Vomiting Last Admin: 01/01/23 20:21 Dose: 4 mg Oxycodone HCl (Oxycodone Hcl Immed Release 5 Mg Tablet) 10 mg PO Q5H PRN PRN Reason: Pain, Moderate(Pain Scale 4-6) Last Admin: 01/05/23 18:14 Dose: 10 mg Polyethylene Glycol (Polyethylene Glycol 3350 17 Gm Powd.Pack) 17 gm PO DAILY [facility] Last Admin: 01/05/23 09:45 Dose: Not Given Senna (Sennosides 8.6 Mg Tablet) 8.6 mg PO BID [facility] Last Admin: 01/05/23 09:40 Dose: 8.6 mg Sodium Chloride (0.9 % Sodium Chloride Flush 3 Ml Syringe) 3 ml IVFLUSH QSHIFT [facility] Last Admin: 01/05/23 17:20 Dose: 3 ml Sodium Chloride (Sodium Chloride 0.65 % Nasal 44 Ml Sprbtl) 1 spray NOSTRIL-B Q1H PRN PRN Reason: Congestion Last Admin: 01/05/23 11:26 Dose: 1 spray Trazodone HCl (Trazodone Hcl 100 Mg Tablet) 100 mg PO BEDTIME [facility] Last Admin: 01/04/23 20:07 Dose: 100 mg Allergies Allergies Allergy/AdvReac Type Severity Reaction Status Date / Time No Known Allergies Allergy Verified 12/23/22 22:38 Assessment & Plan Assessment & Plan (1) Opioid use disorder, moderate, dependence: Status: Acute Code(s): F11.20 - Opioid dependence, uncomplicated Assessment and Plan: 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 RN to follow up in AM with [facility] to provide discharge date and gather intake information for family Total time managing care of this patient today __15__ minutes.
[2023-01-05] MEDS: traZODone HCL 100 MG TABLET PO (21:04)
[2023-01-05] MEDS: hydrOXYzine HCL 50 MG TABLET PO (21:04)
[2023-01-05] MEDS: Ketorolac Tromethamine 15 MG/ML VIAL IVPUSH (21:06)
[2023-01-06 04:00] VITALS: BP 109/67; PULSE 81; RESP 16; TEMP 36.6; O2SAT 94
[2023-01-06] MEDS: Acetaminophen 325 MG TABLET 650 MG PO ×2 (04:28→11:30)
[2023-01-06] MEDS: oxyCODONE HCl Immed Release 5 MG TABLET 10 MG PO ×4 (04:28→23:31)
[2023-01-06 07:15] VITALS: PULSE 88; RESP 18; TEMP 36.8
[2023-01-06 07:42] VITALS: BP 101/56; O2SAT 95
[2023-01-06] MEDS: methADONE HCl 20 MG/2 ML ORAL.CONC 30 MG PO (09:39)
[2023-01-06] MEDS: 0.9 % Sodium Chloride Flush 3 ML SYRINGE IVFLUSH ×2 (09:39→16:17)
[2023-01-06] MEDS: Mag&Al/Sim/Diphenhyd/Lidocaine 10 ML ORAL.SUSP PO ×2 (09:39→16:11)
[2023-01-06] MEDS: buPROPion HCl XL 300 MG TAB.ER.24H PO (09:40)
[2023-01-06] MEDS: Omeprazole 20 MG CAPSULE.DR PO (09:40)
[2023-01-06] MEDS: Sennosides 8.6 MG TABLET PO ×2 (09:40→21:11)
[2023-01-06] MEDS: bisacodyL 10 MG SUPP.RECT PR (09:40)
[2023-01-06] MEDS: polyethylene glycoL 3350 17 GM POWD.PACK PO (09:40)
--- NOTE | 2023-01-06 14:12 | MHC.RECOVRN ---
This writer editor received confirmation from [facility] OT that pts MTD referral had been received, confirmed pt to present 01/08/23 at main entrance office at [facility], at 9:30am to meet with Meredith Santos for intake appt. Appt card written for patient with instructions. T/W went to pts room to review instruction, pt was sleeping, t/w to return to check in when pt awake.
--- NOTE | 2023-01-06 15:01 | P.PNIM_ITS ---
Subjective Subjective Date of Service: 01/06/23 Interval History: had bowel movement this morning, has not used oxycodone in last 6 hours, complaining of burning with IV Toradol, is focused about pain medications on discharge does not want pain medications to be tapered rapidly, tolerating diet no nausea, no vomiting, no abdominal pain. Review of Systems all other system reviewed and negative Physical Exam Vital Signs: Vital Signs: Last Vital Signs Temp 98.2 F 01/06/23 07:15 Pulse 88 01/06/23 07:15 Resp 18 01/06/23 07:15 BP 101/56 L 01/06/23 07:42 Pulse Ox 95 01/06/23 07:42 O2 Del Method Room Air 01/06/23 07:42 O2 Flow Rate 2 01/05/23 16:00 BMI result Body Mass Index 21.9 Const: Other: Constitutional : Awake, alert sitting comfortably in no acute distress Neck : Normal inspection, Supple Cardiovascular : RRR,no JVP, no lower extremity edema Respiratory : good bilateral air entry,? no crackles, wheezes or rhonchi Gastrointestinal:? soft, Normal bowel sounds, Non tender Skin : left lateral thigh and left medial and lat wound left leg all closed sticthes in place Neurological : Alert &?oriented x3, No focal strength deficit, better sensation of light, deep?and proprioception in LLE Psych appropriate affect Objective Data Active Medications Acetaminophen (Acetaminophen 325 Mg Tablet) 650 mg PO Q6H PRN PRN Reason: Pain, Mild (Pain Scale 1-3) Last Admin: 01/06/23 11:30 Dose: 650 mg Documented By: COTEMA Bisacodyl (Bisacodyl 10 Mg Supp.Rect) 10 mg ME DAILY PRN PRN Reason: Constipation Last Admin: 01/06/23 09:40 Dose: 10 mg Documented By: COTEMA Bupropion HCl (Bupropion Hcl Xl 300 Mg Tab.Er.24h) 300 mg PO DAILY [facility] Last Admin: 01/06/23 09:40 Dose: 300 mg Documented By: COTEMA Docusate Sodium (Docusate Sodium 100 Mg Capsule) 100 mg PO DAILY PRN PRN Reason: Constipation Last Admin: 01/05/23 17:20 Dose: 100 mg Documented By: SADIA Gabapentin (Gabapentin 100 Mg Capsule) 100 mg PO DAILY@1600 [facility] Last Admin: 01/05/23 17:28 Dose: 100 mg Documented By: SADIA Hydroxyzine HCl (Hydroxyzine Hcl 50 Mg Tablet) 50 mg PO BEDTIME [facility] Last Admin: 01/05/23 21:04 Dose: 50 mg Documented By: HUNTER Ketorolac Tromethamine (Ketorolac Tromethamine 15 Mg/Ml Vial) 15 mg IVPUSH Q6H PRN PRN Reason: Pain, Moderate(Pain Scale 4-6) Last Admin: 01/05/23 21:06 Dose: 15 mg Documented By: HUNTER Lidocaine/Diphenhydr/Alum/Mg/Simeth (Mag&Al/Sim/Diphenhyd/Lidocaine 10 Ml Oral.Susp) 10 ml PO QID [facility]; Protocol Last Admin: 01/06/23 11:33 Dose: Not Given Documented By: ORESTESEMA Non-Admin Reason: Patient Refused Methadone HCl (Methadone Hcl 20 Mg/2 Ml Oral.Conc) 30 mg PO DAILY [facility] Last Admin: 01/06/23 09:39 Dose: 30 mg Documented By: CLAUDIA Omeprazole (Omeprazole 20 Mg Capsule.Dr) 20 mg PO DAILY [facility] Last Admin: 01/06/23 09:40 Dose: 20 mg Documented By: CLAUDIA Ondansetron HCl (Ondansetron Hcl 4 Mg/2 Ml Vial) 4 mg IVPUSH Q8H PRN PRN Reason: Nausea and Vomiting Last Admin: 01/01/23 20:21 Dose: 4 mg Documented By: ROBBY Oxycodone HCl (Oxycodone Hcl Immed Release 5 Mg Tablet) 10 mg PO Q5H PRN PRN Reason: Pain, Moderate(Pain Scale 4-6) Last Admin: 01/06/23 09:40 Dose: 10 mg Documented By: CLAUDIA Polyethylene Glycol (Polyethylene Glycol 3350 17 Gm Powd.Pack) 17 gm PO DAILY [facility] Last Admin: 01/06/23 09:40 Dose: 17 gm Documented By: ORESTESEMA Senna (Sennosides 8.6 Mg Tablet) 8.6 mg PO BID [facility] Last Admin: 01/06/23 09:40 Dose: 8.6 mg Documented By: ORESTESEMA Sodium Chloride (0.9 % Sodium Chloride Flush 3 Ml Syringe) 3 ml IVFLUSH QSHIFT [facility] Last Admin: 01/06/23 09:39 Dose: 3 ml Documented By: COTEMA Sodium Chloride (Sodium Chloride 0.65 % Nasal 44 Ml Sprbtl) 1 spray NOSTRIL-B Q1H PRN PRN Reason: Congestion Last Admin: 01/05/23 11:26 Dose: 1 spray Documented By: SADIA Trazodone HCl (Trazodone Hcl 100 Mg Tablet) 100 mg PO BEDTIME [facility] Last Admin: 01/05/23 21:04 Dose: 100 mg Documented By: HUNTER Labs 12/27/22 05:16 12/31/22 05:10 Assessment and Plan (1) Scrotal swelling: Status: Acute (2) Neurapraxia of left lower extremity: Status: Acute (3) Compartment syndrome: Status: Acute Plan 32-year-old male with past medical history of IV drug use usually uses oxycodone, now has transition to using heroin for the 1st time comes in after overdose. # Compartement syndrome 2/2 Muscle injury and hematoma POD 11 fasciotomy with significant improvement in pain and parasthesia On chronic methadone, Oxy and Toradol as needed for pain underwent closure of lateral thigh wound 01/05 will decrease frequency of oxycodone to 10 mg q.6 hours Continue stool softener, MiraLax once daily. DC plan as per General surgery spoke with patient and his family, mother wishes pain medication to be scheduled will DC IV Toradol in place on Motrin 600 mg Q 8 hours as needed, will disc harge on oxycodone 10 mg q.i.d. is scheduled times 7-10 days and then wean as per General surgery no activity restrictions as per Dr. Costa will obtain PT consult, patient has a walker at home # rhabdomyolysis w elevated CPK CPK trended down 1085 , encourage by mouth fluids, normal renal function. # Scrotal swelling from fluid usage and positional significantly improved s/p Lasix # apthous stomatitis improving, continue schedule Magic mouthwash q.i.d. # IV drug overdose recovery team following; on Methadone 30mg, recovery team will arrange for methadone outpatient # Neurapraxia 2/2 compartement syndrome significant improvement and left lower extremity sensation arterial studies negative for clots # ION resolved # Anxiety Psych team evaluation appreciated, continue Wellbutrin and Trazodone, recommend outpatient follow-up with psych DVT prophylaxis SCDs patient's need continued inpatient hospital stay for further management and monitoring of left leg wounds and safe discharge Time Spent With Patient Time: Total time managing care of this patient today ____ minutes. Quality Stroke Does the patient have a stroke diagnosis?: No VTE Prior VTE?: No VTE Risk Level:: Medical - moderate - high VTE Device Contraindication: Treatment Not Indicated VTE Drug Contraindication: N/A - Med Ordered
[2023-01-06 15:32] VITALS: BP 120/76; PULSE 72; RESP 17; TEMP 36.4; O2SAT 98
[2023-01-06] MEDS: Gabapentin 100 MG CAPSULE PO (16:11)
[2023-01-06] MEDS: Magnesium Hydrox/Alum Hydrox 30 ML ORAL.SUSP PO (16:11)
[2023-01-06] MEDS: Ibuprofen 600 MG TABLET PO (16:11)
--- NOTE | 2023-01-06 16:40 | HO.POSTANES ---
Post Anesthesia Evaluation Post Anesthesia Evaluation Date of Service: 01/06/23 Vital Signs: Vital Signs Temp Pulse Resp BP Pulse Ox O2 Del Method 01/06/23 15:32 97.5 F 72 17 120/76 98 Room Air 01/06/23 07:42 101/56 L 95 Room Air 01/06/23 07:15 98.2 F 88 18 Anesthesia: General LMA Mental Status: Awake Pain Control: Satisfactory Nausea/Vomiting: None Hydration: Adequate Anesthesia-Related Issues: No Anes. Related Issues
--- NOTE | 2023-01-06 16:47 | MHC.RECOVRN ---
In to check in on pt and provide information regarding Methadone intake on . Appt made for 9:30 morning, pt reporting this timing is a conflict with an alternate appt pt has. Pt assured the team will reach out to [facility] to arrange a different time. Pt fixated on sedation with medications, reports he takes a nap daily and expressing discontent with this. Pt educated his body likely continues to need time and rest to heal. Plan to check in with pt tomorrow.
[2023-01-06 19:19] VITALS: BP 120/80; PULSE 75; RESP 17; TEMP 36.1; O2SAT 98
[2023-01-06] MEDS: traZODone HCL 100 MG TABLET PO (21:10)
[2023-01-06] MEDS: hydrOXYzine HCL 50 MG TABLET PO (21:11)
[2023-01-07 03:29] VITALS: BP 107/57; PULSE 84; RESP 19; TEMP 36.3; O2SAT 96
[2023-01-07] MEDS: oxyCODONE HCl Immed Release 5 MG TABLET 10 MG PO ×2 (06:53→13:08)
[2023-01-07] MEDS: Ibuprofen 600 MG TABLET PO (06:53)
[2023-01-07 08:00] VITALS: BP 119/73; PULSE 65; RESP 18; TEMP 36.4; O2SAT 97
--- NOTE | 2023-01-07 08:36 | P.PNGS_ITS ---
Subjective Subjective Date of Service: 01/07/23 Interval history: Patient comfortable this morning, no new complaints. Physical Exam Vital Signs: Vital Signs: Last Vital Signs Temp 97.5 F 01/07/23 08:00 Pulse 65 01/07/23 08:00 Resp 18 01/07/23 08:00 BP 119/73 01/07/23 08:00 Pulse Ox 97 01/07/23 08:00 O2 Del Method Room Air 01/07/23 08:00 O2 Flow Rate 2 01/05/23 16:00 BMI result Body Mass Index 21.9 Const: General: comfortable Nutritional Appearance: well nourished Orientation/consciousness: patient oriented x3 Resp: Effort & Inspection: normal respiratory effort Skin: General skin exam: no rashes or lesions noted Neuro: General: patient oriented x3 Extrem: Other: left leg incisions are clean, dry and intact without redness. Small amount of discharge at the upper lateral calf incision. Objective Data Active Medications Acetaminophen (Acetaminophen 325 Mg Tablet) 650 mg PO Q6H PRN PRN Reason: Pain, Mild (Pain Scale 1-3) Last Admin: 01/06/23 11:30 Dose: 650 mg Documented By: CLAUDIA Al Hydroxide/Mg Hydroxide (Magnesium Hydrox/Alum Hydrox 30 Ml Oral.Susp) 30 ml PO Q4H PRN PRN Reason: GI Upset Last Admin: 01/06/23 16:11 Dose: 30 ml Documented By: COTEMA Bisacodyl (Bisacodyl 10 Mg Supp.Rect) 10 mg MS DAILY PRN PRN Reason: Constipation Last Admin: 01/06/23 09:40 Dose: 10 mg Documented By: COTEMA Bupropion HCl (Bupropion Hcl Xl 300 Mg Tab.Er.24h) 300 mg PO DAILY [facility] Last Admin: 01/06/23 09:40 Dose: 300 mg Documented By: ORESTESEMA Docusate Sodium (Docusate Sodium 100 Mg Capsule) 100 mg PO DAILY PRN PRN Reason: Constipation Last Admin: 01/05/23 17:20 Dose: 100 mg Documented By: SADIA Gabapentin (Gabapentin 100 Mg Capsule) 100 mg PO DAILY@1600 [facility] Last Admin: 01/06/23 16:11 Dose: 100 mg Documented By: ORESTESEMA Hydroxyzine HCl (Hydroxyzine Hcl 50 Mg Tablet) 50 mg PO BEDTIME [facility] Last Admin: 01/06/23 21:11 Dose: 50 mg Documented By: GERALD Ibuprofen (Ibuprofen 600 Mg Tablet) 600 mg PO Q8H PRN PRN Reason: Pain, Moderate(Pain Scale 4-6) Last Admin: 01/07/23 06:53 Dose: 600 mg Documented By: GERALD Lidocaine/Diphenhydr/Alum/Mg/Simeth (Mag&Al/Sim/Diphenhyd/Lidocaine 10 Ml Oral.Susp) 10 ml PO QID [facility]; Protocol Last Admin: 01/06/23 21:19 Dose: Not Given Documented By: GERALD Non-Admin Reason: Patient Refused Methadone HCl (Methadone Hcl 20 Mg/2 Ml Oral.Conc) 30 mg PO DAILY [facility] Last Admin: 01/06/23 09:39 Dose: 30 mg Documented By: CLAUDIA Omeprazole (Omeprazole 20 Mg Capsule.Dr) 20 mg PO DAILY [facility] Last Admin: 01/06/23 09:40 Dose: 20 mg Documented By: CLAUDIA Ondansetron HCl (Ondansetron Hcl 4 Mg/2 Ml Vial) 4 mg IVPUSH Q8H PRN PRN Reason: Nausea and Vomiting Last Admin: 01/01/23 20:21 Dose: 4 mg Documented By: ROBBY Oxycodone HCl (Oxycodone Hcl Immed Release 5 Mg Tablet) 10 mg PO Q6H PRN PRN Reason: Pain, Moderate(Pain Scale 4-6) Last Admin: 01/07/23 06:53 Dose: 10 mg Documented By: GERALD Polyethylene Glycol (Polyethylene Glycol 3350 17 Gm Powd.Pack) 17 gm PO DAILY [facility] Last Admin: 01/06/23 09:40 Dose: 17 gm Documented By: CLAUDIA Senna (Sennosides 8.6 Mg Tablet) 8.6 mg PO BID [facility] Last Admin: 01/06/23 21:11 Dose: 8.6 mg Documented By: GERALD Sodium Chloride (0.9 % Sodium Chloride Flush 3 Ml Syringe) 3 ml IVFLUSH QSHIFT [facility] Last Admin: 01/07/23 01:03 Dose: Not Given Documented By: GERALD Non-Admin Reason: Previously Administered Sodium Chloride (Sodium Chloride 0.65 % Nasal 44 Ml Sprbtl) 1 spray NOSTRIL-B Q1H PRN PRN Reason: Congestion Last Admin: 01/05/23 11:26 Dose: 1 spray Documented By: SADIA Trazodone HCl (Trazodone Hcl 100 Mg Tablet) 100 mg PO BEDTIME [facility] Last Admin: 01/06/23 21:10 Dose: 100 mg Documented By: GERALD Labs 12/27/22 05:16 12/31/22 05:10 Procedures Date of Service Date of Service: 01/07/23 Progress Note: A&P Assessment and plan (1) Compartment syndrome: Status: Acute Plan 32 year old male with compartment syndrome left leg, s/p fasciotomy left leg, followed by closure of skin incisions. Wounds are clean and patient is able to ambulate adequately to allow discharge today. He should follow up in the office in one week. VNA recommended for dressing changes to the left thigh wounds with ABD pad and Kerlex. Time Spent With Patient Time: Total time managing care of this patient today ____ minutes. Quality Stroke Does the patient have a stroke diagnosis?: No VTE Prior VTE?: No VTE Risk Level:: Medical - moderate - high VTE Device Contraindication: Treatment Not Indicated VTE Drug Contraindication: N/A - Med Ordered
[2023-01-07] MEDS: methADONE HCl 20 MG/2 ML ORAL.CONC 30 MG PO (08:51)
[2023-01-07] MEDS: polyethylene glycoL 3350 17 GM POWD.PACK PO (08:53)
[2023-01-07] MEDS: buPROPion HCl XL 300 MG TAB.ER.24H PO (08:53)
[2023-01-07] MEDS: Sennosides 8.6 MG TABLET PO (08:53)
[2023-01-07] MEDS: Omeprazole 20 MG CAPSULE.DR PO (08:53)
--- NOTE | 2023-01-07 12:09 | MHC.CM.PN ---
pt may be dcd today [facility] accepted pt
--- NOTE | 2023-01-07 12:58 | PM.DS ---
DS: Providers Provider Date of Service: 01/07/23 Date of admission: 12/24/22 04:55 Primary care physician: Shena Ward MD Consults: 12/24/22 04:57 Consult to General Surgery Routine Consulting Provider: [facility] [place] [place] General Surgeons Reason for consultation: compartment Has provider been notified: Yes 12/24/22 08:36 Consult to Care Team Routine Comment: Reason for consultation: patient requesting inpatient therapy for mental health concerns 12/25/22 10:13 Consult to Nephrology Routine Consulting Provider: Stevan Hubbard Reason for consultation: Elevated CPK, Edema 12/25/22 13:47 Consult to Neurology Routine Consulting Provider: [facility] [place] [place] Reason for consultation: Lower extremity numbness and loss of sensation. need of surgery interventio 12/25/22 15:56 Addiction Medicine Routine Consulting Provider: Addiction Covering Reason for consultation: Incidental OD, asking for help 12/25/22 20:13 Consult for Sitter Routine Reason for consultation: Need asuicidal ideation Has provider been notified: No Consult to Care Team Routine Comment: Reason for consultation: Suicidal ideation 12/26/22 10:30 Consult to Psychiatry Routine Consulting Provider: Psych Covering Reason for consultation: Anxieties, drug abuse, depression for eval and rec. DS: Diagnosis Discharge Diagnosis (1) Compartment syndrome: Status: Acute (2) Scrotal swelling: Status: Acute (3) Opioid use disorder, moderate, dependence: Status: Acute (4) MDD (major depressive disorder), recurrent episode, moderate: Status: Acute (5) Neurapraxia of left lower extremity: Status: Acute (6) Rhabdomyolysis: Status: Acute (7) Muscle injury: Status: Acute (8) Elevated CPK: Status: Acute (9) Drug overdose: Status: Acute (10) Acute renal failure due to rhabdomyolysis: Status: Acute DS: Summary Hospital Course Hospital Course: The patient has prolonged hospital stay. For full details please return to EMR. Admission note HPI This 32-year-old male with history of IV drug use initially was on IV oxycodone, comes into the hospital today after abusing heroin for the 1st time.? Patient is lethargic but stays awake long enough to tell me the story.? 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 After using a, he had a very strange sensation, and fell asleep in the car.? His mother ventrally called him, and he was able to wake up to tell her that he is not doing well and he was brought into the hospital.? Patient reports that he was in the back of his car for about 5 hours in the same position, he denies having any trouble breathing, no chest pain, has some nausea no vomiting, no abdominal pain, no diarrhea constipation, no urinary symptoms, but does complain of left medial upper leg swelling and pain.? He describes the pain as 10/10, radiating down his leg, associated with numbness and tingling, has difficulty wiggling his toes. on arriva to the Ed pt HDS except for a tempt of 93.3. He was placed on Marbella hugger with temp normalizing. Labs are sig for:WBC count of 16, Hgb of 8.4,? That significantly improved on repeat of labs, Cr Of 1.4, lactic acid of 4.9, CPK of 956, ?chest x-ray shows no active cardiopulmonary disease Femur CT shows low-density collection along the lower anterior medial quadriceps measuring 8.4 x 4.3 x 3.4 cm related? muscle injury with hemorrhage,? patient was evaluated? by surgery for possible in syndrome, this time there is no concern. Hospital course # Compartment syndrome 2/2 Muscle injury and hematoma. Admitted primarly for hematoma but noticed to have worsening Neurapraxia in lower extremity evaluated by neurologist who recommended urgent surgical intervention. POD 12? fasciotomy with significant improvement in pain and parasthesia. On newly prescribed methadone, Oxy and Toradol as needed for pain. underwent closure of lateral thigh wound? 01/05, other wounds closed earlier with good healing. Pain controlled with Morhpine, Oxy and Toradol. will be discharged on Oxycodone, Ibuprofen and tyelnol with a plan to follow with Dr. Costa. PT evaluated the patient and he will be followed at home with [facility]. #? ION secondary to rhabdomyolysis Developed acute kidney injury that resolved with IV fluids as CPK trended down 1085 , encourage by mouth fluids, normal renal function. # Scrotal swelling from fluid usage and positional significantly improved s/p? Lasix # apthous stomatitis? improved with schedule Magic mouthwash q.i.d. # IV drug overdose Presented with overdose. recovery team following; on Methadone 30mg,? recovery team? will arrange for methadone outpatient and follow up. # Neurapraxia 2/2 compartement syndrome significant improvement and left lower extremity sensation arterial studies negative for clots # Anxiety? Psych team evaluation appreciated, continue Wellbutrin and Trazodone, recommend outpatient follow-up with psych with dr Villanueva. Continue physical therapy as tolerated, have rest and elevate your legs, no prolonged standing. Oxycodone as needed for pain every 6-8 hours, decrease over the next week Tylenol and Ibuprofen 600 mg as needed Bupropion 300mg daily, Gabapentin 100mg daily, follow with psychiatry as outpatient with dr Villanueva. To follow with dr Costa as outpatient in 1 week for wound check Follow with PCP within 1-2 weeks for post hospitalization visit Time Spent with Patient Time attestation: Total time managing care of this patient today ____ minutes. Discharge coordination time: Greater than 30 minutes Quality: Safe Use of Opioids Does Pt have an Active Cancer Diagnosis on the Problem List?: No Quality: Stroke Does the patient have a stroke diagnosis?: No Physical Exam Vital Signs: Vital Signs: Last Vital Signs Temp 97.5 F 01/07/23 08:00 Pulse 65 01/07/23 08:00 Resp 18 01/07/23 08:00 BP 119/73 01/07/23 08:00 Pulse Ox 97 01/07/23 08:00 O2 Del Method Room Air 01/07/23 08:00 O2 Flow Rate 2 01/05/23 16:00 BMI result Body Mass Index 21.9 Const: Other: Constitutional : Awake, interactive, not in distress Neck : Normal inspection, Supple Cardiovascular : RRR, no JVP, no lower extremity edema, decrease scrotal edema Respiratory : good bilateral air entry, no crackles, wheezes or rhonchi Gastrointestinal: soft, lax, Normal bowel sounds, Non tender Skin : Warm, Dry, surgical wounds clean , thigh wound covered with dressing. no more tenderness Neurological : Alert & oriented x3, No focal strength deficit, better sensation of light, deep and proprioception in LLE DS: Data Imaging CT scan - abdomen: Radiologist's impression: ITS Impressions Chest X-Ray 12/24/22 01:20 IMPRESSION: No active cardiopulmonary disease. Femur CT 12/24/22 02:55 IMPRESSION: No acute osseous abnormality. There is a low-density collection along the lower anterior medial quadriceps measuring 8.4 x 4.3 x 3.4 cm possibly related to a muscular injury with hemorrhage. Duplex Scan Lower Extremity Artery 12/24/22 15:19 IMPRESSION: Patency of all visualized vasculature of the left lower extremity with triphasic waveforms throughout. Discharge Plan Discharge Anticipated Discharge Date/Time: 01/07/23 12:32 Patient Disposition: Home Health Service Discharge Diagnosis: Compartment syndrome Muscle injury Acute kidney injury Referrals: alexander cueva [Other] - 1 Week Parish Costa MD [Physician] - 1 Week Shena Ward MD [Primary Care Provider] - 1 Week Discharge Medications: New polyethylene glycol 3350 17 gram Powder In Packet 17 g PO DAILY Qty: 30 0RF gabapentin 100 mg Capsule 100 mg PO DAILY@1600 Qty: 30 0RF oxycodone 5 mg Tablet 10 mg PO Q6-8H PRN (Reason: Pain, Moderate(Pain Scale 4-6)) Qty: 30 0RF Rx Instructions: Partial Fill upon patient request. bupropion HCl 300 mg Tablet Extended Release 24 Hr 300 mg PO DAILY Qty: 30 0RF Continued trazodone 50 mg Tablet 100 mg PO BEDTIME hydroxyzine HCl 50 mg Tablet 50 mg PO BEDTIME Discharge Orders: Discharge Order (Routine); Ordered 01/07/23 Ordered By: Sekou Jacobs Diet: Advance to usual diet Activity on Discharge: May ambulate, but no prolonged standing. Keep legs elevated when sitting Stand Alone Forms: Patient Portal Discharge page Care Plan Goals: Read below Health Concerns: Read below Plan of Treatment: Read below Assessment: You were admitted to the hospital after an incident of overdose. found to have muscle injury complicated with compartment syndrome and kidney injury requiring surgical interventions with good outcome as kidney, liver functions improved back to baseline. Evaluated by addiction team who started you on Methadone and psychiatry team who start Bupropion with good tolerance. Continue physical therapy as tolerated, have rest and elevate your legs, no prolonged standing. Oxycodone as needed for pain every 6-8 hours, decrease over the next week Tylenol and Ibuprofen 600 mg as needed Bupropion 300mg daily, Gabapentin 100mg daily, follow with psychiatry as outpatient. To follow with dr Costa as outpatient in 1 week for wound check Follow with PCP within 1-2 weeks for post hospitalization visit Discharge Date/Time: 01/07/23 14:33
[2023-01-07] MEDS: Acetaminophen 325 MG TABLET 650 MG PO (13:09)
--- NOTE | 2023-01-07 13:58 | P.F2F_ITS ---
Service Date Service Date: 01/07/23 Encounter Date of encounter: 01/07/23 Reasons for Services Signs and symptoms assessed: Surgical wounds Reason for mcfp: wound care and teach disease management Homebound: Leaving the home is medically contraindicated at this time without the asist of a device and/or another person due th the listed conditions above and below. Reason homebound: other Certification: Based on the above findings, I certify that this patient is confined to the home and needs intermittent mcfp care, physical therapy and/or speech therapy, or continues to need occupational therapy. The patient is under my care, and I have initiated the establishment of the plan of care. The patient will be followed by a physician who will periodically review the plan of care. Time Spent With Patient Time: Total time managing care of this patient today ____ minutes.
--- NOTE | 2023-01-07 14:19 | MHC.RECOVRN ---
This literary writer met with patient and family, resources provided related to supports in the community. Last dose letter given. Pt verbalized understanding.
== END 2023-01-07 14:33 | disposition home health service (06) | DRG 951 ==
LOC: HO.ED 12-24 02:03 → HO.EDOVER 12-24 04:59 → HO.S3 12-24 17:06
PROVIDERS: Emergency Medicine; Surgery; Admitting Provider Internal Medicine; Emergency Provider Internal Medicine; PCP Internal Medicine; Visit Provider Student in an Organized Health Care Education/Training Program
PROC: 0KNR0ZZ Release Left Upper Leg Muscle, Open Approach (ICD-10-PCS; principal; 2022-12-25 16:10)
PROC: 0HQLXZZ Repair Left Lower Leg Skin, External Approach (ICD-10-PCS; principal; 2022-12-31 08:40)
PROC: 0HQJXZZ Repair Left Upper Leg Skin, External Approach (ICD-10-PCS; principal; 2023-01-05 14:10)
DX: T40.1X1A Poisoning by heroin, accidental (unintentional), initial encounter (principal); N17.9 Acute kidney failure, unspecified; E87.21 Acute metabolic acidosis; M79.A22 Nontraumatic compartment syndrome of left lower extremity; M62.82 Rhabdomyolysis; F11.20 Opioid dependence, uncomplicated; F33.1 Major depressive disorder, recurrent, moderate; K12.0 Recurrent oral aphthae; M79.81 Nontraumatic hematoma of soft tissue; E87.70 Fluid overload, unspecified; N50.89 Other specified disorders of the male genital organs; E86.0 Dehydration; R68.0 Hypothermia, not associated with low environmental temperature; F41.9 Anxiety disorder, unspecified; Z20.822 Contact with and (suspected) exposure to COVID-19; Z79.899 Other long term (current) drug therapy
CPT/HCPCS: 36415; 71045; 73701; 80048; 80076; 81003; 82550; 82607; 82746; 82947; 83540; 83605; 84100; 84484; 85025; 85027; 86704; 86706; 86709; 86803; 87040; 87340; 87389; 87635; 93005; 93926; 97110; 97116; 97162; 97530; 99285; J0131; J0690; J0696; J1100; J1170; J1885; J1940; J2212; J2250; J2270; J2371; J2405; J2765; J2795; J3010; J3371; Q9967

== ENCOUNTER → 2022-12-23 21:30 | Outpatient (BNV) | payer BC, SELFPAY | PROVIDERS: Admitting Provider Internal Medicine; Emergency Provider Internal Medicine; Visit Provider Internal Medicine Cardiovascular Disease | DX: I49.9 Cardiac arrhythmia, unspecified (principal) | CPT/HCPCS: 93010 ==

== ENCOUNTER → 2022-12-24 04:55 | Outpatient (BNV) | payer BC, SELFPAY | PROVIDERS: Admitting Provider Internal Medicine; Emergency Provider Internal Medicine; Visit Provider Social Worker | DX: F11.20 Opioid dependence, uncomplicated (principal) | CPT/HCPCS: 99231; 99232; 99499 ==

== ENCOUNTER → 2022-12-24 04:55 | Outpatient (BNV) | payer BC, SELFPAY | PROVIDERS: Admitting Provider Internal Medicine; Emergency Provider Internal Medicine; Visit Provider Internal Medicine | DX: N50.89 Other specified disorders of the male genital organs (principal); S84.92XA Injury of unspecified nerve at lower leg level, left leg, initial encounter; T79.A0XA Compartment syndrome, unspecified, initial encounter | CPT/HCPCS: 99223; 99232; 99233; 99239; 99499 ==

== ENCOUNTER → 2022-12-24 04:55 | Outpatient (BNV) | payer BC, SELFPAY | PROVIDERS: Admitting Provider Internal Medicine; Emergency Provider Internal Medicine; Visit Provider Surgery | DX: T14.90XA Injury, unspecified, initial encounter (principal); R74.8 Abnormal levels of other serum enzymes | CPT/HCPCS: 13160; 27305; 27602; 99024; 99232 ==

== ENCOUNTER 2023-01-16 10:56 | Outpatient (AMB) | payer BC, SELFPAY ==
--- NOTE | 2023-01-16 10:59 | MHC.OFFVIS ---
Intake Vital Signs 01/16/23 11:25 Height 5 ft 11 in Weight 150 lb BMI 20.9 BP 99/55 L Blood Pressure Location Lt brachial Position Sitting Pulse 61 Intake Visit Reasons: post closure of fasciotomy incision left upper leg Intake Note: Patient is seen in office for post op assessment post closure of fasciotomy incision of left upper leg. Patient c/o: admits to redness and swelling Sap Director Required: No Accompanied by: Family/Other Allergies No Known Allergies Allergy (Verified 12/23/22 22:38) Medication List - Last Reconciled 01/16/23 by Parish Costa MD bupropion HCl 300 mg PO DAILY gabapentin 100 mg PO DAILY@1600 hydroxyzine HCl 50 mg PO BEDTIME oxycodone 5 mg PO Q6-8H PRN polyethylene glycol 3350 17 grams PO DAILY trazodone 100 mg PO BEDTIME HPI HPI Comments History of Present Illness Details Patient returns following left leg fasciotomy for compartment syndrome. He has some swelling in the lower extremity but has been ambulating with the walker. He has been gradually decreasing his pain medications and now takes 1 every 5 hours during the day. He reports good sensation in the foot. [facility] Medical History (Updated 01/15/23 @ 00:03 by Maddy Sanchez) IV drug abuse MDD (major depressive disorder), recurrent episode, moderate Opioid use disorder, moderate, dependence Surgical History H/O fasciotomy (12/25/22) Hx of surgical procedure (01/05/23) No pertinent past surgical history Social History Household Members: Family Household Members Other:: 2 Housing: House Do you presently have visiting nurse or other home services: No Alcohol intake: current Alcohol intake frequency: does not drink Patient Tobacco Use Status: Never used Tobacco Second Hand Smoke Exposure: No Substance Use Type: Heroin and Opiates service: No Physical Exam Vital Signs: Last Vital Signs Pulse 61 01/16/23 11:25 BP 99/55 L 01/16/23 11:25 BMI result Body Mass Index 20.9 Extrem Other: Left lower extremity wounds revealed intact incisions without discharge. Discharge is noted on the upper incision the sutures pulling at the lower pole. There is edema 1+ at the foot. The sutures in the calf were removed and wounds dressed with a 6 in Axel bandage for compression. Assessment & Plan Assessment & Plan (1) H/O fasciotomy: Onset Date: 12/25/22 Comment: Left leg upper and lower leg. Code(s): Z98.890 - Other specified postprocedural states (2) Compartment syndrome: Code(s): T79.A0XA - Compartment syndrome, unspecified, initial encounter Plan Will continue with Axel bandage for compression. Patient should avoid prolonged standing but ambulation is okay. He will return in 1 week to remove the remaining sutures. Coding Level of Care Code Global (94255) Diagnoses H/O fasciotomy Z98.890 Compartment syndrome T79.A0XA
[2023-01-16 11:25] VITALS: BP 99/55; PULSE 61; BMI 20.9
== END 2023-01-16 11:36 | disposition home or self-care (01) ==
PROVIDERS: PCP Internal Medicine; Visit Provider Surgery
DX: Z98.890 Other specified postprocedural states (principal); T79.A0XA Compartment syndrome, unspecified, initial encounter
CPT/HCPCS: 99024

== ENCOUNTER → 2023-01-16 10:56 | Outpatient (BNVA) | payer BC, SELFPAY | PROVIDERS: PCP Internal Medicine; Visit Provider Surgery ==

== ENCOUNTER 2023-01-23 10:11 | Outpatient (AMB) | payer BC, SELFPAY ==
--- NOTE | 2023-01-23 10:12 | A.OFFVIS_ITS ---
Intake Vital Signs 01/23/23 10:25 Height 5 ft 11 in Weight 146 lb BMI 20.4 BP 116/69 Blood Pressure Location Lt brachial Position Sitting Pulse 71 Intake Visit Reasons: post closure of fasciotomy incision left upper leg Intake Note: Patient is seen in office for one week follow up visit, post closure fasciotomy of the left upper leg. Patient c/o: denies any concerns here for suture removal Senior Internet Sales Consultant Required: No Accompanied by: Family/Other Allergies No Known Allergies Allergy (Verified 01/23/23 10:25) Medication List - Last Reconciled 01/23/23 by Parish Costa MD bupropion HCl 300 mg PO DAILY gabapentin 100 mg PO DAILY@1600 hydroxyzine HCl 50 mg PO BEDTIME oxycodone 5 mg PO Q6-8H PRN polyethylene glycol 3350 17 grams PO DAILY trazodone 100 mg PO BEDTIME HPI HPI Comments History of Present Illness Details Patient returns for suture removal of the remaining sutures of the lateral thigh wounds. Overall feels much improved with decreased edema in the left leg. He has been wearing compression stockings which have helped significantly. The ambulating well using only a cane now. He reports a small amount of serous discharge from the medial incision but otherwise is doing well. [facility] Medical History Opioid use disorder, moderate, dependence MDD (major depressive disorder), recurrent episode, moderate IV drug abuse Surgical History H/O fasciotomy (12/25/22) Hx of surgical procedure (01/05/23) No pertinent past surgical history Social History Household Members: Family Household Members Other:: 2 Housing: House Do you presently have visiting nurse or other home services: No Alcohol intake: current Alcohol intake frequency: does not drink Patient Tobacco Use Status: Never used Tobacco Second Hand Smoke Exposure: No Substance Use Type: Heroin and Opiates service: No Physical Exam Const General: cooperative and no acute distress Resp Effort & Inspection: normal respiratory effort Extrem Other: Left leg wounds: Calf wounds are clean and intact. There is a small amount of serous discharge noted in the lower wound possibly from underlying Polysorb suture. The remaining wound is clean and intact. Lateral thigh wound is clean and intact. Remaining sutures removed and wounds found to be well healed. Assessment & Plan Assessment & Plan (1) H/O fasciotomy: Onset Date: 12/25/22 Comment: Left leg upper and lower leg. Code(s): Z98.890 - Other specified postprocedural states Plan Patient returns for follow-up wound examination. The wounds are clean and intact. The remaining sutures removed today. Will follow-up next week for a final postoperative visit. Coding Level of Care Code Global (74992) Diagnoses H/O fasciotomy Z98.890
[2023-01-23 10:25] VITALS: BP 116/69; PULSE 71; BMI 20.4
== END 2023-01-23 10:26 | disposition home or self-care (01) ==
PROVIDERS: PCP Internal Medicine; Visit Provider Surgery
DX: Z98.890 Other specified postprocedural states (principal)
CPT/HCPCS: 99024

== ENCOUNTER → 2023-01-23 10:11 | Outpatient (BNVA) | payer BC, SELFPAY | PROVIDERS: PCP Internal Medicine; Visit Provider Surgery ==